=== PATIENT | female | born 1950 | race Caucasian/White ===

== ENCOUNTER → 2016-12-14 | Outpatient (CLI) | payer MEDICARE ==
--- NOTE | 2016-12-15 08:00 | MM ---
Reason for exam: screening (asymptomatic). Last mammogram was performed 1 year and 5 months ago. History: Patient is postmenopausal. Family history of breast cancer in maternal aunt at age 60, breast cancer in maternal cousin at age 18, breast cancer in aunt, and breast cancer in sister at age 54. Benign left mammotome panel of the left breast, October 06, 2005. Benign stereotactic core biopsy of the left breast, August 21, 2001. Core biopsy of the left breast. Physical Findings: A clinical breast exam by your physician is recommended on an annual basis and results should be correlated with mammographic findings. MG 3D Screening Mammo W/Cad Bilateral CC and MLO view(s) were taken. Prior study comparison: July 14, 2015, bilateral MG diagnostic mammo w CAD ITZEL. August 17, 2012, bilateral digital screening mammo w/CAD. The breast tissue is heterogeneously dense. This may lower the sensitivity of mammography. Previous mammotome biopsy in the left breast x 2. No significant changes when compared with prior studies. ASSESSMENT: Benign, BI-RAD 2 RECOMMENDATION: Routine screening mammogram of both breasts in 1 year.
== END | disposition home or self-care (01) ==
LOC: RADMAMWWP 10:19
PROVIDERS: ATTEND Family Medicine
DX: Z12.31 Encounter for screening mammogram for malignant neoplasm of breast (principal)
CPT/HCPCS: 77063; G0202

== ENCOUNTER → 2017-02-14 | Outpatient (CLI) | payer MEDICARE ==
--- NOTE | 2017-02-14 12:45 | CT ---
EXAMINATION TYPE: CT abdomen pelvis wo con DATE OF EXAM: 02/14/2017 12:37 PM COMPARISON: 04/12/2016 HISTORY: Bilateral flank pain with Left sided groin pain CT DLP: 301.4 mGycm FINDINGS: LUNG BASES: No evidence for nodule. No evidence for infiltrate. LIVER/GB: The gallbladder is unremarkable. No space-occupying hepatic lesion. PANCREAS: No pancreatic mass identified. No inflammatory process seen. SPLEEN: No evidence for splenomegaly. No intrasplenic lesions seen. ADRENALS: No adrenal nodules identified. No evidence for thickening. KIDNEYS: No evidence for renal mass. No nephrolithiasis. No hydronephrosis. BOWEL: Appendix has a normal appearance. No evidence of bowel obstruction. No inflammatory process. S igmoid diverticulosis without diverticulitis. Lymph nodes: No evidence for adenopathy greater than 1 cm. Abdominal aorta: Atheromatous changes seen. No evidence for aneurysm. Genital organs: No significant abnormality. Other: No significant abnormality. IMPRESSION: 1. NO EVIDENCE FOR RENAL CALCULI OR HYDRONEPHROSIS. 2. SIGMOID DIVERTICULOSIS WITHOUT DIVERTICULITIS.
== END | disposition home or self-care (01) ==
LOC: RADCTMAIN 12:17
PROVIDERS: ATTEND Family Medicine
DX: K57.30 Diverticulosis of large intestine without perforation or abscess without bleeding (principal)
CPT/HCPCS: 74176

== ENCOUNTER 2017-03-07 08:11 | Day surgery (SDC) | payer MEDICARE ==
[~2017-03-07 08:11] MED LIST: LACTATED RINGERS 1,000 ML IV SCH
[2017-03-07 09:09] VITALS: RESP 16; TEMP 97.3
[2017-03-07] MEDS ORDERED: PROPOFOL 10 MG/ML 20 ML VIAL IV ONE (09:49)
[2017-03-07] MEDS ORDERED: LIDOCAINE 1% INJ 10MG/ML (20 ML MDV) ONE (09:49)
--- NOTE | 2017-03-07 10:38 | P.PCN ---
Date of Procedure: 03/07/17 Procedure(s) Performed: Procedure: 1. Esophagogastroduodenoscopy and biopsy. 2. Colonoscopy and biopsy. Preoperative diagnosis: Chronic acid reflux with epigastric and atypical chest pains. 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 Postoperative diagnosis: 1. Small sliding hiatal hernia with no obvious esophagitis or complicated reflux disease. 2. 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 3. Diverticulosis with no evidence of acute diverticulitis or strictures. 4. Few small pseudopolyps on right side but no evidence of active colitis. 5. Unable to intubate the ileocecal valve and examine the terminal ileum.. Preparation: HalfLytely prep. Sedation: Was provided by anesthesia. Brief clinical history: The patient is a 66-year-old female who was diagnosed with colitis in 2009 and who also has chronic gastroesophageal reflux disease with her last evaluation in 2014. The patient was in the emergency room last month for epigastric pain and atypical chest pains while on therapy. She has also been having issues with diarrhea and is currently on Humira. I scheduled these evaluations today to assess the degree of her esophagitis and guide therapy and rule out other pathology, and also to reassess her colitis and attempt to examine the terminal ileum as well. Procedure: With the patient on her left lateral decubitus position and after informed consent and adequate sedation, I passed the Olympus-GIF 160 video upper endoscope through the cricopharyngeus down the esophagus. GE junction was around 35 cm from the incisors and there was a small sliding hiatal hernia. The esophagus did not show any obvious esophagitis or any strictures or Viramontes's esophagus. The endoscope was then passed into the gastric remnant. The patient had prior partial gastric resection. The gastric remnant showed mottling and erythema but there were few linear erosions. No marginal ulcers or obstruction to the outlet. The small intestine was examined for a good distance and it appeared within normal limits. I obtained biopsies from the small intestine, gastric remnant and esophagus then the endoscope was withdrawn and I then proceeded with the colonoscopy. Perianal area did not show any fissures or fistulas. There were no masses felt on digital rectal examination. The Olympus CFQ 160L video colonoscope was then inserted in the rectum in the usual fashion and advanced to the cecum. I tried unsuccessfully to intubate the ileocecal valve.There were several diverticular orifices seen scattered in the sigmoid and left side with few around the hepatic flexure but no evidence of acute diverticulitis or strictures. On the right side there were small regenerative pseudopolyps as previously described but no evidence of active colitis endoscopically. I obtained random colon. I retroflexed the endoscope in the rectum then the endoscope was withdrawn. The patient tolerated the procedure well. Plan: We will await pathology results. I will see her in follow-up and make additional recommendations. She will follow-up with you as planned and I will keep you updated on her progress.
[2017-03-07 10:49] VITALS: BP 140/73; PULSE 76
== END 2017-03-07 11:06 | disposition home or self-care (01) ==
LOC: ORWHC2ENDO 08:11
DX: K52.89 Other specified noninfective gastroenteritis and colitis (principal); K29.50 Unspecified chronic gastritis without bleeding; K21.0 Gastro-esophageal reflux disease with esophagitis; K44.9 Diaphragmatic hernia without obstruction or gangrene; K52.9 Noninfective gastroenteritis and colitis, unspecified; K57.30 Diverticulosis of large intestine without perforation or abscess without bleeding; Z90.3 Acquired absence of stomach [part of]; I10 Essential (primary) hypertension; E78.5 Hyperlipidemia, unspecified; Z79.899 Other long term (current) drug therapy; Z88.2 Allergy status to sulfonamides; Z88.8 Allergy status to other drugs, medicaments and biological substances; Z88.1 Allergy status to other antibiotic agents; Z91.040 Latex allergy status
CPT/HCPCS: 88305; 88342; 45380; 43239; J2001; J2704

== ENCOUNTER → 2017-04-07 | Outpatient (CLI) | payer MEDICARE ==
--- NOTE | 2017-04-07 11:59 | CT ---
EXAMINATION TYPE: CT sinus wo con DATE OF EXAM: 04/07/2017 COMPARISON: CT facial bones July 30, 2013 HISTORY: Chronic sinusitis per order. Headaches with vision changes, dizziness, and pain in ears on a nd off for [address] DLP: 584 mGycm. Automated Exposure Control for Dose Reduction was Utilized. TECHNIQUE: CT scan of the sinuses is performed without contrast, axial images are obtained, coronal r eformatted images are also reviewed. FINDINGS: There is severe mucosal thickening involving left sphenoid sinus redemonstrated. There is p oorly pneumatized ethmoid sinuses bilaterally redemonstrated with mild to moderate mucosal thickening again seen. There are small caliber frontal sinuses with opacified left frontal or anterior ethmoid sinus near axial image 36 noted. The ostiomeatal complex is patent bilaterally, slightly more narrowe d on the left on coronal image 23. Prior sinus surgery is once again suspected. Visualized portion of mastoid air cells show no abnormal opacification. Scleral calcification both gl obes are noted there is degenerative change with joint space loss and flattening of mandibular condyl es bilaterally at temporal mandibular joints redemonstrated. Visualized portion of brain parenchyma i s unremarkable. IMPRESSION: Ostiomeatal complex is patent bilaterally on current study. There are chronic paranasal s inus changes redemonstrated. New opacity anterior left ethmoid sinus is noted. Bilateral TMJ arthropa thy is present.
== END | disposition home or self-care (01) ==
LOC: RADCTMAIN 10:53
PROVIDERS: ATTEND Otolaryngology
DX: J32.2 Chronic ethmoidal sinusitis (principal); M26.69 Other specified disorders of temporomandibular joint
CPT/HCPCS: 70486

== ENCOUNTER 2017-08-11 07:55 | Inpatient (IN) | payer MEDICARE ==
[2017-08-11] MEDS ORDERED: HYDROmorphone 1 MG/ML 1 ML SYRINGE IVP STA ×2 (08:28→10:42)
[2017-08-11] MEDS ORDERED: ONDANSETRON 4 MG/2 ML VIAL IVP STA (08:28)
[2017-08-11] MEDS ORDERED: SODIUM CHLORIDE 0.9% 500 ML IV STA (08:28)
[2017-08-11] MEDS ORDERED: SODIUM CHLORIDE 0.9% 1,000 ML IV STA (08:28)
--- NOTE | 2017-08-11 08:32 | ED ---
General Adult HPI - General Source: patient, RN notes reviewed Mode of arrival: wheelchair Limitations: no limitations <Adan Cervantes - Last Filed: 08/11/17 10:47> <Kei Ely - Last Filed: 08/11/17 15:34> - General Chief complaint: Abdominal Pain Stated complaint: abdominal pain, lower radiating up to right side Time Seen by Provider: 08/11/17 08:15 - History of Present Illness Initial comments: 66-year-old female significant past medical history for colitis, who presents emergency room with chief complaint of lower abdominal pain and some diarrhea that started last night. She denies any signs of blood. She does admit the pain seemed to localize more to the right side of the abdomen and radiate up and she felt to the back for clavicle. She states she called her daughter who is a nurse she was concerned there could be heart related. Patient admits that she still having discomfort in the abdomen currently rating it a 9/10. Patient denies any other complaints or symptoms currently. He does admit that she's had cough congestion over the last week currently on a antibiotic and steroid. She admits this is improving. Patient denies any recent fever, chills, shortness of breath, chest pain, numbness or tingling, dysuria or hematuria, constipation or diarrhea, headaches or visual changes, or any other complaints. (Adan Cervantes) - Related Data Home Medications Medication Instructions Recorded Confirmed Acetaminophen-Codeine 300-30mg 1 tab PO Q8H PRN 08/02/14 08/11/17 [Tylenol w/codeine #3] Aspirin/Caffeine [Anacin 400-32 mg 1 tab PO Q6HR PRN 08/02/14 08/11/17 Tablet] Fexofenadine HCl [Barby Allergy] 180 mg PO DAILY 08/02/14 08/11/17 Fluticasone Propionate [Flonase] 1 spray EA NOSTRIL BID 08/02/14 08/11/17 Losartan [Cozaar] 50 mg PO BID 08/02/14 08/11/17 Sucralfate [Carafate] 1 gm PO AC-TID 08/02/14 08/11/17 amLODIPine [Norvasc] 10 mg PO HS 08/02/14 08/11/17 cloNIDine HCL [Catapres] 0.05 mg PO HS 08/02/14 08/11/17 Adalimumab [Humira] 40 mg SQ Q8D 05/08/16 08/11/17 Ketotifen Fumarate [Zaditor] 1 drop BOTH EYES BID 03/03/17 08/11/17 Lansoprazole [Prevacid] 30 mg PO QAM 03/03/17 08/11/17 Aspirin 650 mg PO ONCE 08/11/17 08/11/17 Clarithromycin [Biaxin] 500 mg PO Q12HR 08/11/17 08/11/17 Dexamethasone 0 mg PO DIRECTED 08/11/17 08/11/17 Latanoprost Ophth [Xalatan 0.005%] 1 drops BOTH EYES HS 08/11/17 08/11/17 Allergies Allergy/AdvReac Type Severity Reaction Status Date / Time atorvastatin [From Lipitor] Allergy Swelling Verified 08/11/17 08:21 cefuroxime axetil Allergy SEVERE Verified 08/11/17 08:21 [From Ceftin] HEADACHE doxazosin mesylate Allergy Rash/Hives Verified 08/11/17 08:21 [From Cardura] doxycycline Allergy Nausea & Verified 08/11/17 08:21 Vomiting,HEADACHE duloxetine [From Cymbalta] Allergy Abdominal Verified 08/11/17 08:04 Pain, ROQUE gatifloxacin [From Tequin] Allergy Abdominal Verified 08/11/17 08:21 Pain,VOMITING hydralazine [Hydralazine] Allergy Rapid Verified 08/11/17 08:21 Heart Rate hydrochlorothiazide Allergy Nausea & Verified 08/11/17 08:21 Vomiting indapamide [From Lozol] Allergy Abdominal Verified 08/11/17 08:21 Pain latex Allergy Rash/Hives Verified 08/11/17 08:21 lisinopril Allergy VERTIGO,HEA Verified 08/11/17 08:21 DACHE nabumetone [From Relafen] Allergy Abdominal Verified 08/11/17 08:21 Pain sulfasalazine Allergy Abdominal Verified 08/11/17 08:21 [From Azulfidine] Pain,VOMITING triamcinolone acetonide Allergy SEVERE Verified 08/11/17 08:21 [From Kenalog] HEADACHE trimethoprim [From Bactrim] Allergy Nausea & Verified 08/11/17 08:21 Vomiting & Diarrhea Review of Systems ROS Other: All systems not noted in ROS Statement are negative. <CervantesAdan - Last Filed: 08/11/17 10:47> ROS Other: All systems not noted in ROS Statement are negative. <Kei Ely - Last Filed: 08/11/17 15:34> ROS Statement: Those systems with pertinent positive or pertinent negative responses have been documented in the HPI. Past Medical History Past Medical History: GERD/Reflux, GI Bleed, Hyperlipidemia, Hypertension, Osteoarthritis (OA) Additional Past Medical History / Comment(s): ulcerative COLITIS,BLEEDING POST COLONOSCOPY, CROHNS, diverticular disease, IBS, 2010 ulcers with GI bleed, hemorrhoids, HYPOGLYCEMIA, chronic BACK pain, recent sinus infection/bronchitis tx with ABX, rare migraine, spider veins bilaterally, OA generalized worse however, in hands and feet, hemorrhoids, nephrolithiasis. History of Any Multi-Drug Resistant Organisms: None Reported Past Surgical History: Bladder Surgery, Hysterectomy, Orthopedic Surgery, Tonsillectomy Additional Past Surgical History / Comment(s): Several EGDs with bx and colonoscopies with bx, gastrectomy for ulcers (40% stomach removed), bladder surgery x2, R/L shoulder arthroscopies, bilateral CATARACT SURGERY; Sinus Surgery x 2, Left Breast biopsy x 2, 2nd toe R foot with hardware, cystoscopies x 2. Past Anesthesia/Blood Transfusion Reactions: No Reported Reaction Additional Past Anesthesia/Blood Transfusion Reaction / Comment(s): Pt states she did receive blood in 2009 with GI bleed-no reaction. Past Psychological History: No Psychological Hx Reported Smoking Status: Former smoker Past Alcohol Use History: Rare Past Drug Use History: None Reported - Past Family History Father Family Medical History: Cancer Mother Family Medical History: Cancer Sister(s) Family Medical History: Cancer <CervantesAdan - Last Filed: 08/11/17 10:47> General Exam Limitations: no limitations <Adan Cervantes - Last Filed: 08/11/17 10:47> <Kei Ely - Last Filed: 08/11/17 15:34> - General Exam Comments Initial Comments: General: The patient is awake and alert, in no distress, and does not appear acutely ill. Eye: Pupils are equal, round and reactive to light, extra-ocular movements are intact. No nystagmus. There is normal conjunctiva bilaterally. No signs of icterus. Ears, nose, mouth and throat: There are moist mucous membranes and no oral lesions. Neck: The neck is supple, there is no tenderness or JVD. Cardiovascular: There is a regular rate and rhythm. No murmur, rub or gallop is appreciated. Respiratory: Lungs are clear to auscultation, respirations are non-labored, breath sounds are equal. No wheezes, stridor, rales, or rhonchi. Gastrointestinal: Normal appearance the abdomen. Normal bowel sounds. Abdomen soft on palpation. She has diffuse tenderness throughout the upper and lower quadrants bilaterally. No rebound tenderness. No Guarding. Musculoskeletal: Normal ROM, no tenderness. Strength 5/5. Sensation intact. Pulses equal bilaterally 2+. Neurological: A&O x 3. CN II-XII intact, There are no obvious motor or sensory deficits. Coordination appears grossly intact. Speech is normal. Skin: Skin is warm and dry and no rashes or lesions are noted. Psychiatric: Cooperative, appropriate mood & affect, normal judgment. (Adan Cervantes) EKG Findings - EKG Comments: EKG Findings:: EKG at 0858: A 12-lead EKG was performed and interpreted by me as showing the following: Rate is 66, and rhythm is normal sinus. There are normal QRS complexes and normal R-wave progression. ST segments have no elevation or depression, and OR segments appear normal. <Adan Cervantes - Last Filed: 08/11/17 10:47> Medical Decision Making - Lab Data Result diagrams: 08/11/17 08:49 08/11/17 08:49 <Adan Cervantes - Last Filed: 08/11/17 10:47> - Lab Data Result diagrams: 08/11/17 08:49 08/11/17 08:49 <Kei Ely - Last Filed: 08/11/17 15:34> - Medical Decision Making Patient does have 16,000 white count. She has been on steroids respiratory infection. Patient's CT of the abdomen and pelvis reviewed and does show evidence for diverticulitis with possible microperforation with small amount of free air seen on CT. Patient has been started on Zosyn here in emergency room. Patient's ALLERGIES. Patient currently resting comfortably. Patient will be admitted (Adan Cervantes) 66-year-old female with generalized abdominal pain. White count elevated 16, 000. Patient does have diffuse tenderness palpation, no peritoneal signs. CT is obtained, shows small amount of intraperitoneal free air. This is discussed with general surgery. Patient will be started on antibiotics and admitted for close observation. (Kei Ely) - Lab Data Lab Results 08/11/17 08/11/17 08/11/17 Range/Units 08:49 08:49 08:49 WBC 16.5 H (3.8-10.6) k/uL RBC 5.24 (3.80-5.40) m/uL Hgb 12.7 (11.4-16.0) gm/dL Hct 41.5 (34.0-46.0) % MCV 79.2 L (80.0-100.0) fL MCH 24.2 L (25.0-35.0) pg MCHC 30.6 L (31.0-37.0) g/dL RDW 17.3 H (11.5-15.5) % Plt Count 406 (150-450) k/uL Neutrophils % 89 % Lymphocytes % 7 % Monocytes % 3 % Eosinophils % 0 % Basophils % 0 % Neutrophils # 14.6 H (1.3-7.7) k/uL Lymphocytes # 1.1 (1.0-4.8) k/uL Monocytes # 0.6 (0-1.0) k/uL Eosinophils # 0.1 (0-0.7) k/uL Basophils # 0.0 (0-0.2) k/uL Hypochromasia Slight Anisocytosis Slight Microcytosis Slight PT 10.8 (9.0-12.0) sec INR 1.1 (<1.2) APTT 22.4 (22.0-30.0) sec Sodium 145 (137-145) mmol/L Potassium 3.6 (3.5-5.1) mmol/L Chloride 110 H (98-107) mmol/L Carbon Dioxide 18 L (22-30) mmol/L Anion Gap 17 mmol/L BUN 17 (7-17) mg/dL Creatinine 0.63 (0.52-1.04) mg/dL Est GFR (MDRD) Af Amer >60 (>60 ml/min/1.73 sqM) Est GFR (MDRD) Non-Af >60 (>60 ml/min/1.73 sqM) Glucose 120 H (74-99) mg/dL Plasma Lactic Acid Amanuel (0.7-2.0) mmol/L Calcium 9.5 (8.4-10.2) mg/dL Total Bilirubin 0.3 (0.2-1.3) mg/dL AST 32 (14-36) U/L ALT 38 (9-52) U/L Alkaline Phosphatase 77 (38-126) U/L Total Creatine Kinase (30-135) U/L CK-MB (CK-2) (0.0-2.4) ng/mL CK-MB (CK-2) Rel Index Troponin I (0.000-0.034) ng/mL Total Protein 7.7 (6.3-8.2) g/dL Albumin 4.4 (3.5-5.0) g/dL Urine Color Urine Appearance (Clear) Urine pH (5.0-8.0) Ur Specific [place] (1.001-1.035) Urine Protein (Negative) Urine Glucose (UA) (Negative) Urine Ketones (Negative) Urine Blood (Negative) Urine Nitrite (Negative) Urine Bilirubin (Negative) Urine Urobilinogen (<2.0) mg/dL Ur Leukocyte Esterase (Negative) Urine RBC (0-5) /hpf Urine WBC (0-5) /hpf Ur Squamous Epith Cells (0-4) /hpf Urine Mucus (None) /hpf 08/11/17 08/11/17 08/11/17 Range/Units 08:49 08:49 08:49 WBC (3.8-10.6) k/uL RBC (3.80-5.40) m/uL Hgb (11.4-16.0) gm/dL Hct (34.0-46.0) % MCV (80.0-100.0) fL MCH (25.0-35.0) pg MCHC (31.0-37.0) g/dL RDW (11.5-15.5) % Plt Count (150-450) k/uL Neutrophils % % Lymphocytes % % Monocytes % % Eosinophils % % Basophils % % Neutrophils # (1.3-7.7) k/uL Lymphocytes # (1.0-4.8) k/uL Monocytes # (0-1.0) k/uL Eosinophils # (0-0.7) k/uL Basophils # (0-0.2) k/uL Hypochromasia Anisocytosis Microcytosis PT (9.0-12.0) sec INR (<1.2) APTT (22.0-30.0) sec Sodium (137-145) mmol/L Potassium (3.5-5.1) mmol/L Chloride (98-107) mmol/L Carbon Dioxide (22-30) mmol/L Anion Gap mmol/L BUN (7-17) mg/dL Creatinine (0.52-1.04) mg/dL Est GFR (MDRD) Af Amer (>60 ml/min/1.73 sqM) Est GFR (MDRD) Non-Af (>60 ml/min/1.73 sqM) Glucose (74-99) mg/dL Plasma Lactic Acid Amanuel 1.7 (0.7-2.0) mmol/L Calcium (8.4-10.2) mg/dL Total Bilirubin (0.2-1.3) mg/dL AST (14-36) U/L ALT (9-52) U/L Alkaline Phosphatase (38-126) U/L Total Creatine Kinase 660 H (30-135) U/L CK-MB (CK-2) 6.5 H* (0.0-2.4) ng/mL CK-MB (CK-2) Rel Index 1.0 Troponin I <0.012 (0.000-0.034) ng/mL Total Protein (6.3-8.2) g/dL Albumin (3.5-5.0) g/dL Urine Color Yellow Urine Appearance Clear (Clear) Urine pH 5.5 (5.0-8.0) Ur Specific [place] 1.018 (1.001-1.035) Urine Protein Negative (Negative) Urine Glucose (UA) Negative (Negative) Urine Ketones Negative (Negative) Urine Blood Trace H (Negative) Urine Nitrite Negative (Negative) Urine Bilirubin Negative (Negative) Urine Urobilinogen <2.0 (<2.0) mg/dL Ur Leukocyte Esterase Negative (Negative) Urine RBC 1 (0-5) /hpf Urine WBC 1 (0-5) /hpf Ur Squamous Epith Cells <1 (0-4) /hpf Urine Mucus Rare H (None) /hpf Disposition Time of Disposition: 10:41 <Adan Cervantes - Last Filed: 08/11/17 10:47> <Kei Ely - Last Filed: 08/11/17 15:34> Clinical Impression: Diverticulitis of colon with perforation Disposition: ADMITTED IP TO THIS HOSP Condition: Stable
[2017-08-11 09:05] LABS: Anisocytosis Slight; Basophils % (A) 0 %; CH 25.3; CHCM 32.1; Eosinophils # (A) 0.1 k/uL (0-0.7); Eosinophils % (A) 0 %; HCT 41.5 % (34.0-46.0); HDW 2.86; HGB 12.7 gm/dL (11.4-16.0); Hypochromasia Slight; Luc # (Auto) 0.05; Luc % (Auto) 0; Lymphocytes # (A) 1.1 k/uL (1.0-4.8); Lymphocytes % (A) 7 %; MCH 24.2 pg (25.0-35.0); MCHC 30.6 g/dL (31.0-37.0); MCV 79.2 fL (80.0-100.0); Mean Platelet Volume 7.3; Microcytosis Slight; Monocytes # (A) 0.6 k/uL (0-1.0); Monocytes % (A) 3 %; Neutrophils # (A) 14.6 k/uL (1.3-7.7); Neutrophils % (A) 89 %; RBC 5.24 m/uL (3.80-5.40); RDW 17.3 % (11.5-15.5); WBC 16.5 k/uL (3.8-10.6); WBC (Perox) 16.35
[2017-08-11 09:16] LABS: ALT 38 U/L (9-52); AST 32 U/L (14-36); Alkaline Phosphatase 77 U/L (38-126); Anion Gap 17 mmol/L; Blood Urea Nitrogen 17 mg/dL (7-17); Calcium 9.5 mg/dL (8.4-10.2); Carbon Dioxide 18 mmol/L (22-30); Chloride 110 mmol/L (98-107); Glucose 120 mg/dL (74-99); Non-African American GFR(MDRD) >60 (>60 ml/min/1.73 sqM); Potassium 3.6 mmol/L (3.5-5.1); Sodium 145 mmol/L (137-145); Total Bilirubin 0.3 mg/dL (0.2-1.3); Total Protein 7.7 g/dL (6.3-8.2)
[2017-08-11 09:18] LABS: INR 1.1 (<1.2); Partial Thromboplastin Time 22.4 sec (22.0-30.0); Prothrombin Time 10.8 sec (9.0-12.0)
[2017-08-11 09:22] LABS: Appearance,Urine Clear (Clear); Bilirubin,Urine Negative (Negative); Glucose,Urine (UA) Negative (Negative); Ketones,Urine Negative (Negative); Leukocyte Esterase,Urine Negative (Negative); Mucus,Urine Rare /hpf; Nitrite,Urine Negative (Negative); PH, Urine 5.5 (5.0-8.0); Particle Count 1304; Protein,Urine Negative (Negative); RBC,Urine 1 /hpf (0-5); Specific Gravity,Urine 1.018 (1.001-1.035); Squamous Epithelial Cell,Urine <1 /hpf (0-4); UA Billing (MACRO vs. MICRO) MICRO; Urobilinogen,Urine <2.0 mg/dL (<2.0); WBC,Urine 1 /hpf (0-5)
[2017-08-11] MEDS ORDERED: RX INFO: IV CONTRAST WAS GIVEN 1 EACH MISC MISCELLANE PRN (09:29)
[2017-08-11 09:32] LABS: Creatine Kinase 660 U/L (30-135)
[2017-08-11 09:45] LABS: Troponin I <0.012 ng/mL (0.000-0.034)
[2017-08-11 09:51] LABS: Creatine Kinase MB 6.5 ng/mL (0.0-2.4)
--- NOTE | 2017-08-11 10:24 | CT ---
EXAMINATION TYPE: CT abdomen pelvis w con DATE OF EXAM: 08/11/2017 COMPARISON: Prior CT 02/14/2017 HISTORY: ab pain since last pm. hx crohns CT DLP: 524.30 mGycm Automated exposure control for dose reduction was used. TECHNIQUE: Helical acquisition of images from the lung bases through the pelvis have been completed. CONTRAST: Performed without Oral Contrast and with IV Contrast, patient injected with 100 mL of Omnipaque 300. FINDINGS: Postoperative changes are present at the gastroesophageal junction and along the lesser cur vature of the stomach LUNG BASES: No significant abnormality is appreciated. AORTA: No significant abnormality is appreciated. LIVER/GB: Probable hepatic steatosis with focal fatty sparing present within the right lobe, gallblad ej is normal. PANCREAS: No significant abnormality is seen. SPLEEN: No significant abnormality is seen. ADRENALS: No significant abnormality is seen. KIDNEYS: No significant abnormality is seen. REPRODUCTIVE ORGANS: Uterus is not seen, ovaries not identified BOWEL: Wall thickening is present along the sigmoid colon, there is extensive diverticular change. S uspect some small amount of free air present adjacent to this abnormal sigmoid colon. There is associ ated inflammatory change. FREE AIR: Small amount of free air is present. ASCITES: None visible. PELVIC ADENOPATHY: None visualized. RETROPERITONEAL ADENOPATHY: No Retroperitoneal Adenopathy visible. URINARY BLADDER: No significant abnormality is seen. OSSEOUS STRUCTURES: No significant abnormality is seen. IMPRESSION: PNEUMOPERITONEUM MAY BE ON THE BASIS OF DIVERTICULITIS. CASE DISCUSSED WITH WEN HOWARD AT THE TIME OF INTERPRETATION OF THE EXAM.
[2017-08-11] MEDS ORDERED: PIPERACILLIN-TAZOBACTAM 3.375 GM in DEXTROSE/WATER 1 50ML.BAG IVPB STA (10:31)
[2017-08-11] MEDS ORDERED: ONDANSETRON 4 MG/2 ML VIAL IVP PRN (10:44)
[2017-08-11] MEDS ORDERED: NALOXONE 0.4 MG/ML 1 ML VIAL IV PRN (10:44)
[2017-08-11] MEDS ORDERED: HYDROmorphone 0.5 MG/0.5 ML SYRINGE IVP STA (10:46)
[2017-08-11] MEDS: HYDROmorphone 0.5 MG/0.5 ML SYRINGE IVP PRN ×4 (13:37→21:06)
--- NOTE | 2017-08-11 14:08 | P.GSHP ---
History of Present Illness H&P Date: 08/11/17 Chief Complaint: Lower quadrant abdominal pain 66-year-old female admitted on the day of admission to the emergency room with a chief complaint of developing right lower abdominal pain radiating across the lower abdomen with nausea frequent stooling onset night before. Patient stated was no blood in the stool. Patient stated the pain seemed to be more localized to the right side of the abdomen radiate up into the back. Patient stated that the pain was unbearable. Had not experienced any prior episodes similar to this type of pain. Patient denied any recent fever chills shortness of breath chest pain numbness or tingling sensation. no change in bowel habits. Patient does state that she was coming down with what she thought was an upper respiratory cold type symptoms her PCP did start her on an antibiotic and steroid. She states those symptoms improved but then developed the abdominal pain. CAT scan abdomen and pelvis obtained in the emergency room showed pneumoperitoneum with sigmoid diverticulitis Additionally patient is teary-eyed voicing concern about her spouse who she takes care of at home who has a brain tumor and needs 24 7 [id number] nursing care Patient does have a history of being diagnosed in 2009 colitis with chronic gastroesophageal reflux disease. Patient states that she was recently started in February on Humira for the colitis. Her last EGD and colonoscopy was 03/07/2017. The EGD showed small hiatal hernia with no obvious esophagitis or couple care reflux disease. Does show status post partial gastrectomy with gastritis of the gastric remnant no obstruction. The colonoscopy showed diverticulosis no evidence of diverticulitis no evidence of a stricture. It showed no evidence of any active colitis Patient past surgical partial gastrectomy done in 1995 for gastric ulcer past medical history Crohn's colitis disease - Review of Systems Comment: Essentially unremarkable except as mentioned in the present illness Past Medical History Past Medical History: GERD/Reflux, GI Bleed, Hyperlipidemia, Hypertension, Osteoarthritis (OA) Additional Past Medical History / Comment(s): ulcerative COLITIS,BLEEDING POST COLONOSCOPY, CROHNS, diverticular disease, IBS, 2010 ulcers with GI bleed, hemorrhoids, HYPOGLYCEMIA, chronic BACK pain, recent sinus infection/bronchitis tx with ABX, rare migraine, spider veins bilaterally, OA generalized worse however, in hands and feet, hemorrhoids, nephrolithiasis. History of Any Multi-Drug Resistant Organisms: None Reported Past Surgical History: Bladder Surgery, Hysterectomy, Orthopedic Surgery, Tonsillectomy Additional Past Surgical History / Comment(s): Several EGDs with bx and colonoscopies with bx, gastrectomy for ulcers (40% stomach removed), bladder surgery x2, R/L shoulder arthroscopies, bilateral CATARACT SURGERY; Sinus Surgery x 2, Left Breast biopsy x 2, 2nd toe R foot with hardware, cystoscopies x 2. Past Anesthesia/Blood Transfusion Reactions: No Reported Reaction Additional Past Anesthesia/Blood Transfusion Reaction / Comment(s): Pt states she did receive blood in 2009 with GI bleed-no reaction. Past Psychological History: No Psychological Hx Reported Smoking Status: Former smoker Past Alcohol Use History: Rare Past Drug Use History: None Reported - Past Family History Father Family Medical History: Cancer Mother Family Medical History: Cancer Sister(s) Family Medical History: Cancer Medications and Allergies Home Medications Medication Instructions Recorded Confirmed Type Acetaminophen-Codeine 300-30mg 1 tab PO Q8H PRN 08/02/14 08/11/17 History [Tylenol w/codeine #3] Aspirin/Caffeine [Anacin 400-32 mg 1 tab PO Q6HR PRN 08/02/14 08/11/17 History Tablet] Fexofenadine HCl [Barby Allergy] 180 mg PO DAILY 08/02/14 08/11/17 History Fluticasone Propionate [Flonase] 1 spray EA NOSTRIL BID 08/02/14 08/11/17 History Losartan [Cozaar] 50 mg PO BID 08/02/14 08/11/17 History Sucralfate [Carafate] 1 gm PO AC-TID 08/02/14 08/11/17 History amLODIPine [Norvasc] 10 mg PO HS 08/02/14 08/11/17 History cloNIDine HCL [Catapres] 0.05 mg PO HS 08/02/14 08/11/17 History Adalimumab [Humira] 40 mg SQ Q8D 05/08/16 08/11/17 History Ketotifen Fumarate [Zaditor] 1 drop BOTH EYES BID 03/03/17 08/11/17 History Lansoprazole [Prevacid] 30 mg PO QAM 03/03/17 08/11/17 History Aspirin 650 mg PO ONCE 08/11/17 08/11/17 History Latanoprost Ophth [Xalatan 0.005%] 1 drops BOTH EYES HS 08/11/17 08/11/17 History Allergies Allergy/AdvReac Type Severity Reaction Status Date / Time atorvastatin [From Lipitor] Allergy Swelling Verified 08/11/17 08:21 cefuroxime axetil Allergy SEVERE Verified 08/11/17 08:21 [From Ceftin] HEADACHE doxazosin mesylate Allergy Rash/Hives Verified 08/11/17 08:21 [From Cardura] doxycycline Allergy Nausea & Verified 08/11/17 08:21 Vomiting,HEADACHE duloxetine [From Cymbalta] Allergy Abdominal Verified 08/11/17 08:04 Pain, ROQUE gatifloxacin [From Tequin] Allergy Abdominal Verified 08/11/17 08:21 Pain,VOMITING hydralazine [Hydralazine] Allergy Rapid Verified 08/11/17 08:21 Heart Rate hydrochlorothiazide Allergy Nausea & Verified 08/11/17 08:21 Vomiting indapamide [From Lozol] Allergy Abdominal Verified 08/11/17 08:21 Pain latex Allergy Rash/Hives Verified 08/11/17 08:21 lisinopril Allergy VERTIGO,HEA Verified 08/11/17 08:21 DACHE nabumetone [From Relafen] Allergy Abdominal Verified 08/11/17 08:21 Pain sulfasalazine Allergy Abdominal Verified 08/11/17 08:21 [From Azulfidine] Pain,VOMITING triamcinolone acetonide Allergy SEVERE Verified 08/11/17 08:21 [From Kenalog] HEADACHE trimethoprim [From Bactrim] Allergy Nausea & Verified 08/11/17 08:21 Vomiting & Diarrhea Surgical - Exam Vital Signs Temp Pulse Resp BP Pulse Ox 97 F L 82 20 152/65 99 08/11/17 08:00 08/11/17 08:00 08/11/17 08:00 08/11/17 08:00 08/11/17 08:00 GENERAL APPEARANCE: 66-year-old female patient is alert, oriented, reports right lower quadrant pain VITAL SIGNS: Reviewed HEENT: Head is normocephalic and atraumatic. Pupils are equal and reactive. The nares are patent. Oropharynx is clear without lesions. NECK: Supple without lymphadenopathy. Traches midline. HEART: S1, S2. Regular rate and rhythm. No murmur noted denying chest pain LUNGS: No crackles or wheezes are heard. Adequate air movement bilaterally on room air no shortness of breath sats greater than 95% ABDOMEN: Soft, diffuse tenderness to the right lower quadrant tender to the touch with facial grimacing nondistended with good bowel sounds. No peritoneal signs. No palpable organomegaly or masses. States no difficulty urinating no frequent stooling since admission EXTREMITIES: Normal skin color and turgor. No cyanosis, rash, ulceration, clubbing or edema. Radial pedal pulses are 2/4 bilaterally. NEUROLOGICAL: No focal deficits. Strength and sensation are grossly intact. Results - Labs 08/11/17 08:49 08/11/17 08:49 Abnormal Lab Results - Last 24 Hours (Table) 08/11/17 08/11/17 08/11/17 Range/Units 08:49 08:49 08:49 WBC 16.5 H (3.8-10.6) k/uL MCV 79.2 L (80.0-100.0) fL MCH 24.2 L (25.0-35.0) pg MCHC 30.6 L (31.0-37.0) g/dL RDW 17.3 H (11.5-15.5) % Neutrophils # 14.6 H (1.3-7.7) k/uL Chloride 110 H (98-107) mmol/L Carbon Dioxide 18 L (22-30) mmol/L Glucose 120 H (74-99) mg/dL Total Creatine Kinase 660 H (30-135) U/L CK-MB (CK-2) 6.5 H* (0.0-2.4) ng/mL Urine Blood (Negative) Urine Mucus (None) /hpf 08/11/17 Range/Units 08:49 WBC (3.8-10.6) k/uL MCV (80.0-100.0) fL MCH (25.0-35.0) pg MCHC (31.0-37.0) g/dL RDW (11.5-15.5) % Neutrophils # (1.3-7.7) k/uL Chloride (98-107) mmol/L Carbon Dioxide (22-30) mmol/L Glucose (74-99) mg/dL Total Creatine Kinase (30-135) U/L CK-MB (CK-2) (0.0-2.4) ng/mL Urine Blood Trace H (Negative) Urine Mucus Rare H (None) /hpf Diabetes panel 08/11/17 Range/Units 08:49 Sodium 145 (137-145) mmol/L Potassium 3.6 (3.5-5.1) mmol/L Chloride 110 H (98-107) mmol/L Carbon Dioxide 18 L (22-30) mmol/L BUN 17 (7-17) mg/dL Creatinine 0.63 (0.52-1.04) mg/dL Glucose 120 H (74-99) mg/dL Calcium 9.5 (8.4-10.2) mg/dL AST 32 (14-36) U/L ALT 38 (9-52) U/L Alkaline Phosphatase 77 (38-126) U/L Total Protein 7.7 (6.3-8.2) g/dL Albumin 4.4 (3.5-5.0) g/dL Calcium panel 08/11/17 Range/Units 08:49 Calcium 9.5 (8.4-10.2) mg/dL Albumin 4.4 (3.5-5.0) g/dL Pituitary panel 08/11/17 Range/Units 08:49 Sodium 145 (137-145) mmol/L Potassium 3.6 (3.5-5.1) mmol/L Chloride 110 H (98-107) mmol/L Carbon Dioxide 18 L (22-30) mmol/L BUN 17 (7-17) mg/dL Creatinine 0.63 (0.52-1.04) mg/dL Glucose 120 H (74-99) mg/dL Calcium 9.5 (8.4-10.2) mg/dL Adrenal panel 08/11/17 Range/Units 08:49 Sodium 145 (137-145) mmol/L Potassium 3.6 (3.5-5.1) mmol/L Chloride 110 H (98-107) mmol/L Carbon Dioxide 18 L (22-30) mmol/L BUN 17 (7-17) mg/dL Creatinine 0.63 (0.52-1.04) mg/dL Glucose 120 H (74-99) mg/dL Calcium 9.5 (8.4-10.2) mg/dL Total Bilirubin 0.3 (0.2-1.3) mg/dL AST 32 (14-36) U/L ALT 38 (9-52) U/L Alkaline Phosphatase 77 (38-126) U/L Total Protein 7.7 (6.3-8.2) g/dL Albumin 4.4 (3.5-5.0) g/dL Assessment and Plan Plan: Impression Present on admission right lower quadrant pain sudden onset suspect due to pneumoperitoneum with diverticulitis sigmoid colon Crohn's disease on Humira History of a partial gastrectomy 1995 for ulcerative disease Colonoscopy with an EGD 03/07/2017 with no obvious esophagitis , partial gastrectomy with gastritis of the gastric remnant no ulcer no obstruction, diverticulosis no no evidence of diverticulitis per colonoscopy in February 2017 Present on admission leukocytosis suspect due to steroids Present on admission elevated CPK with a negative troponin Plan IV fluid for hydration Pain control Repeat labs in the morning Keep nothing by mouth Resume home meds as appropriate Continue IV Zosyn DVT and GI prophylaxis Anti-emetics as ordered Further recommendations pending The above impression and plan of care have been discussed and directed by signing physician. Shannan Yanez nurse practitioner acting as scribe for signing physician.
[2017-08-11 14:20] VITALS: BMI 23.9
[2017-08-11] MEDS: PANTOPRAZOLE 40 MG/10 ML VIAL IVP SCH (16:51)
[2017-08-11] MEDS: PIPERACILLIN-TAZOBACTAM 3.375 GM in DEXTROSE/WATER 1 50ML.BAG IVPB SCH ×2 (17:31→23:27)
[2017-08-11] MEDS: SUCRALFATE 1 GM TAB PO SCH (17:31)
[2017-08-11] MEDS: SODIUM CHLORIDE 0.9% 1,000 ML IV SCH (18:13)
[2017-08-11] MEDS ORDERED: cloNIDine HCL 0.1 MG TAB PO PRN (18:34)
[2017-08-11] MEDS: HEPARIN SODIUM,PORCINE 5,000 UNIT/ML 1 ML VIAL SQ SCH (21:10)
[2017-08-11] MEDS: cloNIDine HCL 0.1 MG TAB PO SCH (21:11)
[2017-08-11] MEDS: FLUTICASONE 50MCG/SPRAY NASAL 16GM EA NOSTRIL SCH (21:11)
[2017-08-11] MEDS: amLODIPine 10 MG TAB PO SCH (21:12)
[2017-08-11] MEDS: KETOTIFEN 0.025% OPHTH DROPS 5 ML BTL BOTH EYES SCH (21:13)
[2017-08-11] MEDS: LATANOPROST 0.005% OPHTH DROPS 2.5 ML BTL BOTH EYES SCH (21:13)
[2017-08-11] MEDS: LOSARTAN 50 MG TAB PO SCH (21:46)
--- NOTE | 2017-08-11 22:29 | CONS ---
CONSULTATION DATE OF SERVICE: 08/11/2017. REASON FOR CONSULTATION: Advice regarding hypertension, multiple other medical issues requested by Surgery. HISTORY OF PRESENT ILLNESS: This 66-year-old woman with a past medical history of hypertension, hyperlipidemia, history of DJD, history of GERD being followed by Dr. Cecille Mckenna in the outpatient setting is complaining of abdominal pain since yesterday. The pain is mainly in the lower abdomen and the patient did not have any signs of any GI bleed noted. The pain was also mostly seen on the right side and the patient's white count was 16.5 and the patient also had abdomen/pelvis CAT scan which showed multiple findings of a small amount of free air with a pneumoperitoneum. Diverticulitis with a microperforation suspected and the patient was admitted for further evaluation and treatment. Wall thickening was present of the sigmoid colon. History of diverticulitis also noted. Inflammatory changes also noted. There is no history of any fever, rigors, chills. No history of headache, loss of consciousness, seizures. PAST MEDICAL HISTORY: History of GERD, hypertension, hyperlipidemia, DJD, history ulcerative colitis. MEDICATIONS PRIOR TIME PRIOR TO ADMISSION: Include home medications are: 1. Biaxin 500 mg p.o. b.i.d. 2. Dexamethasone p.r.n. 3. Humalog 40 mg subcu q.i.d. 4. Aspirin daily. 5. Catapres 0.05 q.h.s. 6. Norvasc 10 mg q.h.s. 7. Carafate 1 mg a.c. t.i.d. 8. Cozaar 50 mg b.i.d. 9. Xalatan 0.05 q.h.s. 10.Prevacid 30 mg a.m. 11.Xalatan 1 drop both eyes b.i.d. 12.Flonase 1 spray b.i.d. 13.Barby 180 mg b.i.d. 14.Anacin 1 every 6 hours p.r.n. 15.Tylenol No.3, 1 q.8 p.r.n. ALLERGIES: LIPITOR, CEFTIN, CARDURA, DOXYCYCLINE, CYMBALTA, TEQUIN, HYDRALAZINE, HYDROCHLOROTHIAZIDE, ALSO LATEX, LISINOPRIL, ALDOMET, SULFASALAZINE, KENALOG AND BACTRIM. FAMILY HISTORY: History of cancer, prostate cancer in the family. SOCIAL HISTORY: Previous history of smoking. No history of alcohol intake. REVIEW OF SYSTEMS: ENT: No diminished hearing, diminished vision. CARDIOVASCULAR: No angina. RESPIRATORY: No cough. GI: As mentioned earlier. : No dysuria. NERVOUS: No numbness or weakness. ALLERGY/IMMUNOLOGY: No asthma or hay fever. MUSCULOSKELETAL: As mentioned earlier. HEMATOLOGY/ONCOLOGY: No history of anemia. ENDOCRINE: No history of diabetes or hypothyroidism. CONSTITUTIONAL: As mentioned earlier. DERMATOLOGY: Negative. RHEUMATOLOGY: Negative. PSYCHIATRY: As mentioned earlier. PHYSICAL EXAMINATION: Alert oriented x3. Pulse 81, blood pressure 130/58, respirations 16, temperature 97.4, pulse ox 94% room air. HEENT: Conjunctivae normal. Oral mucosa moist. NECK: No jugular venous distention. No carotid bruits. No lymph node enlargement. CARDIOVASCULAR: S1, S2 muffled. No S3. No S4. RESPIRATORY: Breath sounds diminished in the bases. A few scattered rhonchi. No crackles. ABDOMEN: Soft. Mild diffuse tenderness and also diffuse distention also present, mostly on the right side. No guarding noted. Bowel sounds diminished and no ascites. No masses. LEGS: No edema. No swelling. NERVOUS SYSTEM: Higher functions as mentioned earlier. Moves all 4 limbs. No focal deficits. LYMPHATIC: No lymphadenopathy in neck or axillae. SKIN: No ulcer, rash or bleeding. LABS: WBC 16.5. Glucose 120. Creatine kinase 660. ASSESSMENT: 1. Acute diverticulitis with microperforation. 2. Increased WBC. 3. Hypertension. 4. Hyperlipidemia. 5. History of gastrointestinal bleed. 6. History of gastroesophageal reflux disease. 7. History of ulcerative colitis. 8. Remote history of nicotine dependence. RECOMMENDATIONS AND DISCUSSION: In this 66-year-old woman who presented with multiple complex medical issues, will monitor the patient closely. Continue with the current management. Will initiate broad-spectrum IV antibiotics, symptomatic treatment and IV fluids, n.p.o. and surgical evaluation. Surgery is closely monitoring the patient regarding the abnormal CT scan and other associated findings. The patient is currently stable. Overall prognosis is guarded. I would recommend repeat labs and also DVT prophylaxis and proton pump inhibitors. THE PATIENT IS ALLERGIC TO HYDRALAZINE. Clonidine may be used. Otherwise, pain management. We will hold the aspirin for now. Continue to monitor. Further recommendations to follow. Incentive spirometry. MMODL / IJN: [id number] / [place]
[2017-08-12] MEDS: HYDROmorphone 0.5 MG/0.5 ML SYRINGE IVP PRN (01:02)
[2017-08-12] MEDS: ONDANSETRON 4 MG/2 ML VIAL IVP PRN ×5 (03:35→22:01)
[2017-08-12] MEDS: SODIUM CHLORIDE 0.9% 1,000 ML IV SCH ×3 (03:37→18:16)
[2017-08-12] MEDS: SUCRALFATE 1 GM TAB PO SCH ×3 (05:59→18:17)
[2017-08-12] MEDS: MORPHINE SULFATE 2 MG/ML SYRINGE IVP PRN ×6 (06:57→22:01)
[2017-08-12 07:38] LABS: Basophils % (A) 0 %; CH 24.4; Eosinophils % (A) 0 %; HCT 37.4 % (34.0-46.0); HDW 2.64; HGB 11.2 gm/dL (11.4-16.0); Hypochromasia Marked; Luc # (Auto) 0.09; Luc % (Auto) 1; Lymphocytes # (A) 0.7 k/uL (1.0-4.8); Lymphocytes % (A) 7 %; MCH 24.4 pg (25.0-35.0); MCHC 29.9 g/dL (31.0-37.0); MCV 81.7 fL (80.0-100.0); Mean Platelet Volume 6.7; Monocytes # (A) 0.4 k/uL (0-1.0); Monocytes % (A) 4 %; Neutrophils # (A) 8.6 k/uL (1.3-7.7); Neutrophils % (A) 88 %; RBC 4.57 m/uL (3.80-5.40); WBC 9.8 k/uL (3.8-10.6)
[2017-08-12 07:55] LABS: ALT 38 U/L (9-52); AST 20 U/L (14-36); Alkaline Phosphatase 66 U/L (38-126); Anion Gap 14 mmol/L; Blood Urea Nitrogen 10 mg/dL (7-17); Calcium 8.7 mg/dL (8.4-10.2); Carbon Dioxide 19 mmol/L (22-30); Chloride 107 mmol/L (98-107); Creatine Kinase 187 U/L (30-135); Glucose 121 mg/dL (74-99); Non-African American GFR(MDRD) >60 (>60 ml/min/1.73 sqM); Potassium 3.5 mmol/L (3.5-5.1); Sodium 140 mmol/L (137-145); Total Bilirubin 0.4 mg/dL (0.2-1.3); Total Protein 6.5 g/dL (6.3-8.2)
[2017-08-12] MEDS: KETOTIFEN 0.025% OPHTH DROPS 5 ML BTL BOTH EYES SCH ×2 (08:13→20:48)
[2017-08-12] MEDS: PIPERACILLIN-TAZOBACTAM 3.375 GM in DEXTROSE/WATER 1 50ML.BAG IVPB SCH ×2 (08:13→15:58)
[2017-08-12] MEDS: PANTOPRAZOLE 40 MG/10 ML VIAL IVP SCH (08:13)
[2017-08-12] MEDS: LOSARTAN 50 MG TAB PO SCH ×2 (08:14→20:48)
[2017-08-12] MEDS: HEPARIN SODIUM,PORCINE 5,000 UNIT/ML 1 ML VIAL SQ SCH ×2 (08:14→20:47)
[2017-08-12] MEDS: FLUTICASONE 50MCG/SPRAY NASAL 16GM EA NOSTRIL SCH ×2 (08:14→20:47)
[2017-08-12] MEDS: METOCLOPRAMIDE 5 MG/ML 2 ML VIAL IVP PRN ×2 (09:56→15:58)
--- NOTE | 2017-08-12 11:26 | P.PN ---
Progress Note - Text Progress Note Date: 08/12/17 The patient states she feels better today. On exam her lesser stable. Her abdomen soft. There is less tenderness in the right lower quadrant. There is no rebound or guarding. Status post diverticulitis with microperforation. Patient will receive IV antibiotic. She'll remain nothing by mouth.
[2017-08-12] MEDS: ACETAMINOPHEN TAB 325 MG TAB PO PRN (15:04)
--- NOTE | 2017-08-12 17:18 | PN ---
PROGRESS NOTE DATE OF SERVICE: 08/12/2017 INTERVAL HISTORY: This 66-year-old woman who was admitted with acute diverticulitis with micro perforation is being closely monitored. White count is elevated and is improving. The patient still has some nausea. Surgery is following the patient closely with conservative line of management with n.p.o. and as well as IV antibiotics. No chest pain. No palpitations. No shortness of breath. No fever. EXAM: Alert and oriented x3. The pulse is 90, blood pressure is 144/79, respiration 16, temperature 98.4, pulse ox 94% on room air. HEENT: Conjunctivae normal. Neck: No jugular venous distention. Cardiovascular: S1, S2 muffled. Respiratory: Breath sounds diminished in the bases. A few scattered rhonchi. No crackles. ABDOMEN: Soft, obese, mild diffuse tenderness. No guarding. No rigidity. No mass palpable. Bowel sounds diminished. No ascites. Legs no edema. No swelling. central nervous system: No focal deficits. LABORATORY DATA: Labs WBC 9.8, hemoglobin 11.2, otherwise glucose 121, creatinine kinase 187. ASSESSMENT: 1. Acute diverticulitis with microperforation on conservative line of management. On IV antibiotics. 2. Increased WBC. 3. Hypertension. 4. Hyperlipidemia. 5. History of gastrointestinal bleed. 6. History of gastroesophageal reflux disease. 7. History of ulcerative colitis. 8. Remote history of nicotine dependence. RECOMMENDATIONS AND DISCUSSION: Recommend to continue current medications, management and symptomatic time. Otherwise, at this time, I recommend IV antibiotics and closely monitor. Monitor the labs and continue with IV antibiotics. Repeat the creatinine kinase in the morning and closely follow with surgery. Prognosis guarded currently because of multiple medical issues as mentioned earlier. The WBC is improving also. Further recommendations to follow. MMODL / IJN: [id number] /
[2017-08-12] MEDS: amLODIPine 10 MG TAB PO SCH (20:47)
[2017-08-12] MEDS: LATANOPROST 0.005% OPHTH DROPS 2.5 ML BTL BOTH EYES SCH (20:47)
[2017-08-12] MEDS: cloNIDine HCL 0.1 MG TAB PO SCH (20:48)
[2017-08-13] MEDS: PIPERACILLIN-TAZOBACTAM 3.375 GM in DEXTROSE/WATER 1 50ML.BAG IVPB SCH ×3 (00:57→15:40)
[2017-08-13] MEDS: SODIUM CHLORIDE 0.9% 1,000 ML IV SCH ×2 (00:58→13:51)
[2017-08-13] MEDS: ACETAMINOPHEN TAB 325 MG TAB PO PRN ×3 (01:00→13:47)
[2017-08-13] MEDS: MORPHINE SULFATE 2 MG/ML SYRINGE IVP PRN ×4 (03:03→18:20)
[2017-08-13] MEDS: SUCRALFATE 1 GM TAB PO SCH ×3 (07:52→18:20)
[2017-08-13] MEDS: KETOTIFEN 0.025% OPHTH DROPS 5 ML BTL BOTH EYES SCH ×2 (09:10→21:00)
[2017-08-13] MEDS: FLUTICASONE 50MCG/SPRAY NASAL 16GM EA NOSTRIL SCH ×2 (09:10→21:00)
[2017-08-13] MEDS: PANTOPRAZOLE 40 MG/10 ML VIAL IVP SCH (09:10)
[2017-08-13] MEDS: LOSARTAN 50 MG TAB PO SCH ×2 (09:11→21:00)
[2017-08-13] MEDS: HEPARIN SODIUM,PORCINE 5,000 UNIT/ML 1 ML VIAL SQ SCH ×2 (09:11→21:00)
--- NOTE | 2017-08-13 11:23 | P.PN ---
Progress Note - Text Progress Note Date: 08/13/17 Patient feels better. She has minimal pelvic pain. On exam her vital signs are stable. Her abdomen soft. Diverticulitis with microperforation. Patient will continue receive IV antibiotic. She'll be started on clear liquid diet today.
[2017-08-13 12:27] LABS: Basophils % (A) 0 %; CH 24.2; CHCM 29.2; Eosinophils # (A) 0.1 k/uL (0-0.7); Eosinophils % (A) 1 %; HCT 36.5 % (34.0-46.0); HDW 2.59; HGB 10.6 gm/dL (11.4-16.0); Hypochromasia Marked; Luc # (Auto) 0.15; Luc % (Auto) 1; Lymphocytes # (A) 1.4 k/uL (1.0-4.8); Lymphocytes % (A) 13 %; MCH 24.2 pg (25.0-35.0); MCHC 29.1 g/dL (31.0-37.0); MCV 83.1 fL (80.0-100.0); Mean Platelet Volume 7.7; Monocytes # (A) 0.5 k/uL (0-1.0); Monocytes % (A) 5 %; Neutrophils # (A) 8.8 k/uL (1.3-7.7); Neutrophils % (A) 80 %; RBC 4.39 m/uL (3.80-5.40); RDW 15.8 % (11.5-15.5); WBC 10.9 k/uL (3.8-10.6); WBC (Perox) 11.09
[2017-08-13 12:30] LABS: Anion Gap 14 mmol/L; Blood Urea Nitrogen 8 mg/dL (7-17); Calcium 8.7 mg/dL (8.4-10.2); Carbon Dioxide 20 mmol/L (22-30); Chloride 107 mmol/L (98-107); Glucose 84 mg/dL (74-99); Non-African American GFR(MDRD) >60 (>60 ml/min/1.73 sqM); Potassium 3.1 mmol/L (3.5-5.1); Sodium 141 mmol/L (137-145)
[2017-08-13] MEDS ORDERED: Potassium Replacement Protocol 1 EACH MISC MISCELLANE PRN (12:48)
[2017-08-13] MEDS: 0.9% NACL WITH KCL 40 MEQ/L 1,000 ML IV SCH (13:36)
[2017-08-13] MEDS: POTASSIUM CHLORIDE ER 20 MEQ TAB.ER PO SCH (13:54)
--- NOTE | 2017-08-13 17:01 | PN ---
PROGRESS NOTE DATE OF SERVICE: 08/13/2017 INTERVAL HISTORY: This 66-year-old woman was admitted with acute diverticulitis microperforation is being closely monitored. The patient white count is elevated but abdomen discomfort is much improved and the patient is on clear liquids. No chest pain. No palpitations. No fever. PHYSICAL EXAM: Alert, oriented times three. No shortness of breath. On exam alert, oriented times three, pulse 96, blood pressure 120/72, respiration 17, temperature 98.2, pulse ox 93% on room air. HEENT: Conjunctivae normal. Oral mucosa moist. Neck is no jugular venous distention. No carotid bruit. No lymph nodes enlargement. Cardiovascular system: S1, S2 muffled. Respiratory: Breath sounds diminished at the bases. No rhonchi. No crackles. ABDOMEN: Soft. Mild diffuse discomfort present. No guarding. No rigidity. No mass palpable. Bowel sounds diminished. Legs: No edema. No swelling. Central nervous system: No focal deficits. LABS: WBC 7.2, hemoglobin 7.7, other labs are noted. Potassium 3.9. ASSESSMENT: 1. Acute diverticulitis with microperforation, conservative line of management, on IV antibiotics. 2. Increased WBC. 3. Hypertension. 4. Hyperlipidemia. 5. Hypokalemia. 6. History of gastrointestinal bleed. 7. History of gastroesophageal reflux disease. 8. History of ulcerative colitis. 9. History of remote nicotine dependence. RECOMMENDATIONS AND DISCUSSION: Recommend to continue the current medications, recommend to continue current management. Symptomatic treatment. Otherwise incentive spirometry. Otherwise I would recommended supplement potassium. Closely monitor and continue with IV antibiotics. Empiric treatment. Conservative line of management per surgery. Prognosis guarded because of multiple complex medical issues. Further recommendations to follow. MMODL / IJN: [id number] /
[2017-08-13] MEDS: amLODIPine 10 MG TAB PO SCH (21:00)
[2017-08-13] MEDS: cloNIDine HCL 0.1 MG TAB PO SCH (21:00)
[2017-08-13] MEDS: LATANOPROST 0.005% OPHTH DROPS 2.5 ML BTL BOTH EYES SCH (21:01)
[2017-08-14] MEDS: PIPERACILLIN-TAZOBACTAM 3.375 GM in DEXTROSE/WATER 1 50ML.BAG IVPB SCH ×4 (00:28→23:24)
[2017-08-14] MEDS: MORPHINE SULFATE 2 MG/ML SYRINGE IVP PRN ×2 (00:28→06:31)
[2017-08-14] MEDS: METOCLOPRAMIDE 5 MG/ML 2 ML VIAL IVP PRN (01:35)
[2017-08-14] MEDS: 0.9% NACL WITH KCL 40 MEQ/L 1,000 ML IV SCH ×2 (06:24→13:49)
[2017-08-14] MEDS: ACETAMINOPHEN TAB 325 MG TAB PO PRN (06:54)
[2017-08-14] MEDS: SUCRALFATE 1 GM TAB PO SCH ×3 (06:56→17:19)
[2017-08-14] MEDS: PANTOPRAZOLE 40 MG/10 ML VIAL IVP SCH (08:10)
[2017-08-14] MEDS: FLUTICASONE 50MCG/SPRAY NASAL 16GM EA NOSTRIL SCH ×2 (08:11→20:45)
[2017-08-14] MEDS: KETOTIFEN 0.025% OPHTH DROPS 5 ML BTL BOTH EYES SCH ×2 (08:11→20:43)
[2017-08-14] MEDS: LOSARTAN 50 MG TAB PO SCH ×2 (08:11→20:44)
[2017-08-14] MEDS: HEPARIN SODIUM,PORCINE 5,000 UNIT/ML 1 ML VIAL SQ SCH ×2 (08:11→20:45)
[2017-08-14 08:58] LABS: Anion Gap 12 mmol/L; Blood Urea Nitrogen 5 mg/dL (7-17); Calcium 8.8 mg/dL (8.4-10.2); Carbon Dioxide 20 mmol/L (22-30); Chloride 109 mmol/L (98-107); Glucose 110 mg/dL (74-99); Non-African American GFR(MDRD) >60 (>60 ml/min/1.73 sqM); Potassium 3.4 mmol/L (3.5-5.1); Sodium 141 mmol/L (137-145)
[2017-08-14 08:58] LABS: Basophils % (A) 0 %; CHCM 28.7; Eosinophils # (A) 0.1 k/uL (0-0.7); Eosinophils % (A) 1 %; HCT 36.2 % (34.0-46.0); HDW 2.57; HGB 10.7 gm/dL (11.4-16.0); Hypochromasia Marked; Luc # (Auto) 0.18; Luc % (Auto) 2; Lymphocytes # (A) 0.9 k/uL (1.0-4.8); Lymphocytes % (A) 10 %; MCH 24.7 pg (25.0-35.0); MCHC 29.5 g/dL (31.0-37.0); MCV 83.8 fL (80.0-100.0); Monocytes # (A) 0.4 k/uL (0-1.0); Monocytes % (A) 4 %; Neutrophils # (A) 7.4 k/uL (1.3-7.7); Neutrophils % (A) 83 %; RBC 4.32 m/uL (3.80-5.40); RDW 15.4 % (11.5-15.5); WBC 8.9 k/uL (3.8-10.6); WBC (Perox) 8.79
[2017-08-14] MEDS: POTASSIUM CHLORIDE ER 20 MEQ TAB.ER PO SCH ×2 (09:48→11:07)
[2017-08-14] MEDS ORDERED: MORPHINE SULFATE 2 MG/ML SYRINGE IVP PRN (10:27)
[2017-08-14] MEDS ORDERED: HYDROmorphone 1 MG/ML 1 ML SYRINGE IVP PRN (10:27)
--- NOTE | 2017-08-14 10:30 | P.PN ---
Subjective Progress Note Date: 08/14/17 66-year-old female seen and examined sitting up in bed states less abdominal pain.labs reviewed the white count is down to 8.9 hemoglobin stable at 10.7 potassium 3.1 which replacement was given patient's tolerating a diet Objective - Vital Signs Vital signs: Vital Signs Temp 98.4 F 08/14/17 06:52 Pulse 90 08/14/17 06:52 Resp 16 08/14/17 06:59 BP 137/61 08/14/17 06:52 Pulse Ox 93 L 08/14/17 06:52 Intake & Output 08/13/17 08/14/17 08/14/17 18:59 06:59 18:59 Intake Total 800 275 Balance 800 275 Intake: Intake, IV Titration 800 275 Amount 0.9% NaCl with KCl 40 Meq 225 /l 1,000 ml @ 75 mls/hr IV .[id number] [facility] Rx#: [id number] Piperacillin-Tazobactam 3 50 .375 gm In Dextrose/Water 1 50ml.bag @ 12.5 mls/hr IVPB Q8HR [facility] Rx#: [id number] Sodium Chloride 0.9% 1, 800 000 ml @ 125 mls/hr IV . Q8H [facility] Rx#:[id number] Other: Voiding Method Toilet Toilet # Voids 2 1 # Bowel Movements 1 - Exam physical exam 66-year-old female pleasant cooperative oriented 3 sitting up in bed appears in no acute distress Lungs essentially clear adequate air movement on room air Heart S1-S2 audible regular abdomen soft slight tenderness to the left lower quadrant states urinating no difficulty reports of nausea vomiting tolerating diet states has had a bowel movement Extremities no edema - Labs CBC & Chem 7: 08/14/17 07:50 08/14/17 07:43 Labs: Abnormal Lab Results - Last 24 Hours (Table) 08/13/17 08/13/17 08/14/17 Range/Units 06:18 06:18 07:43 WBC 10.9 H (3.8-10.6) k/uL Hgb 10.6 L (11.4-16.0) gm/dL MCH 24.2 L (25.0-35.0) pg MCHC 29.1 L (31.0-37.0) g/dL RDW 15.8 H (11.5-15.5) % Neutrophils # 8.8 H (1.3-7.7) k/uL Lymphocytes # (1.0-4.8) k/uL Potassium 3.1 L 3.4 L (3.5-5.1) mmol/L Chloride 109 H (98-107) mmol/L Carbon Dioxide 20 L 20 L (22-30) mmol/L BUN 5 L (7-17) mg/dL Glucose 110 H (74-99) mg/dL 08/14/17 Range/Units 07:50 WBC (3.8-10.6) k/uL Hgb 10.7 L (11.4-16.0) gm/dL MCH 24.7 L (25.0-35.0) pg MCHC 29.5 L (31.0-37.0) g/dL RDW (11.5-15.5) % Neutrophils # (1.3-7.7) k/uL Lymphocytes # 0.9 L (1.0-4.8) k/uL Potassium (3.5-5.1) mmol/L Chloride (98-107) mmol/L Carbon Dioxide (22-30) mmol/L BUN (7-17) mg/dL Glucose (74-99) mg/dL Assessment and Plan Plan: Impression Present on admission right lower quadrant pain sudden onset suspect due to pneumoperitoneum with diverticulitis sigmoid colon Crohn's disease on Humira History of a partial gastrectomy 1995 for ulcerative disease Colonoscopy with an EGD 03/07/2017 with no obvious esophagitis , partial gastrectomy with gastritis of the gastric remnant no ulcer no obstruction, diverticulosis no no evidence of diverticulitis per colonoscopy in February 2017 Present on admission leukocytosis suspect due to steroids Present on admission elevated CPK with a negative troponin hypokalemia Plan K replaced IV fluid for hydration Pain control Repeat labs in the morning clear liquid diet advance as tolerated Resume home meds as appropriate Continue IV Zosyn DVT and GI prophylaxis Anti-emetics as ordered Further recommendations pending The above impression and plan of care have been discussed and directed by signing physician. Shannan Yanez nurse practitioner acting as scribe for signing physician.
[2017-08-14] MEDS: Acetaminophen-Codeine 300-30mg TAB PO PRN ×4 (11:09→23:27)
[2017-08-14] MEDS ORDERED: POTASSIUM CHLORIDE ER 20 MEQ TAB.ER PO STA (13:48)
--- NOTE | 2017-08-14 15:07 | P.PN ---
Subjective Progress Note Date: 08/14/17 Progress note being dictated for Dr. Raines. Interval history: This a 66-year-old female admitted with acute diverticulitis with microperforation and multiple other medical issues. Maintained on IV fluid hydration and antibiotics, Conservative management. Incentive spirometer up to 1200. Tolerated clear liquids with no nausea vomiting positive watery bowel movement .Diet advanced to full liquids as per surgery. Complains of diffuse minimal abdominal pain, controlled with Tylenol 3. Afebrile. Receiving potassium supplements for potassium of 3.4. Ambulating, tolerating increase in exertion well. Denies chest pain, palpitations or increased shortness of breath. Objective - Vital Signs Vital signs: Vital Signs Temp 98.4 F 08/14/17 06:52 Pulse 90 08/14/17 06:52 Resp 16 08/14/17 06:59 BP 137/61 08/14/17 06:52 Pulse Ox 93 L 08/14/17 06:52 Intake & Output 08/13/17 08/14/17 08/14/17 18:59 06:59 18:59 Intake Total 800 275 Balance 800 275 Intake: Intake, IV Titration 800 275 Amount 0.9% NaCl with KCl 40 Meq 225 /l 1,000 ml @ 75 mls/hr IV .[id number] [facility] Rx#: [id number] Piperacillin-Tazobactam 3 50 .375 gm In Dextrose/Water 1 50ml.bag @ 12.5 mls/hr IVPB Q8HR [facility] Rx#: [id number] Sodium Chloride 0.9% 1, 800 000 ml @ 125 mls/hr IV . Q8H [facility] Rx#:[id number] Other: Voiding Method Toilet Toilet # Voids 2 1 # Bowel Movements 1 - Exam PHYSICAL EXAM: VITAL SIGNS: [As above] GENERAL: Sitting up at side of bed, no acute distress HEENT: Conjunctivae normal. eyes normal. Oral mucosa moist NECK: No JVD. No thyroid enlargement. No LNs CARDIOVASCULAR: S1, S2 muffled. No murmur RESPIRATION: Breath sounds diminished in the bases. No rhonchi or crackles. No bronchial breathing. ABDOMEN: Soft, mild diffuse discomfort. No guarding. no masses palpable. Bowel sounds diminished. LEGS: No edema. no swelling PSYCHIATRY: Alert and oriented -3, mood and affect normal. NERVOUS SYSTEM: Cranial N 2-12 grossly normal. Moves all 4 limbs. Diffuse weakness No focal deficits. No sensory deficit. Skin: no ulcer no rash Joints: No active swelling. No inflammation. Lymphatic system. No LN neck axilla or groin. - Labs CBC & Chem 7: 08/14/17 07:50 08/14/17 12:31 Labs: Abnormal Lab Results - Last 24 Hours (Table) 08/14/17 08/14/17 Range/Units 07:43 07:50 Hgb 10.7 L (11.4-16.0) gm/dL MCH 24.7 L (25.0-35.0) pg MCHC 29.5 L (31.0-37.0) g/dL Lymphocytes # 0.9 L (1.0-4.8) k/uL Potassium 3.4 L (3.5-5.1) mmol/L Chloride 109 H (98-107) mmol/L Carbon Dioxide 20 L (22-30) mmol/L BUN 5 L (7-17) mg/dL Glucose 110 H (74-99) mg/dL Assessment and Plan Plan: 1. Acute diverticulitis with microperforation, conservative management. 2. [Hypertension 3. [ HyperLipidemia]. 4. [ Hypokalemia]. 5. [ History of ulcerative colitis]. 6. [ Remote history of nicotine dependence]. 7. [ Gastroesophageal reflux disease]. Plan: Continue on current medication regime,Zosyn, monitoring. Increase ambulation as tolerated. Potassium to be supplemented by replacement protocol. Close monitoring of electrolytes with repeat labs ordered for a.m. Aggressive pulmonary toileting, incentive spirometer reinforced. Diet advancement as per surgery. Further recommendations to follow. The impression and plan of care has been dictated as directed. : I performed a history and examination of this patient, discussed the same with the dictator. I agree with the dictator's note ,documented as a scribe. Any additional findings or plans will be noted.
[2017-08-14] MEDS: amLODIPine 10 MG TAB PO SCH (20:44)
[2017-08-14] MEDS: cloNIDine HCL 0.1 MG TAB PO SCH (20:44)
[2017-08-14] MEDS: LATANOPROST 0.005% OPHTH DROPS 2.5 ML BTL BOTH EYES SCH (20:44)
[2017-08-15 02:42] VITALS: RESP 16
[2017-08-15] MEDS: Acetaminophen-Codeine 300-30mg TAB PO PRN ×3 (02:46→10:33)
[2017-08-15 07:02] VITALS: BP 113/57; PULSE 72; TEMP 98
[2017-08-15] MEDS ORDERED: PANTOPRAZOLE 40 MG TABLET PO SCH (07:30)
[2017-08-15 08:06] LABS: Basophils % (A) 1 %; CH 24.3; CHCM 29.3; Eosinophils # (A) 0.2 k/uL (0-0.7); Eosinophils % (A) 3 %; HCT 37.1 % (34.0-46.0); HDW 2.63; HGB 10.8 gm/dL (11.4-16.0); Hypochromasia Marked; Luc # (Auto) 0.25; Luc % (Auto) 3; Lymphocytes # (A) 1.6 k/uL (1.0-4.8); Lymphocytes % (A) 22 %; MCH 24.2 pg (25.0-35.0); MCV 83.3 fL (80.0-100.0); Monocytes # (A) 0.5 k/uL (0-1.0); Monocytes % (A) 6 %; Neutrophils # (A) 4.9 k/uL (1.3-7.7); Neutrophils % (A) 65 %; RBC 4.46 m/uL (3.80-5.40); RDW 15.6 % (11.5-15.5); WBC 7.4 k/uL (3.8-10.6); WBC (Perox) 7.71
[2017-08-15] MEDS: PIPERACILLIN-TAZOBACTAM 3.375 GM in DEXTROSE/WATER 1 50ML.BAG IVPB SCH (08:07)
[2017-08-15] MEDS: SUCRALFATE 1 GM TAB PO SCH ×2 (08:08→11:38)
[2017-08-15] MEDS: KETOTIFEN 0.025% OPHTH DROPS 5 ML BTL BOTH EYES SCH (08:08)
[2017-08-15] MEDS: FLUTICASONE 50MCG/SPRAY NASAL 16GM EA NOSTRIL SCH (08:08)
[2017-08-15] MEDS: LOSARTAN 50 MG TAB PO SCH (08:09)
[2017-08-15] MEDS: 0.9% NACL WITH KCL 40 MEQ/L 1,000 ML IV SCH (08:09)
[2017-08-15] MEDS: HEPARIN SODIUM,PORCINE 5,000 UNIT/ML 1 ML VIAL SQ SCH (08:09)
[2017-08-15 08:10] LABS: Anion Gap 11 mmol/L; Blood Urea Nitrogen 5 mg/dL (7-17); Carbon Dioxide 21 mmol/L (22-30); Chloride 111 mmol/L (98-107); Glucose 96 mg/dL (74-99); Non-African American GFR(MDRD) >60 (>60 ml/min/1.73 sqM); Potassium 4.6 mmol/L (3.5-5.1); Sodium 143 mmol/L (137-145)
--- NOTE | 2017-08-15 10:53 | P.DS ---
Providers Date of admission: 08/11/17 10:46 Expected date of discharge: 08/15/17 Attending physician: Aníbal Kay Consults: 08/11/17 10:44 Consult Physician Stat Consulting Provider: Malcom Kovacs Consult Reason/Comments: Diverticulitis Do you want consulting provider notified?: Yes Primary care physician: Cecille Mckenna Hospital Course: 66-year-old female admitted on the day of admission to the emergency room with a chief complaint of developing right lower quadrant abdominal pain. Patient stated there was a sensation of nausea and did vomit the pain continued to persist stated it radiated across the lower abdomen patient denies any prior episodes similar to this type pain. Patient stated that she was recently treated by her PCP with antibiotic and steroid for an upper respiratory cold type symptoms. Additionally patient gives a history of Crohn's disease sees Dr. Ramachandran in which the patient is on humira last colonoscopy was in February 2017 by GI service patient did have a CAT scan of the abdomen and pelvis with contrast did show microperforation with diverticulitis in the sigmoid colon started on IV antibiotics IV fluid for hydration monitored closely diet was slowly advanced on the day of discharge patient was seen by the dietitian received instructions on a diverticulitis diet stated pain medication effective for pain control up ambulating in the mraie stated had more formed stools with less frequency was anxious to be discharged home tolerating a soft diet August 15 the white count was 7.4 hemoglobin 10.8 electrolytes within normal limits and the creatinine 0.5 Impression Present on admission right lower quadrant pain sudden onset suspect due to pneumoperitoneum with diverticulitis sigmoid colon Crohn's disease on Humira 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 Shannan Yanez nurse practitioner acting as scribe for signing physician. Patient Condition at Discharge: Stable Plan - Discharge Summary New Discharge Prescriptions: New Acetaminophen-Codeine 300-30mg [Tylenol w/codeine #3] 1 each PO Q4HR PRN #15 tab PRN Reason: Pain metroNIDAZOLE [Flagyl] 500 mg PO TID #30 tab Levofloxacin [Levaquin] 500 mg PO DAILY #10 tab Continue Acetaminophen-Codeine 300-30mg [Tylenol w/codeine #3] 1 tab PO Q8H PRN PRN Reason: Pain Fluticasone Propionate [Flonase] 1 spray EA NOSTRIL BID Fexofenadine HCl [Barby Allergy] 180 mg PO DAILY cloNIDine HCL [Catapres] 0.05 mg PO HS Sucralfate [Carafate] 1 gm PO AC-TID amLODIPine [Norvasc] 10 mg PO HS Losartan [Cozaar] 50 mg PO BID Aspirin/Caffeine [Anacin 400-32 mg Tablet] 1 tab PO Q6HR PRN PRN Reason: Pain Adalimumab [Humira] 40 mg SQ Q8D Lansoprazole [Prevacid] 30 mg PO QAM Ketotifen Fumarate [Zaditor] 1 drop BOTH EYES BID Latanoprost Ophth [Xalatan 0.005%] 1 drops BOTH EYES HS Aspirin 650 mg PO ONCE Dexamethasone 0 mg PO DIRECTED Discontinued Clarithromycin [Biaxin] 500 mg PO Q12HR Discharge Medication List Acetaminophen-Codeine 300-30mg [Tylenol w/codeine #3] 1 tab PO Q8H PRN 08/02/14 [History] Aspirin/Caffeine [Anacin 400-32 mg Tablet] 1 tab PO Q6HR PRN 08/02/14 [History] Fexofenadine HCl [Barby Allergy] 180 mg PO DAILY 08/02/14 [History] Fluticasone Propionate [Flonase] 1 spray EA NOSTRIL BID 08/02/14 [History] Losartan [Cozaar] 50 mg PO BID 08/02/14 [History] Sucralfate [Carafate] 1 gm PO AC-TID 08/02/14 [History] amLODIPine [Norvasc] 10 mg PO HS 08/02/14 [History] cloNIDine HCL [Catapres] 0.05 mg PO HS 08/02/14 [History] Adalimumab [Humira] 40 mg SQ Q8D 05/08/16 [History] Ketotifen Fumarate [Zaditor] 1 drop BOTH EYES BID 03/03/17 [History] Lansoprazole [Prevacid] 30 mg PO QAM 03/03/17 [History] Aspirin 650 mg PO ONCE 08/11/17 [History] Dexamethasone 0 mg PO DIRECTED 08/11/17 [History] Latanoprost Ophth [Xalatan 0.005%] 1 drops BOTH EYES HS 08/11/17 [History] Acetaminophen-Codeine 300-30mg [Tylenol w/codeine #3] 1 each PO Q4HR PRN #15 tab 08/15/17 [Rx] Levofloxacin [Levaquin] 500 mg PO DAILY #10 tab 08/15/17 [Rx] metroNIDAZOLE [Flagyl] 500 mg PO TID #30 tab 08/15/17 [Rx] Follow up Appointment(s)/Referral(s): Cecille Mckenna MD [Primary Care Provider] - 1-2 days Aníbal Kay MD [STAFF PHYSICIAN] - 1 Week Fadi Ferrera MD [STAFF PHYSICIAN] - 1 Week Activity/Diet/Wound Care/Special Instructions: Dietitian provided information a diverticulitis diet Discharge Disposition: HOME SELF-CARE
--- NOTE | 2017-08-15 15:51 | P.PN ---
Subjective Progress Note Date: 08/15/17 Progress note being dictated for Dr. Jiang Interval history: This a 66-year-old female admitted with acute diverticulitis with microperforation and multiple other medical issues. Maintained on IV fluid hydration and antibiotics, Conservative management. Incentive spirometer up to 1200. Tolerated clear liquids with no nausea vomiting positive watery bowel movement .Diet advanced to full liquids as per surgery. Complains of diffuse minimal abdominal pain, controlled with Tylenol 3. Afebrile. Receiving potassium supplements for potassium of 3.4. Ambulating, tolerating increase in exertion well. Denies chest pain, palpitations or increased shortness of breath. Date of service 08/15/2017. Ambulating multiple times in hallway, tolerating exertion well. Reports more formed bowel movement. Last night and this morning. Tolerating diet with no nausea or vomiting. Abdominal pain/ discomfort controlled. Afebrile, normal WBC. Received potassium supplements yesterday, potassium normalized today .Denies chest pain, palpitations or shortness of breath. Objective - Vital Signs Vital signs: Vital Signs Temp 98.0 F 08/15/17 07:01 Pulse 72 08/15/17 07:01 Resp 16 08/15/17 07:45 BP 113/57 08/15/17 07:01 Pulse Ox 94 L 08/15/17 07:01 Intake & Output 08/14/17 08/15/17 08/15/17 18:59 06:59 18:59 Intake Total 1200 Balance 1200 Weight 57.5 kg Intake: Intake, IV Titration 1200 Amount 0.9% NaCl with KCl 40 Meq 1200 /l 1,000 ml @ 75 mls/hr IV .[id number] [facility] Rx#: [id number] Other: Voiding Method Toilet # Voids 1 3 1 # Bowel Movements 1 - Exam PHYSICAL EXAM: VITAL SIGNS: [As above] GENERAL: Standing up at side of bed, ambulating in room, no acute distress HEENT: Conjunctivae normal. eyes normal. Oral mucosa moist NECK: No JVD. No thyroid enlargement. No LNs CARDIOVASCULAR: S1, S2 muffled. No murmur RESPIRATION: Breath sounds diminished in the bases. No rhonchi or crackles. ABDOMEN: Soft, mild diffuse discomfort. No guarding. no masses palpable. Positive Bowel sounds LEGS: No edema. no swelling PSYCHIATRY: Alert and oriented -3, mood and affect normal. NERVOUS SYSTEM: Cranial N 2-12 grossly normal. Moves all 4 limbs. Diffuse weakness No focal deficits. No sensory deficit. Skin: no ulcer no rash - Labs CBC & Chem 7: 08/15/17 06:55 08/15/17 06:55 Labs: Abnormal Lab Results - Last 24 Hours (Table) 08/15/17 08/15/17 Range/Units 06:55 06:55 Hgb 10.8 L (11.4-16.0) gm/dL MCH 24.2 L (25.0-35.0) pg MCHC 29.0 L (31.0-37.0) g/dL RDW 15.6 H (11.5-15.5) % Chloride 111 H (98-107) mmol/L Carbon Dioxide 21 L (22-30) mmol/L BUN 5 L (7-17) mg/dL Assessment and Plan Assessment: 1. Acute diverticulitis with microperforation, conservative management. 2. [Hypertension 3. [ HyperLipidemia]. 4. [ Hypokalemia]. Resolved 5. [ History of ulcerative colitis]. 6. [ Remote history of nicotine dependence]. 7. [ Gastroesophageal reflux disease]. Plan: Continue on current medication regime,Zosyn, monitoring. Increase ambulation as tolerated. Discharge planning in progress for today as per Surgery. Low fiber diet .Aggressive pulmonary toileting, continue incentive spirometer. Follow up with PCP, Dr. Cecille Mckenna in 1 week. Further recommendations to follow. The impression and plan of care has been dictated as directed. : I performed a history and examination of this patient, discussed the same with the dictator. I agree with the dictator's note ,documented as a scribe. Any additional findings or plans will be noted.
== END 2017-08-15 14:01 | disposition home or self-care (01) | DRG 392 ==
LOC: EC 07:55 → 3SUR 10:46
PROVIDERS: ADMIT Surgery; ATTEND Surgery
DX: K57.20 Diverticulitis of large intestine with perforation and abscess without bleeding (principal); I10 Essential (primary) hypertension; K50.10 Crohn's disease of large intestine without complications; K21.9 Gastro-esophageal reflux disease without esophagitis; M19.91 Primary osteoarthritis, unspecified site; E87.6 Hypokalemia; D72.829 Elevated white blood cell count, unspecified; T38.0X5A Adverse effect of glucocorticoids and synthetic analogues, initial encounter; K44.9 Diaphragmatic hernia without obstruction or gangrene; K58.9 Irritable bowel syndrome, unspecified; G43.909 Migraine, unspecified, not intractable, without status migrainosus; G89.29 Other chronic pain; K64.9 Unspecified hemorrhoids; M54.9 Dorsalgia, unspecified; E78.5 Hyperlipidemia, unspecified; Z79.82 Long term (current) use of aspirin; Z79.899 Other long term (current) drug therapy; Z90.3 Acquired absence of stomach [part of]; Z87.891 Personal history of nicotine dependence; Z90.710 Acquired absence of both cervix and uterus; Z98.41 Cataract extraction status, right eye; Z87.442 Personal history of urinary calculi; Z98.42 Cataract extraction status, left eye; Z87.11 Personal history of peptic ulcer disease; Z88.1 Allergy status to other antibiotic agents; Z88.2 Allergy status to sulfonamides; Z88.8 Allergy status to other drugs, medicaments and biological substances; Z91.040 Latex allergy status
CPT/HCPCS: 36415; 74177; 80048; 80053; 81001; 82550; 82553; 83605; 83735; 84132; 84484; 85025; 85610; 85730; 93005; 96361; 96365; 96375; 96376; 99285

== ENCOUNTER 2017-09-08 10:32 | Inpatient (IN) | payer MEDICARE ==
[2017-09-08] MEDS ORDERED: SODIUM CHLORIDE 0.9% 500 ML IV STA (11:07)
[2017-09-08] MEDS ORDERED: LEVOFLOXACIN 750MG-D5W PMX 750 MG in DEXTROSE/WATER 1 150ML.BAG IVPB STA (11:09)
[2017-09-08] MEDS ORDERED: metroNIDAZOLE 500 MG TAB PO STA (11:10)
[2017-09-08] MEDS ORDERED: LORazepam 2 MG/ML INJ IV STA (11:14)
--- NOTE | 2017-09-08 11:14 | ED ---
General Adult HPI - General Chief complaint: Abdominal Pain Stated complaint: ABSCESS IN ABDOMEN, POST CT Time Seen by Provider: 09/08/17 10:45 Source: patient, RN notes reviewed Mode of arrival: ambulatory Limitations: no limitations - History of Present Illness Initial comments: This is a 66-year-old female who presents emergency Department with a past medical history recently significant for diverticulitis. Patient states she was in the hospital for 4 days because there was a perforation and she was treated with antibiotics went home with antibiotics for 10 days. Patient states she finished those about a week ago however she continues to have left lower quadrant abdominal pain and today she had a computed tomography scan and it showed an abscess so they sent to the emergency department immediately. Patient states the pain is in the same area the diverticulitis was. Patient denies any fever chills. Patient denies any nausea vomiting diarrhea. Patient denies any chest pain difficulty breathing or shortness of breath. Patient states she doesn't want to stay in the hospital very long because her 's gun have brain surgery soon. - Related Data Home Medications Medication Instructions Recorded Confirmed Aspirin/Caffeine [Anacin 400-32 mg 1 tab PO Q6HR PRN 08/02/14 09/08/17 Tablet] Fexofenadine HCl [Barby Allergy] 180 mg PO DAILY 08/02/14 09/08/17 Fluticasone Propionate [Flonase] 1 spray EA NOSTRIL BID 08/02/14 09/08/17 Losartan [Cozaar] 50 mg PO BID 08/02/14 09/08/17 Sucralfate [Carafate] 1 gm PO AC-TID 08/02/14 09/08/17 amLODIPine [Norvasc] 10 mg PO HS 08/02/14 09/08/17 cloNIDine HCL [Catapres] 0.05 mg PO HS 08/02/14 09/08/17 Adalimumab [Humira] 40 mg SQ MO 05/08/16 09/08/17 Ketotifen Fumarate [Zaditor] 1 drop BOTH EYES BID 03/03/17 09/08/17 Lansoprazole [Prevacid] 30 mg PO QAM 03/03/17 09/08/17 Latanoprost Ophth [Xalatan 0.005%] 1 drops BOTH EYES HS 08/11/17 09/08/17 Previous Rx's Medication Instructions Recorded Acetaminophen-Codeine 300-30mg 1 each PO Q4HR PRN #15 tab 08/15/17 [Tylenol w/codeine #3] Allergies Allergy/AdvReac Type Severity Reaction Status Date / Time atorvastatin [From Lipitor] Allergy Swelling Verified 09/08/17 10:58 cefuroxime axetil Allergy SEVERE Verified 09/08/17 10:58 [From Ceftin] HEADACHE doxazosin mesylate Allergy Rash/Hives Verified 09/08/17 10:58 [From Cardura] doxycycline Allergy Nausea & Verified 09/08/17 10:58 Vomiting,HEADACHE duloxetine [From Cymbalta] Allergy Abdominal Verified 09/08/17 10:58 Pain, ROQUE gatifloxacin [From Tequin] Allergy Abdominal Verified 09/08/17 10:58 Pain,VOMITING hydralazine [Hydralazine] Allergy Rapid Verified 09/08/17 10:58 Heart Rate hydrochlorothiazide Allergy Nausea & Verified 09/08/17 10:58 Vomiting indapamide [From Lozol] Allergy Abdominal Verified 09/08/17 10:58 Pain latex Allergy Rash/Hives Verified 09/08/17 10:58 lisinopril Allergy VERTIGO,HEA Verified 09/08/17 10:58 DACHE nabumetone [From Relafen] Allergy Abdominal Verified 09/08/17 10:58 Pain sulfasalazine Allergy Abdominal Verified 09/08/17 10:58 [From Azulfidine] Pain,VOMITING triamcinolone acetonide Allergy SEVERE Verified 09/08/17 10:58 [From Kenalog] HEADACHE trimethoprim [From Bactrim] Allergy Nausea & Verified 09/08/17 10:58 Vomiting & Diarrhea Review of Systems ROS Statement: Those systems with pertinent positive or pertinent negative responses have been documented in the HPI. ROS Other: All systems not noted in ROS Statement are negative. Past Medical History Past Medical History: GERD/Reflux, GI Bleed, Hyperlipidemia, Hypertension, Osteoarthritis (OA) Additional Past Medical History / Comment(s): ulcerative COLITIS,BLEEDING POST COLONOSCOPY, CROHNS, diverticular disease, IBS, 2010 ulcers with GI bleed, hemorrhoids, HYPOGLYCEMIA, chronic BACK pain, recent sinus infection/bronchitis tx with ABX, rare migraine, spider veins bilaterally, OA generalized worse however, in hands and feet, hemorrhoids, nephrolithiasis. History of Any Multi-Drug Resistant Organisms: None Reported Past Surgical History: Bladder Surgery, Hysterectomy, Orthopedic Surgery, Tonsillectomy Additional Past Surgical History / Comment(s): Several EGDs with bx and colonoscopies with bx, gastrectomy for ulcers (40% stomach removed), bladder surgery x2, R/L shoulder arthroscopies, bilateral CATARACT SURGERY; Sinus Surgery x 2, Left Breast biopsy x 2, 2nd toe R foot with hardware, cystoscopies x 2. Past Anesthesia/Blood Transfusion Reactions: No Reported Reaction Additional Past Anesthesia/Blood Transfusion Reaction / Comment(s): Pt states she did receive blood in 2009 with GI bleed-no reaction. Past Psychological History: No Psychological Hx Reported Smoking Status: Former smoker Past Alcohol Use History: Rare Past Drug Use History: None Reported - Past Family History Father Family Medical History: Cancer Mother Family Medical History: Cancer Sister(s) Family Medical History: Cancer General Exam - General Exam Comments Initial Comments: GENERAL: Patient is well-developed and well-nourished. Patient is nontoxic and well- hydrated and is in mild distress. ENT: Neck is soft and supple. No significant lymphadenopathy is noted. Oropharynx is clear. Moist mucous membranes. Neck has full range of motion without eliciting any pain. EYES: The sclera were anicteric and conjunctiva were pink and moist. Extraocular movements were intact and pupils were equal round and reactive to light. Eyelids were unremarkable. PULMONARY: Unlabored respirations. Good breath sounds bilaterally. No audible rales rhonchi or wheezing was noted. CARDIOVASCULAR: There is a regular rate and rhythm without any murmurs gallops or rubs. ABDOMEN: Patient has point tenderness in the left lower quadrant. No palpable organomegaly was noted. There is no palpable pulsatile mass. SKIN: Skin is clear with no lesions or rashes and otherwise unremarkable. NEUROLOGIC: Patient is alert and oriented x3. Cranial nerves II through XII are grossly intact. Motor and sensory are also intact. Normal speech, volume and content. Symmetrical smile. MUSCULOSKELETAL: Normal extremities with adequate strength and full range of motion. No lower extremity swelling or edema. No calf tenderness. LYMPHATICS: No significant lymphadenopathy is noted PSYCHIATRIC: Normal psychiatric evaluation. Limitations: no limitations Course Vital Signs 09/08/17 09/08/17 10:45 12:45 Temperature 98.4 F Pulse Rate 83 69 Respiratory 18 18 Rate Blood Pressure 121/58 144/66 O2 Sat by Pulse 98 99 Oximetry Medical Decision Making - Medical Decision Making I spoke with Dr. Jiang he agreed to admit the patient admitted the patient consult did GI as well as Dr. Kay - Lab Data Result diagrams: 09/08/17 11:40 09/08/17 11:40 Lab Results 09/08/17 09/08/17 09/08/17 Range/Units 11:40 11:40 11:40 WBC 9.5 (3.8-10.6) k/uL RBC 4.59 (3.80-5.40) m/uL Hgb 10.7 L (11.4-16.0) gm/dL Hct 36.7 (34.0-46.0) % MCV 80.1 (80.0-100.0) fL MCH 23.4 L (25.0-35.0) pg MCHC 29.2 L (31.0-37.0) g/dL RDW 15.2 (11.5-15.5) % Plt Count 342 (150-450) k/uL Neutrophils % 80 % Lymphocytes % 13 % Monocytes % 4 % Eosinophils % 1 % Basophils % 0 % Neutrophils # 7.7 (1.3-7.7) k/uL Lymphocytes # 1.3 (1.0-4.8) k/uL Monocytes # 0.4 (0-1.0) k/uL Eosinophils # 0.1 (0-0.7) k/uL Basophils # 0.0 (0-0.2) k/uL Hypochromasia Marked Sodium 141 (137-145) mmol/L Potassium 4.2 (3.5-5.1) mmol/L Chloride 108 H (98-107) mmol/L Carbon Dioxide 20 L (22-30) mmol/L Anion Gap 13 mmol/L BUN 15 (7-17) mg/dL Creatinine 0.70 (0.52-1.04) mg/dL Est GFR (MDRD) Af Amer >60 (>60 ml/min/1.73 sqM) Est GFR (MDRD) Non-Af >60 (>60 ml/min/1.73 sqM) Glucose 98 (74-99) mg/dL Plasma Lactic Acid Amanuel 1.0 (0.7-2.0) mmol/L Calcium 9.2 (8.4-10.2) mg/dL Total Bilirubin 0.3 (0.2-1.3) mg/dL AST 20 (14-36) U/L ALT 28 (9-52) U/L Alkaline Phosphatase 70 (38-126) U/L Total Protein 6.9 (6.3-8.2) g/dL Albumin 3.6 (3.5-5.0) g/dL Amylase <30 L (30-110) U/L Lipase 48 (23-300) U/L Disposition Clinical Impression: Colonic diverticular abscess Disposition: ADMITTED IP TO THIS HOSP Referrals: Cecille Mckenna MD [Primary Care Provider] - 1-2 days Time of Disposition: 13:11
[2017-09-08 12:00] LABS: Basophils % (A) 0 %; CH 24.2; CHCM 30.3; Eosinophils # (A) 0.1 k/uL (0-0.7); Eosinophils % (A) 1 %; HCT 36.7 % (34.0-46.0); HDW 2.76; HGB 10.7 gm/dL (11.4-16.0); Hypochromasia Marked; Luc # (Auto) 0.11; Luc % (Auto) 1; Lymphocytes # (A) 1.3 k/uL (1.0-4.8); Lymphocytes % (A) 13 %; MCH 23.4 pg (25.0-35.0); MCHC 29.2 g/dL (31.0-37.0); MCV 80.1 fL (80.0-100.0); Mean Platelet Volume 6.5; Monocytes # (A) 0.4 k/uL (0-1.0); Monocytes % (A) 4 %; Neutrophils # (A) 7.7 k/uL (1.3-7.7); Neutrophils % (A) 80 %; RBC 4.59 m/uL (3.80-5.40); RDW 15.2 % (11.5-15.5); WBC 9.5 k/uL (3.8-10.6); WBC (Perox) 9.38
[2017-09-08 12:16] LABS: ALT 28 U/L (9-52); AST 20 U/L (14-36); Alkaline Phosphatase 70 U/L (38-126); Amylase <30 U/L (30-110); Anion Gap 13 mmol/L; Blood Urea Nitrogen 15 mg/dL (7-17); Calcium 9.2 mg/dL (8.4-10.2); Carbon Dioxide 20 mmol/L (22-30); Chloride 108 mmol/L (98-107); Glucose 98 mg/dL (74-99); Non-African American GFR(MDRD) >60 (>60 ml/min/1.73 sqM); Potassium 4.2 mmol/L (3.5-5.1); Sodium 141 mmol/L (137-145); Total Bilirubin 0.3 mg/dL (0.2-1.3); Total Protein 6.9 g/dL (6.3-8.2)
[2017-09-08] MEDS ORDERED: SODIUM CHLORIDE 0.9% 1,000 ML IV ONE (13:12)
[2017-09-08] MEDS ORDERED: HYDROmorphone 1 MG/ML 1 ML SYRINGE IVP PRN (15:10)
[2017-09-08] MEDS: metroNIDAZOLE 500 MG TAB PO SCH ×2 (17:04→21:44)
--- NOTE | 2017-09-08 17:46 | HP ---
HISTORY AND PHYSICAL CHIEF COMPLAINT: Abdominal pain. HISTORY OF PRESENT ILLNESS: This 66-year-old woman with a past history of multiple medical problems including GI bleed, hypertension, hyperlipidemia, DJD being followed by Dr. Marycarmen Ritter. The patient was recently admitted with acute diverticulitis with microperforation. Conservative line of management was recommended and patient was discharged on antibiotics. Patient improved significantly. But of late the patient continued getting fever up to 99 -100 at nighttime and also complaining of progressive abdominal pain. Patient had a CT scan of the abdomen pelvis this morning which showed a new multiloculated pericolonic abscess and with suspicion of entero colonic fistula and the patient came back to hospital through ER and admitted for evaluation and treatment. There is no history of fever, rigors. No headache, loss of consciousness or seizures. PAST MEDICAL HISTORY: Hypertension, hyperlipidemia, history of DJD, history of bladder surgery. MEDICATIONS: Prior to admission include home medications are: 1. Clonidine 0.05 mg p.o. q.h.s. 2. Norvasc 10 mg q.h.s. 3. Carafate 1 g p.o. a.c. t.i.d. 4. Cozaar 50 mg p.o. b.i.d. 5. Xalatan 0.005 1 drop both eyes q.h.s. 6. Prevacid 30 mg q.a.m. 7. Zaditor 1 drop both eyes b.i.d. 8. Flonase 1 spray b.i.d. 9. Barby 180 mg p.o. daily. 10.Anacin 400 mg q.6h p.r.n. 11.Humira 40 mg Monday. 12.Tylenol #3 1 p.o. q.4h p.r.n. ALLERGIES: LIPITOR, CEFTIN, CARDURA, DOXYCYCLINE, CYMBALTA, TALWIN, HYDRALAZINE, LATEX, LISINOPRIL, RELAFEN, SULFIDE, KENALOG, BACTRIM. FAMILY HISTORY: History of prostate cancer in the family. SOCIAL HISTORY: No history of smoking. Occasional alcohol intake. Previous history of smoking. The patient also reports her is having brain surgery on Monday in [facility]. REVIEW OF SYSTEMS: ENT: No diminished hearing or vision. CARDIOVASCULAR: No angina. RESPIRATORY: As mentioned earlier. GI: As mentioned earlier. : No dysuria. NERVOUS SYSTEM: No numbness or weakness. ALLERGY/IMMUNOLOGY: No asthma or hay fever. MUSCULOSKELETAL: As mentioned earlier. HEMATOLOGY/ONCOLOGY: No history of anemia. ENDOCRINE: No history of diabetes, hypothyroidism. CONSTITUTIONAL: As mentioned earlier. DERMATOLOGY: Negative. RHEUMATOLOGY: Negative. PSYCHIATRY: As mentioned earlier. PHYSICAL EXAMINATION: Alert and oriented x3. Pulse is 69, blood pressure 144/66, respiration 18, temperature 98.4, pulse ox 99% on room air. HEENT: Conjunctivae normal. Oral mucosa moist. NECK: No jugular venous distention. No carotid bruit. No lymph node enlargement. CARDIOVASCULAR: S1, S2. No S3, no S4. RESPIRATORY: Breath sounds diminished in the bases. No rhonchi. No crackles. ABDOMEN: Soft. Mild diffuse distention present. Mild diffuse tenderness present. No guarding. No rigidity. No mass. Bowel sounds diminished. No ascites. No mass palpable. No bruit. LEGS: No edema, no swelling. NERVOUS SYSTEM: Higher functions as mentioned earlier. Moves all four limbs. No focal deficits. LYMPHATICS: No lymphadenopathy in the neck, axillae, or groin. SKIN: No ulcer, rash or bleeding. LABS: WBC 9.2, hemoglobin 10.7, sodium 147, potassium 4, other labs are noted. ASSESSMENT: 1. Acute diverticular abscess with possible rule out entero colonic fistula. 2. Hypertension. 3. Hyperlipidemia. 4. History degenerative joint disease. 5. History of gastrointestinal bleed. 6. History of gastroesophageal reflux disease. 7. History of ulcerative colitis. 8. Remote nicotine dependence. RECOMMENDATIONS AND DISCUSSION: This 66-year-old woman who presented with multiple complex medical issues, we will monitor the patient closely, continue the current medications and symptomatic treatment. I will initiate broad-spectrum IV antibiotics. I would also recommend a gastroenterology and surgery consultations. DVT prophylaxis. Symptomatic treatment of the pain. Prognosis guarded because of multiple complex medical issues. Further recommendations to follow. MMODL / IJN: [id number] / MTDD
[2017-09-08] MEDS: Acetaminophen-Codeine 300-30mg TAB PO PRN ×2 (18:01→23:43)
[2017-09-08] MEDS: cloNIDine HCL 0.1 MG TAB PO SCH (21:39)
[2017-09-08] MEDS: LATANOPROST 0.005% OPHTH DROPS 2.5 ML BTL BOTH EYES SCH (21:40)
[2017-09-08] MEDS: LOSARTAN 50 MG TAB PO SCH (21:40)
[2017-09-08] MEDS: KETOTIFEN 0.025% OPHTH DROPS 5 ML BTL BOTH EYES SCH (21:41)
[2017-09-08] MEDS: HEPARIN SODIUM,PORCINE 5,000 UNIT/ML 1 ML VIAL SQ SCH ×2 (21:41→21:49)
[2017-09-08] MEDS: amLODIPine 10 MG TAB PO SCH (21:41)
[2017-09-08] MEDS: FLUTICASONE 50MCG/SPRAY NASAL 16GM EA NOSTRIL SCH (21:41)
[2017-09-08] MEDS: PANTOPRAZOLE 40 MG/10 ML VIAL IVP SCH (21:42)
[2017-09-09] MEDS: Acetaminophen-Codeine 300-30mg TAB PO PRN ×3 (05:17→16:57)
[2017-09-09 07:06] LABS: Anisocytosis Slight; Basophils % (A) 0 %; CH 23.4; CHCM 29.9; Eosinophils % (A) 1 %; HCT 34.4 % (34.0-46.0); HDW 2.67; HGB 10.6 gm/dL (11.4-16.0); Hypochromasia Marked; Luc # (Auto) 0.12; Luc % (Auto) 2; Lymphocytes % (A) 14 %; MCH 24.2 pg (25.0-35.0); MCHC 30.7 g/dL (31.0-37.0); MCV 78.7 fL (80.0-100.0); Mean Platelet Volume 7.1; Microcytosis Slight; Monocytes # (A) 0.2 k/uL (0-1.0); Monocytes % (A) 3 %; Neutrophils # (A) 5.6 k/uL (1.3-7.7); Neutrophils % (A) 80 %; RBC 4.37 m/uL (3.80-5.40); RDW 16.3 % (11.5-15.5); WBC (Perox) 7.63
[2017-09-09 07:21] LABS: Anion Gap 10 mmol/L; Blood Urea Nitrogen 9 mg/dL (7-17); Calcium 8.9 mg/dL (8.4-10.2); Carbon Dioxide 22 mmol/L (22-30); Chloride 106 mmol/L (98-107); Glucose 86 mg/dL (74-99); Non-African American GFR(MDRD) >60 (>60 ml/min/1.73 sqM); Potassium 3.6 mmol/L (3.5-5.1); Sodium 138 mmol/L (137-145)
[2017-09-09] MEDS: LOSARTAN 50 MG TAB PO SCH ×2 (08:52→21:24)
[2017-09-09] MEDS: metroNIDAZOLE 500 MG TAB PO SCH ×4 (08:53→21:24)
[2017-09-09] MEDS: FLUTICASONE 50MCG/SPRAY NASAL 16GM EA NOSTRIL SCH ×2 (08:53→21:23)
[2017-09-09] MEDS: KETOTIFEN 0.025% OPHTH DROPS 5 ML BTL BOTH EYES SCH ×2 (08:53→21:23)
[2017-09-09] MEDS: PANTOPRAZOLE 40 MG/10 ML VIAL IVP SCH ×2 (09:46→21:24)
[2017-09-09] MEDS: HEPARIN SODIUM,PORCINE 5,000 UNIT/ML 1 ML VIAL SQ SCH ×2 (09:47→21:23)
[2017-09-09 11:16] VITALS: BMI 24.7
[2017-09-09] MEDS: LEVOFLOXACIN 750MG-D5W PMX 750 MG in DEXTROSE/WATER 1 150ML.BAG IVPB SCH (12:08)
--- NOTE | 2017-09-09 12:44 | CONS ---
CONSULTATION REQUESTING PHYSICIAN: REASON FOR CONSULTATION: Diverticular abscess. HISTORY OF PRESENT ILLNESS: The patient is a 66-year-old pleasant white female who was admitted to the hospital about 3 weeks ago with acute sigmoid diverticulitis and was treated with antibiotics and was discharged home. She was seen by Dr. Ferrera on an outpatient basis about 2 weeks ago, at which time, she just finished antibiotic therapy and was doing well and was advised to have a colonoscopy in 8 weeks. In the meantime, she has started having more lower abdominal discomfort with some constipation which has been progressively getting worse and hence she had a CT of the abdomen and pelvis done on an outpatient basis yesterday morning that showed a multiloculated pericolonic abscess with air suspicious for an enterocolonic fistula and the patient was admitted to the hospital for IV antibiotic therapy. We are consulted in regard to this issue. This morning the patient states that she is feeling better. She denies any fever, chills or night sweats. The patient has longstanding history of Crohn's ileocolitis diagnosed by Dr. Ferrera approximately 20 years ago and she has been maintained on Humira infusions every 2 weeks for the last 2 years. Her last colonoscopy by Dr. Ferrera was in February of 2015 that showed evidence of sigmoid diverticulosis and mild right-sided colitis with terminal ileal narrowing. She has about 2-3 bowel movements daily. No blood or mucus in the stool. PAST MEDICAL HISTORY: Significant for hypertension, hyperlipidemia, Crohn's ileocolitis diagnosed 20 years ago, gastroesophageal reflux disease, anxiety. PAST SURGICAL HISTORY: Bladder surgery, colonoscopy 2 years ago. MEDICATIONS AT HOME: Include: 1. Clonidine. 2. Norvasc. 3. Carafate. 4. Cozaar. 5. Xalatan. 6. Prevacid. 7. Flonase and. 8. Barby. 9. Humira. 10.Anacin. 11.Tylenol No. 3. ALLERGIES: TO LIPITOR, CEFTIN, CARDURA, DOXYCYCLINE, CYMBALTA, LISINOPRIL, RELAFEN, KENALOG AND BACTRIM. SOCIAL HISTORY: No smoking or alcohol use. FAMILY HISTORY: Unremarkable. REVIEW OF SYSTEMS: CARDIOPULMONARY: No chest pain, shortness of breath. GENITOURINARY: No dysuria, hematuria. MUSCULOSKELETAL: Unremarkable. SKIN: Unremarkable. ENDOCRINE: Unremarkable. PSYCHIATRIC: Unremarkable. NEUROLOGY: Unremarkable. ENT: Vision unremarkable. CONSTITUTIONAL: No recent weight loss. No fever, chills, night sweats. PHYSICAL EXAMINATION: Blood pressure is 112/68, pulse is 81, temperature 98.6. HEENT: Unremarkable. Conjunctivae pink. Sclerae anicteric. Oral cavity: No lesions the auscultation. NECK: No JVD or lymph node enlargement. CHEST: Clear to auscultation. HEART: Regular rate and rhythm. ABDOMEN: Soft. Bowel sounds are positive. No organomegaly. Mild tenderness in the left lower quadrant area. EXTREMITIES: No pedal edema. SKIN: No rashes. NEURO: Alert and oriented x3. No focal deficits. LABS: From today: WBC 7, hemoglobin 10.6, platelets are 354. Sed rate is 50, CRP is 171. IMPRESSION: This is a lady with a longstanding history of ileocolonic Crohn disease who was recently admitted to hospital with possible diverticular abscess treated with antibiotics and discharged home about 3 weeks ago, now presents with more lower abdominal discomfort and constipation. A repeat CAT scan and x-ray showed a multiloculated abscess and a possible ileocolonic and possible enterocolonic fistula. The abscess measured about 3.5 cm in size with gas in it. RECOMMENDATIONS: 1. Continue with broad-spectrum antibiotics. 2. Agree with surgical consultation. I discussed with Dr. Webber regarding Interventional Radiology draining the abscess versus continue with conservative approach with antibiotic therapy and repeat CT scan in 4 weeks. He will see the patient today. 3. If we proceed with an elective approach, we can start her on a liquid diet and hopefully discharge her home in the next 1 or 2 days, as the patient wants to be with her , who is scheduled for surgery next Monday. The plan was discussed with the patient and she is agreeable to it. Thank you for this consultation. MMODL / IJN: [id number] /
--- NOTE | 2017-09-09 16:34 | CONS ---
CONSULTATION HISTORY: Thank you very much for asking us to see Mrs. Nini Cook. I am seeing her for Dr. Kay. She was admitted with increasing low abdominal pain, mostly toward the left side. She was recently discharged from the hospital, being treated for what looked like diverticulitis with a small abscess that responded well to antibiotics. She in fact saw Dr. Ferrera a few days ago and was coming along well. However, over the last 2 or 3 days, she has had increasing symptoms with some fever. Had a CT scan as an outpatient, which revealed a loculated abscess around 3 cm in diameter with air suspicious for an enterocolic fistula. Since admission to the office, being placed on IV fluids and antibiotics, she is feeling a lot better. In fact, she feels good enough that she is anxious to go home to see her , who is hospitalized elsewhere for brain tumor and there is plan for imminent surgery for him. The patient does have a history of Crohn's ileocolitis and is being followed by Dr. Ferrera. Was diagnosed with this about 20 years ago. She is currently on Humira infusions every 2 weeks. Last colonoscopy was about 2-1/2 years ago, showing mild right-sided colitis with terminal ileal narrowing. Also, some sigmoid diverticulosis, uncomplicated, was noted at that time. PAST HISTORY: As above. Also has hypertension and reflux disease. MEDICATIONS: As listed, includin. Norvasc. 2. Cozaar. 3. Carafate. 4. Clonidine. 5. Prevacid. 6. Flonase. 7. Barby. 8. Humira. 9. Anacin and. 10.Tylenol No.3. ALLERGIES: MULTIPLE ALLERGIES DOCUMENTED. SOCIAL HISTORY: Patient is . Denies smoking or ethanol abuse. SYSTEM REVIEW: As above. No fever or chills. No chest pain. No cough or hemoptysis or respiratory problems. No urinary symptoms. No weight loss. No blood per rectum. EXAMINATION: The patient is well-built, well-nourished, in no acute distress, quite comfortable at this time. Temperature is normal at 98.5. Vitals are stable. Color is satisfactory. Anicteric. Head and neck are otherwise normal. Abdomen is quite soft. Mild tenderness in the left lower quadrant, but no guarding or rebound or no rigidity. No mass, organomegaly or rebound tenderness noted. No hernias noted. WBC is normal at 7000. Remainder of the lab work is unremarkable. CT was reviewed. IMPRESSION: 1. Left lower quadrant abscess which I suspect may be secondary to a Crohn disease rather than to diverticulitis with a possible enterocolic fistula. 2. Medical issues as described above. RECOMMENDATION: Recommend continued medical management with IV fluids, antibiotics. Will have Radiology evaluate for possible CT drainage of the abscess. I suspect she may need long-term IV antibiotics and medical management of her Crohn's. At this stage, I do not think surgical intervention is necessary. She will follow up with Dr. Kay on discharge. Thanks again very much for asking us to see this pleasant young lady. MMODL / IJN: [id number] /
--- NOTE | 2017-09-09 20:11 | PN ---
PROGRESS NOTE DATE OF SERVICE: 09/09/2017 INTERVAL HISTORY: This 66-year-old woman presented with abdominal abscess related to diverticulitis, is being closely monitored. Dr. Webber and Dr. Lake are following the patient closely. The left lower quadrant abscess is suspected secondary to Crohn disease per Dr. Webber. Dr. Lake is also following the patient closely. No chest pain. No palpitations. No fever. EXAM: Alert and oriented x3. Pulse 75, blood pressure 125/72, respirations 18, temperature 98 degrees, pulse ox 98% room air. HEENT: Conjunctivae normal. NECK: No jugular venous distention. CARDIOVASCULAR: S1, S2 muffled. RESPIRATORY: Breath sounds diminished in the bases. No rhonchi. No crackles. ABDOMEN: Soft. Mild diffuse tenderness. LEGS: No edema. NERVOUS SYSTEM: Nonfocal. LABS: WBC 7, hemoglobin is 10.6. ASSESSMENT: 1. Acute left lower quadrant abdominal abscess, possibly diverticular, possibly intracolonic fistula, possibly Crohn disease. 2. Hypertension. 3. Hyperlipidemia. 4. History of history of degenerative joint disease. 5. History of gastrointestinal bleed. 6. History of gastroesophageal reflux disease. 7. History of Crohn disease. 8. Remote history of nicotine dependence. RECOMMENDATIONS AND DISCUSSION: Recommend to continue current medical management and symptomatic. Otherwise at this time, I would recommend continuing with the consult and the management with antibiotics. Closely follow with Dr. Webber and Dr. Lake. Guarded prognosis. Further recommendations to follow. MMODL / IJN: [id number] /
[2017-09-09] MEDS: LATANOPROST 0.005% OPHTH DROPS 2.5 ML BTL BOTH EYES SCH (21:24)
[2017-09-09] MEDS: amLODIPine 10 MG TAB PO SCH (21:24)
[2017-09-09] MEDS: cloNIDine HCL 0.1 MG TAB PO SCH (21:24)
[2017-09-10] MEDS: Acetaminophen-Codeine 300-30mg TAB PO PRN ×5 (00:06→23:42)
[2017-09-10 07:15] LABS: Basophils % (A) 0 %; CH 23.9; CHCM 29.1; Eosinophils % (A) 1 %; HCT 38.2 % (34.0-46.0); HDW 2.62; HGB 10.9 gm/dL (11.4-16.0); Hypochromasia Marked; Luc # (Auto) 0.09; Luc % (Auto) 2; Lymphocytes # (A) 1.2 k/uL (1.0-4.8); Lymphocytes % (A) 22 %; MCH 23.5 pg (25.0-35.0); MCHC 28.5 g/dL (31.0-37.0); MCV 82.4 fL (80.0-100.0); Mean Platelet Volume 6.5; Monocytes # (A) 0.3 k/uL (0-1.0); Monocytes % (A) 6 %; Neutrophils # (A) 3.7 k/uL (1.3-7.7); Neutrophils % (A) 70 %; RBC 4.63 m/uL (3.80-5.40); RDW 14.8 % (11.5-15.5); WBC 5.3 k/uL (3.8-10.6)
[2017-09-10 07:23] LABS: Anion Gap 11 mmol/L; Blood Urea Nitrogen 8 mg/dL (7-17); Calcium 9.1 mg/dL (8.4-10.2); Carbon Dioxide 23 mmol/L (22-30); Chloride 108 mmol/L (98-107); Glucose 97 mg/dL (74-99); Non-African American GFR(MDRD) >60 (>60 ml/min/1.73 sqM); Potassium 3.8 mmol/L (3.5-5.1); Sodium 142 mmol/L (137-145)
[2017-09-10] MEDS: HEPARIN SODIUM,PORCINE 5,000 UNIT/ML 1 ML VIAL SQ SCH ×2 (08:31→21:09)
[2017-09-10] MEDS: metroNIDAZOLE 500 MG TAB PO SCH ×4 (08:38→20:57)
[2017-09-10] MEDS: LOSARTAN 50 MG TAB PO SCH ×2 (08:38→20:57)
[2017-09-10] MEDS: KETOTIFEN 0.025% OPHTH DROPS 5 ML BTL BOTH EYES SCH ×2 (08:38→20:57)
[2017-09-10] MEDS: FLUTICASONE 50MCG/SPRAY NASAL 16GM EA NOSTRIL SCH ×2 (08:38→20:57)
[2017-09-10] MEDS: PANTOPRAZOLE 40 MG/10 ML VIAL IVP SCH ×2 (08:47→20:58)
--- NOTE | 2017-09-10 10:38 | P.PN ---
Progress Note - Text Progress Note Date: 09/10/17 Patient remains fairly stable. Fairly comfortable. Still some soreness in the lower abdomen and left side. No nausea or vomiting. On examination she is afebrile. Vitals are stable. Abdomen is quite soft with still some mild tenderness in the lower abdomen mostly left lower quadrant area but no guarding or rebound or rigidity. Impression of lower abdominal small abscesses. Suspect may be related to inflammatory bowel disease. Recommendation awaiting radiology consultation regarding percutaneous drainage. We'll probably need long-term antibiotics.
[2017-09-10 11:11] LABS: INR 1.3 (<1.2); Prothrombin Time 12.7 sec (9.0-12.0)
--- NOTE | 2017-09-10 11:47 | PN ---
PROGRESS NOTE DATE OF SERVICE: 09/10/2017. REQUESTING PHYSICIAN: Dr. Kovacs and Dr. Ferrera. INTERVAL HISTORY: Patient is a 66-year-old pleasant white female with a history of longstanding history of Crohn's colitis who follows Dr. Ferrera on outpatient basis, admitted to the hospital with abdominal pain and abdominal abscess. The patient was evaluated by Dr. Webber yesterday and interventional radiology consult has been placed for possible drainage in the meantime. She states that she has some low abdominal discomfort, but overall she is feeling better. She had 2 loose bowel movements this morning. No nausea, vomiting. No fever, chills, night sweats. PHYSICAL EXAMINATION: She appears comfortable. No apparent distress. VITAL SIGNS: Stable. Blood pressure is 112/82, pulse 86 per minute, temperature 98.1. HEENT examination unremarkable. Conjunctivae pink. Sclerae anicteric. Oral cavity no lesions. Neck no jugular venous distention or lymph node enlargement. Chest was clear to auscultation. HEART: Regular rate and rhythm. ABDOMEN: Soft. Bowel sounds are positive. No organomegaly extremities no pedal edema. Skin no rashes. NEUROLOGIC: Alert and oriented x3. No focal deficits. LAB: WBC 5.3, hemoglobin 10.8, platelets are normal. INR is 1.3. Basic metabolic panel is within normal limits. IMPRESSION: This is a lady with longstanding history of Crohn's disease who was admitted to the hospital about a month ago for possible sigmoid diverticulitis treated with antibiotics and discharged home. She now presents with lower abdominal pain and a CT scan showed multifocal abscesses. CT scan of the abdomen done on September 08 showed this new multiloculated pericolonic abscess within the right hemipelvis and just into the persistent inflammatory change in bowel wall thickening and possibility of a coloenteric fistula was also suggested by the radiologist. She is presently on IV Cipro and Flagyl, doing much better. Dr. Webber is following the patient closely. RECOMMENDATIONS: 1. Continue with broad-spectrum antibiotics. 2. Advance diet as tolerated. 3. Agree with consultation with interventional Radiology for possible drainage of the abscess. 4. Continue with Humira every 2 weeks and we will follow the patient during the hospital stay. Thank you for this consultation. MMODL / IJN: [id number] /
[2017-09-10] MEDS: LEVOFLOXACIN 750MG-D5W PMX 750 MG in DEXTROSE/WATER 1 150ML.BAG IVPB SCH (11:56)
[2017-09-10 17:23] LABS: Glucose,Whole Blood 82 mg/dL (75-99)
--- NOTE | 2017-09-10 18:24 | PN ---
PROGRESS NOTE DATE OF SERVICE: 09/10/2017 This is 66-year-old woman who was admitted with abscesses and pain in the abdomen, is thought to have abscess secondary to Crohn disease acute exacerbation by Dr. Lake with whom I discussed the case at length and as well as Dr. Webber. Interventional Radiology evaluation recommended by Dr. Webber and Dr. Lake. There is no history of fever, rigors. No headache, loss of consciousness or seizures. PAST MEDICAL HISTORY: Noted. PHYSICAL EXAM: Patient is alert, oriented x3. Pulse is 68, blood pressure 130/50, respiration 18, temperature 98.2, pulse ox 94% room air. HEENT: Conjunctivae normal. NECK: No jugular venous distention. CARDIOVASCULAR: S1, S2. RESPIRATORY: Breath sounds diminished in the bases. No rhonchi, no crackles. ABDOMEN: Soft. Mild diffuse tenderness present. There is no guarding. No rigidity. No mass palpable. The stomach is slightly distended otherwise. LEGS: No edema, no swelling. NERVOUS SYSTEM: Higher functions as mentioned earlier. Moves all four limbs. No focal deficits LYMPHATIC: No lymphadenopathy in the neck, axillae or groin. SKIN: No ulcers, rash or bleeding. LAB STUDIES: WBC 5.3, hemoglobin 10.9, INR 1.3. ASSESSMENT: 1. Acute left lower quadrant abdominal abscess, possibly secondary to Crohn's disease with enterocolic fistula, possible diverticular abscess. 2. Hypertension. 3. Hyperlipidemia. 4. History of degenerative joint disease. 5. Gastrointestinal bleed. 6. History of gastroesophageal reflux disease. 7. History of Crohn disease. 8. Remote history of nicotine dependence. RECOMMENDATIONS AND DISCUSSION: I recommend to continue current management and continue with symptomatic treatment. Continue with antibiotics. Discussed with Dr. Lake. The patient is not a candidate for steroids. The patient is on Humira. Otherwise prognosis guarded because of multiple complex medical issues and further recommendations to follow. Repeat labs. Interventional Radiology consultation in the morning as mentioned earlier. Further recommendations to follow. MMODL / IJN: [id number] /
[2017-09-10] MEDS: amLODIPine 10 MG TAB PO SCH (20:57)
[2017-09-10] MEDS: LATANOPROST 0.005% OPHTH DROPS 2.5 ML BTL BOTH EYES SCH (20:57)
[2017-09-10] MEDS: cloNIDine HCL 0.1 MG TAB PO SCH (20:58)
[2017-09-11] MEDS: Acetaminophen-Codeine 300-30mg TAB PO PRN ×2 (05:55→11:55)
--- NOTE | 2017-09-11 07:41 | P.PN ---
Progress Note - Text Progress Note Date: 09/11/17 The patient states she feels better. She is quite concerned about her ' s brain surgery tomorrow. She has complaints of some lower quadrant abdominal pain. She states the pain is improved. On exam her vital signs are stable. Her abdomen is soft. There is some minimal tenderness in the right and left lower quadrant. History of diverticular abscess. History of Crohn's disease. The patient will most likely be discharged home today. She'll follow-up myself in the office this week. She should remain on antibiotics.
[2017-09-11 07:43] LABS: Anion Gap 11 mmol/L; Blood Urea Nitrogen 5 mg/dL (7-17); Calcium 9.4 mg/dL (8.4-10.2); Carbon Dioxide 26 mmol/L (22-30); Chloride 105 mmol/L (98-107); Glucose 121 mg/dL (74-99); Non-African American GFR(MDRD) >60 (>60 ml/min/1.73 sqM); Potassium 3.8 mmol/L (3.5-5.1); Sodium 142 mmol/L (137-145)
[2017-09-11 07:44] LABS: Basophils % (A) 0 %; CHCM 29.4; Eosinophils % (A) 1 %; HCT 39.1 % (34.0-46.0); HDW 2.65; HGB 11.5 gm/dL (11.4-16.0); Hypochromasia Marked; Luc # (Auto) 0.11; Luc % (Auto) 2; Lymphocytes # (A) 1.5 k/uL (1.0-4.8); Lymphocytes % (A) 21 %; MCH 24.2 pg (25.0-35.0); MCHC 29.5 g/dL (31.0-37.0); Mean Platelet Volume 6.6; Monocytes # (A) 0.3 k/uL (0-1.0); Monocytes % (A) 4 %; Neutrophils # (A) 5.1 k/uL (1.3-7.7); Neutrophils % (A) 72 %; RBC 4.77 m/uL (3.80-5.40); RDW 14.9 % (11.5-15.5); WBC 7.1 k/uL (3.8-10.6); WBC (Perox) 6.96
[2017-09-11 08:29] VITALS: BP 115/97; PULSE 79; RESP 18; TEMP 98.3
[2017-09-11] MEDS: HEPARIN SODIUM,PORCINE 5,000 UNIT/ML 1 ML VIAL SQ SCH (08:41)
[2017-09-11] MEDS: LOSARTAN 50 MG TAB PO SCH (08:42)
[2017-09-11] MEDS: metroNIDAZOLE 500 MG TAB PO SCH (08:42)
[2017-09-11] MEDS: PANTOPRAZOLE 40 MG/10 ML VIAL IVP SCH (08:42)
[2017-09-11] MEDS: KETOTIFEN 0.025% OPHTH DROPS 5 ML BTL BOTH EYES SCH (08:42)
[2017-09-11] MEDS: FLUTICASONE 50MCG/SPRAY NASAL 16GM EA NOSTRIL SCH (08:43)
--- NOTE | 2017-09-11 09:15 | P.PN ---
Subjective Progress Note Date: 09/11/17 Principal diagnosis: abdominal abscess crohns disease 66-year-old female with a history of long-standing Crohn's colitis followed by Dr. Ferrera admitted with abdominal pain and abdominal abscess. Interventional radiology consulted this morning for possible drainage. Presently denies abdominal pain. She did bowel movement this morning nonbloody. Afebrile. Objective - Vital Signs Vital signs: Vital Signs Temp 98.3 F 09/11/17 07:00 Pulse 79 09/11/17 07:00 Resp 18 09/11/17 07:00 BP 115/97 09/11/17 07:00 Pulse Ox 97 09/11/17 07:00 Intake & Output 09/10/17 09/11/17 09/11/17 18:59 06:59 18:59 Intake Total 100 840 Balance 100 840 Intake: Intake, IV Titration 100 Amount Levofloxacin 750Mg-D5w 100 Pmx 750 mg In Dextrose/ Water 1 150ml.bag @ 100 mls/hr IVPB Q24H CATHY Rx#: [id number] Oral 840 Other: Voiding Method Toilet Toilet # Voids 2 1 - Exam General appearance: The patient is alert, oriented, in no acute distress. HET: Head is normocephalic and atraumatic. Pupils are equal and reactive. Oropharynx is clear without lesions. Neck: Supple without lymphadenopathy. Trachea midline. Heart: S1 S2. Regular rate and rhythm. Lungs: No crackles or wheezes are heard. Abdomen: Soft, nontender, nondistended with bowel sounds. No peritoneal signs. No palpable organomegaly or masses. Extremities: Normal skin color and turgor. No cyanosis, rash, ulceration, clubbing, or edema. Radial and pedal pulses are 2/4 bilaterally. Neurological: No focal deficits. Strength and sensation are grossly intact. - Labs CBC & Chem 7: 09/11/17 07:09 09/11/17 07:09 Labs: Abnormal Lab Results - Last 24 Hours (Table) 09/10/17 09/11/17 09/11/17 Range/Units 06:50 07:09 07:09 MCH 24.2 L (25.0-35.0) pg MCHC 29.5 L (31.0-37.0) g/dL PT 12.7 H (9.0-12.0) sec INR 1.3 H (<1.2) BUN 5 L (7-17) mg/dL Glucose 121 H (74-99) mg/dL Microbiology - Last 24 Hours (Table) 09/08/17 11:40 Blood Culture - Preliminary Blood No Growth after 48 hours Assessment and Plan Assessment: Impression: 1. Long-standing history of Crohn's disease admitted a month ago for possible sigmoid diverticulitis treated with antibiotics and discharged home now presents with lower abdominal pain and CT exam showing multiloculated abscesses in the right abdomen with bowel wall thickening and possibility of a coloenteric fistula. Plan: 1. Awaiting interventional radiology input as to whether or not multiloculated abscesses can be percutaneously drained. Whether or not drainage can be proceeded with would advise discharge home today with antibiotic therapy per IDs recommendations. Follow-up in office in [address] Ferrera with repeat CT imaging 10-14 days. 2. Continue Humira every 2 weeks as previously scheduled. 3. No steroids. 4. Patient is requesting discharge today to be with her spouse who is scheduled for brain surgery tomorrow in [place]. Assessment and plan a care discussed with Dr. Lake
[2017-09-11] MEDS: LEVOFLOXACIN 750MG-D5W PMX 750 MG in DEXTROSE/WATER 1 150ML.BAG IVPB SCH (11:54)
--- NOTE | 2017-09-11 15:13 | P.DS ---
Providers Date of admission: 09/08/17 13:15 Attending physician: Bhavna Jiang Consults: 09/08/17 13:12 Consult Physician Urgent Consulting Provider: Aníbal Kay Consult Reason/Comments: Diverticular abscess Do you want consulting provider notified?: Yes Consult Physician Urgent Consulting Provider: Fadi Ferrera Consult Reason/Comments: Diverticular abscess Do you want consulting provider notified?: Yes Primary care physician: Cecille Mckenna Hospital Course: This 66-year-old woman with a past medical history multiple medical problems was admitted with the intra-abdominal abscess possibly secondary to Crohn's disease. Patient was treated with IV IV antibiotics. Patient was seen by Dr. ayesha Kay and as well as Dr. Segovia. Medical treatment was recommended. Interventional radiology was consulted for possible aspiration. They recommended continued medical treatment. The patient be discharged in a stable condition with guarded prognosis. Patient is keen on going home because of her 's illness which required brain surgery tomorrow. On exam vitals are stable. Cardio S1 and S2 normal. Abdomen soft nontender. No system no focals. No guarding or rigidity. Final diagnosis 1. 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 Hypertension 3. Hyperlipidemia 4. History of DJD. 5. History GI bleed 6. History of GERD. 7. History of Crohn's disease. 8. Remote history of nicotine, dependence. Plan - Discharge Summary Discharge Rx Participant: No New Discharge Prescriptions: New Ciprofloxacin HCl [Cipro] 500 mg PO Q12HR #42 tablet metroNIDAZOLE [Flagyl] 500 mg PO TID #63 tab Multivitamins, Thera [Multivitamin (formulary)] 1 tab PO DAILY #30 tablet Continue Fluticasone Propionate [Flonase] 1 spray EA NOSTRIL BID Fexofenadine HCl [Barby Allergy] 180 mg PO DAILY cloNIDine HCL [Catapres] 0.05 mg PO HS Sucralfate [Carafate] 1 gm PO AC-TID amLODIPine [Norvasc] 10 mg PO HS Losartan [Cozaar] 50 mg PO BID Adalimumab [Humira] 40 mg SQ MO Lansoprazole [Prevacid] 30 mg PO QAM Ketotifen Fumarate [Zaditor] 1 drop BOTH EYES BID Latanoprost Ophth [Xalatan 0.005%] 1 drops BOTH EYES HS Changed Acetaminophen-Codeine 300-30mg [Tylenol w/codeine #3] 1 each PO Q6H PRN #15 tab PRN Reason: Pain Discontinued Aspirin/Caffeine [Anacin 400-32 mg Tablet] 1 tab PO Q6HR PRN PRN Reason: Pain Discharge Medication List Fexofenadine HCl [Barby Allergy] 180 mg PO DAILY 08/02/14 [History] Fluticasone Propionate [Flonase] 1 spray EA NOSTRIL BID 08/02/14 [History] Losartan [Cozaar] 50 mg PO BID 08/02/14 [History] Sucralfate [Carafate] 1 gm PO AC-TID 08/02/14 [History] amLODIPine [Norvasc] 10 mg PO HS 08/02/14 [History] cloNIDine HCL [Catapres] 0.05 mg PO HS 08/02/14 [History] Adalimumab [Humira] 40 mg SQ MO 05/08/16 [History] Ketotifen Fumarate [Zaditor] 1 drop BOTH EYES BID 03/03/17 [History] Lansoprazole [Prevacid] 30 mg PO QAM 03/03/17 [History] Latanoprost Ophth [Xalatan 0.005%] 1 drops BOTH EYES HS 08/11/17 [History] Acetaminophen-Codeine 300-30mg [Tylenol w/codeine #3] 1 each PO Q6H PRN #15 tab 09/11/17 [Rx] Ciprofloxacin HCl [Cipro] 500 mg PO Q12HR #42 tablet 09/11/17 [Rx] Multivitamins, Thera [Multivitamin (formulary)] 1 tab PO DAILY #30 tablet [Rx] metroNIDAZOLE [Flagyl] 500 mg PO TID #63 tab 09/11/17 [Rx] Follow up Appointment(s)/Referral(s): Fadi Ferrera MD [STAFF PHYSICIAN] - 10/09/17 2:30 pm Cecille Mckenna MD [Primary Care Provider] - 09/18/17 10:00 am Aníbal Kay MD [STAFF PHYSICIAN] - 09/14/17 4:20 pm Ambulatory/Diagnostic Orders: Complete Blood Count w/diff [LAB.AMB] Time Frame: 3 Days, Location: Determined By Patient Miscellaneous Radiology Order [RAD.AMB] Time Frame: 09/20/17, Location: Determined By Patient Patient Instructions/Handouts: Ciprofloxacin (By mouth), Metronidazole (By mouth), Multivitamins, Adult Formula (By mouth), Diverticulitis (DC), Abscess ( GEN) Activity/Diet/Wound Care/Special Instructions: -See prescription to have CT of abdomen and pelvis done around 09/20/17 -See prescription to have lab work drawn in 3 days Discharge Disposition: HOME SELF-CARE
== END 2017-09-11 13:05 | disposition home or self-care (01) | DRG 386 ==
LOC: EC 10:32 → 5MS5E 13:15
PROVIDERS: ADMIT Internal Medicine; ATTEND Internal Medicine
DX: K50.914 Crohn's disease, unspecified, with abscess (principal); I10 Essential (primary) hypertension; E78.5 Hyperlipidemia, unspecified; K21.9 Gastro-esophageal reflux disease without esophagitis; Z79.2 Long term (current) use of antibiotics; Z79.899 Other long term (current) drug therapy; Z87.442 Personal history of urinary calculi; Z87.891 Personal history of nicotine dependence; Z88.5 Allergy status to narcotic agent; Z88.2 Allergy status to sulfonamides; Z88.1 Allergy status to other antibiotic agents; Z91.040 Latex allergy status
CPT/HCPCS: 36415; 74178; 80048; 80053; 82150; 83605; 83690; 85025; 85610; 85652; 86140; 87040; 96365; 96366; 96375; 99284

== ENCOUNTER → 2017-09-08 | Outpatient (CLI) | payer MEDICARE ==
--- NOTE | 2017-09-08 09:15 | CT ---
EXAMINATION TYPE: CT abdomen pelvis wo/w con DATE OF EXAM: 09/08/2017 HISTORY: Diverticulitis, fever, wt loss. History of Crohn's disease. CT DLP: 1906mGycm Automated Exposure Control for Dose Reduction was Utilized. CONTRAST: CT scan of the abdomen and pelvis is performed without and with IV Contrast, patient injected with 10 0 mL of Omnipaque 300. COMPARISON: 08/11/2017 FINDINGS: LUNG BASES: No significant abnormality is appreciated. LIVER/GB: Probable focal fatty infiltration is seen in segment 3 and IVb of the liver that are subcap sular and wedge-shaped. Additional subcapsular area of hypoattenuation in segment 6 is ill-defined an d elongated on image 25 and 24 measuring 1.2 cm. This is incompletely characterized. Although the gal lbladder is unremarkable without pericholecystic fluid or gallbladder wall thickening there is diffus e common bile duct enlargement measuring up to 8 mm with tapering distally at the pancreatic head and ampulla of Vater as seen on series 6 image 31. This appears to be smooth in caliber and could repres ent a distal stricture rather than acute cholecystitis. PANCREAS: No significant abnormality is seen. No ductal dilatation. SPLEEN: Spleen is nonenlarged measuring 9.7 cm in anterior craniocaudal dimension. Unremarkable enhan cement. ADRENALS: No nodularity or asymmetry. KIDNEYS: Kidneys enhance symmetrically. No nephrolithiasis on the unenhanced images. BOWEL: Persistent pericolonic fat stranding is seen around the sigmoid colon, similar in degree to th e prior exam of 08/11/2017 with adjacent fascial thickening and sigmoid long segment bowel wall thick ening. An irregular pericolonic fluid collection is seen within the right low pelvis measuring 3.4 x 4.1 cm, peripherally enhancing and containing foci of air internally. Smaller region is seen inferior ly representing loculation measuring 8 mm on series 6 image 64. A loop of distal ileum abuts the ante rior margin of this abscess and a focus of air is seen abutting the ileal loop and intra-abdominal ab scess on series 6 image 60 that could represent an enterocolonic fistula. Reactive uroepithelial thickening and hyperemia is seen of the distal ureter on image 59 as it is adj acent to the right lower quadrant fat stranding. Similarly these findings are seen to a lesser degree of the urinary bladder serosal surface. Mild hydroureter and blunting of the minor calyces are also seen likely as a result of inflammatory change distally. Hydroureter is best evaluated on image 47 of series 6. The appendix lies posterior to this abscess and appears unaffected as it is air-filled and within normal limits of size. Acute diverticulosis changes are limited to the sigmoid colon and do n ot involve the descending colon. LYMPH NODES: No greater than 1cm abdominal or pelvic lymph nodes are appreciated. OSSEOUS STRUCTURES: No significant abnormality is seen. OTHER: Moderate atheromatous changes are seen of the abdominal aorta and its branches. Abdominal aort a is of normal course and caliber. IMPRESSION: 1. New multiloculated pericolonic abscess within the right hemipelvis adjacent to persistent inflamma tory and phlegmonous changes as well as bowel wall thickening of acute diverticulitis diagnosed on . Punctate focus of air is seen between in and abutting loop of distal ileum anterior to the abscess that could represent enteric colonic fistula. Reactive uroepithelial thickening and mild righ t hydroureteronephrosis are present. 2. Enlargement of the common bile duct up to 8 mm without pericholecystic fluid or right upper quadra nt fat stranding. No CT signs of acute cholecystitis. Smooth tapering is seen distally near the ampul la of Vater that could relate to distal biliary stricture. Findings communicated to Radha at the ordering physician's office on 09/08/[address] Aguero at 9:11 AM as the ordering physician was not in the office that day, however Pilar will page the ordering elder torres with the results.
== END | disposition home or self-care (01) ==
LOC: RADCTMAIN 07:29
PROVIDERS: ATTEND Physician Assistant
DX: K57.92 Diverticulitis of intestine, part unspecified, without perforation or abscess without bleeding (principal); K50.10 Crohn's disease of large intestine without complications; N13.30 Unspecified hydronephrosis; K83.1 Obstruction of bile duct; K63.0 Abscess of intestine
CPT/HCPCS: 74178; Q9967

== ENCOUNTER → 2017-09-14 | Outpatient (CLI) | payer MEDICARE ==
[2017-09-14 16:48] LABS: Anisocytosis Slight; Basophils # (A) 0.1 k/uL (0-0.2); Basophils % (A) 1 %; CH 23.6; CHCM 29.6; Eosinophils % (A) 0 %; HCT 42.3 % (34.0-46.0); HGB 12.8 gm/dL (11.4-16.0); Hypochromasia Marked; Luc # (Auto) 0.09; Luc % (Auto) 1; Lymphocytes # (A) 1.8 k/uL (1.0-4.8); Lymphocytes % (A) 22 %; MCH 24.3 pg (25.0-35.0); MCHC 30.4 g/dL (31.0-37.0); Mean Platelet Volume 7.4; Monocytes # (A) 0.3 k/uL (0-1.0); Monocytes % (A) 4 %; Neutrophils # (A) 5.7 k/uL (1.3-7.7); Neutrophils % (A) 71 %; RBC 5.28 m/uL (3.80-5.40); RDW 17.2 % (11.5-15.5); WBC (Perox) 7.86
[2017-09-14 16:52] LABS: Anion Gap 15 mmol/L; Blood Urea Nitrogen 13 mg/dL (7-17); Carbon Dioxide 22 mmol/L (22-30); Chloride 106 mmol/L (98-107); Glucose 116 mg/dL (74-99); Non-African American GFR(MDRD) >60 (>60 ml/min/1.73 sqM); Potassium 3.3 mmol/L (3.5-5.1); Sodium 143 mmol/L (137-145)
== END | disposition home or self-care (01) ==
LOC: LABWHC1 15:42
PROVIDERS: ATTEND Nurse Practitioner
DX: I10 Essential (primary) hypertension (principal); L02.91 Cutaneous abscess, unspecified
CPT/HCPCS: 36415; 80048; 85025

== ENCOUNTER → 2017-09-19 | Outpatient (CLI) | payer MEDICARE ==
--- NOTE | 2017-09-19 18:17 | CT ---
EXAMINATION TYPE: CT abdomen pelvis w con DATE OF EXAM: 09/19/2017 COMPARISON: 09/08/2017 HISTORY: Follow up on abscess CT DLP: 1174 mGycm Automated exposure control for dose reduction was used. TECHNIQUE: Helical acquisition of images was performed from the lung bases through the pelvis. CONTRAST: Performed with Oral Contrast and with IV Contrast, patient injected with 100 mL of Omnipaque 300. FINDINGS: Lung bases are clear. There is no pleural effusion. Liver spleen pancreas gallbladder appear normal. Bile ducts are not dilated. Abdominal aorta is ather omatous. There is no adrenal mass. Kidneys show satisfactory contrast opacification. There is no hydronephrosi s. There is no retroperitoneal adenopathy. Appendix appears normal. There are numerous diverticula in the left colon. The bladder distends smoothly. There is some stranding in the abdomen on the right s hay of the mid sigmoid colon consistent with inflammatory changes. This measures 1.7 cm. I see no bon y destructive process. IMPRESSION: COLONIC DIVERTICULOSIS. INFLAMMATORY CHANGES IN THE MID SIGMOID COLON SMALL PERIDIVERTICULAR ABSCESS THAT IS SIGNIFICANTLY SMALLER THAN THE OLD CT SCAN OF 09/08/2017. THIS MEASURES 4.3 CM ON THE OLD EXA M AND NOW MEASURES 1.7 CM.
== END | disposition home or self-care (01) ==
LOC: RADCTMAIN 16:59
DX: K57.30 Diverticulosis of large intestine without perforation or abscess without bleeding (principal); K63.0 Abscess of intestine; R93.3 Abnormal findings on diagnostic imaging of other parts of digestive tract
CPT/HCPCS: 74177; Q9967

== ENCOUNTER → 2017-10-20 | Outpatient (CLI) | payer MEDICARE ==
--- NOTE | 2017-10-21 04:43 | CT ---
EXAMINATION TYPE: CT abdomen pelvis wo con DATE OF EXAM: 10/20/2017 COMPARISON: 09/19/2017 HISTORY: Pain Examination of the solid and hollow viscera is limited given the lack of contrast. FINDINGS: LUNG BASES: No evidence for nodule. No evidence for infiltrate. LIVER/GB: The gallbladder is unremarkable. No space-occupying hepatic lesion. PANCREAS: No pancreatic mass identified. No inflammatory process seen. SPLEEN: No evidence for splenomegaly. No intrasplenic lesions seen. ADRENALS: No adrenal nodules identified. No evidence for thickening. KIDNEYS: No evidence for renal mass. No nephrolithiasis. No hydronephrosis. BOWEL: Appendix has a normal appearance. Features of diverticulitis seen previously have improved. Th ere is a mild persistent wall thickening involving the sigmoid colon. Small chronic wall perforation identified right lower quadrant. Changes from hiatal hernia repair. Lymph nodes: No evidence for adenopathy greater than 1 cm. Abdominal aorta: Atheromatous changes seen. No evidence for aneurysm. Genital organs: No significant abnormality. Other: No significant abnormality. IMPRESSION: 1.Features of diverticulitis seen previously have improved. There is mild persistent wall thickening involving the sigmoid colon. 2. No evidence for nephrolithiasis or hydronephrosis.
[2017-10-21 11:23] LABS: Appearance,Urine Clear (Clear); Bilirubin,Urine Negative (Negative); Blood,Urine Negative (Negative); Color,Urine Yellow; Glucose,Urine (UA) Negative (Negative); Ketones,Urine Negative (Negative); Leukocyte Esterase,Urine Negative (Negative); Mucus,Urine Rare /hpf; Nitrite,Urine Negative (Negative); PH, Urine 5.5 (5.0-8.0); Protein,Urine Negative (Negative); Specific Gravity,Urine 1.016 (1.001-1.035); Squamous Epithelial Cell,Urine 1 /hpf (0-4); Urobilinogen,Urine <2.0 mg/dL (<2.0)
[2017-10-21 11:55] LABS: Anisocytosis Slight; HCT 42.2 % (34.0-46.0); HGB 12.8 gm/dL (11.4-16.0); Hypochromasia Moderate; MCH 25.4 pg (25.0-35.0); MCHC 30.4 g/dL (31.0-37.0); MCV 83.8 fL (80.0-100.0); Mean Platelet Volume 6.6; Platelet Count 338 k/uL (150-450); RBC 5.03 m/uL (3.80-5.40); RDW 16.2 % (11.5-15.5); WBC 7.6 k/uL (3.8-10.6)
[2017-10-21 16:41] LABS: ALT 29 U/L (9-52); AST 17 U/L (14-36); Albumin 3.9 g/dL (3.5-5.0); Alkaline Phosphatase 63 U/L (38-126); Anion Gap 12 mmol/L; Blood Urea Nitrogen 14 mg/dL (7-17); Calcium 8.7 mg/dL (8.4-10.2); Carbon Dioxide 20 mmol/L (22-30); Chloride 109 mmol/L (98-107); Glucose 85 mg/dL (74-99); Potassium 3.8 mmol/L (3.5-5.1); Sodium 141 mmol/L (137-145); Total Bilirubin 0.1 mg/dL (0.2-1.3); Total Protein 6.7 g/dL (6.3-8.2)
== END | disposition home or self-care (01) ==
LOC: RADCTMAIN 13:19
DX: K63.89 Other specified diseases of intestine (principal); Z87.19 Personal history of other diseases of the digestive system
CPT/HCPCS: 80053; 85027; 81003; 74176; Q9967

== ENCOUNTER → 2018-01-19 | Outpatient (CLI) | payer MEDICARE, OTHER ==
--- NOTE | 2018-01-22 11:44 | MM ---
Reason for exam: screening (asymptomatic). Last mammogram was performed 1 year and 1 month ago. History: Patient is postmenopausal. Family history of breast cancer in maternal aunt at age 60, breast cancer in maternal cousin at age 18, breast cancer in aunt, and breast cancer in sister at age 54. Benign left mammotome panel of the left breast, October 06, 2005. Benign stereotactic core biopsy of the left breast, August 21, 2001. Core biopsy of the left breast. Physical Findings: A clinical breast exam by your physician is recommended on an annual basis and results should be correlated with mammographic findings. MG 3D Screening Mammo W/Cad Bilateral CC and MLO view(s) were taken. Prior study comparison: December 14, 2016, bilateral MG 3d screening mammo w/cad. July 14, 2015, bilateral MG diagnostic mammo w CAD ITZEL. The breast tissue is extremely dense which could obscure a lesion on mammography. Benign calcifications bilaterally. Previous mammotome biopsy in the left breast. No significant changes when compared with prior studies. ASSESSMENT: Incomplete: need additional imaging evaluation, BI-RAD 0 RECOMMENDATION: Ultrasound of the right breast. [facility] will attempt to contact patient to return for ultrasound.
== END | disposition home or self-care (01) ==
LOC: RADMAMWWP 13:31
PROVIDERS: ATTEND Family Medicine
DX: Z12.31 Encounter for screening mammogram for malignant neoplasm of breast (principal)
CPT/HCPCS: 77063; 77067

== ENCOUNTER → 2018-01-23 | Outpatient (CLI) | payer MEDICARE, OTHER ==
--- NOTE | 2018-01-26 11:42 | USB ---
Reason for exam: additional evaluation requested from abnormal screening. History: Patient is postmenopausal. Family history of breast cancer in maternal aunt at age 60, breast cancer in maternal cousin at age 18, breast cancer in aunt, and breast cancer in sister at age 54. Benign left mammotome panel of the left breast, October 06, 2005. Benign stereotactic core biopsy of the left breast, August 21, 2001. Core biopsy of the left breast. Physical Findings: Nurse Summary: Patient complains of intermittent right breast lump x 2 months (nurse mj). US Breast Workup Limited RT Right breast ultrasound demonstrates a 1.4 x 1.3 x 0.6cm oval, hyperechoic lesion at 3 o'clock and a 2.4 x 1.4 x 0.5cm oval, hyperechoic lesion at 8 o'clock. These results were verbally communicated with the patient and result sheet given to the patient on 01/23/18. ASSESSMENT: Suspicious, BI-RAD 4 RECOMMENDATION: Ultrasound core biopsy of the right breast. Called Dr. Mckenna with mammographic findings and has scheduled an appointment for the patient for 02/01/18 at 11:[address] Valdez. PRELIMINARY REPORT CALLED AND FAXED TO DR. VALDEZ ON 01/24/18.
== END | disposition home or self-care (01) ==
LOC: RADUSWWP 10:08
PROVIDERS: ATTEND Family Medicine
DX: R92.8 Other abnormal and inconclusive findings on diagnostic imaging of breast (principal)

== ENCOUNTER → 2018-02-07 | Day surgery (SDC) | payer MEDICARE, OTHER | LOC: RADUSWWP 13:02 | PROVIDERS: ATTEND Surgery | DX: R92.8 Other abnormal and inconclusive findings on diagnostic imaging of breast (principal); Z53.9 Procedure and treatment not carried out, unspecified reason ==

== ENCOUNTER → 2018-02-12 | Day surgery (SDC) | payer MEDICARE, OTHER ==
[2018-02-12 14:06] VITALS: RESP 16; BMI 24.9
--- NOTE | 2018-02-12 16:21 | USB ---
EXAMINATION TYPE: US biopsy breast VAD RT, US biopsy breast add'l VAD RT, Postbiopsy MG diagnostic mammo RT wo CAD DATE OF EXAM: 02/12/2018 CLINICAL HISTORY: 67-year-old female referred for ultrasound-guided right breast biopsy. R92.8 Prev abnormal. Patient with palpable and tender finding at the 8:00 position and incidentally seen echogenic lesion at the 3:00 position. TECHNIQUE: Ultrasound guided core biopsy of the right breast (2 sites). COMPARISON: 01/23/2018 and 01/19/2018 FINDINGS: The procedure of ultrasound guided core biopsy was explained to the patient. Benefits, alternatives, and risks were discussed. An informed consent was then obtained. The patient was placed in supine positioning for imaging and for the procedure. The overlying skin was prepped and draped in usual sterile fashion. Lidocaine buffered with bicarbonate was used as anesthetic into the skin and subcutaneous tissue up to area of concern in the right breast for each lesion in turn breast. SITE A, 8:00, palpable and tender, echogenic: Under ultrasound guidance, a 13- gauge vacuum assisted mammotome Elite biopsy gun was used to obtain 5 core samples. Following this, a ribbon clip was left in lesion. SITE B, 3:00, round, echogenic, incidentally found: Under ultrasound guidance, a 13-gauge vacuum assisted mammotome Elite biopsy gun was used to obtain 5 core samples. Following this, a coil clip was left in lesion. The patient tolerated the procedure well without any immediate complication. The patient was kept in the radiology department for short stay after the procedure and then discharged home in stable condition. Postbiopsy mammogram shows ribbon clip at approximately 9:00 far peripherally and coil clip anteriorly at the 3:00 position. These areas seem to be composed of fatty density on the patient's diagnostic mammogram. IMPRESSION: 1. Successful, uncomplicated ultrasound guided core biopsy of 2 areas in the right breast, possible lipomas, full pathology results to follow. Pathology Results: Benign A. BREAST, RIGHT, SITE A 8:00, CORE BIOPSY: BENIGN ADIPOSE TISSUE WITH FEATURES SUGGESTIVE OF LIPOMA VERSUS ANGIOLIPOMA. BREAST ELEMENTS ARE NOT PRESENT FOR EVALUATION. B. BREAST, RIGHT, SITE B 3:00, CORE BIOPSY: BENIGN BREAST WITH FIBROCYSTIC CHANGES AND PROMINENT ADIPOSE TISSUE, CANNOT EXCLUDE A LIPOMA. Recommendation Follow up ultrasound of the right breast in 6 months. MTDD
[2018-02-12 16:40] VITALS: BP 170/71; PULSE 81; TEMP 98
== END ==
LOC: RADUSWWP 13:07
PROVIDERS: ATTEND Surgery
DX: N60.11 Diffuse cystic mastopathy of right breast (principal); R92.8 Other abnormal and inconclusive findings on diagnostic imaging of breast; Z88.0 Allergy status to penicillin; Z88.2 Allergy status to sulfonamides; Z88.8 Allergy status to other drugs, medicaments and biological substances; Z88.6 Allergy status to analgesic agent; Z88.1 Allergy status to other antibiotic agents; Z91.040 Latex allergy status
CPT/HCPCS: 88305; 77065; 19083; 19084; A4648; J2001

== ENCOUNTER → 2018-04-05 | Outpatient (CLI) | payer MEDICARE, OTHER ==
--- NOTE | 2018-04-05 09:29 | CTL ---
EXAMINATION TYPE: CT Low Dose Lung DATE OF EXAM ORDERED: 04/05/2018 COMPARISON: None HISTORY: . Low Dose CT Lung Screening CT DLP: [address] CTDI: 2.07 mGy IV CONTRAST USED: None. SCREENING VISIT: First visit COMPARISON: None. TECHNIQUE: Low dose computed tomography scan was performed through the chest at 1 millimeter thick se ctions and reconstructed images in the coronal plane at [address] DIAGNOSTIC QUALITY: Satisfactory FINDINGS: LUNG NODULES: Not presentLeft lung: no nodules identified.Right lung: no nodules identified. LUNGS: COPD: Severity: None Fibrosis: Severity:None Lymph nodes: None Other findings: None RIGHT PLEURAL SPACE: Effusion: None Calcification: None Thickening: None Pneumothorax: None LEFT PLEURAL SPACE: Effusion: None Calcification: None Thickening: None Pneumothorax: None HEART: Heart Size: Mildly enlarged Coronary calcification: Mild Pericardial effusion: None OTHER FINDINGS: Upper abdomen: No significant abnormality Bony thorax: Degenerative changes Supraclavicular region: No significant abnormalityOther: No significant abnormalityI IMPRESSION: Negative FOLLOW UP CT CHEST RECOMMENDATION: Follow-up screening in one year CT LUNG RAD: LUNG RAD CATEGORY 1
== END | disposition home or self-care (01) ==
LOC: RADCTMAIN 08:44
PROVIDERS: ATTEND Family Medicine
DX: Z12.2 Encounter for screening for malignant neoplasm of respiratory organs (principal); Z87.891 Personal history of nicotine dependence

== ENCOUNTER → 2018-07-16 | Outpatient (CLI) | payer MEDICARE, OTHER ==
--- NOTE | 2018-07-16 23:01 | CT ---
EXAMINATION TYPE: CT abdomen pelvis wo con DATE OF EXAM: 07/16/2018 COMPARISON: 10/20/2017 HISTORY: 67-year-old female left Lower abdominal pain and fever x [address] DLP: 683 mGycm. Automated exposure control for dose reduction was used. TECHNIQUE: Contiguous axial scanning of the abdomen and pelvis without IV contrast. Coronal and sagit mansi reconstructions performed. FINDINGS: Heart normal size without pericardial effusion. Lung bases are clear without pleural effusion. Ectati c lower descending thoracic aorta are 2.6 cm. Surgical clips at the GE junction. Geographic areas of increased attenuation within the right hepatic lobe and along the gallbladder fos sa with background low-attenuation of the liver parenchyma. Liver is enlarged measuring 19.0 cm. Gallbladder, adrenal glands, right kidney, spleen with hilar splenule, and pancreas show no gross abn ormality by noncontrast CT. Scattered calcified foci within the anterior mesentery of the upper abdomen suggesting possible prior granulomatous disease. Scattered nonenlarged mesenteric lymph nodes. Moderate atherosclerotic calcifications throughout the abdominal aorta and iliac arteries. No dilated small bowel, free fluid, or free air. There is left hemicolonic diverticulosis, greatest in the sigmoid colon. Wall thickening along the mi d sigmoid with pericolonic fat stranding, increased from 10/20/2017. Normal appendix. Bladder nondistended. Multiple pelvic phleboliths. No abnormal fluid collection in the pelvis or pelv ic lymphadenopathy. Bones: Facet arthropathy lower lumbar spine with grade 1 anterolisthesis at L4-L5. IMPRESSION: 1. Hepatomegaly (19.0 cm) with at least moderate hepatic steatosis. Correlate with LFTs, lipid profi le, patient risk factors. 2. Left hemicolonic diverticulosis, greatest in the sigmoid colon. Mid sigmoid shows wall thickening and mild surrounding fat stranding. Findings suggest mild acute diverticulitis. No abscess or free a ir. Recommend direct visualization after treatment if routine screening is not being performed.
== END | disposition home or self-care (01) ==
LOC: RADCTMAIN 14:33
PROVIDERS: ATTEND Nurse Practitioner Family
DX: K57.30 Diverticulosis of large intestine without perforation or abscess without bleeding (principal); K76.0 Fatty (change of) liver, not elsewhere classified; R16.0 Hepatomegaly, not elsewhere classified; K63.89 Other specified diseases of intestine
CPT/HCPCS: 74176

== ENCOUNTER → 2018-08-03 | Outpatient (CLI) | payer MEDICARE, OTHER ==
--- NOTE | 2018-08-03 14:52 | MM ---
Reason for exam: follow-up at short interval from prior study. Last mammogram was performed 6 months ago. History: Patient is postmenopausal. Family history of breast cancer in maternal aunt at age 60, breast cancer in maternal cousin at age 18, breast cancer in aunt, and breast cancer in sister at age 54. Benign US biopsy breast VAD RT of the right breast, February 12, 2018. Benign US biopsy breast add'l VAD RT of the right breast, February 12, 2018. Benign left mammotome panel of the left breast, October 06, 2005. Benign stereotactic core biopsy of the left breast, August 21, 2001. Core biopsy of the left breast. Physical Findings: Nurse did not find any significant physical abnormalities on exam. MG 3D Diag Mammo W/Cad RT CC and MLO view(s) were taken of the right breast. Prior study comparison: February 12, 2018, right breast MG diagnostic mammo RT wo CAD. January 19, 2018, bilateral MG 3d screening mammo w/cad. The breast tissue is heterogeneously dense. This may lower the sensitivity of mammography. Previous mammotome biopsy in the right breast. These results were verbally communicated with the patient and result sheet given to the patient on 08/03/18. ASSESSMENT: Benign, BI-RAD 2 RECOMMENDATION: Follow-up diagnostic mammogram of both breasts in 6 months.
--- NOTE | 2018-08-03 14:53 | USB ---
Reason for exam: follow-up at short interval from prior study. History: Patient is postmenopausal. Family history of breast cancer in maternal aunt at age 60, breast cancer in maternal cousin at age 18, breast cancer in aunt, and breast cancer in sister at age 54. Benign US biopsy breast VAD RT of the right breast, February 12, 2018. Benign US biopsy breast add'l VAD RT of the right breast, February 12, 2018. Benign left mammotome panel of the left breast, October 06, 2005. Benign stereotactic core biopsy of the left breast, August 21, 2001. Core biopsy of the left breast. US Breast RT Right complete breast ultrasound includes all four quadrants, the retroareolar region and axilla. Finding demonstrates a 1.5 x 0.5 x 0.8cm hyperechoic lesion at 3 o'clock and a 2.1 x 0.5 x 1.2cm hyperechoic lesion at 8 o'clock. These results were verbally communicated with the patient and result sheet given to the patient on 08/03/18. ASSESSMENT: Benign, BI-RAD 2 RECOMMENDATION: Follow-up diagnostic mammogram of both breasts in 6 months.
== END | disposition home or self-care (01) ==
LOC: RADMAMWWP 09:19
PROVIDERS: ATTEND Surgery
DX: N60.11 Diffuse cystic mastopathy of right breast (principal)
CPT/HCPCS: 77065; 76641; G0279; 77061

== ENCOUNTER 2018-09-23 04:26 | Emergency (ER) | payer MEDICARE, OTHER ==
[2018-09-23 05:04] LABS: Appearance,Urine Clear (Clear); Bilirubin,Urine Negative (Negative); Blood,Urine Negative (Negative); Color,Urine Colorless; Glucose,Urine (UA) Negative (Negative); Ketones,Urine Negative (Negative); Leukocyte Esterase,Urine Negative (Negative); Nitrite,Urine Negative (Negative); PH, Urine 5.5 (5.0-8.0); Protein,Urine Negative (Negative); Specific Gravity,Urine 1.003 (1.001-1.035); Urobilinogen,Urine <2.0 mg/dL (<2.0)
--- NOTE | 2018-09-23 05:35 | ED ---
Abdominal Pain HPI - General Source: patient Mode of arrival: EMS Limitations: no limitations - History of Present Illness MD Complaint: abdominal pain Onset/Timin -: days(s) Location: suprapubic, L flank, R flank Radiation: none Migration to: no migration Severity: moderate Quality: aching Consistency: constant Improves With: nothing Worsens With: other (Urinating) Associated Symptoms: nausea, fever <Coleman Hopper - Last Filed: 09/23/18 05:32> <Dash Garza - Last Filed: 09/23/18 08:46> - General Chief Complaint: Urogenital Stated Complaint: UTI Time Seen by Provider: 09/23/18 04:47 - Related Data Home Medications Medication Instructions Recorded Confirmed Fexofenadine HCl [Barby Allergy] 180 mg PO DAILY 08/02/14 09/23/18 Fluticasone Propionate [Flonase] 2 spray EA NOSTRIL DAILY 08/02/14 09/23/18 Losartan [Cozaar] 50 mg PO BID 08/02/14 09/23/18 Sucralfate [Carafate] 1 gm PO AC-TID 08/02/14 09/23/18 amLODIPine [Norvasc] 10 mg PO DAILY 08/02/14 09/23/18 cloNIDine HCL [Catapres] 0.05 mg PO DAILY 08/02/14 09/23/18 Adalimumab [Humira] 40 mg SQ SA 05/08/16 09/23/18 Ketotifen Fumarate [Zaditor] 1 drop BOTH EYES BID 03/03/17 09/23/18 Lansoprazole [Prevacid] 30 mg PO QAM 03/03/17 09/23/18 Acetaminophen-Codeine 300-30mg 1 tab PO BID PRN 09/23/18 09/23/18 [Tylenol w/codeine #3] Mupirocin 2% Oint [Bactroban 2% 1 applic TOPICAL BID PRN 09/23/18 09/23/18 Oint] Previous Rx's Medication Instructions Recorded Ciprofloxacin HCl [Cipro] 500 mg PO Q12HR #20 tablet 09/23/18 metroNIDAZOLE [Flagyl] 500 mg PO TID #30 tab 09/23/18 Allergies Allergy/AdvReac Type Severity Reaction Status Date / Time atorvastatin [From Lipitor] Allergy Swelling Verified 09/23/18 07:30 cefuroxime [From Ceftin] Allergy Rash/Hives Verified 09/23/18 07:30 cefuroxime axetil Allergy SEVERE Verified 09/23/18 07:30 [From Ceftin] HEADACHE dicloxacillin Allergy Nausea & Verified 09/23/18 07:30 Vomiting & Diarrhea doxazosin mesylate Allergy Rash/Hives Verified 09/23/18 07:30 [From Cardura] doxycycline Allergy Nausea & Verified 09/23/18 07:30 Vomiting,HEADACHE duloxetine [From Cymbalta] Allergy Abdominal Verified 09/23/18 07:30 Pain, ROQUE gatifloxacin [From Tequin] Allergy Abdominal Verified 09/23/18 07:30 Pain,VOMITING hydralazine [Hydralazine] Allergy Rapid Verified 09/23/18 07:30 Heart Rate hydrochlorothiazide Allergy Nausea & Verified 09/23/18 07:30 Vomiting indapamide [From Lozol] Allergy Abdominal Verified 09/23/18 07:30 Pain latex Allergy Rash/Hives Verified 09/23/18 07:30 lisinopril Allergy VERTIGO,HEA Verified 09/23/18 07:30 DACHE nabumetone [From Relafen] Allergy Abdominal Verified 09/23/18 07:30 Pain povidone-iodine Allergy Rash/Hives Verified 09/23/18 07:30 [From Betadine] soap [From Betadine] Allergy Rash/Hives Verified 09/23/18 07:30 sulfasalazine Allergy Abdominal Verified 09/23/18 07:30 [From Azulfidine] Pain,VOMITING triamcinolone acetonide Allergy SEVERE Verified 09/23/18 07:30 [From Kenalog] HEADACHE Review of Systems ROS Other: All systems not noted in ROS Statement are negative. Constitutional: Reports: fever, chills Respiratory: Denies: cough, dyspnea Cardiovascular: Denies: chest pain, palpitations, edema Gastrointestinal: Reports: abdominal pain, nausea. Denies: diarrhea, constipation Genitourinary: Reports: dysuria. Denies: hematuria Musculoskeletal: Denies: back pain Skin: Denies: rash Neurological: Denies: headache, weakness <Coleman Hopper - Last Filed: 09/23/18 05:32> ROS Other: All systems not noted in ROS Statement are negative. <Dash Garza - Last Filed: 09/23/18 08:46> ROS Statement: Those systems with pertinent positive or pertinent negative responses have been documented in the HPI. Past Medical History Past Medical History: Diabetes Mellitus, Eye Disorder, GERD/Reflux, GI Bleed, Hyperlipidemia, Hypertension, Osteoarthritis (OA) Additional Past Medical History / Comment(s): Pt recently admitted 07/2017 with R lower quadrant pain and microperforations of diverticulitis-treated with ABX. Other HX: Lower GI bleeds, chron's dx, IBS, hemorrhoids, PUD, arhtiritis bilateral hands and feet, chronic back pain, macular degeneration bilateral eyes , sinus problems, bronchitis, migraines, bilateral kidney stones, anemia, hypoglycemia, spider veins bilateral legs. History of Any Multi-Drug Resistant Organisms: None Reported Past Surgical History: Bladder Surgery, Hysterectomy, Orthopedic Surgery, Tonsillectomy Additional Past Surgical History / Comment(s): Several EGDs with bx and colonoscopies with bx, gastrectomy for ulcers (40% stomach removed),cystoscopy x2, R/L shoulder rotator cuff arthroscopies, bilateral CATARACT SURGERY with lens implants; Sinus Surgery x 2, Left Breast biopsy x 2-benign, 2nd toe R foot with hardware. Past Anesthesia/Blood Transfusion Reactions: No Reported Reaction Additional Past Anesthesia/Blood Transfusion Reaction / Comment(s): Pt states she did receive blood in 2009 with GI bleed-no reaction. Past Psychological History: No Psychological Hx Reported Smoking Status: Former smoker - Past Family History Father Family Medical History: Cancer Additional Family Medical History / Comment(s): Father had prostate cancer that went to the bone. He at the age of 79yrs. Mother Family Medical History: Cancer Additional Family Medical History / Comment(s): Mother of lymphoma at the age of 81 yrs. Sister(s) Family Medical History: Cancer <Coleman Hopper - Last Filed: 09/23/18 05:32> General Exam Limitations: no limitations General appearance: alert, in no apparent distress Head exam: Present: atraumatic, normocephalic Eye exam: Present: normal appearance. Absent: scleral icterus, conjunctival injection ENT exam: Present: normal oropharynx Respiratory exam: Present: normal lung sounds bilaterally. Absent: respiratory distress, wheezes, rales, rhonchi, stridor Cardiovascular Exam: Present: regular rate, normal rhythm, normal heart sounds. Absent: systolic murmur, diastolic murmur, rubs, gallop GI/Abdominal exam: Present: soft, tenderness. Absent: distended, guarding, rebound, rigid, mass Extremities exam: Present: normal inspection, normal capillary refill. Absent: pedal edema, calf tenderness Back exam: Present: normal inspection. Absent: CVA tenderness (R), CVA tenderness (L) Neurological exam: Present: alert Skin exam: Present: warm, dry, intact, normal color. Absent: rash <Coleman Hopper - Last Filed: 09/23/18 05:32> Vital Signs 09/23/18 04:28 Temperature 98.3 F Pulse Rate 92 Respiratory 16 Rate Blood Pressure 137/80 O2 Sat by Pulse 97 Oximetry Medical Decision Making <Coleman Hopper - Last Filed: 09/23/18 05:32> - Lab Data Result diagrams: 09/23/18 06:17 09/23/18 06:17 - Radiology Data Radiology results: report reviewed (Computed tomography scan of the abdomen pelvis shows mild diverticular change with mild inflammatory changes) <Dash Garza - Last Filed: 09/23/18 08:46> - Medical Decision Making Patient reevaluated and resting comfortably in bed. Patient updated on results and plan. Abdomen is soft with mild tenderness of the lower abdomen. Patient is comfortable with discharge home. Patient states she previously tolerated Cipro and Flagyl several months ago with similar problems. Patient does see Dr. Webber and will follow-up with him. (Dash Garza) - Lab Data Lab Results 09/23/18 09/23/18 09/23/18 Range/Units 04:37 06:17 06:17 WBC 11.7 H (3.8-10.6) k/uL RBC 5.48 H (3.80-5.40) m/uL Hgb 14.1 (11.4-16.0) gm/dL Hct 44.8 (34.0-46.0) % MCV 81.7 (80.0-100.0) fL MCH 25.7 (25.0-35.0) pg MCHC 31.5 (31.0-37.0) g/dL RDW 15.9 H (11.5-15.5) % Plt Count 339 (150-450) k/uL Neutrophils % 87 % Lymphocytes % 7 % Monocytes % 2 % Eosinophils % 3 % Basophils % 0 % Neutrophils # 10.3 H (1.3-7.7) k/uL Lymphocytes # 0.8 L (1.0-4.8) k/uL Monocytes # 0.3 (0-1.0) k/uL Eosinophils # 0.3 (0-0.7) k/uL Basophils # 0.0 (0-0.2) k/uL Hypochromasia Slight Sodium 144 (137-145) mmol/L Potassium 4.4 (3.5-5.1) mmol/L Chloride 106 (98-107) mmol/L Carbon Dioxide 22 (22-30) mmol/L Anion Gap 16 mmol/L BUN 18 H (7-17) mg/dL Creatinine 0.67 (0.52-1.04) mg/dL Est GFR (CKD-EPI)AfAm >90 (>60 ml/min/1.73 sqM) Est GFR (CKD-EPI)NonAf >90 (>60 ml/min/1.73 sqM) Glucose 119 H (74-99) mg/dL Calcium 10.3 H (8.4-10.2) mg/dL Total Bilirubin 0.4 (0.2-1.3) mg/dL AST 25 (14-36) U/L ALT 26 (9-52) U/L Alkaline Phosphatase 87 (38-126) U/L Total Protein 9.1 H (6.3-8.2) g/dL Albumin 4.9 (3.5-5.0) g/dL Amylase 62 (30-110) U/L Lipase 53 (23-300) U/L Urine Color Colorless Urine Appearance Clear (Clear) Urine pH 5.5 (5.0-8.0) Ur Specific [place] 1.003 (1.001-1.035) Urine Protein Negative (Negative) Urine Glucose (UA) Negative (Negative) Urine Ketones Negative (Negative) Urine Blood Negative (Negative) Urine Nitrite Negative (Negative) Urine Bilirubin Negative (Negative) Urine Urobilinogen <2.0 (<2.0) mg/dL Ur Leukocyte Esterase Negative (Negative) Disposition <Coleman Hopper - Last Filed: 09/23/18 05:32> Is patient prescribed a controlled substance at d/c from ED?: No Time of Disposition: 08:46 <Dash Garza - Last Filed: 09/23/18 08:46> Clinical Impression: Diverticulitis Disposition: HOME SELF-CARE Condition: Stable Instructions: Diverticulitis (ED), Diverticulitis Diet (ED) Additional Instructions: Please follow-up through primary care physician and surgeon beginning of the week. Return for increased pain, fevers, vomiting, bleeding, worsening symptoms or other concerns. Prescriptions: Ciprofloxacin HCl [Cipro] 500 mg PO Q12HR #20 tablet metroNIDAZOLE [Flagyl] 500 mg PO TID #30 tab Referrals: Cecille Mckenna MD [Primary Care Provider] - 1-2 days Tone Webber MD [STAFF PHYSICIAN] - 1-2 days
[2018-09-23 06:31] LABS: Basophils % (A) 0 %; Eosinophils # (A) 0.3 k/uL (0-0.7); Eosinophils % (A) 3 %; HCT 44.8 % (34.0-46.0); HGB 14.1 gm/dL (11.4-16.0); Hypochromasia Slight; Lymphocytes # (A) 0.8 k/uL (1.0-4.8); Lymphocytes % (A) 7 %; MCH 25.7 pg (25.0-35.0); MCHC 31.5 g/dL (31.0-37.0); MCV 81.7 fL (80.0-100.0); Mean Platelet Volume 6.8; Monocytes # (A) 0.3 k/uL (0-1.0); Monocytes % (A) 2 %; Neutrophils # (A) 10.3 k/uL (1.3-7.7); Neutrophils % (A) 87 %; Platelet Count 339 k/uL (150-450); RBC 5.48 m/uL (3.80-5.40); RDW 15.9 % (11.5-15.5); WBC 11.7 k/uL (3.8-10.6)
[2018-09-23 07:01] LABS: ALT 26 U/L (9-52); AST 25 U/L (14-36); Albumin 4.9 g/dL (3.5-5.0); Alkaline Phosphatase 87 U/L (38-126); Amylase 62 U/L (30-110); Anion Gap 16 mmol/L; Blood Urea Nitrogen 18 mg/dL (7-17); Calcium 10.3 mg/dL (8.4-10.2); Carbon Dioxide 22 mmol/L (22-30); Chloride 106 mmol/L (98-107); Glucose 119 mg/dL (74-99); Lipase 53 U/L (23-300); Potassium 4.4 mmol/L (3.5-5.1); Sodium 144 mmol/L (137-145); Total Bilirubin 0.4 mg/dL (0.2-1.3); Total Protein 9.1 g/dL (6.3-8.2)
[2018-09-23] MEDS ORDERED: MORPHINE SULFATE 2 MG/ML SYRINGE IVP STA (08:26)
[2018-09-23] MEDS ORDERED: ONDANSETRON 4 MG/2 ML VIAL IVP STA (08:27)
--- NOTE | 2018-09-23 08:29 | CT ---
EXAMINATION TYPE: CT abdomen pelvis wo con DATE OF EXAM: 09/23/2018 COMPARISON: 07/16/2018 HISTORY: UTI, Crohns disease, Diverticulitis, Fever and Chills CT DLP: 374.5 mGycm Examination of the solid and hollow viscera is limited given the lack of contrast. FINDINGS: LUNG BASES: No evidence for nodule. No evidence for infiltrate. LIVER/GB: Hepatic steatosis with cardiomegaly. The gallbladder is unremarkable. No space-occupying he patic lesion. PANCREAS: No pancreatic mass identified. No inflammatory process seen. SPLEEN: No evidence for splenomegaly. No intrasplenic lesions seen. ADRENALS: No adrenal nodules identified. No evidence for thickening. KIDNEYS: No evidence for renal mass. Nonobstructing nephrolithiasis seen bilaterally. No hydronephros is. BOWEL: Appendix has a normal appearance. No evidence of bowel obstruction. Moderate sigmoid diverticu losis with mild adjacent stranding may be chronic in nature. Diverticulitis difficult to exclude. No evidence for abscess or perforation. Lymph nodes: No evidence for adenopathy greater than 1 cm. Abdominal aorta: Atheromatous changes seen. No evidence for aneurysm. Genital organs: No significant abnormality. Other: No significant abnormality. IMPRESSION: 1.Moderate sigmoid diverticulosis with mild adjacent stranding may be chronic in nature. Diverticulit is difficult to exclude. 2. Nonobstructing nephrolithiasis. 3. Hepatic steatosis with hepatomegaly.
[2018-09-23] MEDS ORDERED: Acetaminophen-Codeine 300-30mg TAB PO STA (08:42)
[2018-09-23] MEDS ORDERED: CIPROFLOXACIN HCL 500 MG TAB PO STA (08:42)
[2018-09-23] MEDS ORDERED: metroNIDAZOLE 500 MG TAB PO STA (08:43)
[2018-09-23 09:19] VITALS: BP 129/87; PULSE 88; RESP 18; TEMP 98
== END 2018-09-23 09:03 | disposition home or self-care (01) ==
LOC: EC 04:26
DX: K57.92 Diverticulitis of intestine, part unspecified, without perforation or abscess without bleeding (principal); E11.9 Type 2 diabetes mellitus without complications; K21.9 Gastro-esophageal reflux disease without esophagitis; I10 Essential (primary) hypertension; E78.5 Hyperlipidemia, unspecified; K50.90 Crohn's disease, unspecified, without complications; Z79.51 Long term (current) use of inhaled steroids; Z79.899 Other long term (current) drug therapy; Z88.8 Allergy status to other drugs, medicaments and biological substances; Z88.1 Allergy status to other antibiotic agents; Z91.040 Latex allergy status; Z90.3 Acquired absence of stomach [part of]; Z90.710 Acquired absence of both cervix and uterus; Z87.891 Personal history of nicotine dependence
CPT/HCPCS: 36415; 74176; 80053; 81003; 82150; 83690; 85025; 99284

== ENCOUNTER 2018-12-09 05:52 | Emergency (ER) | payer MEDICARE, OTHER ==
[2018-12-09 06:01] VITALS: RESP 18
--- NOTE | 2018-12-09 06:48 | ED ---
Abdominal Pain HPI - General Source: patient, EMS Mode of arrival: EMS Limitations: no limitations - History of Present Illness MD Complaint: abdominal pain -: days(s) Location: LLQ Radiation: none Migration to: no migration Severity: moderate Quality: aching Consistency: constant Improves With: nothing Worsens With: nothing Associated Symptoms: nausea Treatments Prior to Arrival: other (Antibiotic) <Coleman Hopper - Last Filed: 12/09/18 06:45> <Gilbert Cabrera - Last Filed: 12/09/18 08:45> - General Chief Complaint: Abdominal Pain Stated Complaint: Abd Pain Time Seen by Provider: 12/09/18 06:33 - History of Present Illness Initial Comments: This patient is a 68-year-old woman who presents with complaint of left lower quadrant pain. Patient states that the pain is been going on a number of days. She states it reminds her very much of previous episodes of diverticulitis. Patient states that she had some metronidazole at home and tried taking that without any improvement of the pain. She has not noted fever or chills. She has had some associated nausea but no vomiting. She denies change in bowel movements or urination. (Coleman Hopper) - Related Data Home Medications Medication Instructions Recorded Confirmed Fluticasone Propionate [Flonase] 2 spray EA NOSTRIL DAILY 08/02/14 12/09/18 Losartan [Cozaar] 50 mg PO BID 08/02/14 12/09/18 Sucralfate [Carafate] 1 gm PO AC-TID 08/02/14 12/09/18 amLODIPine [Norvasc] 10 mg PO DAILY 08/02/14 12/09/18 cloNIDine HCL [Catapres] 0.05 mg PO DAILY 08/02/14 12/09/18 Adalimumab [Humira] 40 mg SQ SA 05/08/16 12/09/18 Ketotifen Fumarate [Zaditor] 1 drop BOTH EYES BID 03/03/17 12/09/18 Lansoprazole [Prevacid] 30 mg PO QAM 03/03/17 12/09/18 Acetaminophen-Codeine 300-30mg 1 tab PO BID PRN 09/23/18 12/09/18 [Tylenol w/codeine #3] Latanoprost [Xalatan 0.005%] 1 drop BOTH EYES HS 12/09/18 12/09/18 metroNIDAZOLE [Flagyl] 500 mg PO Q12H 12/09/18 12/09/18 Allergies Allergy/AdvReac Type Severity Reaction Status Date / Time atorvastatin [From Lipitor] Allergy Swelling Verified 12/09/18 08:34 cefuroxime [From Ceftin] Allergy Rash/Hives Verified 12/09/18 08:34 cefuroxime axetil Allergy SEVERE Verified 12/09/18 08:34 [From Ceftin] HEADACHE ciprofloxacin [From Cipro] Allergy Rash/Hives Verified 12/09/18 08:34 dicloxacillin Allergy Nausea & Verified 12/09/18 08:34 Vomiting & Diarrhea doxazosin mesylate Allergy Rash/Hives Verified 12/09/18 08:34 [From Cardura] doxycycline Allergy Nausea & Verified 12/09/18 08:34 Vomiting,HEADACHE duloxetine [From Cymbalta] Allergy Abdominal Verified 12/09/18 08:34 Pain, ROQUE gatifloxacin [From Tequin] Allergy Abdominal Verified 12/09/18 08:34 Pain,VOMITING hydralazine [Hydralazine] Allergy Rapid Verified 12/09/18 08:34 Heart Rate hydrochlorothiazide Allergy Nausea & Verified 12/09/18 08:34 Vomiting indapamide [From Lozol] Allergy Abdominal Verified 12/09/18 08:34 Pain latex Allergy Rash/Hives Verified 12/09/18 08:34 lisinopril Allergy VERTIGO,HEA Verified 12/09/18 08:34 DACHE nabumetone [From Relafen] Allergy Abdominal Verified 12/09/18 08:34 Pain nitrofurantoin Allergy Rash/Hives Verified 12/09/18 08:34 [From Macrobid] povidone-iodine Allergy Rash/Hives Verified 12/09/18 08:34 [From Betadine] soap [From Betadine] Allergy Rash/Hives Verified 12/09/18 08:34 sulfasalazine Allergy Abdominal Verified 12/09/18 08:34 [From Azulfidine] Pain,VOMITING triamcinolone acetonide Allergy SEVERE Verified 12/09/18 08:34 [From Kenalog] HEADACHE Review of Systems ROS Other: All systems not noted in ROS Statement are negative. Constitutional: Denies: fever, chills Respiratory: Denies: cough, dyspnea Cardiovascular: Denies: chest pain, palpitations Gastrointestinal: Reports: abdominal pain, nausea. Denies: vomiting, diarrhea, constipation Genitourinary: Denies: dysuria, hematuria Musculoskeletal: Denies: back pain Skin: Denies: rash Neurological: Denies: headache, weakness, numbness <Coleman Hopper - Last Filed: 12/09/18 06:45> ROS Other: All systems not noted in ROS Statement are negative. <CabreraLeone - Last Filed: 12/09/18 08:45> ROS Statement: Those systems with pertinent positive or pertinent negative responses have been documented in the HPI. Past Medical History Past Medical History: Diabetes Mellitus, Eye Disorder, GERD/Reflux, GI Bleed, Hyperlipidemia, Hypertension, Osteoarthritis (OA) Additional Past Medical History / Comment(s): Pt recently admitted 07/2017 with R lower quadrant pain and microperforations of diverticulitis-treated with ABX. Other HX: Lower GI bleeds, chron's dx, IBS, hemorrhoids, PUD, arhtiritis bilateral hands and feet, chronic back pain, macular degeneration bilateral eyes , sinus problems, bronchitis, migraines, bilateral kidney stones, anemia, hypoglycemia, spider veins bilateral legs. History of Any Multi-Drug Resistant Organisms: None Reported Past Surgical History: Bladder Surgery, Hysterectomy, Orthopedic Surgery, Tonsillectomy Additional Past Surgical History / Comment(s): Several EGDs with bx and colonoscopies with bx, gastrectomy for ulcers (40% stomach removed),cystoscopy x2, R/L shoulder rotator cuff arthroscopies, bilateral CATARACT SURGERY with lens implants; Sinus Surgery x 2, Left Breast biopsy x 2-benign, 2nd toe R foot with hardware. Past Anesthesia/Blood Transfusion Reactions: No Reported Reaction Additional Past Anesthesia/Blood Transfusion Reaction / Comment(s): Pt states she did receive blood in 2009 with GI bleed-no reaction. Past Psychological History: No Psychological Hx Reported Smoking Status: Former smoker Past Alcohol Use History: None Reported Past Drug Use History: None Reported - Past Family History Father Family Medical History: Cancer Additional Family Medical History / Comment(s): Father had prostate cancer that went to the bone. He at the age of 79yrs. Mother Family Medical History: Cancer Additional Family Medical History / Comment(s): Mother of lymphoma at the age of 81 yrs. Sister(s) Family Medical History: Cancer <Coleman Hopper - Last Filed: 12/09/18 06:45> General Exam Limitations: no limitations General appearance: alert, in no apparent distress Head exam: Present: atraumatic, normocephalic Eye exam: Present: normal appearance. Absent: scleral icterus, conjunctival injection ENT exam: Present: normal oropharynx Neck exam: Present: normal inspection Respiratory exam: Present: normal lung sounds bilaterally. Absent: respiratory distress, wheezes, rales, rhonchi, stridor Cardiovascular Exam: Present: regular rate, normal rhythm, normal heart sounds. Absent: systolic murmur, diastolic murmur, rubs, gallop GI/Abdominal exam: Present: soft, tenderness (Left lower quadrant). Absent: distended, guarding, rebound, rigid, mass, pulsatile mass, hernia Extremities exam: Present: normal inspection, normal capillary refill. Absent: pedal edema, calf tenderness Back exam: Present: normal inspection Neurological exam: Present: alert Skin exam: Present: warm, dry, intact, normal color. Absent: rash <Coleman Hopper - Last Filed: 12/09/18 06:45> Vital Signs 12/09/18 12/09/18 05:54 07:17 Temperature 97.6 F Pulse Rate 63 69 Respiratory 18 18 Rate Blood Pressure 187/77 152/73 O2 Sat by Pulse 98 98 Oximetry Medical Decision Making <Coleman Hopper - Last Filed: 12/09/18 06:45> - Lab Data Result diagrams: 12/09/18 06:25 12/09/18 06:25 <Gilbert Cabrera - Last Filed: 12/09/18 08:45> - Medical Decision Making CAT scan came back and did not show any acute abnormality. I went back into the room to reexamine the patient her abdomen was non-tender to palpation at this time and the patient herself stated she felt considerably better. (Gilbert Cabrera) - Lab Data Lab Results 12/09/18 12/09/18 12/09/18 Range/Units 06:25 06:25 06:35 WBC 10.6 (3.8-10.6) k/uL RBC 5.13 (3.80-5.40) m/uL Hgb 12.9 (11.4-16.0) gm/dL Hct 41.7 (34.0-46.0) % MCV 81.3 (80.0-100.0) fL MCH 25.0 (25.0-35.0) pg MCHC 30.8 L (31.0-37.0) g/dL RDW 15.6 H (11.5-15.5) % Plt Count 300 (150-450) k/uL Neutrophils % 77 % Lymphocytes % 16 % Monocytes % 3 % Eosinophils % 1 % Basophils % 1 % Neutrophils # 8.2 H (1.3-7.7) k/uL Lymphocytes # 1.7 (1.0-4.8) k/uL Monocytes # 0.4 (0-1.0) k/uL Eosinophils # 0.1 (0-0.7) k/uL Basophils # 0.1 (0-0.2) k/uL Hypochromasia Slight Sodium 143 (137-145) mmol/L Potassium 4.5 (3.5-5.1) mmol/L Chloride 112 H (98-107) mmol/L Carbon Dioxide 21 L (22-30) mmol/L Anion Gap 10 mmol/L BUN 13 (7-17) mg/dL Creatinine 0.57 (0.52-1.04) mg/dL Est GFR (CKD-EPI)AfAm >90 (>60 ml/min/1.73 sqM) Est GFR (CKD-EPI)NonAf >90 (>60 ml/min/1.73 sqM) Glucose 144 H (74-99) mg/dL Calcium 9.6 (8.4-10.2) mg/dL Total Bilirubin 0.4 (0.2-1.3) mg/dL AST 26 (14-36) U/L ALT 31 (9-52) U/L Alkaline Phosphatase 66 (38-126) U/L Total Protein 7.8 (6.3-8.2) g/dL Albumin 4.6 (3.5-5.0) g/dL Amylase 46 (30-110) U/L Lipase 71 (23-300) U/L Urine Color Light Yellow Urine Appearance Clear (Clear) Urine pH 5.5 (5.0-8.0) Ur Specific [place] 1.007 (1.001-1.035) Urine Protein Negative (Negative) Urine Glucose (UA) Negative (Negative) Urine Ketones Negative (Negative) Urine Blood Negative (Negative) Urine Nitrite Negative (Negative) Urine Bilirubin Negative (Negative) Urine Urobilinogen <2.0 (<2.0) mg/dL Ur Leukocyte Esterase Negative (Negative) Disposition <Coleman Hopper - Last Filed: 12/09/18 06:45> Is patient prescribed a controlled substance at d/c from ED?: No Time of Disposition: 08:45 <Gilbert Cabrera - Last Filed: 12/09/18 08:45> Clinical Impression: Abdominal pain Disposition: HOME SELF-CARE Condition: Good Instructions (If sedation given, give patient instructions): Abdominal Pain (ED ) Additional Instructions: Patient should return if symptoms are worse or there are any new symptoms. Patient should stop Flagyl and speak with her physician on Monday. Referrals: Cecille Mckenna MD [Primary Care Provider] - 1-2 days
[2018-12-09 06:50] LABS: Basophils # (A) 0.1 k/uL (0-0.2); Basophils % (A) 1 %; Eosinophils # (A) 0.1 k/uL (0-0.7); Eosinophils % (A) 1 %; HCT 41.7 % (34.0-46.0); HGB 12.9 gm/dL (11.4-16.0); Hypochromasia Slight; Lymphocytes # (A) 1.7 k/uL (1.0-4.8); Lymphocytes % (A) 16 %; MCHC 30.8 g/dL (31.0-37.0); MCV 81.3 fL (80.0-100.0); Mean Platelet Volume 7.1; Monocytes # (A) 0.4 k/uL (0-1.0); Monocytes % (A) 3 %; Neutrophils # (A) 8.2 k/uL (1.3-7.7); Neutrophils % (A) 77 %; Platelet Count 300 k/uL (150-450); RBC 5.13 m/uL (3.80-5.40); RDW 15.6 % (11.5-15.5); WBC 10.6 k/uL (3.8-10.6)
[2018-12-09 07:04] LABS: ALT 31 U/L (9-52); AST 26 U/L (14-36); Albumin 4.6 g/dL (3.5-5.0); Alkaline Phosphatase 66 U/L (38-126); Amylase 46 U/L (30-110); Anion Gap 10 mmol/L; Blood Urea Nitrogen 13 mg/dL (7-17); Calcium 9.6 mg/dL (8.4-10.2); Carbon Dioxide 21 mmol/L (22-30); Chloride 112 mmol/L (98-107); Glucose 144 mg/dL (74-99); Lipase 71 U/L (23-300); Potassium 4.5 mmol/L (3.5-5.1); Sodium 143 mmol/L (137-145); Total Bilirubin 0.4 mg/dL (0.2-1.3); Total Protein 7.8 g/dL (6.3-8.2)
[2018-12-09 07:04] LABS: Appearance,Urine Clear (Clear); Bilirubin,Urine Negative (Negative); Blood,Urine Negative (Negative); Color,Urine Light Yellow; Glucose,Urine (UA) Negative (Negative); Ketones,Urine Negative (Negative); Leukocyte Esterase,Urine Negative (Negative); Nitrite,Urine Negative (Negative); PH, Urine 5.5 (5.0-8.0); Protein,Urine Negative (Negative); Specific Gravity,Urine 1.007 (1.001-1.035); Urobilinogen,Urine <2.0 mg/dL (<2.0)
--- NOTE | 2018-12-09 07:59 | CT ---
EXAMINATION TYPE: CT abdomen pelvis wo con DATE OF EXAM: 12/09/2018 COMPARISON: 09/23/2018 INDICATION: Upper abdominal pain DLP: 375.9 mGycm, Automated exposure control for dose reduction was used. CONTRAST: 0 mL of Isovue 300. Study performed without Oral Contrast TECHNIQUE: Axial images were obtained from above the diaphragm to the pubic rami in the axial plane a t 5 mm thick sections. Reconstructed images are reviewed on the computer in the coronal plane. FINDINGS: Limited CT sections are obtained the lung bases. The lung bases are clear. Mild coronary artery rupal cifications present. Note is made of vascular calcification within the thoracic aorta. CT ABDOMEN: Liver: Normal Spleen: Normal Pancreas: Normal Adrenal glands: The adrenal glands are normal. Gallbladder: Normal Kidneys: No masses are evident. No hydronephrosis is present. No cysts are present. Very faint cor tical medullary increased density is present. Consider medullary sponge kidney with some faint calcif ication present. No hydronephrosis is evident. No hydroureter is evident. Aorta: Vascular calcification is within the aorta. Inferior vena cava: Normal. CT PELVIS: Loops of bowel within the abdomen and pelvis are normal. There are loops of bowel which are incom pletely distended or lack oral contrast limiting their evaluation. Scattered diverticuli are within t he descending colon. Multiple diverticuli within the sigmoid colon. No inflammatory changes to sugges t acute diverticulitis. Appendix: Normal as visualized. Urinary bladder: Decompressed with some limited evaluation. No obvious abnormality is identified. Genitourinary structures: Uterus and adnexal regions appear within normal limits. Osseous structures: No suspicious lytic or sclerotic lesions. IMPRESSIONS: 1. Diverticulosis without acute diverticulitis. 2. Findings suggestive for medullary sponge kidney with nonobstructing punctate renal stones.
[2018-12-09 08:52] VITALS: BP 149/61; PULSE 70; TEMP 98.3
== END 2018-12-09 08:52 | disposition home or self-care (01) ==
LOC: EC 05:52
DX: R10.32 Left lower quadrant pain (principal); R11.0 Nausea; K21.9 Gastro-esophageal reflux disease without esophagitis; I10 Essential (primary) hypertension; Z79.51 Long term (current) use of inhaled steroids; Z79.899 Other long term (current) drug therapy; Z88.1 Allergy status to other antibiotic agents; Z88.8 Allergy status to other drugs, medicaments and biological substances; Z91.040 Latex allergy status; Z87.891 Personal history of nicotine dependence; Z90.710 Acquired absence of both cervix and uterus
CPT/HCPCS: 36415; 74176; 80053; 81003; 82150; 83690; 85025; 99284

== ENCOUNTER → 2019-01-29 | Day surgery (SDC) | payer MEDICARE, OTHER ==
[2019-01-25 10:53] VITALS: BMI 25.7
[~2019-01-29] MED LIST changes: +LACTATED RINGERS 1,000 ML IV ONE; +LIDOCAINE 1% 20 ML VIAL (10MG/ML) FOR IV START INTRADERMA PRN; +LIDOCAINE 1% INJ 10MG/ML (20 ML MDV) ONE; +PROPOFOL 10 MG/ML 20 ML VIAL IV ONE
[2019-01-29 07:18] VITALS: RESP 18; TEMP 97.8
[2019-01-29 07:29] LABS: Glucose,Whole Blood 95 mg/dL (75-99)
--- NOTE | 2019-01-29 09:01 | P.PCN ---
Date of Procedure: 01/29/19 Procedure(s) Performed: Procedures: 1. Esophagogastroduodenoscopy and biopsy. 2. Colonoscopy and biopsy. Preoperative diagnosis: Epigastric and atypical chest pains. 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 Postoperative diagnosis: 1. Small sliding hiatal hernia with no obvious esophagitis or complicated reflux disease. 2. 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 3. Diverticulosis with no evidence of acute diverticulitis or strictures. 4. Few small pseudopolyps on right side but no evidence of active colitis. 5. Unable to intubate the ileocecal valve and examine the terminal ileum. Preparation: HalfLytely prep. Sedation: Was provided by anesthesia. Brief clinical history: The patient is a 68-year-old female who was diagnosed with colitis in 2009 and who also has chronic gastroesophageal reflux disease with her last evaluation in 2017. The patient was treated for acute diverticulitis in the early part of last year. She continues to have issues with abdominal pain and loose stools after that. In addition, she has history of chronic reflux and she has been having epigastric pains. Was last seen in the office last month. She had a stress test that is negative for stress- induced ischemic changes. Her colitis seems to be under control with the current dose of Humira 40 mg every week. Because of the duration of her illness I scheduled colonoscopy and including an upper endoscopy to guide therapy. Procedure: With the patient on her left lateral decubitus position and after informed consent and adequate sedation, I passed the Olympus-GIF 160 video upper endoscope through the cricopharyngeus down the esophagus. GE junction was around 36 cm from the incisors and there was a small sliding hiatal hernia. The esophagus did not show any obvious esophagitis or any strictures or Viramontes's esophagus. The endoscope was then passed into the gastric remnant. The patient had prior partial gastric resection. The gastric remnant showed mottling and erythema and there were few linear erosions. No marginal ulcers or obstruction to the outlet. The small intestine was examined for a good distance and it appeared within normal limits. I obtained biopsies from the small intestine, gastric remnant and esophagus then the endoscope was withdrawn and I then proceeded with the colonoscopy. Perianal area did not show any fissures or fistulas. There were no masses felt on digital rectal examination. The Olympus CFH 190L video colonoscope was then inserted in the rectum in the usual fashion and advanced to the cecum. I tried unsuccessfully to intubate the ileocecal valve.There were several diverticular orifices seen scattered in the sigmoid and left side with few around the hepatic flexure but no evidence of acute diverticulitis or strictures. On the right side there were small regenerative pseudopolyps as previously described but no evidence of active colitis endoscopically. I obtained random colon. I retroflexed the endoscope in the rectum then the endoscope was withdrawn. The patient tolerated the procedure well. Plan: The patient was reassured. Will continue current measures. We will follow up in the office and make further plans based on her course and biopsy results. I will keep you updated on her progress. I anticipate repeating her colonoscopy in 2 years.
[2019-01-29 09:08] VITALS: BP 161/74; PULSE 60
== END | disposition home or self-care (01) ==
LOC: ORWHC2ENDO 07:02
DX: K44.9 Diaphragmatic hernia without obstruction or gangrene (principal); K29.50 Unspecified chronic gastritis without bleeding; K50.10 Crohn's disease of large intestine without complications; K57.30 Diverticulosis of large intestine without perforation or abscess without bleeding; K21.0 Gastro-esophageal reflux disease with esophagitis; I10 Essential (primary) hypertension; E78.5 Hyperlipidemia, unspecified; Z87.891 Personal history of nicotine dependence; E11.9 Type 2 diabetes mellitus without complications; H35.30 Unspecified macular degeneration; Z79.82 Long term (current) use of aspirin; Z79.51 Long term (current) use of inhaled steroids; Z79.899 Other long term (current) drug therapy
CPT/HCPCS: 88305; 45380; 43239; J2001; J2704

== ENCOUNTER 2019-01-30 09:32 | Emergency (ER) | payer MEDICARE, OTHER ==
[2019-01-30] MEDS ORDERED: SODIUM CHLORIDE 0.9% 500 ML 500 ML IV STA (10:11)
--- NOTE | 2019-01-30 11:17 | XR ---
Abdomen HISTORY: Pain, status post recent colonoscopy frontal view of the abdomen on 2 images correlated to prior CT 12/09/2017 and plain film 08/02/2014 There are dense vascular calcifications present. Surgical clips present in the upper abdomen. There i s a slight spinal curvature, bone mineralization is reduced. No pneumoperitoneum or bowel obstruction . Calcifications overlying the spleen may be costochondral or vascular. There is a calcification in t he left paraspinal location at the L2-3 level measuring approximately 6 mm. Question some gastric wal l thickening. IMPRESSION: No evident pneumoperitoneum. Postop changes. Additional nonspecific findings above.
--- NOTE | 2019-01-30 11:28 | ED ---
General Adult HPI - General Chief complaint: Abdominal Pain Stated complaint: post colonoscopy pain Time Seen by Provider: 01/30/19 09:45 Source: patient, RN notes reviewed Mode of arrival: ambulatory Limitations: no limitations - History of Present Illness Initial comments: This is a 68-year-old female presents emergency Department complaining of diffu se abdominal pain. Patient states it's more in the lower abdomen the upper but it is a little bit every. Patient states she had a colonoscopy initially went home and passed out against but then in the middle the night she woke up with her significant abdominal pain. Patient denies any vomiting or diarrhea. Patient states there is no specific area of tenderness. Patient denies any dysuria or hematuria. Patient states he feels as though she has some urinary urgency however. Patient denies any back pain. Patient denies any injury. Patient is able to still passing gas. - Related Data Home Medications Medication Instructions Recorded Confirmed Fluticasone Propionate [Flonase] 2 spray EA NOSTRIL DAILY 08/02/14 01/30/19 Losartan [Cozaar] 50 mg PO BID 08/02/14 01/30/19 Sucralfate [Carafate] 1 gm PO AC-TID 08/02/14 01/30/19 amLODIPine [Norvasc] 10 mg PO DAILY 08/02/14 01/30/19 cloNIDine HCL [Catapres] 0.05 mg PO HS 08/02/14 01/30/19 Adalimumab [Humira] 40 mg SQ SA 05/08/16 01/30/19 Lansoprazole [Prevacid] 30 mg PO QAM 03/03/17 01/30/19 Acetaminophen-Codeine 300-30mg 1 tab PO BID PRN 09/23/18 01/30/19 [Tylenol w/codeine #3] Latanoprost [Xalatan 0.005%] 1 drop BOTH EYES HS 12/09/18 01/30/19 Aspirin 325 mg PO BID PRN 01/25/19 01/30/19 Acyclovir 5% Oint [Zovirax Oint] 1 applic TOPICAL 5XD 01/30/19 01/30/19 Fexofenadine HCl [Barby Allergy] 180 mg PO DAILY 01/30/19 01/30/19 Ketotifen 0.025% Ophth Soln 1 drop BOTH EYES BID 01/30/19 01/30/19 [Zaditor] Previous Rx's Medication Instructions Recorded Sulfamethox-Tmp 800-160Mg [Bactrim 1 each PO Q12HR #14 tab 01/30/19 DS 800-160 mg] Allergies Allergy/AdvReac Type Severity Reaction Status Date / Time atorvastatin [From Lipitor] Allergy Swelling Verified 01/30/19 10:56 cefuroxime [From Ceftin] Allergy Rash/Hives Verified 01/30/19 10:56 cefuroxime axetil Allergy SEVERE Verified 01/30/19 10:56 [From Ceftin] HEADACHE ciprofloxacin [From Cipro] Allergy Rash/Hives Verified 01/30/19 10:56 dicloxacillin Allergy Nausea & Verified 01/30/19 10:56 Vomiting & Diarrhea doxazosin mesylate Allergy Rash/Hives Verified 01/30/19 10:56 [From Cardura] doxycycline Allergy Nausea & Verified 01/30/19 10:56 Vomiting,HEADACHE duloxetine [From Cymbalta] Allergy Abdominal Verified 01/30/19 10:56 Pain, ROQUE gatifloxacin [From Tequin] Allergy Abdominal Verified 01/30/19 10:56 Pain,VOMITING hydralazine [Hydralazine] Allergy Rapid Verified 01/30/19 10:56 Heart Rate hydrochlorothiazide Allergy Nausea & Verified 01/30/19 10:56 Vomiting indapamide [From Lozol] Allergy Abdominal Verified 01/30/19 10:56 Pain latex Allergy Rash/Hives Verified 01/30/19 10:56 lisinopril Allergy VERTIGO,HEA Verified 01/30/19 10:56 DACHE nabumetone [From Relafen] Allergy Abdominal Verified 01/30/19 10:56 Pain nitrofurantoin Allergy Rash/Hives Verified 01/30/19 10:56 [From Macrobid] povidone-iodine Allergy Rash/Hives Verified 01/30/19 10:56 [From Betadine] soap [From Betadine] Allergy Rash/Hives Verified 01/30/19 10:56 sulfasalazine Allergy Abdominal Verified 01/30/19 10:56 [From Azulfidine] Pain,VOMITING triamcinolone acetonide Allergy SEVERE Verified 01/30/19 10:56 [From Kenalog] HEADACHE Review of Systems ROS Statement: Those systems with pertinent positive or pertinent negative responses have been documented in the HPI. ROS Other: All systems not noted in ROS Statement are negative. Past Medical History Past Medical History: Diabetes Mellitus, Eye Disorder, GERD/Reflux, GI Bleed, Hyperlipidemia, Hypertension, Osteoarthritis (OA) Additional Past Medical History / Comment(s): Pt recently admitted 07/2017 with R lower quadrant pain and microperforations of diverticulitis-treated with ABX. Other HX: Lower GI bleeds, chron's dx, IBS, hemorrhoids, PUD, arhtiritis bilateral hands and feet, chronic back pain, macular degeneration bilateral eyes, sinus problems, bronchitis, migraines, bilateral kidney stones, anemia, hypoglycemia, spider veins bilateral legs. History of Any Multi-Drug Resistant Organisms: None Reported Past Surgical History: Bladder Surgery, Hysterectomy, Orthopedic Surgery, Tonsillectomy Additional Past Surgical History / Comment(s): Several EGDs with bx and colonoscopies with bx, gastrectomy for ulcers (40% stomach removed),cystoscopy x2, R/L shoulder rotator cuff arthroscopies, bilateral CATARACT SURGERY with lens implants; Sinus Surgery x 2, Left Breast biopsy x 2-benign, 2nd toe R foot with hardware. Past Anesthesia/Blood Transfusion Reactions: No Reported Reaction Additional Past Anesthesia/Blood Transfusion Reaction / Comment(s): Pt states she did receive blood in 2009 with GI bleed-no reaction. Past Psychological History: No Psychological Hx Reported Smoking Status: Former smoker Past Alcohol Use History: None Reported Past Drug Use History: None Reported - Past Family History Father Family Medical History: Cancer Additional Family Medical History / Comment(s): Father had prostate cancer that went to the bone. He at the age of 79yrs. Mother Family Medical History: Cancer Additional Family Medical History / Comment(s): Mother of lymphoma at the age of 81 yrs. Sister(s) Family Medical History: Cancer Additional Family Medical History / Comment(s): breast cancer x2 sisters General Exam - General Exam Comments Initial Comments: GENERAL: Patient is well-developed and well-nourished. Patient is nontoxic and well- hydrated and is in mild distress. ENT: Neck is soft and supple. No significant lymphadenopathy is noted. Oropharynx is clear. Moist mucous membranes. Neck has full range of motion without eliciting any pain. EYES: The sclera were anicteric and conjunctiva were pink and moist. Extraocular movements were intact and pupils were equal round and reactive to light. Eyelids were unremarkable. PULMONARY: Unlabored respirations. Good breath sounds bilaterally. No audible rales rhonchi or wheezing was noted. CARDIOVASCULAR: There is a regular rate and rhythm without any murmurs gallops or rubs. ABDOMEN: Mild diffuse tenderness SKIN: Skin is clear with no lesions or rashes and otherwise unremarkable. NEUROLOGIC: Patient is alert and oriented x3. Cranial nerves II through XII are grossly intact. Motor and sensory are also intact. Normal speech, volume and content. Symmetrical smile. MUSCULOSKELETAL: Normal extremities with adequate strength and full range of motion. No lower extremity swelling or edema. No calf tenderness. PSYCHIATRIC: Normal psychiatric evaluation. Limitations: no limitations Course Vital Signs 01/30/19 01/30/19 09:46 12:00 Temperature 98.1 F Pulse Rate 82 75 Respiratory 18 18 Rate Blood Pressure 155/81 173/75 O2 Sat by Pulse 98 99 Oximetry Medical Decision Making - Medical Decision Making KUB shows no free air. CT shows no free air. She also shows no reason for her pain. - Lab Data Result diagrams: 01/30/19 11:20 01/30/19 11:20 Lab Results 01/30/19 01/30/19 01/30/19 Range/Units 10:40 11:20 11:20 WBC 11.9 H (3.8-10.6) k/uL RBC 4.79 (3.80-5.40) m/uL Hgb 12.0 (11.4-16.0) gm/dL Hct 39.0 (34.0-46.0) % MCV 81.4 (80.0-100.0) fL MCH 25.1 (25.0-35.0) pg MCHC 30.8 L (31.0-37.0) g/dL RDW 15.4 (11.5-15.5) % Plt Count 307 (150-450) k/uL Neutrophils % 79 % Lymphocytes % 15 % Monocytes % 4 % Eosinophils % 1 % Basophils % 0 % Neutrophils # 9.4 H (1.3-7.7) k/uL Lymphocytes # 1.7 (1.0-4.8) k/uL Monocytes # 0.5 (0-1.0) k/uL Eosinophils # 0.1 (0-0.7) k/uL Basophils # 0.1 (0-0.2) k/uL Hypochromasia Slight Sodium 142 (137-145) mmol/L Potassium 4.2 (3.5-5.1) mmol/L Chloride 109 H (98-107) mmol/L Carbon Dioxide 25 (22-30) mmol/L Anion Gap 8 mmol/L BUN 13 (7-17) mg/dL Creatinine 0.46 L (0.52-1.04) mg/dL Est GFR (CKD-EPI)AfAm >90 (>60 ml/min/1.73 sqM) Est GFR (CKD-EPI)NonAf >90 (>60 ml/min/1.73 sqM) Glucose 89 (74-99) mg/dL Calcium 9.3 (8.4-10.2) mg/dL Total Bilirubin 0.4 (0.2-1.3) mg/dL AST 22 (14-36) U/L ALT 32 (9-52) U/L Alkaline Phosphatase 69 (38-126) U/L Total Protein 7.3 (6.3-8.2) g/dL Albumin 4.3 (3.5-5.0) g/dL Amylase 44 (30-110) U/L Lipase 64 (23-300) U/L Urine Color Light Yellow Urine Appearance Cloudy H (Clear) Urine pH 5.5 (5.0-8.0) Ur Specific [place] 1.016 (1.001-1.035) Urine Protein Negative (Negative) Urine Glucose (UA) Negative (Negative) Urine Ketones Negative (Negative) Urine Blood Trace H (Negative) Urine Nitrite Negative (Negative) Urine Bilirubin Negative (Negative) Urine Urobilinogen <2.0 (<2.0) mg/dL Ur Leukocyte Esterase Large H (Negative) Urine RBC 4 (0-5) /hpf Urine WBC 147 H (0-5) /hpf Urine WBC Clumps Few H (None) /hpf Ur Squamous Epith Cells <1 (0-4) /hpf Urine Bacteria Rare H (None) /hpf Urine Mucus Rare H (None) /hpf Disposition Clinical Impression: Status post colonoscopy, Abdominal cramping, Urinary tract infection Disposition: HOME SELF-CARE Condition: Good Instructions (If sedation given, give patient instructions): Abdominal Pain (ED) Prescriptions: Sulfamethox-Tmp 800-160Mg [Bactrim DS 800-160 mg] 1 each PO Q12HR #14 tab Is patient prescribed a controlled substance at d/c from ED?: No Referrals: Cecille Mckenna MD [Primary Care Provider] - 1-2 days Time of Disposition: 13:38
[2019-01-30] MEDS ORDERED: KETOROLAC 30 MG/ML 1 ML VIAL IVP STA (11:55)
[2019-01-30 12:05] LABS: Appearance,Urine Cloudy (Clear); Bacteria,Urine Rare /hpf; Bilirubin,Urine Negative (Negative); Blood,Urine Trace (Negative); Color,Urine Light Yellow; Glucose,Urine (UA) Negative (Negative); Ketones,Urine Negative (Negative); Leukocyte Esterase,Urine Large (Negative); Mucus,Urine Rare /hpf; Nitrite,Urine Negative (Negative); PH, Urine 5.5 (5.0-8.0); Protein,Urine Negative (Negative); RBC,Urine 4 /hpf (0-5); Specific Gravity,Urine 1.016 (1.001-1.035); Squamous Epithelial Cell,Urine <1 /hpf (0-4); Urobilinogen,Urine <2.0 mg/dL (<2.0); WBC,Urine 147 /hpf (0-5)
[2019-01-30 12:06] LABS: Basophils # (A) 0.1 k/uL (0-0.2); Basophils % (A) 0 %; Eosinophils # (A) 0.1 k/uL (0-0.7); Eosinophils % (A) 1 %; Hypochromasia Slight; Lymphocytes # (A) 1.7 k/uL (1.0-4.8); Lymphocytes % (A) 15 %; MCH 25.1 pg (25.0-35.0); MCHC 30.8 g/dL (31.0-37.0); MCV 81.4 fL (80.0-100.0); Mean Platelet Volume 7.2; Monocytes # (A) 0.5 k/uL (0-1.0); Monocytes % (A) 4 %; Neutrophils # (A) 9.4 k/uL (1.3-7.7); Neutrophils % (A) 79 %; Platelet Count 307 k/uL (150-450); RBC 4.79 m/uL (3.80-5.40); RDW 15.4 % (11.5-15.5); WBC 11.9 k/uL (3.8-10.6)
[2019-01-30 12:11] LABS: ALT 32 U/L (9-52); AST 22 U/L (14-36); Albumin 4.3 g/dL (3.5-5.0); Alkaline Phosphatase 69 U/L (38-126); Amylase 44 U/L (30-110); Anion Gap 8 mmol/L; Blood Urea Nitrogen 13 mg/dL (7-17); Calcium 9.3 mg/dL (8.4-10.2); Carbon Dioxide 25 mmol/L (22-30); Chloride 109 mmol/L (98-107); Glucose 89 mg/dL (74-99); Lipase 64 U/L (23-300); Potassium 4.2 mmol/L (3.5-5.1); Sodium 142 mmol/L (137-145); Total Bilirubin 0.4 mg/dL (0.2-1.3); Total Protein 7.3 g/dL (6.3-8.2)
[2019-01-30] MEDS: MORPHINE SULFATE 2 MG/ML SYRINGE IVP STA ×2 (12:50→12:53)
[2019-01-30] MEDS ORDERED: MORPHINE SULFATE 2 MG/ML SYRINGE IVP STA (12:53)
--- NOTE | 2019-01-30 13:24 | CT ---
EXAMINATION TYPE: CT abdomen pelvis wo con DATE OF EXAM: 01/30/2019 COMPARISON: 12/09/2018 INDICATION: bilateral lower quad pain post colonoscopy DLP: 389 mGycm, Automated exposure control for dose reduction was used. CONTRAST: 0 mL of Isovue 300. Study performed without Oral Contrast TECHNIQUE: Axial images were obtained from above the diaphragm to the pubic rami in the axial plane a t 5 mm thick sections. Reconstructed images are reviewed on the computer in the coronal plane. FINDINGS: Limited CT sections are obtained the lung bases. The lung bases are clear. CT ABDOMEN: Surgical clips are in the epigastric region. Liver: Normal Spleen: Normal Pancreas: Normal Adrenal glands: The adrenal glands are normal. Gallbladder: Normal Kidneys: No masses are evident. No hydronephrosis is present. No cysts are present. Some very fine calcifications may be within the bilateral kidneys. Small stone superior pole left kidney without ev idence of obstruction estimated at 0.3 cm in size. Clinical consideration for medullary sponge kidney is recommended. Aorta: Vascular calcification is within the aorta. Inferior vena cava: Normal. CT PELVIS: Loops of bowel within the abdomen and pelvis are normal. This study is performed without oral con trast limiting bowel evaluation. Scattered diverticuli within the descending colon and sigmoid colon without evidence of acute diverticulitis. Appendix: Normal as visualized. Urinary bladder: Decompressed with limited evaluation. Genitourinary structures: Uterus is surgically absent. Adnexal regions appear unremarkable. Osseous structures: No suspicious lytic or sclerotic lesions. IMPRESSIONS: 1. Clinical consideration for medullary sponge kidney is recommended. A nonobstructing 0.3 cm calcif ication is at superior pole left kidney. 2. Diverticulosis without acute diverticulitis. 3. No significant interval change.
[2019-01-30 14:27] VITALS: BP 157/74; PULSE 80; RESP 16; TEMP 98
== END 2019-01-30 14:24 | disposition home or self-care (01) ==
LOC: EC 09:32
DX: N39.0 Urinary tract infection, site not specified (principal); K21.9 Gastro-esophageal reflux disease without esophagitis; I10 Essential (primary) hypertension; Z79.51 Long term (current) use of inhaled steroids; Z79.899 Other long term (current) drug therapy; Z79.82 Long term (current) use of aspirin; Z88.8 Allergy status to other drugs, medicaments and biological substances; Z88.1 Allergy status to other antibiotic agents; Z91.040 Latex allergy status; Z91.048 Other nonmedicinal substance allergy status; Z98.890 Other specified postprocedural states
CPT/HCPCS: 36415; 80053; 82150; 83690; 85025; 81001; 87086; 74018; 74176; 99284; 96374; 96375; J1885; J2270

== ENCOUNTER → 2019-02-07 | Outpatient (CLI) | payer MEDICARE, OTHER ==
--- NOTE | 2019-02-08 09:19 | MM ---
Reason for exam: additional evaluation requested from prior study. Last mammogram was performed 6 months ago. History: Patient is postmenopausal. Family history of breast cancer in maternal aunt at age 60, breast cancer in maternal cousin at age 18, breast cancer in aunt, and breast cancer in sister at age 54. Benign US biopsy breast VAD RT of the right breast, February 12, 2018. Benign US biopsy breast add'l VAD RT of the right breast, February 12, 2018. Benign left mammotome panel of the left breast, October 06, 2005. Benign stereotactic core biopsy of the left breast, August 21, 2001. Core biopsy of the left breast. Took estrogen for 10 years beginning at age 34. Physical Findings: Nurse Summary: 1cm nodule in the left breast at 10 o'clock and 11 o'clock (nurse dw). MG 3D Diag Mammo W/Cad ITZEL Bilateral CC and MLO view(s) were taken. Prior study comparison: August 03, 2018, right breast MG 3d diag mammo w/cad RT. February 12, 2018, right breast MG diagnostic mammo RT wo CAD. Finding #1: There is a 5 mm equal density (isodense) mass in the inner quadrant of the right breast. Finding #2: There are typically benign calcifications in both breasts. Previous mammotome biopsy in the right and left breast. These results were verbally communicated with the patient and result sheet given to the patient on 02/07/19. ASSESSMENT: Incomplete: need additional imaging evaluation, BI-RAD 0 RECOMMENDATION: Ultrasound of the left breast.
--- NOTE | 2019-02-08 09:21 | USB ---
Reason for exam: additional evaluation requested from abnormal screening. History: Patient is postmenopausal. Family history of breast cancer in maternal aunt at age 60, breast cancer in maternal cousin at age 18, breast cancer in aunt, and breast cancer in sister at age 54. Benign US biopsy breast VAD RT of the right breast, February 12, 2018. Benign US biopsy breast add'l VAD RT of the right breast, February 12, 2018. Benign left mammotome panel of the left breast, October 06, 2005. Benign stereotactic core biopsy of the left breast, August 21, 2001. Core biopsy of the left breast. Took estrogen for 10 years beginning at age 34. US Breast Limited LT Left limited breast ultrasound including focal area of concern, retroareolar and axilla demonstrates a 1.7 x 0.6 x 1.5cm oval, solid, hyperechoic lesion at 10 o'clock BB and a 1.7 x 1.1 x 1.2cm oval, solid lesion at 11 o'clock BB. These results were verbally communicated with the patient and result sheet given to the patient on 02/07/19. ASSESSMENT: Probably benign, BI-RAD 3 RECOMMENDATION: Ultrasound of the left breast in 6 months.
== END | disposition home or self-care (01) ==
LOC: RADMAMWWP 13:36
PROVIDERS: ATTEND Family Medicine
DX: R92.8 Other abnormal and inconclusive findings on diagnostic imaging of breast (principal)
CPT/HCPCS: 77066; 76642; G0279; 77062

== ENCOUNTER 2019-02-10 09:32 | Emergency (ER) | payer MEDICARE, OTHER ==
[2019-02-10 09:45] VITALS: RESP 18; TEMP 97.9
--- NOTE | 2019-02-10 10:07 | ED ---
General Adult HPI - General Chief complaint: Upper Respiratory Infection Stated complaint: CHEST CONSGESTION Time Seen by Provider: 02/10/19 09:47 Source: patient Mode of arrival: ambulatory Limitations: no limitations - History of Present Illness Initial comments: Dictation was produced using unamia dictation software. please excuse any grammatical, word or spelling errors. Chief Complaint: 68-year-old female multiple comorbidities presents with sore throat, cough. History of Present Illness: He is well-known to emergency department for multiple visitations. Patient has multiple comorbidities per she presents today for chest congestion, cough. Patient is currently on her last day of Keflex for urinary tract infection. Patient states she's been sick for the last 3-4 days. Patient denies any constitutional symptoms. Patient has been taking [id number] cough medications with little to no improvement. The ROS documented in this emergency department record has been reviewed and confirmed by me. Those systems with pertinent positive or negative responses have been documented in the HPI. All other systems are other negative and/or noncontributory. PHYSICAL EXAM: General Impression: Alert and oriented x3, not in acute distress HEENT: Normocephalic atraumatic, extra-ocular movements intact, pupils equal and reactive to light bilaterally, mucous membranes moist. Cardiovascular: Heart regular rate and rhythm, S1&S2 audible, no murmurs, rubs or gallops Chest: Lungs clear to auscultation bilaterally, no rhonchi, no wheeze, no rales Abdomen: Bowel sounds present, abdomen soft, non-tender, non-distended, no organomegaly Musculoskeletal: Pulses present and equal in all extremities, no peripheral edema Motor: no focal deficits noted Neurological: CN II-XII grossly intact, no focal motor or sensory deficits noted Skin: Intact with no visualized rashes Psych: Normal affect and mood ED course: 68-year-old female presents with clinical presentation consistent with viral URI.. On arrival are within acceptable limits.Chest x-ray obtained showing no acute processes. EKG shows no acute processes. EKG interpretation: Ventricular rate 69, sinus rhythm, MS interval 136, care is 82, QTc 413. No MS prolongation, no QTC prolongation, no ST or T-wave changes noted. Overall, this EKG is unremarkable. Patient observed in emergency department for several hours with no changes in mental status. This point clinical symptoms and HPI suggest viral URI. Patient however given prescription for azithromycin. She is told to hold onto it for 34 days and he decided take if she feels like her symptoms aren't improving. Patient is understandable and agreeable to plan. - Related Data Home Medications Medication Instructions Recorded Confirmed Fluticasone Propionate [Flonase] 2 spray EA NOSTRIL DAILY 08/02/14 02/10/19 Losartan [Cozaar] 50 mg PO BID 08/02/14 02/10/19 Sucralfate [Carafate] 1 gm PO AC-TID 08/02/14 02/10/19 amLODIPine [Norvasc] 10 mg PO DAILY 08/02/14 02/10/19 cloNIDine HCL [Catapres] 0.05 mg PO HS 08/02/14 02/10/19 Adalimumab [Humira] 40 mg SQ SA 05/08/16 02/10/19 Lansoprazole [Prevacid] 30 mg PO QAM 03/03/17 02/10/19 Acetaminophen-Codeine 300-30mg 1 tab PO BID PRN 09/23/18 02/10/19 [Tylenol w/codeine #3] Latanoprost [Xalatan 0.005%] 1 drop BOTH EYES HS 12/09/18 02/10/19 Acyclovir 5% Oint [Zovirax Oint] 1 applic TOPICAL 5XD PRN 01/30/19 02/10/19 Fexofenadine HCl [Barby Allergy] 180 mg PO DAILY 01/30/19 02/10/19 Ketotifen 0.025% Ophth Soln 1 drop BOTH EYES BID 01/30/19 02/10/19 [Zaditor] Aspirin/Caffeine [Anacin 400-32 mg 1 tab PO BID 02/10/19 02/10/19 Tablet] Cephalexin [Keflex] 500 mg PO Q12HR 02/10/19 02/10/19 Mupirocin 2% Oint [Bactroban 2% 1 applic TOPICAL BID 02/10/19 02/10/19 Oint] Previous Rx's Medication Instructions Recorded Azithromycin [Zithromax Z-pack] 0 mg PO DIRECTED #6 tab 02/10/19 Allergies Allergy/AdvReac Type Severity Reaction Status Date / Time atorvastatin [From Lipitor] Allergy Swelling Verified 02/10/19 10:05 cefuroxime [From Ceftin] Allergy Rash/Hives Verified 02/10/19 10:05 cefuroxime axetil Allergy SEVERE Verified 02/10/19 10:05 [From Ceftin] HEADACHE ciprofloxacin [From Cipro] Allergy Rash/Hives Verified 02/10/19 10:05 dicloxacillin Allergy Nausea & Verified 02/10/19 10:05 Vomiting & Diarrhea doxazosin mesylate Allergy Rash/Hives Verified 02/10/19 10:05 [From Cardura] doxycycline Allergy Nausea & Verified 02/10/19 10:05 Vomiting,HEADACHE duloxetine [From Cymbalta] Allergy Abdominal Verified 02/10/19 10:05 Pain, ROQUE gatifloxacin [From Tequin] Allergy Abdominal Verified 02/10/19 10:05 Pain,VOMITING hydralazine [Hydralazine] Allergy Rapid Verified 02/10/19 10:05 Heart Rate hydrochlorothiazide Allergy Nausea & Verified 02/10/19 10:05 Vomiting indapamide [From Lozol] Allergy Abdominal Verified 02/10/19 10:05 Pain latex Allergy Rash/Hives Verified 02/10/19 10:05 lisinopril Allergy VERTIGO,HEA Verified 02/10/19 10:05 DACHE nabumetone [From Relafen] Allergy Abdominal Verified 02/10/19 10:05 Pain nitrofurantoin Allergy Rash/Hives Verified 02/10/19 10:05 [From Macrobid] povidone-iodine Allergy Rash/Hives Verified 02/10/19 10:05 [From Betadine] soap [From Betadine] Allergy Rash/Hives Verified 02/10/19 10:05 sulfasalazine Allergy Abdominal Verified 02/10/19 10:05 [From Azulfidine] Pain,VOMITING triamcinolone acetonide Allergy SEVERE Verified 02/10/19 10:05 [From Kenalog] HEADACHE Review of Systems ROS Statement: Those systems with pertinent positive or pertinent negative responses have been documented in the HPI. ROS Other: All systems not noted in ROS Statement are negative. Past Medical History Past Medical History: Diabetes Mellitus, Eye Disorder, GERD/Reflux, GI Bleed, Hyperlipidemia, Hypertension, Osteoarthritis (OA) Additional Past Medical History / Comment(s): Pt recently admitted 07/2017 with R lower quadrant pain and microperforations of diverticulitis-treated with ABX. Other HX: Lower GI bleeds, chron's dx, IBS, hemorrhoids, PUD, arhtiritis bilateral hands and feet, chronic back pain, macular degeneration bilateral eyes, sinus problems, bronchitis, migraines, bilateral kidney stones, anemia, hypoglycemia, spider veins bilateral legs. History of Any Multi-Drug Resistant Organisms: None Reported Past Surgical History: Bladder Surgery, Hysterectomy, Orthopedic Surgery, Tonsillectomy Additional Past Surgical History / Comment(s): Several EGDs with bx and c olonoscopies with bx, gastrectomy for ulcers (40% stomach removed),cystoscopy x2, R/L shoulder rotator cuff arthroscopies, bilateral CATARACT SURGERY with lens implants; Sinus Surgery x 2, Left Breast biopsy x 2-benign, 2nd toe R foot with hardware. Past Anesthesia/Blood Transfusion Reactions: No Reported Reaction Additional Past Anesthesia/Blood Transfusion Reaction / Comment(s): Pt states she did receive blood in 2009 with GI bleed-no reaction. Past Psychological History: No Psychological Hx Reported Smoking Status: Former smoker Past Alcohol Use History: None Reported Past Drug Use History: None Reported - Past Family History Father Family Medical History: Cancer Additional Family Medical History / Comment(s): Father had prostate cancer that went to the bone. He at the age of 79yrs. Mother Family Medical History: Cancer Additional Family Medical History / Comment(s): Mother of lymphoma at the age of 81 yrs. Sister(s) Family Medical History: Cancer Additional Family Medical History / Comment(s): breast cancer x2 sisters General Exam Limitations: no limitations Course Vital Signs 02/10/19 09:43 Temperature 97.9 F Pulse Rate 90 Respiratory 18 Rate Blood Pressure 164/78 O2 Sat by Pulse 94 L Oximetry Disposition Clinical Impression: Common cold Disposition: HOME SELF-CARE Condition: Good Instructions (If sedation given, give patient instructions): Upper Respiratory Infection (ED) Prescriptions: Azithromycin [Zithromax Z-pack] 0 mg PO DIRECTED #6 tab Is patient prescribed a controlled substance at d/c from ED?: No Referrals: Cecille Mckenna MD [Primary Care Provider] - 1-2 days Time of Disposition: 10:54
--- NOTE | 2019-02-10 10:22 | XR ---
EXAMINATION TYPE: XR chest 2V DATE OF EXAM: 02/10/2019 HISTORY: Cough and congestion. REFERENCE: Previous study dated 05/08/2016. FINDINGS: The lungs remain clear. Pleural space are clear. The heart is not enlarged. IMPRESSION: NO ACTIVE CARDIOPULMONARY ABNORMALITY.
[2019-02-10 11:08] VITALS: BP 149/72; PULSE 82
== END 2019-02-10 11:08 | disposition home or self-care (01) ==
LOC: EC 09:32
DX: J00 Acute nasopharyngitis [common cold] (principal); I10 Essential (primary) hypertension; K21.9 Gastro-esophageal reflux disease without esophagitis; Z79.51 Long term (current) use of inhaled steroids; Z79.82 Long term (current) use of aspirin; Z79.899 Other long term (current) drug therapy; Z88.8 Allergy status to other drugs, medicaments and biological substances; Z88.1 Allergy status to other antibiotic agents; Z91.040 Latex allergy status; Z91.048 Other nonmedicinal substance allergy status; Z88.0 Allergy status to penicillin; Z88.2 Allergy status to sulfonamides; Z87.891 Personal history of nicotine dependence
CPT/HCPCS: 71046; 93005; 99283

== ENCOUNTER → 2019-02-26 | Outpatient (CLI) | payer MEDICARE, OTHER ==
--- NOTE | 2019-02-26 12:29 | CT ---
EXAMINATION TYPE: CT sinus wo con DATE OF EXAM: 02/26/2019 COMPARISON: None HISTORY: Chronic sinusitis CT DLP: 577.3 mGycm. Automated Exposure Control for Dose Reduction was Utilized. TECHNIQUE: CT scan of the sinuses is performed without contrast, axial images are obtained, coronal r eformatted images are also reviewed. FINDINGS: The paranasal sinuses demonstrate occlusion of the left ostiomeatal complex. There is mild to moderate mucosal thickening in the visualized paranasal sinuses. Hypoplastic frontal sinus. There is a nasal septal deviation. Visualized portion of mastoid air cells show no abnormal opacifica tion. The globes are intact bilaterally. IMPRESSION: Mild to moderate changes of chronic sinusitis with occlusion of the left ostiomeatal comp shanelle.
== END ==
LOC: RADCTMAIN 11:21
PROVIDERS: ATTEND Otolaryngology
DX: J32.9 Chronic sinusitis, unspecified (principal); J34.89 Other specified disorders of nose and nasal sinuses; J34.2 Deviated nasal septum
CPT/HCPCS: 70486

== ENCOUNTER 2019-05-12 04:21 | Emergency (ER) | payer MEDICARE, OTHER ==
[2019-05-12] MEDS ORDERED: SODIUM CHLORIDE 0.9% 1,000 ML IV STA ×2 (04:42)
--- NOTE | 2019-05-12 04:44 | ED ---
Abdominal Pain HPI - General Chief Complaint: Abdominal Pain Stated Complaint: Abdominal Pain Time Seen by Provider: 05/12/19 04:42 Source: EMS Mode of arrival: EMS Limitations: no limitations - History of Present Illness Initial Comments: Nini is a pleasant 68 yo female since the emergency department today via private vehicle for evaluation of abdominal pain. Patient reports that she has a history very complicated including diverticulitis with abscess formation in the spring. She has chronic irritable bowel disease. Patient reports that last week she began having abdominal pain and was concerned that she is having of flareup of her colitis she saw her primary care physician was prescribed Flagyl, patient reports she then was developing urinary frequency and dysuria she followed up with her primary care physician and was prescribed an antibiotic for the urinary tract infection. Patient reports that tonight she couldn't sleep due to the pain in her left lower quadrant of her abdomen she became concerned that she may have another abscess she contacted EMS for transport to the hospital. Upon their arrival patient was reporting tendon 10 severity abdominal pain. She was treated in route with Zofran for nausea and 10 mg IV ketamine for pain management. Upon arrival to the emergency department reports that her pain is improved to 3 out of 10. - Related Data Home Medications Medication Instructions Recorded Confirmed Fluticasone Propionate [Flonase] 2 spray EA NOSTRIL DAILY 08/02/14 02/10/19 Losartan [Cozaar] 50 mg PO BID 08/02/14 02/10/19 Sucralfate [Carafate] 1 gm PO AC-TID 08/02/14 02/10/19 amLODIPine [Norvasc] 10 mg PO DAILY 08/02/14 02/10/19 cloNIDine HCL [Catapres] 0.05 mg PO HS 08/02/14 02/10/19 Adalimumab [Humira] 40 mg SQ SA 05/08/16 02/10/19 Lansoprazole [Prevacid] 30 mg PO QAM 03/03/17 02/10/19 Acetaminophen-Codeine 300-30mg 1 tab PO BID PRN 09/23/18 02/10/19 [Tylenol w/codeine #3] Latanoprost [Xalatan 0.005%] 1 drop BOTH EYES HS 12/09/18 02/10/19 Acyclovir 5% Oint [Zovirax Oint] 1 applic TOPICAL 5XD PRN 01/30/19 02/10/19 Fexofenadine HCl [Barby Allergy] 180 mg PO DAILY 01/30/19 02/10/19 Ketotifen 0.025% Ophth Soln 1 drop BOTH EYES BID 01/30/19 02/10/19 [Zaditor] Aspirin/Caffeine [Anacin 400-32 mg 1 tab PO BID 02/10/19 02/10/19 Tablet] Cephalexin [Keflex] 500 mg PO Q12HR 02/10/19 02/10/19 Mupirocin 2% Oint [Bactroban 2% 1 applic TOPICAL BID 02/10/19 02/10/19 Oint] Previous Rx's Medication Instructions Recorded Azithromycin [Zithromax Z-pack] 0 mg PO DIRECTED #6 tab 02/10/19 Allergies Allergy/AdvReac Type Severity Reaction Status Date / Time atorvastatin [From Lipitor] Allergy Swelling Verified 05/12/19 04:29 cefuroxime [From Ceftin] Allergy Rash/Hives Verified 05/12/19 04:29 cefuroxime axetil Allergy SEVERE Verified 05/12/19 04:29 [From Ceftin] HEADACHE ciprofloxacin [From Cipro] Allergy Rash/Hives Verified 05/12/19 04:29 dicloxacillin Allergy Nausea & Verified 05/12/19 04:29 Vomiting & Diarrhea doxazosin mesylate Allergy Rash/Hives Verified 05/12/19 04:29 [From Cardura] doxycycline Allergy Nausea & Verified 05/12/19 04:29 Vomiting,HEADACHE duloxetine [From Cymbalta] Allergy Abdominal Verified 05/12/19 04:29 Pain, ROQUE gatifloxacin [From Tequin] Allergy Abdominal Verified 05/12/19 04:29 Pain,VOMITING hydralazine [Hydralazine] Allergy Rapid Verified 05/12/19 04:29 Heart Rate hydrochlorothiazide Allergy Nausea & Verified 05/12/19 04:29 Vomiting indapamide [From Lozol] Allergy Abdominal Verified 05/12/19 04:29 Pain latex Allergy Rash/Hives Verified 05/12/19 04:29 lisinopril Allergy VERTIGO,HEA Verified 05/12/19 04:29 DACHE nabumetone [From Relafen] Allergy Abdominal Verified 05/12/19 04:29 Pain nitrofurantoin Allergy Rash/Hives Verified 05/12/19 04:29 [From Macrobid] povidone-iodine Allergy Rash/Hives Verified 05/12/19 04:29 [From Betadine] soap [From Betadine] Allergy Rash/Hives Verified 05/12/19 04:29 sulfasalazine Allergy Abdominal Verified 05/12/19 04:29 [From Azulfidine] Pain,VOMITING triamcinolone acetonide Allergy SEVERE Verified 05/12/19 04:29 [From Kenalog] HEADACHE Review of Systems ROS Statement: Those systems with pertinent positive or pertinent negative responses have been documented in the HPI. ROS Other: All systems not noted in ROS Statement are negative. Past Medical History Past Medical History: Diabetes Mellitus, Eye Disorder, GERD/Reflux, GI Bleed, Hyperlipidemia, Hypertension, Osteoarthritis (OA) Additional Past Medical History / Comment(s): Pt recently admitted 07/2017 with R lower quadrant pain and microperforations of diverticulitis-treated with ABX. Other HX: Lower GI bleeds, chrohn's dx, IBS, hemorrhoids, PUD, arhtiritis bilateral hands and feet, chronic back pain, macular degeneration bilateral eyes, sinus problems, bronchitis, migraines, bilateral kidney stones, anemia, hypoglycemia, spider veins bilateral legs. History of Any Multi-Drug Resistant Organisms: None Reported Past Surgical History: Bladder Surgery, Hysterectomy, Orthopedic Surgery, Tonsillectomy Additional Past Surgical History / Comment(s): Several EGDs with bx and colonoscopies with bx, gastrectomy for ulcers (40% stomach removed),cystoscopy x2, R/L shoulder rotator cuff arthroscopies, bilateral CATARACT SURGERY with lens implants; Sinus Surgery x 2, Left Breast biopsy x 2-benign, 2nd toe R foot with hardware. Past Anesthesia/Blood Transfusion Reactions: No Reported Reaction Additional Past Anesthesia/Blood Transfusion Reaction / Comment(s): Pt states she did receive blood in 2009 with GI bleed-no reaction. Past Psychological History: No Psychological Hx Reported Smoking Status: Former smoker Past Alcohol Use History: Rare Past Drug Use History: None Reported - Past Family History Father Family Medical History: Cancer Additional Family Medical History / Comment(s): Father had prostate cancer that went to the bone. He at the age of 79yrs. Mother Family Medical History: Cancer Additional Family Medical History / Comment(s): Mother of lymphoma at the age of 81 yrs. Sister(s) Family Medical History: Cancer Additional Family Medical History / Comment(s): breast cancer x2 sisters General Exam - General Exam Comments Initial Comments: Physical Exam GENERAL: Patient is well-developed and well-nourished. Patient is nontoxic and well- hydrated and is in no distress. HENT: Normocephalic, Atraumatic. EYES: PERRL, EOMI PULMONARY: Unlabored respirations. No audible rales rhonchi or wheezing was noted. CARDIOVASCULAR: There is a regular rate and rhythm without any murmurs gallops or rubs. ABDOMEN: Tenderness palpation the left lower quadrant SKIN: Skin is clear with no lesions or rashes and otherwise unremarkable. : Deferred NEUROLOGIC: Patient is alert and oriented x3. Moving all extremities spontaneously MUSCULOSKELETAL: Normal extremities with adequate strength and full range of motion. No lower extremity swelling or edema. No calf tenderness. PSYCHIATRIC: Normal psychiatric evaluation. Limitations: no limitations Limitations: no limitations Course Vital Signs 05/12/19 05/12/19 04:25 06:29 Temperature 98.5 F 97.8 F Pulse Rate 77 71 Respiratory 16 17 Rate Blood Pressure 132/62 129/64 O2 Sat by Pulse 97 99 Oximetry Medical Decision Making - Medical Decision Making The patient was seen and evaluated, history is obtained from the patient and EMS Patient with history of recurrent diverticulitis, chronic colitis presenting with left-sided abdominal pain which is progressively worsened patient's on oral antibiotics for suspected colitis prescribed by her primary care physician Labs and imaging were obtained Labs were baseline, imaging revealed no acute pathology these results were dis cussed with the patient who expresses relief and is comfortable with the plan for discharge home and continued outpatient monitoring All questions pertaining care were answered return parameters were discussed the patient was discharged home in stable condition - Lab Data Result diagrams: 05/12/19 04:37 05/12/19 04:37 Lab Results 05/12/19 05/12/19 05/12/19 Range/Units 04:37 04:37 04:37 WBC 7.3 (3.8-10.6) k/uL RBC 4.82 (3.80-5.40) m/uL Hgb 11.8 (11.4-16.0) gm/dL Hct 38.6 (34.0-46.0) % MCV 80.0 (80.0-100.0) fL MCH 24.5 L (25.0-35.0) pg MCHC 30.6 L (31.0-37.0) g/dL RDW 15.8 H (11.5-15.5) % Plt Count 321 (150-450) k/uL Neutrophils % 65 % Lymphocytes % 25 % Monocytes % 6 % Eosinophils % 2 % Basophils % 1 % Neutrophils # 4.8 (1.3-7.7) k/uL Lymphocytes # 1.8 (1.0-4.8) k/uL Monocytes # 0.4 (0-1.0) k/uL Eosinophils # 0.2 (0-0.7) k/uL Basophils # 0.1 (0-0.2) k/uL Sodium 139 (137-145) mmol/L Potassium 4.8 (3.5-5.1) mmol/L Chloride 108 H (98-107) mmol/L Carbon Dioxide 20 L (22-30) mmol/L Anion Gap 11 mmol/L BUN 14 (7-17) mg/dL Creatinine 0.50 L (0.52-1.04) mg/dL Est GFR (CKD-EPI)AfAm >90 (>60 ml/min/1.73 sqM) Est GFR (CKD-EPI)NonAf >90 (>60 ml/min/1.73 sqM) Glucose 178 H (74-99) mg/dL Calcium 9.1 (8.4-10.2) mg/dL Total Bilirubin 0.5 (0.2-1.3) mg/dL AST 41 H (14-36) U/L ALT 25 (9-52) U/L Alkaline Phosphatase 55 (38-126) U/L Total Protein 7.5 (6.3-8.2) g/dL Albumin 4.3 (3.5-5.0) g/dL Urine Color Yellow Urine Appearance Clear (Clear) Urine pH 5.0 (5.0-8.0) Ur Specific [place] 1.017 (1.001-1.035) Urine Protein Trace H (Negative) Urine Glucose (UA) Negative (Negative) Urine Ketones 1+ H (Negative) Urine Blood Trace H (Negative) Urine Nitrite Negative (Negative) Urine Bilirubin Negative (Negative) Urine Urobilinogen <2.0 (<2.0) mg/dL Ur Leukocyte Esterase Trace H (Negative) Urine RBC <1 (0-5) /hpf Urine WBC <1 (0-5) /hpf Ur Squamous Epith Cells <1 (0-4) /hpf Urine Bacteria Rare H (None) /hpf Cellular Casts 1 (0) /lpf Hyaline Casts 1 (0-2) /lpf Urine Mucus Rare H (None) /hpf Disposition Clinical Impression: Chronic abdominal pain Disposition: HOME SELF-CARE Condition: Stable Instructions (If sedation given, give patient instructions): Abdominal Pain (ED) Is patient prescribed a controlled substance at d/c from ED?: No Referrals: Cecille Mckenna MD [Primary Care Provider] - 1-2 days
[2019-05-12 04:53] LABS: Basophils # (A) 0.1 k/uL (0-0.2); Basophils % (A) 1 %; Eosinophils # (A) 0.2 k/uL (0-0.7); Eosinophils % (A) 2 %; HCT 38.6 % (34.0-46.0); HGB 11.8 gm/dL (11.4-16.0); Lymphocytes # (A) 1.8 k/uL (1.0-4.8); Lymphocytes % (A) 25 %; MCH 24.5 pg (25.0-35.0); MCHC 30.6 g/dL (31.0-37.0); Mean Platelet Volume 6.9; Monocytes # (A) 0.4 k/uL (0-1.0); Monocytes % (A) 6 %; Neutrophils # (A) 4.8 k/uL (1.3-7.7); Neutrophils % (A) 65 %; Platelet Count 321 k/uL (150-450); RBC 4.82 m/uL (3.80-5.40); RDW 15.8 % (11.5-15.5); WBC 7.3 k/uL (3.8-10.6)
[2019-05-12 04:54] LABS: Chloride 108 mmol/L (98-107)
[2019-05-12 04:57] LABS: ALT 25 U/L (9-52); AST 41 U/L (14-36); African American GFR (CKD) >90 (>60 ml/min/1.73 sqM); Albumin 4.3 g/dL (3.5-5.0); Alkaline Phosphatase 55 U/L (38-126); Anion Gap 11 mmol/L; Blood Urea Nitrogen 14 mg/dL (7-17); Calcium 9.1 mg/dL (8.4-10.2); Carbon Dioxide 20 mmol/L (22-30); Glucose 178 mg/dL (74-99); Potassium 4.8 mmol/L (3.5-5.1); Sodium 139 mmol/L (137-145); Total Bilirubin 0.5 mg/dL (0.2-1.3); Total Protein 7.5 g/dL (6.3-8.2)
[2019-05-12] MEDS ORDERED: metroNIDAZOLE-NS PMX 500 MG in SALINE 1 100ML.BAG IVPB ONE (05:00)
[2019-05-12 05:04] LABS: Appearance,Urine Clear (Clear); Bacteria,Urine Rare /hpf; Bilirubin,Urine Negative (Negative); Blood,Urine Trace (Negative); Cellular Casts,Urine 1 /lpf (0); Color,Urine Yellow; Glucose,Urine (UA) Negative (Negative); Hyaline Casts,Urine 1 /lpf (0-2); Ketones,Urine 1+ (Negative); Leukocyte Esterase,Urine Trace (Negative); Mucus,Urine Rare /hpf; Nitrite,Urine Negative (Negative); Protein,Urine Trace (Negative); RBC,Urine <1 /hpf (0-5); Specific Gravity,Urine 1.017 (1.001-1.035); Squamous Epithelial Cell,Urine <1 /hpf (0-4); Urobilinogen,Urine <2.0 mg/dL (<2.0); WBC,Urine <1 /hpf (0-5)
--- NOTE | 2019-05-12 05:33 | CT ---
EXAM: CT Abdomen and Pelvis With Intravenous Contrast CLINICAL HISTORY: ITS.REASON CT Reason: LLQ pain hx diverticulitis TECHNIQUE: Axial computed tomography images of the abdomen and pelvis with intravenous contrast. This CT exam was performed using one or more of the following dose reduction techniques: automated exposure control, adjustment of the mA and/or kV according to patient size, and/or use of iterative reconstruction technique. COMPARISON: No relevant prior studies available. FINDINGS: Lung bases: Unremarkable. No mass. No consolidation. ABDOMEN: Liver: Unremarkable. No mass. Gallbladder and bile ducts: No abnormal ductal dilation or stones. Pancreas: Unremarkable. No mass. No ductal dilation. Spleen: Unremarkable. No splenomegaly. Adrenals: Unremarkable. No mass. Kidneys and ureters: Unremarkable. No solid mass. No hydronephrosis. Stomach and bowel: Colonic diverticulosis without inflammation. PELVIS: Appendix: No findings to suggest acute appendicitis. Bladder: Unremarkable. No mass. Reproductive: Unremarkable as visualized. ABDOMEN and PELVIS: Intraperitoneal space: Unremarkable. No free air. No significant fluid collection. Bones/joints: No acute fracture. No dislocation. Soft tissues: Unremarkable. Vasculature: No abdominal aortic aneurysm. Lymph nodes: Unremarkable. No enlarged lymph nodes. IMPRESSION: No acute findings.
[2019-05-12 06:30] VITALS: BP 129/64; PULSE 71; RESP 17; TEMP 97.8
== END 2019-05-12 06:38 | disposition home or self-care (01) ==
LOC: EC 04:21
DX: R10.32 Left lower quadrant pain (principal); G89.29 Other chronic pain; K21.9 Gastro-esophageal reflux disease without esophagitis; I10 Essential (primary) hypertension; H35.30 Unspecified macular degeneration; M19.071 Primary osteoarthritis, right ankle and foot; M19.072 Primary osteoarthritis, left ankle and foot; M19.041 Primary osteoarthritis, right hand; M19.042 Primary osteoarthritis, left hand; Z87.891 Personal history of nicotine dependence; Z88.0 Allergy status to penicillin; Z88.1 Allergy status to other antibiotic agents; Z88.2 Allergy status to sulfonamides; Z88.3 Allergy status to other anti-infective agents; Z88.8 Allergy status to other drugs, medicaments and biological substances; Z91.040 Latex allergy status; Z91.048 Other nonmedicinal substance allergy status; Z79.51 Long term (current) use of inhaled steroids; Z79.82 Long term (current) use of aspirin; Z96.698 Presence of other orthopedic joint implants; Z87.440 Personal history of urinary (tract) infections; Z87.19 Personal history of other diseases of the digestive system
CPT/HCPCS: 36415; 80053; 85025; 81001; 87086; 74177; 99285; 96365; 96361; Q9967

== ENCOUNTER → 2019-05-16 | Outpatient (CLI) | payer MEDICARE, OTHER ==
[2019-05-16 11:37] LABS: Appearance,Urine Clear (Clear); Bilirubin,Urine Negative (Negative); Blood,Urine Trace (Negative); Color,Urine Light Yellow; Glucose,Urine (UA) Negative (Negative); Ketones,Urine Negative (Negative); Leukocyte Esterase,Urine Negative (Negative); Mucus,Urine Rare /hpf; Nitrite,Urine Negative (Negative); PH, Urine 5.5 (5.0-8.0); Protein,Urine Negative (Negative); RBC,Urine <1 /hpf (0-5); Specific Gravity,Urine 1.009 (1.001-1.035); Squamous Epithelial Cell,Urine <1 /hpf (0-4); Urobilinogen,Urine <2.0 mg/dL (<2.0); WBC,Urine <1 /hpf (0-5)
[2019-05-16 12:11] LABS: HCT 40.6 % (34.0-46.0); HGB 12.3 gm/dL (11.4-16.0); Hypochromasia Slight; MCH 24.5 pg (25.0-35.0); MCHC 30.3 g/dL (31.0-37.0); MCV 80.8 fL (80.0-100.0); Platelet Count 342 k/uL (150-450); RBC 5.03 m/uL (3.80-5.40); RDW 15.5 % (11.5-15.5); WBC 7.5 k/uL (3.8-10.6)
[2019-05-16 14:27] LABS: Erythrocyte Sedimentation Rate 11 mm/hr (0-20)
[2019-05-16 16:55] LABS: African American GFR (CKD) 109.3 (60.0-200.0); Albumin 4.6 g/dL (3.80-4.90); Albumin/Globulin Ratio 1.92 (1.60-3.17); C Reactive Protein 0.4 mg/dL (0.0-0.8); Calcium 9.4 mg/dL (8.7-10.3); Globulin 2.4 g/dL (1.6-3.3); Potassium 4.3 mmol/L (3.5-5.5); Total Bilirubin 0.2 mg/dL (0.3-1.2)
== END | disposition home or self-care (01) ==
LOC: LABWHC1 10:35
DX: Z09 Encounter for follow-up examination after completed treatment for conditions other than malignant neoplasm (principal); Z87.19 Personal history of other diseases of the digestive system; K50.10 Crohn's disease of large intestine without complications
CPT/HCPCS: 36415; 80053; 81001; 82306; 85027; 85652; 86140

== ENCOUNTER → 2019-08-14 | Outpatient (CLI) | payer MEDICARE, OTHER ==
--- NOTE | 2019-08-14 09:54 | USB ---
Reason for exam: follow-up at short interval from prior study. History: Patient is postmenopausal. Family history of breast cancer in maternal aunt at age 60, breast cancer in maternal cousin at age 18, breast cancer in aunt, breast cancer in sister at age 62, and breast cancer in sister at age 54. Benign US biopsy breast VAD RT of the right breast, February 12, 2018. Benign US biopsy breast add'l VAD RT of the right breast, February 12, 2018. Benign left mammotome panel of the left breast, October 06, 2005. Benign stereotactic core biopsy of the left breast, August 21, 2001. Core biopsy of the left breast. Took estrogen for 10 years beginning at age 34. Physical Findings: Nurse Summary: right far lateral 9 o'clock palpable 1 x 1.5cm, non-tender, movable, left 10 o'clock palpable 1 x 1.5cm, non-tender, movable (nurse ts). US Breast Limited BILAT Right limited breast ultrasound including focal area of concern, retroareolar and axilla demonstrates a 13 x 8 x 13mm oval, hyperechoic lesion at 9 o'clock BB probable lipoma and a 8 x 6 x 8mm oval, hyperechoic lesion at 10 o'clock probable lipoma. Left limited breast ultrasound including focal area of concern, retroareolar and axilla demonstrates a 17 x 6 x 17mm oval, hyperechoic lesion at 10 o'clock BB probable lipoma, stable. These results were verbally communicated with the patient and result sheet given to the patient on 08/14/19. ASSESSMENT: Benign, BI-RAD 2 RECOMMENDATION: Routine screening mammogram of both breasts in 6 months. Back on schedule. Manage patient on a clinical basis.
== END | disposition home or self-care (01) ==
LOC: RADUSWWP 08:42
PROVIDERS: ATTEND Family Medicine
DX: R92.8 Other abnormal and inconclusive findings on diagnostic imaging of breast (principal)

== ENCOUNTER → 2019-10-10 | Outpatient (CLI) | payer MEDICARE, OTHER ==
--- NOTE | 2019-10-10 11:11 | CT ---
EXAMINATION TYPE: CT sinus wo con DATE OF EXAM: 10/10/2019 COMPARISON: Prior CT sinus 02/26/2019 HISTORY: Chronic sinusitis CT DLP: 559 mGycm. Automated Exposure Control for Dose Reduction was Utilized. TECHNIQUE: CT scan of the sinuses is performed without contrast, axial images are obtained, coronal r eformatted images are also reviewed. FINDINGS: The paranasal sinuses are remarkable for inflammatory change in the left sphenoid, there i s an air-fluid level although aeration has improved compared to prior, right sphenoid has interval re solution of inflammatory change, ethmoid air cells show some thickening similar to prior exam possibl y due to chronic infection, mild inflammatory change present in the anterior ethmoids, minimal inflam matory change persists in the medial aspect of the left maxillary sinus, possible retained secretions , anterior inflammatory change may represent secretions within the right maxillary sinus, patient rodriguez ws post op changes as on prior exam involving the maxillary sinus gamble. The ostiomeatal complex is patent bilaterally on the coronal images. Visualized portion of mastoid air cells show no abnormal opacification. The globes are intact bilate rally. IMPRESSION: The sinuses is improved however there is residual inflammatory change as described, corre late for sphenoid sinusitis.
== END | disposition home or self-care (01) ==
LOC: RADCTMAIN 08:18
PROVIDERS: ATTEND Family Medicine
DX: J32.9 Chronic sinusitis, unspecified (principal)
CPT/HCPCS: 70486

== ENCOUNTER 2019-11-24 11:08 | Emergency (ER) | payer MEDICARE, OTHER ==
[2019-11-24] MEDS ORDERED: ASPIRIN 81 MG PO STA (11:25)
--- NOTE | 2019-11-24 11:31 | ED ---
General Adult HPI - General Chief complaint: Chest Pain Stated complaint: chest pain Time Seen by Provider: 11/24/19 11:16 Source: patient, RN notes reviewed Mode of arrival: ambulatory Limitations: no limitations - History of Present Illness Initial comments: Patient is a pleasant 69-year-old female presenting to the emergency department with several complaints. Patient complains of discomfort in her chest. Discomfort is bilateral ribs and somewhat anterior. Patient has been having low-grade fevers. He should does have mild sore throat and congestion. Patient has a little bit of cough and shortness of breath as well. - Related Data Home Medications Medication Instructions Recorded Confirmed Fluticasone Propionate [Flonase] 2 spray EA NOSTRIL DAILY 08/02/14 02/10/19 Losartan [Cozaar] 50 mg PO BID 08/02/14 02/10/19 Sucralfate [Carafate] 1 gm PO AC-TID 08/02/14 02/10/19 amLODIPine [Norvasc] 10 mg PO DAILY 08/02/14 02/10/19 cloNIDine HCL [Catapres] 0.05 mg PO HS 08/02/14 02/10/19 Adalimumab [Humira] 40 mg SQ SA 05/08/16 02/10/19 Lansoprazole [Prevacid] 30 mg PO QAM 03/03/17 02/10/19 Acetaminophen-Codeine 300-30mg 1 tab PO BID PRN 09/23/18 02/10/19 [Tylenol w/codeine #3] Latanoprost [Xalatan 0.005%] 1 drop BOTH EYES HS 12/09/18 02/10/19 Acyclovir 5% Oint [Zovirax Oint] 1 applic TOPICAL 5XD PRN 01/30/19 02/10/19 Fexofenadine HCl [Barby Allergy] 180 mg PO DAILY 01/30/19 02/10/19 Ketotifen 0.025% Ophth Soln 1 drop BOTH EYES BID 01/30/19 02/10/19 [Zaditor] Aspirin/Caffeine [Anacin 400-32 mg 1 tab PO BID 02/10/19 02/10/19 Tablet] Cephalexin [Keflex] 500 mg PO Q12HR 02/10/19 02/10/19 Mupirocin 2% Oint [Bactroban 2% 1 applic TOPICAL BID 02/10/19 02/10/19 Oint] Previous Rx's Medication Instructions Recorded Azithromycin [Zithromax Z-pack] 0 mg PO DIRECTED #6 tab 02/10/19 Allergies Allergy/AdvReac Type Severity Reaction Status Date / Time atorvastatin [From Lipitor] Allergy Swelling Verified 05/12/19 04:29 cefuroxime [From Ceftin] Allergy Rash/Hives Verified 05/12/19 04:29 cefuroxime axetil Allergy SEVERE Verified 05/12/19 04:29 [From Ceftin] HEADACHE ciprofloxacin [From Cipro] Allergy Rash/Hives Verified 05/12/19 04:29 dicloxacillin Allergy Nausea & Verified 05/12/19 04:29 Vomiting & Diarrhea doxazosin mesylate Allergy Rash/Hives Verified 05/12/19 04:29 [From Cardura] doxycycline Allergy Nausea & Verified 05/12/19 04:29 Vomiting,HEADACHE duloxetine [From Cymbalta] Allergy Abdominal Verified 05/12/19 04:29 Pain, ROQUE gatifloxacin [From Tequin] Allergy Abdominal Verified 05/12/19 04:29 Pain,VOMITING hydralazine [Hydralazine] Allergy Rapid Verified 05/12/19 04:29 Heart Rate hydrochlorothiazide Allergy Nausea & Verified 05/12/19 04:29 Vomiting indapamide [From Lozol] Allergy Abdominal Verified 05/12/19 04:29 Pain latex Allergy Rash/Hives Verified 05/12/19 04:29 lisinopril Allergy VERTIGO,HEA Verified 05/12/19 04:29 DACHE nabumetone [From Relafen] Allergy Abdominal Verified 05/12/19 04:29 Pain nitrofurantoin Allergy Rash/Hives Verified 05/12/19 04:29 [From Macrobid] povidone-iodine Allergy Rash/Hives Verified 05/12/19 04:29 [From Betadine] soap [From Betadine] Allergy Rash/Hives Verified 05/12/19 04:29 sulfasalazine Allergy Abdominal Verified 05/12/19 04:29 [From Azulfidine] Pain,VOMITING triamcinolone acetonide Allergy SEVERE Verified 05/12/19 04:29 [From Kenalog] HEADACHE Review of Systems ROS Statement: Those systems with pertinent positive or pertinent negative responses have been documented in the HPI. ROS Other: All systems not noted in ROS Statement are negative. Constitutional: Reports: as per HPI Eyes: Denies: eye pain ENT: Denies: ear pain Respiratory: Reports: as per HPI Cardiovascular: Reports: as per HPI, chest pain Endocrine: Denies: fatigue Gastrointestinal: Denies: abdominal pain, vomiting Genitourinary: Denies: dysuria Musculoskeletal: Denies: back pain Skin: Denies: rash Neurological: Denies: weakness Past Medical History Past Medical History: Diabetes Mellitus, Eye Disorder, GERD/Reflux, GI Bleed, Hyperlipidemia, Hypertension, Osteoarthritis (OA) Additional Past Medical History / Comment(s): Pt recently admitted 07/2017 with R lower quadrant pain and microperforations of diverticulitis-treated with ABX. Other HX: Lower GI bleeds, chrohn's dx, IBS, hemorrhoids, PUD, arhtiritis bilateral hands and feet, chronic back pain, macular degeneration bilateral eyes, sinus problems, bronchitis, migraines, bilateral kidney stones, anemia, hypoglycemia, spider veins bilateral legs. History of Any Multi-Drug Resistant Organisms: None Reported Past Surgical History: Bladder Surgery, Hysterectomy, Orthopedic Surgery, Tonsillectomy Additional Past Surgical History / Comment(s): Several EGDs with bx and colonoscopies with bx, gastrectomy for ulcers (40% stomach removed),cystoscopy x2, R/L shoulder rotator cuff arthroscopies, bilateral CATARACT SURGERY with lens implants; Sinus Surgery x 2, Left Breast biopsy x 2-benign, 2nd toe R foot with hardware. Past Anesthesia/Blood Transfusion Reactions: No Reported Reaction Additional Past Anesthesia/Blood Transfusion Reaction / Comment(s): Pt states she did receive blood in 2009 with GI bleed-no reaction. Past Psychological History: No Psychological Hx Reported Smoking Status: Former smoker Past Alcohol Use History: Rare Past Drug Use History: None Reported - Past Family History Father Family Medical History: Cancer Additional Family Medical History / Comment(s): Father had prostate cancer that went to the bone. He at the age of 79yrs. Mother Family Medical History: Cancer Additional Family Medical History / Comment(s): Mother of lymphoma at the age of 81 yrs. Sister(s) Family Medical History: Cancer Additional Family Medical History / Comment(s): breast cancer x2 sisters General Exam Limitations: no limitations General appearance: alert, in no apparent distress Head exam: Present: normocephalic Eye exam: Present: normal appearance, PERRL ENT exam: Present: normal oropharynx Neck exam: Present: normal inspection Respiratory exam: Present: normal lung sounds bilaterally. Absent: chest wall tenderness Cardiovascular Exam: Present: regular rate, normal rhythm Expanded Peripheral pulses: 2+: Radial (R), Radial (L), Posterior Tibialis (R), Posterior Tibialis (L), Dorsalis Pedis (R), Dorsalis Pedis (L) GI/Abdominal exam: Present: soft. Absent: tenderness Extremities exam: Present: normal inspection. Absent: pedal edema, calf tenderness Neurological exam: Present: alert Psychiatric exam: Present: normal affect, normal mood Skin exam: Present: normal color Course Vital Signs 11/24/19 11/24/19 11:11 11:27 Temperature 97.8 F Pulse Rate 96 Pulse Rate [ 95 [employer] ] Respiratory 18 22 Rate Blood Pressure 154/84 O2 Sat by Pulse 97 Oximetry EKG Findings - EKG Comments: EKG Findings:: Sinus rhythm and 99. Premature atrial, is present. [place] 134. QRS 78. QT 344. QTC 441. Normal axis. Normal QRS. No acute ST change. Medical Decision Making - Medical Decision Making Patient reevaluated and updated. Patient resting comfortably in bed. Case was discussed with Dr. Arias, who will admit her for Dr. rocha, who admits for Dr. mcmahan. - Lab Data Result diagrams: 11/24/19 11:33 11/24/19 13:59 Lab Results 11/24/19 11/24/19 11/24/19 Range/Units 11:33 13:59 13:59 WBC 5.0 (3.8-10.6) k/uL RBC 5.42 H (3.80-5.40) m/uL Hgb 14.1 (11.4-16.0) gm/dL Hct 44.7 (34.0-46.0) % MCV 82.5 (80.0-100.0) fL MCH 26.0 (25.0-35.0) pg MCHC 31.5 (31.0-37.0) g/dL RDW 15.1 (11.5-15.5) % Plt Count 265 (150-450) k/uL Neutrophils % (Manual) 60 % Lymphocytes % (Manual) 25 % Monocytes % (Manual) 14 % Eosinophils % (Manual) 1 % Neutrophils # (Manual) 3.00 (1.3-7.7) k/uL Lymphocytes # (Manual) 1.25 (1.0-4.8) k/uL Monocytes # (Manual) 0.70 (0-1.0) k/uL Eosinophils # (Manual) 0.05 (0-0.7) k/uL Nucleated RBCs 0 (0-0) /100 WBC Manual Slide Review Performed Hypochromasia Slight PT 9.8 (9.0-12.0) sec INR 0.9 (<1.2) APTT 22.3 (22.0-30.0) sec D-Dimer 0.35 (<0.60) mg/L FEU Sodium (137-145) mmol/L Potassium (3.5-5.1) mmol/L Chloride (98-107) mmol/L Carbon Dioxide (22-30) mmol/L Anion Gap mmol/L BUN (7-17) mg/dL Creatinine (0.52-1.04) mg/dL Est GFR (CKD-EPI)AfAm (>60 ml/min/1.73 sqM) Est GFR (CKD-EPI)NonAf (>60 ml/min/1.73 sqM) Glucose (74-99) mg/dL Calcium (8.4-10.2) mg/dL Magnesium (1.6-2.3) mg/dL Total Bilirubin (0.2-1.3) mg/dL AST (14-36) U/L ALT (4-34) U/L Alkaline Phosphatase (38-126) U/L Troponin I <0.012 (0.000-0.034) ng/mL Total Protein (6.3-8.2) g/dL Albumin (3.5-5.0) g/dL Amylase (30-110) U/L Lipase (23-300) U/L 11/24/19 Range/Units 13:59 WBC (3.8-10.6) k/uL RBC (3.80-5.40) m/uL Hgb (11.4-16.0) gm/dL Hct (34.0-46.0) % MCV (80.0-100.0) fL MCH (25.0-35.0) pg MCHC (31.0-37.0) g/dL RDW (11.5-15.5) % Plt Count (150-450) k/uL Neutrophils % (Manual) % Lymphocytes % (Manual) % Monocytes % (Manual) % Eosinophils % (Manual) % Neutrophils # (Manual) (1.3-7.7) k/uL Lymphocytes # (Manual) (1.0-4.8) k/uL Monocytes # (Manual) (0-1.0) k/uL Eosinophils # (Manual) (0-0.7) k/uL Nucleated RBCs (0-0) /100 WBC Manual Slide Review Hypochromasia PT (9.0-12.0) sec INR (<1.2) APTT (22.0-30.0) sec D-Dimer (<0.60) mg/L FEU Sodium 142 (137-145) mmol/L Potassium 4.1 (3.5-5.1) mmol/L Chloride 107 (98-107) mmol/L Carbon Dioxide 23 (22-30) mmol/L Anion Gap 12 mmol/L BUN 12 (7-17) mg/dL Creatinine 0.55 (0.52-1.04) mg/dL Est GFR (CKD-EPI)AfAm >90 (>60 ml/min/1.73 sqM) Est GFR (CKD-EPI)NonAf >90 (>60 ml/min/1.73 sqM) Glucose 97 (74-99) mg/dL Calcium 9.8 (8.4-10.2) mg/dL Magnesium 2.2 (1.6-2.3) mg/dL Total Bilirubin 0.3 (0.2-1.3) mg/dL AST 32 (14-36) U/L ALT 28 (4-34) U/L Alkaline Phosphatase 86 (38-126) U/L Troponin I (0.000-0.034) ng/mL Total Protein 8.2 (6.3-8.2) g/dL Albumin 4.9 (3.5-5.0) g/dL Amylase 53 (30-110) U/L Lipase 77 (23-300) U/L - Radiology Data Radiology results: image reviewed (Chest x-ray shows no acute process) Disposition Clinical Impression: Chest pain Disposition: ADMITTED IP TO THIS HOSP Is patient prescribed a controlled substance at d/c from ED?: No Referrals: Cecille Mcmahan MD [Primary Care Provider] - 1-2 days Decision Time: 14:46
[2019-11-24] MEDS: NITROGLYCERIN OINT 1 INCH/GM PACKET TOPICAL STA ×2 (11:36→11:38)
--- NOTE | 2019-11-24 11:49 | XR ---
EXAMINATION TYPE: XR chest 2V DATE OF EXAM: 11/24/2019 HISTORY: Chest Pain. REFERENCE: Previous study dated 02/10/2019. FINDINGS: Lungs remain clear. Pleural spaces are clear. The heart is not enlarged. IMPRESSION: NO ACUTE CARDIOPULMONARY ABNORMALITY.
[2019-11-24 12:08] LABS: HCT 44.7 % (34.0-46.0); HGB 14.1 gm/dL (11.4-16.0); Hypochromasia Slight; MCHC 31.5 g/dL (31.0-37.0); MCV 82.5 fL (80.0-100.0); Mean Platelet Volume 9.1; Platelet Count 265 k/uL (150-450); RBC 5.42 m/uL (3.80-5.40); RDW 15.1 % (11.5-15.5)
[2019-11-24 12:53] LABS: Eosinophils # (M) 0.05 k/uL (0-0.7); Lymphocytes # (M) 1.25 k/uL (1.0-4.8); Neutrophils % (M) 60 %; Nucleated Red Blood Cells 0 /100 WBC (0-0); Total Cells Counted 100
[2019-11-24 14:29] LABS: ALT 28 U/L (4-34); AST 32 U/L (14-36); African American GFR (CKD) >90 (>60 ml/min/1.73 sqM); Albumin 4.9 g/dL (3.5-5.0); Alkaline Phosphatase 86 U/L (38-126); Amylase 53 U/L (30-110); Anion Gap 12 mmol/L; Blood Urea Nitrogen 12 mg/dL (7-17); Calcium 9.8 mg/dL (8.4-10.2); Carbon Dioxide 23 mmol/L (22-30); Chloride 107 mmol/L (98-107); Glucose 97 mg/dL (74-99); Magnesium 2.2 mg/dL (1.6-2.3); Non-African American GFR(CKD) >90 (>60 ml/min/1.73 sqM); Potassium 4.1 mmol/L (3.5-5.1); Sodium 142 mmol/L (137-145); Total Bilirubin 0.3 mg/dL (0.2-1.3); Total Protein 8.2 g/dL (6.3-8.2)
[2019-11-24 14:30] LABS: D-Dimer 0.35 mg/L FEU (<0.60); INR 0.9 (<1.2); Partial Thromboplastin Time 22.3 sec (22.0-30.0); Prothrombin Time 9.8 sec (9.0-12.0)
[2019-11-24] MEDS ORDERED: NITROGLYCERIN SL TABS 0.4 MG TAB SUBLINGUAL PRN (14:46)
[2019-11-24 15:18] VITALS: BP 140/80; PULSE 88; RESP 18; TEMP 98
[2019-11-24] MEDS ORDERED: NITROGLYCERIN OINT 1 INCH/GM PACKET TOPICAL SCH (18:00)
[2019-11-25] MEDS ORDERED: ASPIRIN 325 MG TAB PO SCH (09:00)
== END 2019-11-24 15:08 | disposition other institution (70) ==
LOC: EC 11:08 → UNDOADMOB 14:47 → 1SOBS 14:47 → EC 15:08
DX: R07.9 Chest pain, unspecified (principal); R05 Cough; R06.02 Shortness of breath; R50.9 Fever, unspecified; E11.9 Type 2 diabetes mellitus without complications; I10 Essential (primary) hypertension; K21.9 Gastro-esophageal reflux disease without esophagitis; Z79.51 Long term (current) use of inhaled steroids; Z79.899 Other long term (current) drug therapy; Z79.82 Long term (current) use of aspirin; Z88.8 Allergy status to other drugs, medicaments and biological substances; Z88.1 Allergy status to other antibiotic agents; Z91.040 Latex allergy status; Z91.048 Other nonmedicinal substance allergy status; Z88.0 Allergy status to penicillin; Z88.2 Allergy status to sulfonamides; Z87.891 Personal history of nicotine dependence
CPT/HCPCS: 36415; 71046; 80053; 82150; 83690; 83735; 84484; 85025; 85379; 85610; 85730; 93005; 99285

== ENCOUNTER → 2020-04-10 | Outpatient (CLI) | payer MEDICARE, OTHER ==
--- NOTE | 2020-04-14 09:14 | MM ---
Reason for exam: additional evaluation requested from prior study. Last mammogram was performed 1 year and 2 months ago. History: Patient is postmenopausal. Family history of breast cancer in maternal aunt at age 60, breast cancer in maternal cousin at age 18, breast cancer in aunt, breast cancer in sister at age 62, and breast cancer in sister at age 54. Benign US biopsy breast VAD RT of the right breast, February 12, 2018. Benign US biopsy breast add'l VAD RT of the right breast, February 12, 2018. Benign left mammotome panel of the left breast, October 06, 2005. Benign stereotactic core biopsy of the left breast, August 21, 2001. Core biopsy of the left breast. Took estrogen for 10 years beginning at age 34. Physical Findings: Nurse Summary: 1cm nodule in the right breast at 3 o'clock and a 1cm nodule in the left breast at 11 o'clock and 12 o'clock (nurse mj). MG 3D Diag Mammo W/Cad ITZEL Bilateral CC and MLO view(s) were taken. Prior study comparison: February 07, 2019, bilateral MG 3d diag mammo w/cad ITZEL. August 03, 2018, right breast MG 3d diag mammo w/cad RT. The breast tissue is heterogeneously dense. This may lower the sensitivity of mammography. Previous mammotome biopsy in the right breast x 2 and in the left breast x 3. Two palpable markers on the left and one on the right. Benign oil cyst calcifications on both sides. No significant new findings when compared with previous films. These results were verbally communicated with the patient and result sheet given to the patient on 04/10/20. ASSESSMENT: Incomplete: need additional imaging evaluation, BI-RAD 0 RECOMMENDATION: Ultrasound of both breasts. (palpable)
--- NOTE | 2020-04-14 09:17 | USB ---
Reason for exam: additional evaluation requested from abnormal screening. History: Patient is postmenopausal. Family history of breast cancer in maternal aunt at age 60, breast cancer in maternal cousin at age 18, breast cancer in aunt, breast cancer in sister at age 62, and breast cancer in sister at age 54. Benign US biopsy breast VAD RT of the right breast, February 12, 2018. Benign US biopsy breast add'l VAD RT of the right breast, February 12, 2018. Benign left mammotome panel of the left breast, October 06, 2005. Benign stereotactic core biopsy of the left breast, August 21, 2001. Core biopsy of the left breast. Took estrogen for 10 years beginning at age 34. US Breast Limited BILAT Right limited breast ultrasound including focal area of concern, retroareolar and axilla demonstrates a 7 x 7 x 7mm oval, hyperechoic lesion at 3 o'clock BB. Left limited breast ultrasound including focal area of concern, retroareolar and axilla demonstrates a 14 x 6 x 8mm oval, hyperechoic lesion at 10 o'clock BB and a 6 x 4 x 5mm oval, hyperechoic lesion at 12 o'clock BB. Scanned right breast 12-3 o'clock. Scanned left breast 9-12 o'clock. Circumscribed echogenic oval lesions seen previously compatible with lipomas. These results were verbally communicated with the patient and result sheet given to the patient on 04/10/20. ASSESSMENT: Benign, BI-RAD 2 RECOMMENDATION: Routine screening mammogram of both breasts in 1 year.
== END | disposition home or self-care (01) ==
LOC: RADMAMWWP 13:40
PROVIDERS: ATTEND Family Medicine
DX: N64.4 Mastodynia (principal); N63.10 Unspecified lump in the right breast, unspecified quadrant; N63.20 Unspecified lump in the left breast, unspecified quadrant; R92.8 Other abnormal and inconclusive findings on diagnostic imaging of breast
CPT/HCPCS: 77066; 76642; G0279; 77062

== ENCOUNTER → 2020-06-23 | Outpatient (CLI) | payer MEDICARE, OTHER ==
[2020-06-23 14:04] LABS: Basophils % (A) 0 %; Eosinophils # (A) 0.1 k/uL (0-0.7); Eosinophils % (A) 1 %; HCT 40.9 % (34.0-46.0); HGB 12.6 gm/dL (11.4-16.0); Hypochromasia Slight; Lymphocytes # (A) 2.4 k/uL (1.0-4.8); Lymphocytes % (A) 29 %; MCH 25.1 pg (25.0-35.0); MCHC 30.8 g/dL (31.0-37.0); MCV 81.3 fL (80.0-100.0); Mean Platelet Volume 8.1; Monocytes # (A) 0.4 k/uL (0-1.0); Monocytes % (A) 4 %; Neutrophils # (A) 5.3 k/uL (1.3-7.7); Neutrophils % (A) 63 %; Platelet Count 286 k/uL (150-450); RBC 5.03 m/uL (3.80-5.40); RDW 15.6 % (11.5-15.5); WBC 8.4 k/uL (3.8-10.6)
[2020-06-23 19:06] LABS: African American GFR (CKD) 103.2 (60.0-200.0); Albumin 4.9 g/dL (3.80-4.90); Albumin/Globulin Ratio 1.88 (1.60-3.17); Anion Gap 13.3 mmol/L (4.00-12.00); C Reactive Protein 0.6 mg/dL (0.0-0.8); Carbon Dioxide 22.7 mmol/L (21.6-31.8); Globulin 2.6 g/dL (1.6-3.3); Potassium 4.3 mmol/L (3.5-5.5); Total Bilirubin 0.3 mg/dL (0.3-1.2); Total Protein 7.5 g/dL (6.2-8.2)
[2020-06-23 19:40] LABS: Hemoglobin A1C 7.4 % (4.0-6.0)
[2020-06-23 20:15] LABS: Erythrocyte Sedimentation Rate 16 mm/Hr (0-30)
== END | disposition home or self-care (01) ==
LOC: LABWHC1 11:45
PROVIDERS: ATTEND Physician Assistant
DX: K50.10 Crohn's disease of large intestine without complications (principal); R53.83 Other fatigue; E11.9 Type 2 diabetes mellitus without complications
CPT/HCPCS: 36415; 80053; 83036; 85025; 85652; 86140

== ENCOUNTER → 2020-07-10 | Outpatient (CLI) | payer MEDICARE, OTHER ==
--- NOTE | 2020-07-10 15:09 | BD ---
EXAMINATION TYPE: Axial Bone Density DATE OF EXAM: 07/10/2020 COMPARISON: 01.26.2009 CLINICAL HISTORY: 69 YR OLD FEMALE......ICD-10 CODE N95.1 MENOPAUSAL STATE Height: 59.8 Weight: 136 FRAX RISK QUESTIONS: Glucocorticoids (More than 3mos): YES (Ex: prednisone, prednisolone, methylprednisolone, dexamethasone, and hydrocortisone). History of Fracture in Adulthood: YES Secondary Osteoporosis: YES 3. Menopause before 45: YES Current Tobacco Use: QUIT 14 YRS AGO RISK FACTORS HISTORY OF: RT FOOT FX OF TOES WITH SURGICAL REPAIR, AND RT ELBOW FX ...BOTH >40 YRS OLD Family History of Osteoporosis: YES, MOTHER AND DAD, GR MOTHER NO HIP FXS Postmenopausal woman: YES AT 34 YRS OLD, COMPLETE HYST. Take estrogen and/or progesterone medications: YES, IN PAST FOR ABOUT 20 YRS Lost more than 2 inches in height since high school: YES Hyperparathyroidism: NO Adrenal Insufficiency: NO MEDICATIONS: Prednisone or other steroids: STEROIDAL INHALERS FOR LUNGS Additional Medications: HUMIRA INJECTIONS, BP MEDS, REFLUX MEDS, VIT D AND CALCIUM IN MULTIVITAM IN Additional History: COLITIS, CRONES, OSTEOARTHRITIS, COLON PROBLEMS, BORDERLINE DIABETIC, HYPERTENSI ON, REFLUX, REFLUX, BILAT ROTATOR CUFF REPAIRS EXAM MEASUREMENTS: Bone mineral densitometry was performed using the Interior Define System. Bone mineral density as measured about the Lumbar spine is: ----- L1-L4(G/cm2): 0.972 T Score Values are as follows: ----- L1: -2.5 ----- L2: -2.6 ----- L3: -1.7 ----- L4: -0.5 ----- L1-L4: -1.7 Bone mineral density has: Increased 3.6% SINCE STUDY DONE 01.26.2009 Bone mineral density about the R hip (g/cm2): 0.858 Bone mineral density about the L hip (g/cm2): 0.814 T Score values are as follows: -----R Neck: -1.5 -----L Neck: -2.5 -----R Total: -1.2 -----L Total: -1.5 Bone mineral density has: Decreased -2.6% SINCE STUDY DONE 01.26.2009 FRAX%s: THERE IS A 33.9% CHANCE FOR A MAJOR OSTEOPOROTIC FX AND A 9.4% FOR HIP......PROBABILITY FOR FX IN 10 YRS TIME IMPRESSION: Osteopenia (T Score between -2.5 and -1). There is slightly increased risk of fracture and the patient may be considered for treatment. Re-Screen 2-5 years. NOTE: T-SCORE=SD OF THE YOUNG ADULT MEAN.
== END | disposition home or self-care (01) ==
LOC: RADBDWWP 12:23
PROVIDERS: ATTEND Family Medicine
DX: M85.80 Other specified disorders of bone density and structure, unspecified site (principal)
CPT/HCPCS: 77080

== ENCOUNTER → 2021-03-24 | Outpatient (CLI) | payer MEDICARE, OTHER ==
--- NOTE | 2021-03-24 13:20 | MR ---
EXAMINATION TYPE: MR lumbar spine wo con DATE OF EXAM: 03/24/2021 COMPARISON: Outside lumbar spine x-ray December 02, 2020 HISTORY: Patient having low back pain and bilateral leg pain for 7 months TECHNIQUE: Multiplanar, multisequence imaging of the lumbar spine is performed without IV contrast. FINDINGS: Scoliosis on plain films less well seen on MRI. Sagittal images of the lumbar spine show ve rtebral body heights to remain satisfactory. Persistent grade 1 anterolisthesis L4 on L5 . Multilevel disc desiccation. Mild multilevel disc space narrowing. The conus medullaris is normal in position and signal ending inferior L1 level. The bone marrow signal intensity is within normal limits. Axial images show T12-L1 and L1-L2 levels to appear within normal limits. Axial images at L2-L3 level show mild/moderate broad disc bulge mildly effaces the anterior thecal sa c. Patent bilateral neural foramina. Axial images at L3-L4 level moderate broad-based posterior disc protrusion effacing anterior thecal s ac. There is mild to moderate facet arthropathy and ligament flavum hypertrophy effacing posterior la teral thecal sac. There is moderate right greater than left bilateral anterior inferior neural forami nal narrowing. Encroachment on right L3 nerve may be present sagittal image 11. Correlate clinically. Axial images at L4-L5 level show spondylolisthesis with moderate to advanced facet arthropathy and li gament flavum hypertrophy effacing posterolateral thecal sac. There is moderate broad-based posterior disc protrusion effacing anterior thecal sac. There is moderate to severe bilateral neural foraminal narrowing encroaching along the anterior-inferior margin of the bilateral L4 nerves left greater yanet n right. Axial images at the L5-S1 level show mild facet arthropathy. Spinal canal is preserved. Patent bilate ral neural foramina. Paraspinal muscle bulk is maintained. IMPRESSION: Spondylolisthesis L4-L5 level. Multilevel degenerative changes greatest at L3-L4 and L4-L 5 levels as detailed above.
== END | disposition home or self-care (01) ==
LOC: RADMRIMAIN 10:55
PROVIDERS: ATTEND Orthopaedic Surgery
DX: M43.16 Spondylolisthesis, lumbar region (principal); M47.816 Spondylosis without myelopathy or radiculopathy, lumbar region; M51.26 Other intervertebral disc displacement, lumbar region; M99.73 Connective tissue and disc stenosis of intervertebral foramina of lumbar region
CPT/HCPCS: 72148

== ENCOUNTER → 2021-04-21 | Outpatient (CLI) | payer MEDICARE, OTHER ==
--- NOTE | 2021-04-21 11:50 | MM ---
Reason for exam: additional evaluation requested from prior study. Last mammogram was performed 1 year ago. History: Patient is postmenopausal. Family history of breast cancer in maternal aunt at age 60, breast cancer in maternal cousin at age 18, breast cancer in aunt, breast cancer in sister at age 62, and breast cancer in sister at age 54. Benign US biopsy breast VAD RT of the right breast, February 12, 2018. Benign US biopsy breast add'l VAD RT of the right breast, February 12, 2018. Benign left mammotome panel of the left breast, October 06, 2005. Benign stereotactic core biopsy of the left breast, August 21, 2001. Core biopsy of the left breast. Took estrogen for 10 years beginning at age 34. Indicated problem(s): lump or thickening in both breasts. Physical Findings: Nurse Summary: 1cm nodule in the left breast at 10 o'clock (nurse mj). MG 3D Diag Mammo W/Cad ITZEL Bilateral CC and MLO view(s) were taken. Prior study comparison: April 10, 2020, bilateral MG 3d diag mammo w/cad ITZEL. February 07, 2019, bilateral MG 3d diag mammo w/cad ITZEL. The breast tissue is heterogeneously dense. This may lower the sensitivity of mammography. No definite mammogram correlate for bilateral palpables and bilateral ultrasound is recommended. These results were verbally communicated with the patient and result sheet given to the patient on 04/21/21. ASSESSMENT: Incomplete: need additional imaging evaluation, BI-RAD 0 RECOMMENDATION: Ultrasound of both breasts.
--- NOTE | 2021-04-21 11:54 | USB ---
Reason for exam: additional evaluation requested from abnormal screening. History: Patient is postmenopausal. Family history of breast cancer in maternal aunt at age 60, breast cancer in maternal cousin at age 18, breast cancer in aunt, breast cancer in sister at age 62, and breast cancer in sister at age 54. Benign US biopsy breast VAD RT of the right breast, February 12, 2018. Benign US biopsy breast add'l VAD RT of the right breast, February 12, 2018. Benign left mammotome panel of the left breast, October 06, 2005. Benign stereotactic core biopsy of the left breast, August 21, 2001. Core biopsy of the left breast. Took estrogen for 10 years beginning at age 34. US Breast Limited BILAT Right limited breast ultrasound including focal area of concern, retroareolar and axilla demonstrates a palpable 0.8 x 0.8 x 0.6cm oval, solid, hyperechoic lesion at 9 o'clock, a 1.8 x 1.4 x 0.5cm lobular, solid, hyperechoic lesion at 9 o'clock and a 1.4 x 1.0 x 0.6cm oval lymph node at the axilla. Left limited breast ultrasound including focal area of concern, retroareolar and axilla demonstrates a palpable 1.8 x 1.8 x 0.6cm oval, solid, hyperechoic lesion at 10 o'clock and duct ectasia at the posterior nipple. These results were verbally communicated with the patient and result sheet given to the patient on 04/21/21. ASSESSMENT: Benign, BI-RAD 2 RECOMMENDATION: Routine screening mammogram of both breasts in 1 year. Manage patient on a clinical basis.
== END | disposition home or self-care (01) ==
LOC: RADMAMWWP 10:07
PROVIDERS: ATTEND Family Medicine
DX: R92.2 Inconclusive mammogram (principal); Z78.0 Asymptomatic menopausal state; Z80.3 Family history of malignant neoplasm of breast
CPT/HCPCS: 77066; 76642; G0279; 77062

== ENCOUNTER 2021-06-10 09:22 | Day surgery (SDC) | payer MEDICARE, OTHER ==
[2021-06-09 08:29] VITALS: BMI 26.2
[~2021-06-10 09:22] MED LIST changes: -LACTATED RINGERS 1,000 ML IV ONE; -LIDOCAINE 1% 20 ML VIAL (10MG/ML) FOR IV START INTRADERMA PRN; -LIDOCAINE 1% INJ 10MG/ML (20 ML MDV) ONE; -PROPOFOL 10 MG/ML 20 ML VIAL IV ONE
[2021-06-10 10:23] VITALS: TEMP 98.8
[2021-06-10] MEDS ORDERED: MIDAZOLAM 2 MG/2 ML VIAL ONE (10:56)
[2021-06-10] MEDS ORDERED: fentaNYL (PF) 50 MCG/ML 2 ML AMP ONE (10:56)
[2021-06-10] MEDS ORDERED: IOPAMIDOL M200 10 ML VIAL ONE (10:56)
[2021-06-10] MEDS ORDERED: methylPREDNISolone ACETATE 40 MG/ML 1 ML VIAL ONE (10:56)
[2021-06-10] MEDS ORDERED: IV FLUID CONTINUATION 850 ML IV ONE (11:07)
--- NOTE | 2021-06-10 11:07 | P.PCN ---
Date of Procedure: 06/10/21 Procedure(s) Performed: PREOPERATIVE DIAGNOSIS: 1- Lumbar Degenerative Disc Diseases 2-Lumbar spondylosis with Facet arthropathy without myelopathy POSTOPERATIVE DIAGNOSIS: Same as preop diagnosis. PROCEDURE 1. Lumbar epidural steroid injection under fluoroscopic guidance at the L4-5 level. (Fluoroscopy imaging was available in radiology department) 2. Lumbar epidurogram. ANESTHESIA: Local with 1% lidocaine 3 ml and , moderate sedation with intravenous Versed 2 mg ,and fentanyle 50 Mcg EBL: Minimal PROCEDURE INDICATION: The patient with low back pain and radiculitis symptoms unresponsive to conservative treatment. Fluoroscopy was used to optimize visualization of the needle placement and to maximize safety. PROCEDURE DESCRIPTION / TECHNIQUE: The patient was seen and identified in the preoperative area. Risks, benefits, complications including but not limited to infections ,bleeding ,allergic reaction to the medications ,nerve damage and not complete pain releife , and alternatives were discussed with the patient. The patient agreed to proceed with the procedure and signed the consent. IV was started, and vital signs were stable. Patient was taken to the OR and time out was completed. The patient was placed in the prone position on procedure table and a pillow was placed under the abdomen to reduce lumbar lordosis. The lumbosacral area was prepped and draped in the usual sterile fashion.ere closely monitored during the procedure. Co nscious sedation was used during the procedure to decrease patients anxiety. Vital signs was monitered during the entire procedure. Using anterior-posterior fluoroscopy, the L4-5 interlaminar space was identified and the skin over this site was marked and then infiltrated with 1% lidocaine subcutaneously. Subsequently, a 20-gauge Tuohy epidural needle was inserted and advanced toward the epidural space using the ``Loss of resistance technique and guided by AP and lateral fluoroscopy. The correct needle position in the epidural space was verified with the injection of 2 mL of the water soluble contrast dye Isovue 200 contrast and observing an excellent epidurogram with the epidural spread of the dye, after negative aspiration for blood and CSF and in the absence of paresthesias. Again after negative aspiration, a 6 ml mixture containing 80 mg of Depo-medrol , and 2 ml of preservative free Normal Saline, and 2 ml of preservative free lidocaine 1% solution was injected and a washout of epidurogram was seen. Needle was withdrawn intact, skin was cleansed, and bandages were applied. COMPLICATIONS: None DISPOSITION / PLANS: The patient was placed in a supine position and transferred to the recovery area in a stable condition for observation. There was no evidence of lower extremity motor or sensory deficit after the procedure. Patient was discharged from the recovery room after meeting discharge criteria. Home discharge instructions were given to the patient by the staff. The patient was reexamined prior to discharge. The patient will schedule a follow up in the clinic in 2-4 weeks.
--- NOTE | 2021-06-10 11:30 | FL ---
EXAMINATION TYPE: FL guided pain mgmt statistic DATE OF EXAM: 06/10/2021 HISTORY: Fluoroscopy time 1 seconds of fluoroscopy provided. IMPRESSION: 1. Fluoroscopy time.
[2021-06-10 11:47] VITALS: RESP 20
[2021-06-10 11:48] VITALS: BP 144/76; PULSE 76
== END 2021-06-10 11:50 | disposition home or self-care (01) ==
LOC: ORPAIN 09:22
PROVIDERS: ATTEND Specialist
DX: M51.36 Other intervertebral disc degeneration, lumbar region (principal); M47.816 Spondylosis without myelopathy or radiculopathy, lumbar region
CPT/HCPCS: 62323; J2250; J1030; J3010; Q9966

== ENCOUNTER 2021-08-08 09:25 | Emergency (ER) | payer MEDICARE, OTHER ==
[2021-08-08 09:57] VITALS: BP 123/66; PULSE 83; RESP 18; TEMP 98.5
--- NOTE | 2021-08-08 09:58 | ED ---
General Adult HPI - General Stated complaint: Abdominal Pain Time Seen by Provider: 08/08/21 09:40 Source: patient, RN notes reviewed Mode of arrival: ambulatory Limitations: no limitations - History of Present Illness Initial comments: this is a 70-year-old female presents emergency Department chief complaint of lower abdominal pressure, urinary frequency and dysuria. Symptoms started throughout the night. Patient states she's been several times over the bathroom. No flank pain no fevers or chills no chest pain or shortness of breath. Patient denies diarrhea constipation. - Related Data Home Medications Medication Instructions Recorded Confirmed Fluticasone Propionate [Flonase] 2 spray EA NOSTRIL DAILY 08/02/14 06/10/21 Losartan [Cozaar] 50 mg PO BID 08/02/14 06/10/21 Sucralfate [Carafate] 1 gm PO AC-BID 08/02/14 06/10/21 amLODIPine [Norvasc] 10 mg PO DAILY 08/02/14 06/10/21 cloNIDine HCL [Catapres] 0.1 mg PO HS 08/02/14 06/10/21 Adalimumab [Humira] 40 mg SQ TU 05/08/16 06/10/21 Lansoprazole [Prevacid] 30 mg PO BID 03/03/17 06/10/21 Acetaminophen-Codeine 300-30mg 1 tab PO BID PRN 09/23/18 06/10/21 [Tylenol w/codeine #3] Acyclovir 5% Oint [Zovirax Oint] 1 applic TOPICAL 5XD PRN 01/30/19 06/10/21 Fexofenadine HCl [Barby Allergy] 180 mg PO DAILY 01/30/19 06/10/21 Ketotifen 0.025% Ophth Soln 1 drop BOTH EYES BID 01/30/19 06/10/21 [Zaditor] Aspirin/Caffeine [Anacin 400-32 mg 1 tab PO BID 02/10/19 06/10/21 Tablet] Acetaminophen Tab [Tylenol Tab] 500 mg PO DAILY PRN 06/09/21 06/10/21 Albuterol Sulfate [Ventolin HFA] 1 - 2 puff INHALATION DAILY PRN 06/09/21 06/10/21 Bimatoprost [Lumigan .01% Ophth 1 drop BOTH EYES HS 06/09/21 06/10/21 Soln] diphenhydrAMINE [Benadryl] 25 mg PO HS 06/09/21 06/10/21 Previous Rx's Medication Instructions Recorded Phenazopyridine [Pyridium] 200 mg PO TID #6 tablet 08/08/21 Sulfamethox-Tmp 800-160Mg [Bactrim 1 each PO Q12HR #10 tab 08/08/21 Ds] Allergies Allergy/AdvReac Type Severity Reaction Status Date / Time atorvastatin [From Lipitor] Allergy Swelling Verified 08/08/21 09:57 cefuroxime [From Ceftin] Allergy Rash/Hives Verified 08/08/21 09:57 cefuroxime axetil Allergy SEVERE Verified 08/08/21 09:57 [From Ceftin] HEADACHE ciprofloxacin [From Cipro] Allergy Rash/Hives Verified 08/08/21 09:57 dicloxacillin Allergy Nausea & Verified 08/08/21 09:57 Vomiting & Diarrhea doxazosin mesylate Allergy Rash/Hives Verified 08/08/21 09:57 [From Cardura] doxycycline Allergy Nausea & Verified 08/08/21 09:57 Vomiting,HEADACHE duloxetine [From Cymbalta] Allergy Abdominal Verified 08/08/21 09:57 Pain, ROQUE gatifloxacin [From Tequin] Allergy Abdominal Verified 08/08/21 09:57 Pain,VOMITING hydralazine [Hydralazine] Allergy Rapid Verified 08/08/21 09:57 Heart Rate hydrochlorothiazide Allergy Nausea & Verified 08/08/21 09:57 Vomiting indapamide [From Lozol] Allergy Abdominal Verified 08/08/21 09:57 Pain latex Allergy Rash/Hives Verified 08/08/21 09:57 lisinopril Allergy VERTIGO,HEA Verified 08/08/21 09:57 DACHE nabumetone [From Relafen] Allergy Abdominal Verified 08/08/21 09:57 Pain nitrofurantoin Allergy Rash/Hives Verified 08/08/21 09:57 [From Macrobid] povidone-iodine Allergy Rash/Hives Verified 08/08/21 09:57 [From Betadine] soap [From Betadine] Allergy Rash/Hives Verified 08/08/21 09:57 sulfasalazine Allergy Abdominal Verified 08/08/21 09:57 [From Azulfidine] Pain,VOMITING triamcinolone acetonide Allergy SEVERE Verified 08/08/21 09:57 [From Kenalog] HEADACHE Review of Systems ROS Statement: Those systems with pertinent positive or pertinent negative responses have been documented in the HPI. ROS Other: All systems not noted in ROS Statement are negative. Past Medical History Past Medical History: Asthma, Diabetes Mellitus, Eye Disorder, GERD/Reflux, GI Bleed, Hyperlipidemia, Hypertension, Osteoarthritis (OA) Additional Past Medical History / Comment(s): microperforations of diverticulitis-treated with ABX. Other HX: Lower GI bleeds, chrohn's dx, IBS, hemorrhoids, PUD, arhtiritis bilateral hands and feet, chronic back pain, macular degeneration bilateral eyes, sinus problems, bronchitis, migraines, bilateral kidney stones, anemia, hypoglycemia, spider veins bilateral legs. History of Any Multi-Drug Resistant Organisms: None Reported Past Surgical History: Bladder Surgery, Hysterectomy, Orthopedic Surgery, Tonsillectomy Additional Past Surgical History / Comment(s): Several EGDs with bx and colonoscopies with bx, gastrectomy for ulcers (40% stomach removed),cystoscopy x2, R/L shoulder rotator cuff arthroscopies, bilateral CATARACT SURGERY with lens implants; Sinus Surgery x 2, Left Breast biopsy x 2-benign, 2nd toe R foot with hardware. Past Anesthesia/Blood Transfusion Reactions: No Reported Reaction, Postoperative Nausea & Vomiting (PONV) Additional Past Anesthesia/Blood Transfusion Reaction / Comment(s): Pt states she did receive blood in 2009 with GI bleed-no reaction. rise in b/p after last injection in back Smoking Status: Former smoker - Past Family History Father Family Medical History: Cancer Additional Family Medical History / Comment(s): Father had prostate cancer that went to the bone. He at the age of 79yrs. Mother Family Medical History: Cancer Additional Family Medical History / Comment(s): Mother of lymphoma at the age of 81 yrs. Sister(s) Family Medical History: Cancer Additional Family Medical History / Comment(s): breast cancer x2 sisters Course Vital Signs 08/08/21 09:53 Temperature 98.5 F Pulse Rate 83 Respiratory 18 Rate Blood Pressure 123/66 O2 Sat by Pulse 100 Oximetry Medical Decision Making - Medical Decision Making patient has symptomatic bacteria. Patient will be discharged on Bactrim as she is tolerating the past with Pyridium. - Lab Data Lab Results 08/08/21 Range/Units 09:58 Urine Color Colorless Urine Appearance Clear (Clear) Urine pH 5.5 (5.0-8.0) Ur Specific [place] 1.004 (1.001-1.035) Urine Protein Negative (Negative) Urine Glucose (UA) Negative (Negative) Urine Ketones Negative (Negative) Urine Blood Negative (Negative) Urine Nitrite Negative (Negative) Urine Bilirubin Negative (Negative) Urine Urobilinogen <2.0 (<2.0) mg/dL Ur Leukocyte Esterase Small H (Negative) Urine WBC 3 (0-5) /hpf Urine Bacteria Rare H (None) /hpf Urine Mucus Rare H (None) /hpf Disposition Clinical Impression: Dysuria Disposition: HOME SELF-CARE Condition: Stable Instructions (If sedation given, give patient instructions): Urinary Tract Infection in Women (ED) Additional Instructions: Please return to the Emergency Department if symptoms worsen or any other concerns. Prescriptions: Sulfamethox-Tmp 800-160Mg [Bactrim Ds] 1 each PO Q12HR #10 tab Phenazopyridine [Pyridium] 200 mg PO TID #6 tablet Is patient prescribed a controlled substance at d/c from ED?: No Referrals: Cecille Mckenna MD [Primary Care Provider] - 1-2 days Time of Disposition: 11:34
[2021-08-08 11:27] LABS: Appearance,Urine Clear (Clear); Bacteria,Urine Rare /hpf; Bilirubin,Urine Negative (Negative); Blood,Urine Negative (Negative); Color,Urine Colorless; Glucose,Urine (UA) Negative (Negative); Ketones,Urine Negative (Negative); Leukocyte Esterase,Urine Small (Negative); Mucus,Urine Rare /hpf; Nitrite,Urine Negative (Negative); PH, Urine 5.5 (5.0-8.0); Protein,Urine Negative (Negative); Specific Gravity,Urine 1.004 (1.001-1.035); Urobilinogen,Urine <2.0 mg/dL (<2.0); WBC,Urine 3 /hpf (0-5)
== END 2021-08-08 11:37 | disposition home or self-care (01) ==
LOC: EC 09:25
DX: R30.0 Dysuria (principal); R10.30 Lower abdominal pain, unspecified; J45.909 Unspecified asthma, uncomplicated; E11.9 Type 2 diabetes mellitus without complications; I10 Essential (primary) hypertension; E78.5 Hyperlipidemia, unspecified; M19.90 Unspecified osteoarthritis, unspecified site; K21.9 Gastro-esophageal reflux disease without esophagitis; Z87.891 Personal history of nicotine dependence; Z79.51 Long term (current) use of inhaled steroids; Z79.82 Long term (current) use of aspirin
CPT/HCPCS: 81001; 99284

== ENCOUNTER 2021-08-14 13:47 | Inpatient (IN) | payer MEDICARE, OTHER ==
[2021-08-14] MEDS ORDERED: IPRATROPIUM-ALBUTEROL 3 ML NEB INHALATION STA (13:58)
[2021-08-14] MEDS ORDERED: NITROGLYCERIN OINT 1 INCH/GM PACKET TOPICAL STA (13:59)
--- NOTE | 2021-08-14 14:05 | ED ---
Chest Pain HPI - General Chief Complaint: Chest Pain Stated Complaint: RIOS Time Seen by Provider: 08/14/21 13:49 Source: patient, EMS, RN notes reviewed Mode of arrival: EMS Limitations: no limitations - History of Present Illness Initial Comments: 70-year-old female presents with complaints of chest pain and shortness of breath. She was brought in by EMS she was having difficulty breathing and having chest pain which she believes is secondary to reflux that she's been having she recently was also diagnosed with a urinary tract infection. She is o n antibiotics at this time. She get 324 aspirin by paramedics also nebulizer treatment with some improvement in her breathing. She does states she started getting a little bit more difficulty in breathing at this time. She also had a fever recently 100 101.2 she states. She did have a Covid 19 19 test done does not have the results back yet MD Complaint: chest pain, other - Related Data Home Medications Medication Instructions Recorded Confirmed Fluticasone Propionate [Flonase] 2 spray EA NOSTRIL DAILY 08/02/14 06/10/21 Losartan [Cozaar] 50 mg PO BID 08/02/14 06/10/21 Sucralfate [Carafate] 1 gm PO AC-BID 08/02/14 06/10/21 amLODIPine [Norvasc] 10 mg PO DAILY 08/02/14 06/10/21 cloNIDine HCL [Catapres] 0.1 mg PO HS 08/02/14 06/10/21 Adalimumab [Humira] 40 mg SQ TU 05/08/16 06/10/21 Lansoprazole [Prevacid] 30 mg PO BID 03/03/17 06/10/21 Acetaminophen-Codeine 300-30mg 1 tab PO BID PRN 09/23/18 06/10/21 [Tylenol w/codeine #3] Acyclovir 5% Oint [Zovirax Oint] 1 applic TOPICAL 5XD PRN 01/30/19 06/10/21 Fexofenadine HCl [Barby Allergy] 180 mg PO DAILY 01/30/19 06/10/21 Ketotifen 0.025% Ophth Soln 1 drop BOTH EYES BID 01/30/19 06/10/21 [Zaditor] Aspirin/Caffeine [Anacin 400-32 mg 1 tab PO BID 02/10/19 06/10/21 Tablet] Acetaminophen Tab [Tylenol Tab] 500 mg PO DAILY PRN 06/09/21 06/10/21 Albuterol Sulfate [Ventolin HFA] 1 - 2 puff INHALATION DAILY PRN 06/09/21 06/10/21 Bimatoprost [Lumigan .01% Ophth 1 drop BOTH EYES HS 06/09/21 06/10/21 Soln] diphenhydrAMINE [Benadryl] 25 mg PO HS 06/09/21 06/10/21 Previous Rx's Medication Instructions Recorded Phenazopyridine [Pyridium] 200 mg PO TID #6 tablet 08/08/21 Sulfamethox-Tmp 800-160Mg [Bactrim 1 each PO Q12HR #10 tab 08/08/21 Ds] Allergies Allergy/AdvReac Type Severity Reaction Status Date / Time atorvastatin [From Lipitor] Allergy Swelling Verified 08/08/21 09:57 cefuroxime [From Ceftin] Allergy Rash/Hives Verified 08/08/21 09:57 cefuroxime axetil Allergy SEVERE Verified 08/08/21 09:57 [From Ceftin] HEADACHE ciprofloxacin [From Cipro] Allergy Rash/Hives Verified 08/08/21 09:57 clindamycin Allergy Rash/Hives Verified 08/14/21 14:00 dicloxacillin Allergy Nausea & Verified 08/08/21 09:57 Vomiting & Diarrhea doxazosin mesylate Allergy Rash/Hives Verified 08/08/21 09:57 [From Cardura] doxycycline Allergy Nausea & Verified 08/08/21 09:57 Vomiting,HEADACHE duloxetine [From Cymbalta] Allergy Abdominal Verified 08/08/21 09:57 Pain, ROQUE gatifloxacin [From Tequin] Allergy Abdominal Verified 08/08/21 09:57 Pain,VOMITING hydralazine [Hydralazine] Allergy Rapid Verified 08/08/21 09:57 Heart Rate hydrochlorothiazide Allergy Nausea & Verified 08/08/21 09:57 Vomiting indapamide [From Lozol] Allergy Abdominal Verified 08/08/21 09:57 Pain latex Allergy Rash/Hives Verified 08/08/21 09:57 lisinopril Allergy VERTIGO,HEA Verified 08/08/21 09:57 DACHE nabumetone [From Relafen] Allergy Abdominal Verified 08/08/21 09:57 Pain nitrofurantoin Allergy Rash/Hives Verified 08/08/21 09:57 [From Macrobid] povidone-iodine Allergy Rash/Hives Verified 08/08/21 09:57 [From Betadine] soap [From Betadine] Allergy Rash/Hives Verified 08/08/21 09:57 sulfasalazine Allergy Abdominal Verified 08/08/21 09:57 [From Azulfidine] Pain,VOMITING triamcinolone acetonide Allergy SEVERE Verified 08/08/21 09:57 [From Kenalog] HEADACHE Review of Systems ROS Statement: Those systems with pertinent positive or pertinent negative responses have been documented in the HPI. ROS Other: All systems not noted in ROS Statement are negative. EKG Findings - EKG Results: EKG: interpreted by ERMD (EKG shows sinus tachycardia 120 PA interval 134 QRS duration was 6 QT since QTC 338/[address] depression in leads [address] elevation), sinus rhythm (Sinus rhythm rate of 120. Interval 134 QRS duration 106 QT since QTC 338/477 nonspecific inferior configuration with ST depression in leads 1.) Past Medical History Past Medical History: Asthma, Diabetes Mellitus, Eye Disorder, GERD/Reflux, GI Bleed, Hyperlipidemia, Hypertension, Osteoarthritis (OA) Additional Past Medical History / Comment(s): microperforations of diverticulitis-treated with ABX. Other HX: Lower GI bleeds, chrohn's dx, IBS, hemorrhoids, PUD, arhtiritis bilateral hands and feet, chronic back pain, macular degeneration bilateral eyes, sinus problems, bronchitis, migraines, bilateral kidney stones, anemia, hypoglycemia, spider veins bilateral legs. History of Any Multi-Drug Resistant Organisms: None Reported Past Surgical History: Bladder Surgery, Hysterectomy, Orthopedic Surgery, Tonsillectomy Additional Past Surgical History / Comment(s): Several EGDs with bx and colonoscopies with bx, gastrectomy for ulcers (40% stomach removed),cystoscopy x2, R/L shoulder rotator cuff arthroscopies, bilateral CATARACT SURGERY with lens implants; Sinus Surgery x 2, Left Breast biopsy x 2-benign, 2nd toe R foot with hardware. Past Anesthesia/Blood Transfusion Reactions: No Reported Reaction, Postoperative Nausea & Vomiting (PONV) Additional Past Anesthesia/Blood Transfusion Reaction / Comment(s): Pt states she did receive blood in 2009 with GI bleed-no reaction. rise in b/p after last injection in back Past Psychological History: No Psychological Hx Reported Smoking Status: Former smoker - Past Family History Father Family Medical History: Cancer Additional Family Medical History / Comment(s): Father had prostate cancer that went to the bone. He at the age of 79yrs. Mother Family Medical History: Cancer Additional Family Medical History / Comment(s): Mother of lymphoma at the age of 81 yrs. Sister(s) Family Medical History: Cancer Additional Family Medical History / Comment(s): breast cancer x2 sisters General Exam - General Exam Comments Initial Comments: This is a well-developed well-nourished awake alert oriented 3 female Limitations: no limitations, language barrier General appearance: alert, anxious Head exam: Present: atraumatic, normocephalic, normal inspection Eye exam: Present: normal appearance, PERRL, EOMI. Absent: scleral icterus, conjunctival injection, periorbital swelling ENT exam: Present: normal exam, mucous membranes moist Neck exam: Present: normal inspection, full ROM. Absent: tenderness, meningismus, lymphadenopathy Respiratory exam: Present: wheezes, decreased breath sounds. Absent: respiratory distress, rales, rhonchi, stridor Cardiovascular Exam: Present: normal rhythm, tachycardia, normal heart sounds. Absent: systolic murmur, diastolic murmur, rubs, gallop, clicks GI/Abdominal exam: Present: soft, normal bowel sounds. Absent: distended, tenderness, guarding, rebound, rigid Extremities exam: Present: normal inspection, full ROM, normal capillary refill. Absent: tenderness, pedal edema, joint swelling, calf tenderness Back exam: Present: normal inspection Neurological exam: Present: alert, oriented X3, CN II-XII intact Psychiatric exam: Present: normal affect, normal mood Skin exam: Present: warm, dry, intact, normal color. Absent: rash Course Vital Signs 08/14/21 08/14/21 08/14/21 13:50 14:51 15:01 Temperature 98.7 F Pulse Rate 127 H 105 H 107 H Respiratory 24 Rate Blood Pressure 129/79 O2 Sat by Pulse 89 L Oximetry - Reevaluation(s) Reevaluation #1: 08/14/21 15:27 Patient initially had no chest pain on reevaluation but did later start developing more discomfort feeling like indigestion. A repeat EKG was done which showed a sinus rate of 103. Interval 1:30 QRS duration 100 QT since QTC 380/4's 97 he believes one changes appear to be somewhat improved however the lead 3 configuration aVL. Similar. This is compared to an older EKG which was obtained and this is changed from 11/24/19 Reevaluation #2: 08/14/21 15:28 A STEMI alert will be calling did discuss the case with Dr. Segovia. Also with Dr. Boss Chest Pain MDM - MDM Imaging shows evidence of increased pulmonary vascular congestion with small pleural effusion. Initially it was thought the patient may have an STEMI however EKGs appear to indicate inferior wall MD with lateral ischemia. Dr. Lake was notified the patient will be admitted and pending further evaluation Critical Care Time Critical Care Time: Yes Total Critical Care Time: 38 Disposition Clinical Impression: Chest pain, ST elevation myocardial infarction (STEMI), CHF (congestive heart failure) Disposition: ADMITTED IP TO THIS [facility] Condition: Serious Referrals: Cecille Mckenna MD [Primary Care Provider] - 1-2 days
[2021-08-14 14:14] LABS: Basophils # (A) 0.1 k/uL (0-0.2); Basophils % (A) 0 %; Eosinophils % (A) 0 %; HCT 36.1 % (34.0-46.0); Lymphocytes # (A) 0.9 k/uL (1.0-4.8); Lymphocytes % (A) 6 %; MCH 25.3 pg (25.0-35.0); MCHC 30.6 g/dL (31.0-37.0); MCV 82.7 fL (80.0-100.0); Mean Platelet Volume 8.3; Monocytes # (A) 0.6 k/uL (0-1.0); Monocytes % (A) 4 %; Neutrophils # (A) 13.7 k/uL (1.3-7.7); Neutrophils % (A) 89 %; Platelet Count 249 k/uL (150-450); RBC 4.37 m/uL (3.80-5.40); RDW 15.4 % (11.5-15.5); WBC 15.3 k/uL (3.8-10.6)
[2021-08-14 14:27] LABS: ALT 68 U/L (4-34); AST 52 U/L (14-36); African American GFR (CKD) >90 (>60 ml/min/1.73 sqM); Alkaline Phosphatase 94 U/L (38-126); Anion Gap 12 mmol/L; Blood Urea Nitrogen 11 mg/dL (7-17); Carbon Dioxide 16 mmol/L (22-30); Chloride 106 mmol/L (98-107); Glucose 227 mg/dL (74-99); Magnesium 2.1 mg/dL (1.6-2.3); Non-African American GFR(CKD) >90 (>60 ml/min/1.73 sqM); Potassium 3.8 mmol/L (3.5-5.1); Sodium 134 mmol/L (137-145); Total Bilirubin 0.5 mg/dL (0.2-1.3)
[2021-08-14 14:32] LABS: Prothrombin Time 10.4 sec (9.0-12.0)
[2021-08-14 14:54] LABS: Partial Thromboplastin Time 19.9 sec (22.0-30.0)
--- NOTE | 2021-08-14 14:58 | XR ---
EXAMINATION TYPE: XR chest 2V DATE OF EXAM: 08/14/2021 COMPARISON: 11/24/2019 HISTORY: Difficulty breathing TECHNIQUE: FINDINGS: Heart and mediastinum are within normal limits. There is blunting of the costophrenic angles. There i s mild pulmonary interstitial edema. There are chest leads. IMPRESSION: Pleural fluid and mild pulmonary interstitial edema is suggestive of mild congestive hear t failure which is a change compared to old exam..
[2021-08-14] MEDS ORDERED: MORPHINE SULFATE 4 MG/ML SYRINGE IVP STA (15:14)
[2021-08-14] MEDS ORDERED: FUROSEMIDE 10 MG/ML 4 ML VIAL IV STA (15:15)
[2021-08-14] MEDS ORDERED: HEPARIN SODIUM 1,000 UN/ML (10ML VL) IV ONE (15:25)
[2021-08-14] MEDS ORDERED: NITROGLYCERIN SL TABS 0.4 MG TAB SUBLINGUAL PRN (15:31)
[2021-08-14] MEDS ORDERED: LIDOCAINE 1% INJ 10MG/ML (20 ML MDV) ONE ×2 (15:52→16:12)
[2021-08-14] MEDS ORDERED: IV FLUID CONTINUATION 900 ML IV ONE (16:05)
[2021-08-14] MEDS ORDERED: LIDOCAINE 1% INJ 10MG/ML (20 ML MDV) SQ ONE (16:07)
[2021-08-14] MEDS ORDERED: MIDAZOLAM 2 MG/2 ML VIAL IVP ONE (16:08)
[2021-08-14] MEDS ORDERED: METOPROLOL TARTRATE 5 MG/5 ML VIAL IVP ONE ×2 (16:50→16:52)
[2021-08-14] MEDS ORDERED: FUROSEMIDE 10 MG/ML 4 ML VIAL ONE (16:50)
[2021-08-14] MEDS ORDERED: FUROSEMIDE 10 MG/ML 4 ML VIAL IV ONE (16:53)
[2021-08-14] MEDS ORDERED: IOPAMIDOL-370 125ML BTL INJ ONE (16:53)
[2021-08-14] MEDS ORDERED: HEPARIN SOD,PORK IN 0.45% NACL 25,000 UNIT in 0.45% NACL 1 250ML.BAG IV ONE (17:09)
[2021-08-14 17:24] LABS: Glucose,Whole Blood 208 mg/dL (75-99)
[2021-08-14] MEDS ORDERED: HEPARIN SODIUM 1,000 UN/ML (10ML VL) IV PRN (17:44)
[2021-08-14] MEDS ORDERED: MD COMMUNICATION TO PHARMACY 1 EACH MISC PO ONE ×2 (18:35)
--- NOTE | 2021-08-14 18:54 | CONS ---
CONSULTATION CHIEF COMPLAINT: Shortness of breath and chest pain. Nini is a 70-year-old lady with history of hypertension, dyslipidemia and chronic back pain who presented to hospital complaining of shortness of breath and precordial chest pain. She has been having intermittent episodes of chest discomfort for the last several days and also was becoming more and more short of breath. She came to the emergency room. She was in congestive heart failure. Troponin was elevated. EKG showed sinus tachycardia with significant new ST-T wave changes in the inferior leads. Due to this, the ER doctor called me and asked me to perform emergent cardiac catheterization on her. At the time of my evaluation in the test lab technician, patient was chest- pain-free but was tachycardic. She was stable hemodynamically and was not in respiratory distress. PAST MEDICAL HISTORY: Significant for hypertension and dyslipidemia. She has been intolerant of statin, has chronic back pain. MEDICATIONS: Medications include losartan, Norvasc, Protonix. ALLERGIES: As charted. FAMILY HISTORY: Significant for premature coronary artery disease in her mother. SOCIAL HISTORY: Significant for smoking that she quit 10 years ago. REVIEW OF SYSTEMS: HEENT is unremarkable. CARDIAC: As described above. RESPIRATORY: As described above. GI: Negative. GENITOURINARY: Significant for recent urinary tract infection. PSYCHOSOCIAL: Negative. ENDOCRINE: Negative. ALLERGY/IMMUNOLOGY: Negative. SKIN: Negative. CONSTITUTIONAL: Significant for fatigue, tiredness. Rest of the system review is not relevant. PHYSICAL EXAMINATION: Patient is comfortable at rest. Heart rate is around 110 beats per minute. Blood pressure is 120/70, respiratory rate is 18, O2 saturation is 93% on room air. There is no jugular venous distention. Chest exam reveals diminished air entry with bilateral crackles. Heart exam reveals first and second heart sounds and a systolic murmur at the apex. Abdomen is soft. Examination of extremities did not reveal any edema. Peripheral pulses are diminished. LABS: Due to problems with accessing the computer, I am not able to review the labs at this time. ASSESSMENT AND PLAN: 1. Acute coronary syndrome. 2. Acute-onset congestive heart failure, probably systolic. PLAN: Patient will undergo emergent cardiac catheterization. CARDIAC CATHETERIZATION NOTE: INDICATION: Acute coronary syndrome. PROCEDURE DESCRIPTION: After obtaining informed consent, left heart catheterization and coronary angiogram were performed via the right femoral artery. Initially I attempted vascular access on the right side. I could not. I attempted vascular access involving the left femoral artery. I could not. The on-call lean coach obtained vascular access on the right side with a micropuncture technique and using a Glidewire. We traversed the femoral and iliac arteries and used a long exchange length wire to exchange the catheters in the ascending aorta. Patient tolerated the procedure well without any obvious immediate complications. Patient received moderate conscious sedation. Total sedation time was 31 minutes. FINDINGS: HEMODYNAMICS: Left ventricular end-diastolic pressure is 26 mm. There is no significant gradient across the aortic valve. LEFT VENTRICULOGRAM: Left ventriculogram was not performed. ANGIOGRAPHIC DATA: Left main coronary artery. Left main coronary artery appears calcified but is free of significant stenosis. It divides into left anterior descending coronary artery and circumflex coronary artery. Circumflex coronary artery is occluded proximally and is filling with [id number] collaterals . LAD shows an 80% to 90% stenosis in the proximal portion. The arteries are calcified, as is the aorta. Right coronary artery has a chronic subtotal occlusion with [id number] collaterals to the distal RCA. CONCLUSION: Severe three-vessel coronary artery disease, as described above. PLAN: The angiographic data was reviewed by the on-call lean coach, who felt that bypass surgery is the best option. I called and spoke to Dr. Gaviria, the cardiothoracic surgeon. I will obtain a 2D echo to evaluate her LV function. If she is not a surgical candidate, then we will consider catheter-based revascularization. The plan at this stage is to leave the femoral sheath in, start her on IV heparin, and if she is not a surgical candidate, we will proceed with high-risk angioplasty. MMODL / IJN: [id number] /
--- NOTE | 2021-08-14 19:04 | P.GSCN ---
History of Present Illness Consult date: 08/14/21 Reason for Consult: Triple-vessel coronary artery disease, myocardial infarction this admission Requesting physician: Kan Lake History of present illness: This is a 70-year-old female who follows on an outpatient basis with Dr. Mckenna for primary care and Dr. Lake for cardiology. She has a previous medical hist ory of hypertension, hyperlipidemia, prediabetes, asthma, diverticulosis/Crohn's/ulcerative colitis on weekly Humira injection status post gastrectomy, chronic back pain with plans for future surgery, remote history of pneumonia, osteoarthritis, previous tobacco dependence, and significant family history of cancer. The patient reports symptoms of chest burning over the last several months which she assumed to be gastric reflux. She was seen by her memory care program director and medication changes were made and the patient reports some symptom relief. She was seen in the emergency room about a week ago and diagnosed with bladder infection, placed on Bactrim, she did report a fever of 101.2F last night. Over the last few days her symptoms have persisted in addition to shortness of breath and occasional dizziness at night. Due to her increasing symptoms the patient reported to [facility] emergency room with concerns for possible Covid. Her Covid test was negative, however she was noted to have ST abnormality on her EKG as well as elevated troponin 1.23 and was ruled in for myocardial infarction. STEMI was called and the patient was taken to the Allergist/Pediatric Pulmonologist by Dr. Lake. Heart catheterization revealed triple- vessel coronary artery disease with proximal LAD 90%, circumflex 100%, RCA 100% with left to right collateral circulation. Consultation was placed to Dr. Gaviria from cardiothoracic surgery for surgical revascularization recommendations. Review of Systems Review of systems was completed and was negative except as noted. - Constitutional Reports chills, Reports fever - Cardiovascular Reports chest pain, Reports claudication, Reports dyspnea on exertion, Reports leg edema, Reports shortness of breath - Respiratory Reports cough - Gastrointestinal Reports dyspepsia, Reports heartburn Past Medical History Past Medical History: Asthma, Diabetes Mellitus, Eye Disorder, GERD/Reflux, GI Bleed, Hyperlipidemia, Hypertension, Osteoarthritis (OA) Additional Past Medical History / Comment(s): microperforations of diverticulitis-treated with ABX. Other HX: Lower GI bleeds, chrohn's dx, IBS, hemorrhoids, PUD, arhtiritis bilateral hands and feet, chronic back pain, macular degeneration bilateral eyes, sinus problems, bronchitis, migraines, bilateral kidney stones, anemia, hypoglycemia, spider veins bilateral legs. History of Any Multi-Drug Resistant Organisms: None Reported Past Surgical History: Adenoidectomy, Bladder Surgery, Hysterectomy, Joint Replacement, Orthopedic Surgery, Tonsillectomy Additional Past Surgical History / Comment(s): Several EGDs with bx and colonoscopies with bx, gastrectomy for ulcers (40% stomach removed),cystoscopy x2, R/L shoulder rotator cuff arthroscopies, bilateral CATARACT SURGERY with lens implants; Sinus Surgery x 2, Left Breast biopsy x 2-benign, 2nd toe R foot with hardware. Past Anesthesia/Blood Transfusion Reactions: No Reported Reaction, Postoperative Nausea & Vomiting (PONV) Additional Past Anesthesia/Blood Transfusion Reaction / Comm: Pt states she did receive blood in 2009 with GI bleed-no reaction. rise in b/p after last injection in back Past Psychological History: No Psychological Hx Reported Smoking Status: Former smoker Past Alcohol Use History: Rare Past Drug Use History: None Reported - Past Family History Father Family Medical History: Cancer Additional Family Medical History / Comment(s): Father had prostate cancer that went to the bone. He at the age of 79yrs. Mother Family Medical History: Cancer, Congestive Heart Failure (CHF) Additional Family Medical History / Comment(s): Mother of lymphoma at the age of 81 yrs. Sister(s) Family Medical History: Cancer Additional Family Medical History / Comment(s): breast cancer x2 sisters Medications and Allergies Home Medications Medication Instructions Recorded Confirmed Type Fluticasone Propionate [Flonase] 2 spray EA NOSTRIL DAILY 08/02/14 08/14/21 History Losartan [Cozaar] 50 mg PO BID 08/02/14 08/14/21 History Sucralfate [Carafate] 1 gm PO AC-BID 08/02/14 08/14/21 History amLODIPine [Norvasc] 10 mg PO DAILY 08/02/14 08/14/21 History cloNIDine HCL [Catapres] 0.1 mg PO HS 08/02/14 08/14/21 History Adalimumab [Humira] 40 mg SQ Q7D 05/08/16 08/14/21 History Acetaminophen-Codeine 300-30mg 1 tab PO BID PRN 09/23/18 08/14/21 History [Tylenol w/codeine #3] Fexofenadine HCl [Barby Allergy] 180 mg PO DAILY 01/30/19 08/14/21 History Ketotifen 0.025% Ophth Soln 1 drop BOTH EYES BID 01/30/19 08/14/21 History [Zaditor] Acetaminophen Tab [Tylenol Tab] 500 mg PO DAILY 06/09/21 08/14/21 History Albuterol Sulfate [Ventolin HFA] 2 puff INHALATION RT-Q6H PRN 06/09/21 08/14/21 History Bimatoprost [Lumigan .01% Ophth 1 drop BOTH EYES HS 06/09/21 08/14/21 History Soln] diphenhydrAMINE [Benadryl] 25 mg PO HS 06/09/21 08/14/21 History Calcium Carbonate/Vitamin D3 1 tab PO DAILY 08/14/21 08/14/21 History [Calcium 600-Vit D3 10 mcg (400 Iu)] L.acidoph,Paracasei, B.lactis 1 cap PO DAILY 08/14/21 08/14/21 History [Probiotic] Multivitamins, Thera [Multivitamin 1 tab PO DAILY 08/14/21 08/14/21 History (formulary)] Pantoprazole Sodium [Protonix] 40 mg PO BID 08/14/21 08/14/21 History Allergies Allergy/AdvReac Type Severity Reaction Status Date / Time atorvastatin [From Lipitor] Allergy Swelling Verified 08/08/21 09:57 cefuroxime [From Ceftin] Allergy Rash/Hives Verified 08/08/21 09:57 cefuroxime axetil Allergy SEVERE Verified 08/08/21 09:57 [From Ceftin] HEADACHE ciprofloxacin [From Cipro] Allergy Rash/Hives Verified 08/08/21 09:57 clindamycin Allergy Rash/Hives Verified 08/14/21 14:00 dicloxacillin Allergy Nausea & Verified 08/08/21 09:57 Vomiting & Diarrhea doxazosin mesylate Allergy Rash/Hives Verified 08/08/21 09:57 [From Cardura] doxycycline Allergy Nausea & Verified 08/08/21 09:57 Vomiting,HEADACHE duloxetine [From Cymbalta] Allergy Abdominal Verified 08/08/21 09:57 Pain, ROQUE gatifloxacin [From Tequin] Allergy Abdominal Verified 08/08/21 09:57 Pain,VOMITING hydralazine [Hydralazine] Allergy Rapid Verified 08/08/21 09:57 Heart Rate hydrochlorothiazide Allergy Nausea & Verified 08/08/21 09:57 Vomiting indapamide [From Lozol] Allergy Abdominal Verified 08/08/21 09:57 Pain latex Allergy Rash/Hives Verified 08/08/21 09:57 lisinopril Allergy VERTIGO,HEA Verified 08/08/21 09:57 DACHE nabumetone [From Relafen] Allergy Abdominal Verified 08/08/21 09:57 Pain nitrofurantoin Allergy Rash/Hives Verified 08/08/21 09:57 [From Macrobid] povidone-iodine Allergy Rash/Hives Verified 08/08/21 09:57 [From Betadine] soap [From Betadine] Allergy Rash/Hives Verified 08/08/21 09:57 sulfasalazine Allergy Abdominal Verified 08/08/21 09:57 [From Azulfidine] Pain,VOMITING triamcinolone acetonide Allergy SEVERE Verified 08/08/21 09:57 [From Kenalog] HEADACHE Surgical - Exam Vital Signs Temp Pulse Resp BP Pulse Ox 98.7 F 127 H 24 129/79 89 L 08/14/21 13:50 08/14/21 13:50 08/14/21 13:50 08/14/21 13:50 08/14/21 13:50 CONSTITUTIONAL: Awake and alert, appears comfortable, cooperative, well- developed, well-nourished, no pain, no acute distress EYES: Pupils equal, round, reactive to light, normal ocular movement ENT: Moist mucous membranes without oral lesions present NECK: No masses, no bruits, trachea midline RESPIRATORY: Lungs sounds diminished in the bases. Respirations even, nonlabored. Currently on 3 L nasal cannula with oxygen saturation 95%. Strong cough. No chest wall deformities. No clubbing or cyanosis present CARDIOVASCULAR: S1, S2 present. Regular rate and rhythm, sinus rhythm to sinus tach on telemetry. Palpable peripheral pulses bilaterally. No edema present. No calf pain or tenderness noted. No significant lower extremity varicosities noted. Right femoral artery heart catheterization sheath in place GASTROINTESTINAL: Abdomen soft, nontender, nondistended without masses or organomegaly noted. There is no rebound or guarding present. Active bowel sounds present 4 quadrants. GENITOURINARY: Deferred INTEGUMENTARY: Skin is warm and dry with evidence of good perfusion. NEUROLOGIC: Cranial nerves II through XII intact, normal coordination, no obvious motor or sensory deficits, speech is normal MUSKULOSKELETAL: Able to move all extremities, strength equal bilaterally PSYCHIATRIC: Alert and oriented to person place and time, appropriate affect, intact judgment and insight Results - Labs 08/14/21 13:00 08/14/21 13:00 Abnormal Lab Results - Last 24 Hours (Table) 08/14/21 08/14/21 08/14/21 Range/Units 13:00 13:00 13:00 WBC (3.8-10.6) k/uL Hgb (11.4-16.0) gm/dL MCHC (31.0-37.0) g/dL Neutrophils # (1.3-7.7) k/uL Lymphocytes # (1.0-4.8) k/uL APTT 19.9 L (22.0-30.0) sec Sodium 134 L (137-145) mmol/L Carbon Dioxide 16 L (22-30) mmol/L Glucose 227 H (74-99) mg/dL POC Glucose (mg/dL) (75-99) mg/dL Plasma Lactic Acid Amanuel (0.7-2.0) mmol/L AST 52 H (14-36) U/L ALT 68 H (4-34) U/L Troponin I 1.230 H* (0.000-0.034) ng/mL 08/14/21 08/14/21 08/14/21 Range/Units 13:00 13:00 17:22 WBC 15.3 H (3.8-10.6) k/uL Hgb 11.0 L (11.4-16.0) gm/dL MCHC 30.6 L (31.0-37.0) g/dL Neutrophils # 13.7 H (1.3-7.7) k/uL Lymphocytes # 0.9 L (1.0-4.8) k/uL APTT (22.0-30.0) sec Sodium (137-145) mmol/L Carbon Dioxide (22-30) mmol/L Glucose (74-99) mg/dL POC Glucose (mg/dL) 208 H (75-99) mg/dL Plasma Lactic Acid Amanuel 2.6 H* (0.7-2.0) mmol/L AST (14-36) U/L ALT (4-34) U/L Troponin I (0.000-0.034) ng/mL Diabetes panel 08/14/21 Range/Units 13:00 Sodium 134 L (137-145) mmol/L Potassium 3.8 (3.5-5.1) mmol/L Chloride 106 (98-107) mmol/L Carbon Dioxide 16 L (22-30) mmol/L BUN 11 (7-17) mg/dL Creatinine 0.65 (0.52-1.04) mg/dL Glucose 227 H (74-99) mg/dL Calcium 9.0 (8.4-10.2) mg/dL AST 52 H (14-36) U/L ALT 68 H (4-34) U/L Alkaline Phosphatase 94 (38-126) U/L Total Protein 7.0 (6.3-8.2) g/dL Albumin 4.0 (3.5-5.0) g/dL Calcium panel 08/14/21 Range/Units 13:00 Calcium 9.0 (8.4-10.2) mg/dL Albumin 4.0 (3.5-5.0) g/dL Pituitary panel 08/14/21 Range/Units 13:00 Sodium 134 L (137-145) mmol/L Potassium 3.8 (3.5-5.1) mmol/L Chloride 106 (98-107) mmol/L Carbon Dioxide 16 L (22-30) mmol/L BUN 11 (7-17) mg/dL Creatinine 0.65 (0.52-1.04) mg/dL Glucose 227 H (74-99) mg/dL Calcium 9.0 (8.4-10.2) mg/dL Adrenal panel 08/14/21 Range/Units 13:00 Sodium 134 L (137-145) mmol/L Potassium 3.8 (3.5-5.1) mmol/L Chloride 106 (98-107) mmol/L Carbon Dioxide 16 L (22-30) mmol/L BUN 11 (7-17) mg/dL Creatinine 0.65 (0.52-1.04) mg/dL Glucose 227 H (74-99) mg/dL Calcium 9.0 (8.4-10.2) mg/dL Total Bilirubin 0.5 (0.2-1.3) mg/dL AST 52 H (14-36) U/L ALT 68 H (4-34) U/L Alkaline Phosphatase 94 (38-126) U/L Total Protein 7.0 (6.3-8.2) g/dL Albumin 4.0 (3.5-5.0) g/dL - Imaging Chest x-ray: report reviewed, image reviewed EKG: image reviewed Additional studies: Heart catheterization films reviewed Assessment and Plan Assessment: 1. Triple-vessel coronary artery disease, myocardial infarction this admission 2. History of hypertension, treated 3. History of hyperlipidemia, intolerant to statins in the past 4. Prediabetes, not currently on any medication 5. Asthma 6. History of diverticulosis/Crohn's/ulcerative colitis on weekly Humira injection status post gastrectomy 7. Chronic back pain with plans for future surgery 8. Remote history of pneumonia 9. Osteoarthritis 10. Previous tobacco dependence 11. Significant family history of cancer 12. Current treatment for urinary tract infection 13. Fully vaccinated against Covid with [employer], last dose November 2020 Plan: The patient was seen and examined at the bedside in the intensive care unit. Chart/diagnostics were reviewed. The case was discussed in detail with Dr. Gaviria who reviewed the patient's heart catheterization films. The usual perioperative course of coronary artery bypass surgery was discussed in detail with the patient, her daughter, and her son-in-law, risks and benefits were reviewed, all questions were answered. Preoperative testing was initiated. Once testing has been completed we will calculate STS risk score and discuss with the patient. At this time we recommend maximizing medical therapy with aspirin, statin, beta amy therapy as well as IV diuresis. We will plan for coronary artery bypass surgery this admission pending the outcome of preoperative testing. Medical management medical morbidities per primary care service. More recommendations to follow. Thank you Dr. Lake for this consult. We look forward to working with you in the care of your patient. Time with Patient: Greater than 30
[2021-08-14 19:11] LABS: Basophils % (A) 0 %; Eosinophils % (A) 0 %; HCT 40.9 % (34.0-46.0); HGB 12.7 gm/dL (11.4-16.0); Lymphocytes # (A) 1.4 k/uL (1.0-4.8); Lymphocytes % (A) 9 %; MCHC 31.1 g/dL (31.0-37.0); MCV 83.4 fL (80.0-100.0); Mean Platelet Volume 8.8; Monocytes # (A) 0.4 k/uL (0-1.0); Monocytes % (A) 3 %; Neutrophils # (A) 12.8 k/uL (1.3-7.7); Neutrophils % (A) 86 %; Platelet Count 322 k/uL (150-450); RDW 15.8 % (11.5-15.5); WBC 14.8 k/uL (3.8-10.6)
--- NOTE | 2021-08-14 19:48 | US ---
EXAMINATION TYPE: US carotid duplex BILAT DATE OF EXAM: 08/14/2021 COMPARISON: NONE CLINICAL HISTORY: Pre-Op Cardiac Surgery. EXAM MEASUREMENTS: RIGHT: Peak Systolic Velocity (PSV) cm/sec ----- Right CCA: 75.6 ----- Right ICA: 160.8 ----- Right ECA: 99.5 ICA/CCA ratio: 2.1 RIGHT: End Diastole cm/sec ----- Right CCA: 19.7 ----- Right ICA: 48.5 ----- Right ECA: 0.0 LEFT: Peak Systolic Velocity (PSV) cm/sec ----- Left CCA: 71.0 ----- Left ICA: 141.1 ----- Left ECA: 94.0 ICA/CCA ratio: 2.0 LEFT: End Diastole cm/sec ----- Left CCA: 23.7 ----- Left ICA: 52.4 ----- Left ECA: 0.0 VERTEBRALS (direction of flow): Right Vertebral: Antegrade Left Vertebral: Antegrade Rhythm: Normal IMPRESSION: There is antegrade flow in the vertebral arteries. There is bilateral plaque formation a nd 50-70% stenosis in both internal carotid arteries. Criteria for Assigning % of Stenosis / Diameter reduction (Estimation based on the indirect measurements of the internal carotid artery velocities (ICA PSV). 1. Normal (no stenosis)=ICA PSV < 125 cm/s: ratio < 2.0: ICA EDV<40 cm/s. 2. Less than 50% stenosis=ICA PSV < 125 cm/s: ratio < 2.0: ICA EDV<40 cm/s. 3. 50 to 69% stenosis=ICA PSV of 125 to 230 cm/s: ration 2.0 ? 4.0: ICA EDV 40-100 cm/s. 4. Greater than 70% stenosis to near occlusion= ICA PSV > 230 cm/s: ratio > 4.0: ICA EDV > 100 cm/s. 5. Near occlusion= ICA PSV velocities may be low or undetectable: variable ratio and ICA EDV. 6. Total occlusion=unable to detect flow.
[2021-08-14 19:56] LABS: INR 1.1 (<1.2)
[2021-08-14 19:57] LABS: Prothrombin Time 11.2 sec (9.0-12.0)
[2021-08-14] MEDS ORDERED: ONDANSETRON 4 MG/2 ML VIAL IVP PRN (20:38)
[2021-08-14] MEDS: HYDROmorphone 0.5 MG/0.5 ML SYRINGE IVP PRN (21:02)
[2021-08-14] MEDS: METOPROLOL TARTRATE 12.5 MG TAB PO SCH (21:04)
[2021-08-14] MEDS: FUROSEMIDE 10 MG/ML 4 ML VIAL IV SCH (21:05)
[2021-08-14] MEDS: HEPARIN SOD,PORK IN 0.45% NACL 25,000 UNIT in 0.45% NACL 1 250ML.BAG IV SCH (21:06)
[2021-08-14] MEDS: SODIUM CHLORIDE 0.9% 1,000 ML IV SCH (21:08)
[2021-08-14 21:31] LABS: Glucose,Whole Blood 200 mg/dL (75-99)
[2021-08-14] MEDS: MUPIROCIN 2% OINT 22 GM TUBE NASAL SCH (21:56)
[2021-08-14] MEDS: INSULIN ASPART (NovoLOG) 100 UNIT/ML VIAL SQ SCH (21:56)
[2021-08-14 22:15] LABS: Appearance,Urine Clear (Clear); Bilirubin,Urine Negative (Negative); Blood,Urine Negative (Negative); Color,Urine Colorless; Glucose,Urine (UA) Negative (Negative); Ketones,Urine Negative (Negative); Leukocyte Esterase,Urine Trace (Negative); Mucus,Urine Rare /hpf; Nitrite,Urine Negative (Negative); PH, Urine 5.5 (5.0-8.0); Protein,Urine Negative (Negative); RBC,Urine 1 /hpf (0-5); Specific Gravity,Urine 1.011 (1.001-1.035); Urobilinogen,Urine <2.0 mg/dL (<2.0); WBC,Urine 3 /hpf (0-5)
[2021-08-14 22:27] LABS: ALT 79 U/L (4-34); AST 80 U/L (14-36); African American GFR (CKD) >90 (>60 ml/min/1.73 sqM); Albumin 4.6 g/dL (3.5-5.0); Alkaline Phosphatase 108 U/L (38-126); Anion Gap 16 mmol/L; Blood Urea Nitrogen 11 mg/dL (7-17); Calcium 9.1 mg/dL (8.4-10.2); Carbon Dioxide 22 mmol/L (22-30); Chloride 100 mmol/L (98-107); Glucose 223 mg/dL (74-99); Non-African American GFR(CKD) 90 (>60 ml/min/1.73 sqM); Potassium 4.3 mmol/L (3.5-5.1); Sodium 138 mmol/L (137-145); Total Bilirubin 0.5 mg/dL (0.2-1.3)
[2021-08-14 22:36] LABS: Partial Thromboplastin Time 25.6 sec (22.0-30.0); Prothrombin Time 10.4 sec (9.0-12.0)
[2021-08-15] MEDS: HYDROmorphone 0.5 MG/0.5 ML SYRINGE IVP PRN (00:53)
[2021-08-15] MEDS: NITROGLYCERIN OINT 1 INCH/GM PACKET TOPICAL SCH ×3 (00:54→18:50)
[2021-08-15] MEDS: MORPHINE SULFATE 2 MG/ML SYRINGE IVP PRN ×5 (03:14→19:10)
[2021-08-15 03:57] LABS: Basophils % (A) 0 %; Eosinophils % (A) 0 %; HCT 36.9 % (34.0-46.0); HGB 11.6 gm/dL (11.4-16.0); Hypochromasia Slight; Lymphocytes # (A) 1.4 k/uL (1.0-4.8); Lymphocytes % (A) 13 %; MCH 26.5 pg (25.0-35.0); MCHC 31.3 g/dL (31.0-37.0); MCV 84.8 fL (80.0-100.0); Mean Platelet Volume 8.1; Monocytes # (A) 0.5 k/uL (0-1.0); Monocytes % (A) 4 %; Neutrophils # (A) 8.2 k/uL (1.3-7.7); Neutrophils % (A) 80 %; Platelet Count 287 k/uL (150-450); RBC 4.36 m/uL (3.80-5.40); RDW 15.7 % (11.5-15.5); WBC 10.2 k/uL (3.8-10.6)
[2021-08-15 04:29] LABS: African American GFR (CKD) >90 (>60 ml/min/1.73 sqM); Anion Gap 12 mmol/L; Blood Urea Nitrogen 13 mg/dL (7-17); Carbon Dioxide 20 mmol/L (22-30); Chloride 105 mmol/L (98-107); Glucose 183 mg/dL (74-99); Non-African American GFR(CKD) >90 (>60 ml/min/1.73 sqM); Potassium 4.6 mmol/L (3.5-5.1); Sodium 137 mmol/L (137-145)
[2021-08-15 08:37] LABS: Glucose,Whole Blood 197 mg/dL (75-99)
[2021-08-15] MEDS: FUROSEMIDE 10 MG/ML 4 ML VIAL IV SCH (08:50)
[2021-08-15] MEDS: INSULIN ASPART (NovoLOG) 100 UNIT/ML VIAL SQ SCH ×4 (08:51→20:18)
[2021-08-15] MEDS: METOPROLOL TARTRATE 12.5 MG TAB PO SCH (08:51)
[2021-08-15] MEDS: MUPIROCIN 2% OINT 22 GM TUBE NASAL SCH ×2 (08:53→20:17)
[2021-08-15] MEDS ORDERED: LOSARTAN 25 MG TAB PO SCH (09:00)
[2021-08-15] MEDS ORDERED: ASPIRIN 81 MG PO SCH (09:00)
[2021-08-15] MEDS ORDERED: ASPIRIN 325 MG TAB PO SCH (09:00)
[2021-08-15] MEDS ORDERED: PANTOPRAZOLE 40 MG TABLET PO SCH (09:30)
--- NOTE | 2021-08-15 10:17 | P.PN ---
Subjective Progress Note Date: 08/15/21 Principal diagnosis: Triple-vessel coronary artery disease, myocardial infarction this admission, acute heart failure on admission, suspect systolic. Previous medical history of hypertension, hyperlipidemia with intolerance to statins in the past, prediabetes, asthma, diverticulosis/Crohn's/ulcerative colitis on weekly Humira injection status post gastrectomy, chronic back pain with plans for future surgery, remote history of pneumonia, osteoarthritis, previous tobacco depen dence, significant family history of cancer, current treatment for urinary tract infection, fully vaccinated against Covid with Pfizer, bilateral carotid artery stenosis 50-79% The patient was seen and examined this morning at the bedside in the intensive care unit. She is in no acute distress. She does state she had some epigastric chest burning last night that was relieved with IV morphine. Denies any chest pain or shortness of breath otherwise. Troponin continues to elevate, was 12.3 this morning. Carotid Dopplers demonstrated bilateral internal carotid artery stenosis 50-79%. Radial artery mapping indicates patient is left radial artery dependent and vein mapping just completed demonstrates very little vein available for conduit use. Echocardiogram pending. Remains in sinus rhythm to sinus tach with heart rate in the high 90s to low 100s. Oxygenating in the low 90s on 3 L nasal cannula. Preoperative testing which has been completed so far was discussed with Dr. Gaviria and Dr. Frost. Will update daughter. Objective - Vital Signs Vital signs: Vital Signs Temp 98.5 F 08/15/21 04:00 Pulse 109 H 08/15/21 09:00 Resp 8 L 08/15/21 09:00 BP 148/66 08/15/21 09:00 Pulse Ox 90 L 08/15/21 09:00 Intake & Output 08/14/21 08/15/21 08/15/21 18:59 06:59 18:59 Intake Total 175 1037.321 50 Output Total 200 2000 100 Balance -25 -962.679 -50 Weight 68.855 kg 69.3 kg Intake: IV 175 600 50 Sodium Chloride 0.9% 1, 600 50 000 ml @ 50 mls/hr IV . Q20H [facility] Rx#:[id number] Intake, IV Titration 37.321 Amount Heparin Sod,Pork in 0.45% 37.321 NaCl 25,000 unit In 0.45 % NaCl 1 250ml.bag @ 12 UNITS/KG/HR 8.263 mls/hr IV .Q24H [facility] Rx#: [id number] Oral 400 Output: Urine 200 2000 100 - Exam CONSTITUTIONAL: Appears comfortable, cooperative, no acute distress RESPIRATORY: Lungs sounds diminished bilaterally. Respirations even, nonlabor ed. Currently on 2 L nasal cannula with oxygen saturation 90-92%. Strong cough. CARDIOVASCULAR: S1, S2 present. Regular rate and rhythm, sinus rhythm to sinus tach on telemetry. Palpable peripheral pulses bilaterally. No edema present. No calf pain or tenderness noted. Right femoral artery heart catheterization sheath intact GASTROINTESTINAL: Abdomen soft, nontender, nondistended. Active bowel sounds present 4 quadrants. Tolerating diet. GENITOURINARY: Purewick in place, patient voiding clear, yellow urine. Output overnight 2200 mL in the last 24 hours INTEGUMENTARY: Skin is warm and dry with evidence of good perfusion. NEUROLOGIC: Cranial nerves II through XII intact MUSKULOSKELETAL: Able to move all extremities, strength equal bilaterally PSYCHIATRIC: Alert and oriented to person place and time, appropriate affect, intact judgment and insight - Allied health notes Allied health notes reviewed: nursing - Labs CBC & Chem 7: 08/15/21 03:36 08/15/21 03:36 Labs: Abnormal Lab Results - Last 24 Hours (Table) 08/14/21 08/14/21 08/14/21 Range/Units 13:00 13:00 13:00 WBC (3.8-10.6) k/uL Hgb (11.4-16.0) gm/dL MCHC (31.0-37.0) g/dL RDW (11.5-15.5) % Neutrophils # (1.3-7.7) k/uL Lymphocytes # (1.0-4.8) k/uL APTT 19.9 L (22.0-30.0) sec Sodium 134 L (137-145) mmol/L Carbon Dioxide 16 L (22-30) mmol/L Glucose 227 H (74-99) mg/dL POC Glucose (mg/dL) (75-99) mg/dL Plasma Lactic Acid Amanuel (0.7-2.0) mmol/L AST 52 H (14-36) U/L ALT 68 H (4-34) U/L Troponin I 1.230 H* (0.000-0.034) ng/mL Ur Leukocyte Esterase (Negative) Urine Mucus (None) /hpf 08/14/21 08/14/21 08/14/21 Range/Units 13:00 13:00 17:22 WBC 15.3 H (3.8-10.6) k/uL Hgb 11.0 L (11.4-16.0) gm/dL MCHC 30.6 L (31.0-37.0) g/dL RDW (11.5-15.5) % Neutrophils # 13.7 H (1.3-7.7) k/uL Lymphocytes # 0.9 L (1.0-4.8) k/uL APTT (22.0-30.0) sec Sodium (137-145) mmol/L Carbon Dioxide (22-30) mmol/L Glucose (74-99) mg/dL POC Glucose (mg/dL) 208 H (75-99) mg/dL Plasma Lactic Acid Amanuel 2.6 H* (0.7-2.0) mmol/L AST (14-36) U/L ALT (4-34) U/L Troponin I (0.000-0.034) ng/mL Ur Leukocyte Esterase (Negative) Urine Mucus (None) /hpf 08/14/21 08/14/21 08/14/21 Range/Units 18:17 18:17 18:35 WBC 14.8 H (3.8-10.6) k/uL Hgb (11.4-16.0) gm/dL MCHC (31.0-37.0) g/dL RDW 15.8 H (11.5-15.5) % Neutrophils # 12.8 H (1.3-7.7) k/uL Lymphocytes # (1.0-4.8) k/uL APTT (22.0-30.0) sec Sodium (137-145) mmol/L Carbon Dioxide (22-30) mmol/L Glucose (74-99) mg/dL POC Glucose (mg/dL) (75-99) mg/dL Plasma Lactic Acid Amanuel 2.8 H* (0.7-2.0) mmol/L AST (14-36) U/L ALT (4-34) U/L Troponin I 3.760 H* (0.000-0.034) ng/mL Ur Leukocyte Esterase (Negative) Urine Mucus (None) /hpf 08/14/21 08/14/21 08/14/21 Range/Units 21:28 22:01 22:01 WBC (3.8-10.6) k/uL Hgb (11.4-16.0) gm/dL MCHC (31.0-37.0) g/dL RDW (11.5-15.5) % Neutrophils # (1.3-7.7) k/uL Lymphocytes # (1.0-4.8) k/uL APTT (22.0-30.0) sec Sodium (137-145) mmol/L Carbon Dioxide (22-30) mmol/L Glucose 223 H (74-99) mg/dL POC Glucose (mg/dL) 200 H (75-99) mg/dL Plasma Lactic Acid Amanuel (0.7-2.0) mmol/L AST 80 H (14-36) U/L ALT 79 H (4-34) U/L Troponin I 8.480 H* (0.000-0.034) ng/mL Ur Leukocyte Esterase (Negative) Urine Mucus (None) /hpf 08/14/21 08/14/21 08/15/21 Range/Units 22:01 22:05 03:36 WBC (3.8-10.6) k/uL Hgb (11.4-16.0) gm/dL MCHC (31.0-37.0) g/dL RDW (11.5-15.5) % Neutrophils # (1.3-7.7) k/uL Lymphocytes # (1.0-4.8) k/uL APTT (22.0-30.0) sec Sodium (137-145) mmol/L Carbon Dioxide 20 L (22-30) mmol/L Glucose 183 H (74-99) mg/dL POC Glucose (mg/dL) (75-99) mg/dL Plasma Lactic Acid Amanuel 2.2 H* (0.7-2.0) mmol/L AST (14-36) U/L ALT (4-34) U/L Troponin I (0.000-0.034) ng/mL Ur Leukocyte Esterase Trace H (Negative) Urine Mucus Rare H (None) /hpf 10/17/21 10/17/21 10/17/21 Range/Units 03:36 03:36 08:35 WBC (3.8-10.6) k/uL Hgb (11.4-16.0) gm/dL MCHC (31.0-37.0) g/dL RDW 15.7 H (11.5-15.5) % Neutrophils # 8.2 H (1.3-7.7) k/uL Lymphocytes # (1.0-4.8) k/uL APTT (22.0-30.0) sec Sodium (137-145) mmol/L Carbon Dioxide (22-30) mmol/L Glucose (74-99) mg/dL POC Glucose (mg/dL) 197 H (75-99) mg/dL Plasma Lactic Acid Amanuel (0.7-2.0) mmol/L AST (14-36) U/L ALT (4-34) U/L Troponin I 12.300 H* (0.000-0.034) ng/mL Ur Leukocyte Esterase (Negative) Urine Mucus (None) /hpf 08/15/21 Range/Units 08:59 WBC (3.8-10.6) k/uL Hgb (11.4-16.0) gm/dL MCHC (31.0-37.0) g/dL RDW (11.5-15.5) % Neutrophils # (1.3-7.7) k/uL Lymphocytes # (1.0-4.8) k/uL APTT 30.6 H (22.0-30.0) sec Sodium (137-145) mmol/L Carbon Dioxide (22-30) mmol/L Glucose (74-99) mg/dL POC Glucose (mg/dL) (75-99) mg/dL Plasma Lactic Acid Amanuel (0.7-2.0) mmol/L AST (14-36) U/L ALT (4-34) U/L Troponin I (0.000-0.034) ng/mL Ur Leukocyte Esterase (Negative) Urine Mucus (None) /hpf Assessment and Plan Assessment: 1. Triple-vessel coronary artery disease, myocardial infarction this admission 2. Acute heart failure this admission, likely systolic 3. History of hypertension, treated 4. History of hyperlipidemia, intolerant to statins in the past 5. Prediabetes, not currently on any medication 6. Asthma 7. History of diverticulosis/Crohn's/ulcerative colitis on weekly Humira inject ion status post gastrectomy 8. Chronic back pain with plans for future surgery 9. Remote history of pneumonia 10. Osteoarthritis 11. Previous tobacco dependence 12. Significant family history of cancer 13. Current treatment for urinary tract infection 14. Fully vaccinated against Covid with [employer], last dose November 2020 15. Bilateral carotid artery stenosis 50-79% Plan: 1. Continue aspirin, beta amy, IV diuresis. Would like statin, however patient has history of intolerance 2. Await echo, completion of preoperative testing. CT of chest without contr ast ordered to evaluate clampability of aorta 3. Will monitor daily labs. Repeat troponin ordered for this afternoon and again tomorrow morning to look at trend 4. Recommend discontinuing right femoral artery heart catheterization sheath 5. Wean O2 as tolerated. Encourage incentive spirometry use 6. When able, ambulate as tolerated. We'll perform 5 m walk test on patient ambulatory 7. Will calculate STS risk score once all testing has been completed 8. Will plan for coronary artery bypass surgery this admission pending the outcome of preoperative testing 9. Medical management of other comorbidities per primary care service 10. More recommendations to follow Time with Patient: Greater than 30
[2021-08-15 11:43] LABS: Glucose,Whole Blood 132 mg/dL (75-99)
--- NOTE | 2021-08-15 13:29 | P.CNPUL ---
History of Present Illness Consult date: 08/15/21 Requesting physician: Paz Cintron Reason for consult: chest pain, pleural effusion, abnormal CXR/CT Chief complaint: Chest pain, non-ST elevated myocardial infarction, CAD History of present illness: This is a 70-year-old white female patient of Dr. Mckenna and Dr. Lake from cardiology, with past medical history of hypertension, hyperlipidemia, prediabetes, chronic bronchitis asthma unspecified, patient is a former smoker, she carries [id number] smoking history, in remission for last 16 years, Crohn's/ulcerative colitis on Humira injections, status post gastrectomy, previous episodes of pneumonia and significant family history of cancer. Patient presented to the emergency department on 08/14/2021 with complaints of chest pain and shortness of breath. She was brought in by EMS. She was also recently diagnosed with a urinary tract infection and she has been started on antibiotics on outpatient basis. COVID-19 test PCR was negative. EKG showed sinus tachycardia with significant new ST and T-wave changes in the inferior leads. Troponins were elevated at 1.230, 3.770, 8.480, 12.3 and 6.940. BNP was 2690. Patient was taken to the cardiovascular lab emergently from the emergency department. She was found to have triple-vessel coronary artery disease with proximal LAD of 90%, circumflex of 100%, RCA 100% with left to right collateral circulation. Consultation was placed to Dr. Metzger from cardiothoracic surgery for surgical revascularization recommendations. Patient was placed in the intensive care unit for close monitoring. This morning she is awake and alert, in no acute distress, she is on 3 L of oxygen pulse ox 95%, mildly short of breath with conversation but appears to be in no acute distress. She is on 0.9 normal saline at 50 ML per hour, heparin is currently on hold for right groin sheath pull, then will be restarted again, PFT has not been completed yet because patient has not been able to sit upright. Today's labs have been reviewed showing a white blood cell count of 10.2, hemoglobin of 11.6, INR 1.0, sodium was 137, potassium 4.6, BUN of 13 and creatinine 0.65. Chest x-ray on admission showed pleural fluid and mild pulmonary interstitial edema suggestive of mild congestive heart failure. Patient has been started on diuretics with L asix 40 mg every 12 hours, she is on Cozaar, metoprolol, nitroglycerin ointment. Denies any chest pain right now. Currently undergoing evaluation for cardiovascular revascularization, echocardiogram is pending Review of Systems All systems: negative Constitutional: Denies chills, Denies fever Eyes: denies blurred vision, denies pain Ears, nose, mouth and throat: Denies headache, Denies sore throat Cardiovascular: Reports chest pain, Reports dyspnea on exertion, Denies shortness of breath Respiratory: Reports dyspnea, Denies cough Gastrointestinal: Denies abdominal pain, Denies diarrhea, Denies nausea, Denies vomiting Genitourinary: Denies dysuria, Denies hematuria Musculoskeletal: Denies myalgias Integumentary: Denies pruritus, Denies rash Neurological: Denies numbness, Denies weakness Psychiatric: Denies anxiety, Denies depression Endocrine: Denies fatigue, Denies weight change Past Medical History Past Medical History: Asthma, Diabetes Mellitus, Eye Disorder, GERD/Reflux, GI Bleed, Hyperlipidemia, Hypertension, Osteoarthritis (OA) Additional Past Medical History / Comment(s): microperforations of diverticulitis-treated with ABX. Other HX: Lower GI bleeds, chrohn's dx, IBS, hemorrhoids, PUD, arhtiritis bilateral hands and feet, chronic back pain, macular degeneration bilateral eyes, sinus problems, bronchitis, migraines, bilateral kidney stones, anemia, hypoglycemia, spider veins bilateral legs. History of Any Multi-Drug Resistant Organisms: None Reported Past Surgical History: Adenoidectomy, Bladder Surgery, Hysterectomy, Joint Replacement, Orthopedic Surgery, Tonsillectomy Additional Past Surgical History / Comment(s): Several EGDs with bx and colonoscopies with bx, gastrectomy for ulcers (40% stomach removed),cystoscopy x2, R/L shoulder rotator cuff arthroscopies, bilateral CATARACT SURGERY with lens implants; Sinus Surgery x 2, Left Breast biopsy x 2-benign, 2nd toe R foot with hardware. Past Anesthesia/Blood Transfusion Reactions: No Reported Reaction, Postoperative Nausea & Vomiting (PONV) Additional Past Anesthesia/Blood Transfusion Reaction / Comment(s): Pt states she did receive blood in 2009 with GI bleed-no reaction. rise in b/p after last injection in back Past Psychological History: No Psychological Hx Reported Smoking Status: Former smoker Past Alcohol Use History: Rare Past Drug Use History: None Reported - Past Family History Father Family Medical History: Cancer Additional Family Medical History / Comment(s): Father had prostate cancer that went to the bone. He at the age of 79yrs. Mother Family Medical History: Cancer, Congestive Heart Failure (CHF) Additional Family Medical History / Comment(s): Mother of lymphoma at the age of 81 yrs. Sister(s) Family Medical History: Cancer Additional Family Medical History / Comment(s): breast cancer x2 sisters Medications and Allergies Home Medications Medication Instructions Recorded Confirmed Type Fluticasone Propionate [Flonase] 2 spray EA NOSTRIL DAILY 08/02/14 08/14/21 History Losartan [Cozaar] 50 mg PO BID 08/02/14 08/14/21 History Sucralfate [Carafate] 1 gm PO AC-BID 08/02/14 08/14/21 History amLODIPine [Norvasc] 10 mg PO DAILY 08/02/14 08/14/21 History cloNIDine HCL [Catapres] 0.1 mg PO HS 08/02/14 08/14/21 History Adalimumab [Humira] 40 mg SQ Q7D 05/08/16 08/14/21 History Acetaminophen-Codeine 300-30mg 1 tab PO BID PRN 09/23/18 08/14/21 History [Tylenol w/codeine #3] Fexofenadine HCl [Barby Allergy] 180 mg PO DAILY 01/30/19 08/14/21 History Ketotifen 0.025% Ophth Soln 1 drop BOTH EYES BID 01/30/19 08/14/21 History [Zaditor] Acetaminophen Tab [Tylenol Tab] 500 mg PO DAILY 06/09/21 08/14/21 History Albuterol Sulfate [Ventolin HFA] 2 puff INHALATION RT-Q6H PRN 06/09/21 08/14/21 History Bimatoprost [Lumigan .01% Ophth 1 drop BOTH EYES HS 06/09/21 08/14/21 History Soln] diphenhydrAMINE [Benadryl] 25 mg PO HS 06/09/21 08/14/21 History Calcium Carbonate/Vitamin D3 1 tab PO DAILY 08/14/21 08/14/21 History [Calcium 600-Vit D3 10 mcg (400 Iu)] L.acidoph,Paracasei, B.lactis 1 cap PO DAILY 08/14/21 08/14/21 History [Probiotic] Multivitamins, Thera [Multivitamin 1 tab PO DAILY 08/14/21 08/14/21 History (formulary)] Pantoprazole Sodium [Protonix] 40 mg PO BID 08/14/21 08/14/21 History Allergies Allergy/AdvReac Type Severity Reaction Status Date / Time atorvastatin [From Lipitor] Allergy Swelling Verified 08/08/21 09:57 cefuroxime [From Ceftin] Allergy Rash/Hives Verified 08/08/21 09:57 cefuroxime axetil Allergy SEVERE Verified 08/08/21 09:57 [From Ceftin] HEADACHE ciprofloxacin [From Cipro] Allergy Rash/Hives Verified 08/08/21 09:57 clindamycin Allergy Rash/Hives Verified 08/14/21 14:00 dicloxacillin Allergy Nausea & Verified 08/08/21 09:57 Vomiting & Diarrhea doxazosin mesylate Allergy Rash/Hives Verified 08/08/21 09:57 [From Cardura] doxycycline Allergy Nausea & Verified 08/08/21 09:57 Vomiting,HEADACHE duloxetine [From Cymbalta] Allergy Abdominal Verified 08/08/21 09:57 Pain, ROQUE gatifloxacin [From Tequin] Allergy Abdominal Verified 08/08/21 09:57 Pain,VOMITING hydralazine [Hydralazine] Allergy Rapid Verified 08/08/21 09:57 Heart Rate hydrochlorothiazide Allergy Nausea & Verified 08/08/21 09:57 Vomiting indapamide [From Lozol] Allergy Abdominal Verified 08/08/21 09:57 Pain latex Allergy Rash/Hives Verified 08/08/21 09:57 lisinopril Allergy VERTIGO,HEA Verified 08/08/21 09:57 DACHE nabumetone [From Relafen] Allergy Abdominal Verified 08/08/21 09:57 Pain nitrofurantoin Allergy Rash/Hives Verified 08/08/21 09:57 [From Macrobid] povidone-iodine Allergy Rash/Hives Verified 08/08/21 09:57 [From Betadine] soap [From Betadine] Allergy Rash/Hives Verified 08/08/21 09:57 sulfasalazine Allergy Abdominal Verified 08/08/21 09:57 [From Azulfidine] Pain,VOMITING triamcinolone acetonide Allergy SEVERE Verified 08/08/21 09:57 [From Kenalog] HEADACHE Physical Exam Vitals: Vital Signs Temp Pulse Resp BP Pulse Ox 08/15/21 12:00 98 18 90 L 08/15/21 11:00 106 H 25 H 89 L 08/15/21 10:00 114 H 22 156/76 91 L 08/15/21 09:00 109 H 8 L 148/66 90 L 08/15/21 08:00 105 H 21 136/81 91 L 08/15/21 07:00 93 18 139/70 92 L 08/15/21 06:00 101 H 23 126/77 91 L 08/15/21 05:00 93 19 125/63 91 L 08/15/21 04:00 98.5 F 95 30 H 129/63 92 L 08/15/21 03:00 97 22 121/74 91 L 08/15/21 02:00 93 18 126/69 92 L 08/15/21 01:00 96 24 142/82 89 L 08/15/21 00:00 98.5 F 100 12 134/76 91 L 08/14/21 23:00 101 H 26 H 133/76 88 L 08/14/21 22:00 112 H 33 H 121/92 91 L 08/14/21 21:00 109 H 14 145/73 90 L 08/14/21 20:00 98.6 F 111 H 16 138/71 90 L 08/14/21 19:00 107 H 23 138/93 87 L 08/14/21 18:00 98.7 F 99 24 128/68 95 08/14/21 17:45 98.7 F 97 24 128/69 89 L 08/14/21 17:30 96 16 143/79 08/14/21 17:20 38 H 08/14/21 16:00 123/71 08/14/21 15:54 98.7 F 08/14/21 15:48 115 H 18 123/71 98 08/14/21 15:30 125 H 18 126/74 100 08/14/21 15:01 107 H 08/14/21 15:00 99 11 L 128/66 100 08/14/21 14:51 105 H 08/14/21 14:30 110 H 22 138/71 95 08/14/21 14:00 117 H 27 H 129/78 93 L 08/14/21 13:50 98.7 F 127 H 24 129/79 89 L Intake and Output 08/14/21 08/15/21 08/15/21 22:59 06:59 14:59 Intake Total 575 637.321 200 Output Total 1600 600 700 Balance -1025 37.321 -500 Intake: IV 375 400 200 Sodium Chloride 0.9% 1, 200 400 200 000 ml @ 50 mls/hr IV . Q20H CATHY Rx#:[id number] Intake, IV Titration 37.321 Amount Heparin Sod,Pork in 0.45% 37.321 NaCl 25,000 unit In 0.45 % NaCl 1 250ml.bag @ 12 UNITS/KG/HR 8.263 mls/hr IV .Q24H CATHY Rx#: [id number] Oral 200 200 Output: Urine 1600 600 700 Other: Weight 68.855 kg 69.3 kg GENERAL EXAM: Alert, very pleasant, 70-year-old white female, resting comfortably in the bed in the intensive care unit, mild short of breath with conversation, currently on 3 L of oxygen with a pulse ox of 95%, comfortable in no apparent distress. HEAD: Normocephalic/atraumatic. EYES: Normal reaction of pupils, equal size. Conjunctiva pink, sclera white. NOSE: Clear with pink turbinates. THROAT: No erythema or exudates. NECK: No masses, no JVD, no thyroid enlargement, no adenopathy. CHEST: No chest wall deformity. Symmetrical expansion. LUNGS: Equal air entry with crackles CVS: Regular rate and rhythm, normal S1 and S2, no gallops, no murmurs, no rubs ABDOMEN: Soft, nontender. No hepatosplenomegaly, normal bowel sounds, no guarding or rigidity. EXTREMITIES: No clubbing, no edema, no cyanosis, 2+ pulses and upper and lower extremities. MUSCULOSKELETAL: Muscle strength and tone normal. SPINE: No scoliosis or deformity SKIN: No rashes CENTRAL NERVOUS SYSTEM: Alert and oriented -3. No focal deficits, tone is normal in all 4 extremities. PSYCHIATRIC: Alert and oriented -3. Appropriate affect. Intact judgment and insight. Results - Laboratory Findings CBC and BMP: 08/15/21 03:36 08/15/21 03:36 PT/INR, D-dimer PT 11.0 sec (9.0-12.0) 08/15/21 03:36 INR 1.0 (<1.2) 08/15/21 03:36 Abnormal lab findings: Abnormal Labs 08/14/21 08/14/21 08/14/21 13:00 13:00 13:00 WBC Hgb MCHC RDW Neutrophils # Lymphocytes # APTT 19.9 L Sodium 134 L Carbon Dioxide 16 L Glucose 227 H POC Glucose (mg/dL) Plasma Lactic Acid Amanuel AST 52 H ALT 68 H Troponin I 1.230 H* Ur Leukocyte Esterase Urine Mucus 08/14/21 08/14/21 08/14/21 13:00 13:00 17:22 WBC 15.3 H Hgb 11.0 L MCHC 30.6 L RDW Neutrophils # 13.7 H Lymphocytes # 0.9 L APTT Sodium Carbon Dioxide Glucose POC Glucose (mg/dL) 208 H Plasma Lactic Acid Amanuel 2.6 H* AST ALT Troponin I Ur Leukocyte Esterase Urine Mucus 08/14/21 08/14/21 08/14/21 18:17 18:17 18:35 WBC 14.8 H Hgb MCHC RDW 15.8 H Neutrophils # 12.8 H Lymphocytes # APTT Sodium Carbon Dioxide Glucose POC Glucose (mg/dL) Plasma Lactic Acid Amanuel 2.8 H* AST ALT Troponin I 3.760 H* Ur Leukocyte Esterase Urine Mucus 08/14/21 08/14/21 08/14/21 21:28 22:01 22:01 WBC Hgb MCHC RDW Neutrophils # Lymphocytes # APTT Sodium Carbon Dioxide Glucose 223 H POC Glucose (mg/dL) 200 H Plasma Lactic Acid Amanuel AST 80 H ALT 79 H Troponin I 8.480 H* Ur Leukocyte Esterase Urine Mucus 08/14/21 08/14/21 08/15/21 22:01 22:05 03:36 WBC Hgb MCHC RDW Neutrophils # Lymphocytes # APTT Sodium Carbon Dioxide 20 L Glucose 183 H POC Glucose (mg/dL) Plasma Lactic Acid Amanuel 2.2 H* AST ALT Troponin I Ur Leukocyte Esterase Trace H Urine Mucus Rare H 08/15/21 08/15/21 08/15/21 03:36 03:36 08:35 WBC Hgb MCHC RDW 15.7 H Neutrophils # 8.2 H Lymphocytes # APTT Sodium Carbon Dioxide Glucose POC Glucose (mg/dL) 197 H Plasma Lactic Acid Amanuel AST ALT Troponin I 12.300 H* Ur Leukocyte Esterase Urine Mucus 08/15/21 08/15/21 08/15/21 08:59 11:33 11:41 WBC Hgb MCHC RDW Neutrophils # Lymphocytes # APTT 30.6 H Sodium Carbon Dioxide Glucose POC Glucose (mg/dL) 132 H Plasma Lactic Acid Amanuel AST ALT Troponin I 6.940 H* Ur Leukocyte Esterase Urine Mucus - Diagnostic Findings Chest x-ray: report reviewed, image reviewed Assessment and Plan Plan: Assessment: #1. Acute non-ST elevated myocardial infarction #2. Severe triple-vessel coronary artery disease, undergoing evaluation for coronary artery bypass grafting #3. Acute systolic CHF #4. History of [id number] smoking, in remission for last 16 years #5. Prediabetes, not on any medications on outpatient basis #6. History of chronic bronchial asthma, unspecified #7. History of Crohn's disease ulcerative colitis on Humira injections #8. Previous history of gastrectomy #9. Osteoarthritis #10. Acute urinary tract infection #11. Status post completed COVID-19 vaccination with Pfizer vaccine, last dose inferior 2020 Plan: Continue with IV diuretics Chest x-ray has been reviewed Awaiting results of the echocardiogram and PFT Patient is undergoing other diagnostic test for evaluation of surgical risk for coronary artery bypass grafting Continue close monitoring in intensive care unit Patient has been started on aspirin, beta blockers, ARB, cardiology is closely following Will await further input from CT surgery in terms of possible surgery Continue closely following in intensive care unit I performed a history & physical examination of the patient and discussed their management with my nurse practitioner, Sana Barnett. I reviewed the nurse practitioner's note and agree with the documented findings and plan of care. Lung sounds are positive for diffuse crackles throughout the lung mcgarry. The findings and the impression was discussed with the patient. I attest to the documentation by the nurse practitioner. Time with Patient: Greater than 30
--- NOTE | 2021-08-15 13:46 | CT ---
EXAMINATION TYPE: CT chest wo con DATE OF EXAM: 08/15/2021 COMPARISON: 05/12/2019 CT of the abdomen and pelvis and 04/05/2018 CT low dose lung screening HISTORY: Assess aorta for clampability TECHNIQUE: CT scan of the chest performed without contrast CT DLP: 223.5 mGycm Automated exposure control for dose reduction was used. FINDINGS: There are diffuse scattered groundglass and reticular nodular opacities and mild bilateral right grea ter than left pleural effusions. No pneumothorax seen. Trachea and bronchial tree are patent. There i s bibasilar atelectasis and air bronchograms. There are prominent mediastinal lymph nodes the most prominent of which appears to be in the subcarin al region. No enlarged mediastinal or hilar adenopathy. The heart is normal in size and no pericardial effusion is appreciated. There are coronary arterial c alcifications. There are atherosclerotic calcifications in the intrathoracic aorta. Intrathoracic aor ta does not appear aneurysmal. There is mild distention of the esophagus which could be related to reflux. There is a surgical stapl e line along the lesser curvature of the stomach. There are vascular splenic vein calcifications. The re are atherosclerotic calcifications seen in the upper abdominal aorta. No acute osseous abnormality seen. IMPRESSION: MULTIFOCAL PNEUMONIA AND MODERATE BILATERAL PLEURAL EFFUSION.
[2021-08-15] MEDS ORDERED: CLOPIDOGREL 75 MG TAB PO STA (14:12)
[2021-08-15] MEDS ORDERED: FUROSEMIDE 10 MG/ML 4 ML VIAL IV STA (14:40)
[2021-08-15] MEDS ORDERED: METOPROLOL TARTRATE 25 MG TAB PO STA (14:49)
--- NOTE | 2021-08-15 15:07 | P.HPIM ---
History of Present Illness H&P Date: 08/15/21 Chief Complaint: Chest pain 70-year-old female presents with complaints of chest pain and shortness of breath. She was brought in by EMS she was having difficulty breathing and having chest pain which she believes is secondary to reflux that she's been having she recently was also diagnosed with a urinary tract infection. She is on antibiotics at this time. She get 324 aspirin by paramedics also nebulizer treatment with some improvement in her breathing. She does states she started getting a little bit more difficulty in breathing at this time. Workup in ED to feels an EKG which showed sinus rate of 103, rest of the EKG was concerning about possible STEMI, inferior wall [place]; EKG was evaluated by cardiology and patient was recommended to be taken to the Benefits Director Rest of the workup in ED to feels pulmonary vascular congestion and small pleural effusion and chest x-ray Blood work revealed an elevated troponin of 8.4, lactic acid level of 2.2, blood glucose of 223 with sodium 138, potassium 4.3, BUN/creatinine of 11/0.68 Cardiac catheterization revealed triple-vessel disease and cardiothoracic surgery is consulted for further evaluation Review of Systems REVIEW OF SYSTEMS: CONSTITUTIONAL: No fever, no malaise, no fatigue. HEENT: No recent visual problems or hearing problems. Denied any sore throat. CARDIOVASCULAR: chest pain, no orthopnea, PND, no palpitations, no syncope. PULMONARY: No shortness of breath, no cough, no hemoptysis. GASTROINTESTINAL: No diarrhea, no nausea, no vomiting, no abdominal pain. NEUROLOGICAL: No headaches, no weakness, no numbness. HEMATOLOGICAL: Denies any bleeding or petechiae. GENITOURINARY: Denies any burning micturition, frequency, or urgency. MUSCULOSKELETAL/RHEUMATOLOGICAL: Denies any joint pain, swelling, or any muscle pain. ENDOCRINE: Denies any polyuria or polydipsia. The rest of the 14-point review of systems is negative. Past Medical History Past Medical History: Asthma, Diabetes Mellitus, Eye Disorder, GERD/Reflux, GI Bleed, Hyperlipidemia, Hypertension, Osteoarthritis (OA) Additional Past Medical History / Comment(s): microperforations of diverticulitis-treated with ABX. Other HX: Lower GI bleeds, chrohn's dx, IBS, hemorrhoids, PUD, arhtiritis bilateral hands and feet, chronic back pain, macular degeneration bilateral eyes, sinus problems, bronchitis, migraines, bilateral kidney stones, anemia, hypoglycemia, spider veins bilateral legs. History of Any Multi-Drug Resistant Organisms: None Reported Past Surgical History: Adenoidectomy, Bladder Surgery, Hysterectomy, Joint Replacement, Orthopedic Surgery, Tonsillectomy Additional Past Surgical History / Comment(s): Several EGDs with bx and colonoscopies with bx, gastrectomy for ulcers (40% stomach removed),cystoscopy x2, R/L shoulder rotator cuff arthroscopies, bilateral CATARACT SURGERY with lens implants; Sinus Surgery x 2, Left Breast biopsy x 2-benign, 2nd toe R foot with hardware. Past Anesthesia/Blood Transfusion Reactions: No Reported Reaction, Postoperative Nausea & Vomiting (PONV) Additional Past Anesthesia/Blood Transfusion Reaction / Comment(s): Pt states she did receive blood in 2009 with GI bleed-no reaction. rise in b/p after last injection in back Past Psychological History: No Psychological Hx Reported Smoking Status: Former smoker Past Alcohol Use History: Rare Past Drug Use History: None Reported - Past Family History Father Family Medical History: Cancer Additional Family Medical History / Comment(s): Father had prostate cancer that went to the bone. He at the age of 79yrs. Mother Family Medical History: Cancer, Congestive Heart Failure (CHF) Additional Family Medical History / Comment(s): Mother of lymphoma at the age of 81 yrs. Sister(s) Family Medical History: Cancer Additional Family Medical History / Comment(s): breast cancer x2 sisters Medications and Allergies Home Medications Medication Instructions Recorded Confirmed Type Fluticasone Propionate [Flonase] 2 spray EA NOSTRIL DAILY 08/02/14 08/14/21 History Losartan [Cozaar] 50 mg PO BID 08/02/14 08/14/21 History Sucralfate [Carafate] 1 gm PO AC-BID 08/02/14 08/14/21 History amLODIPine [Norvasc] 10 mg PO DAILY 08/02/14 08/14/21 History cloNIDine HCL [Catapres] 0.1 mg PO HS 08/02/14 08/14/21 History Adalimumab [Humira] 40 mg SQ Q7D 05/08/16 08/14/21 History Acetaminophen-Codeine 300-30mg 1 tab PO BID PRN 09/23/18 08/14/21 History [Tylenol w/codeine #3] Fexofenadine HCl [Barby Allergy] 180 mg PO DAILY 01/30/19 08/14/21 History Ketotifen 0.025% Ophth Soln 1 drop BOTH EYES BID 01/30/19 08/14/21 History [Zaditor] Acetaminophen Tab [Tylenol Tab] 500 mg PO DAILY 06/09/21 08/14/21 History Albuterol Sulfate [Ventolin HFA] 2 puff INHALATION RT-Q6H PRN 06/09/21 08/14/21 History Bimatoprost [Lumigan .01% Ophth 1 drop BOTH EYES HS 06/09/21 08/14/21 History Soln] diphenhydrAMINE [Benadryl] 25 mg PO HS 06/09/21 08/14/21 History Calcium Carbonate/Vitamin D3 1 tab PO DAILY 08/14/21 08/14/21 History [Calcium 600-Vit D3 10 mcg (400 Iu)] L.acidoph,Paracasei, B.lactis 1 cap PO DAILY 08/14/21 08/14/21 History [Probiotic] Multivitamins, Thera [Multivitamin 1 tab PO DAILY 08/14/21 08/14/21 History (formulary)] Pantoprazole Sodium [Protonix] 40 mg PO BID 08/14/21 08/14/21 History Allergies Allergy/AdvReac Type Severity Reaction Status Date / Time atorvastatin [From Lipitor] Allergy Swelling Verified 08/08/21 09:57 cefuroxime [From Ceftin] Allergy Rash/Hives Verified 08/08/21 09:57 cefuroxime axetil Allergy SEVERE Verified 08/08/21 09:57 [From Ceftin] HEADACHE ciprofloxacin [From Cipro] Allergy Rash/Hives Verified 08/08/21 09:57 clindamycin Allergy Rash/Hives Verified 08/14/21 14:00 dicloxacillin Allergy Nausea & Verified 08/08/21 09:57 Vomiting & Diarrhea doxazosin mesylate Allergy Rash/Hives Verified 08/08/21 09:57 [From Cardura] doxycycline Allergy Nausea & Verified 08/08/21 09:57 Vomiting,HEADACHE duloxetine [From Cymbalta] Allergy Abdominal Verified 08/08/21 09:57 Pain, ROQUE gatifloxacin [From Tequin] Allergy Abdominal Verified 08/08/21 09:57 Pain,VOMITING hydralazine [Hydralazine] Allergy Rapid Verified 08/08/21 09:57 Heart Rate hydrochlorothiazide Allergy Nausea & Verified 08/08/21 09:57 Vomiting indapamide [From Lozol] Allergy Abdominal Verified 08/08/21 09:57 Pain latex Allergy Rash/Hives Verified 08/08/21 09:57 lisinopril Allergy VERTIGO,HEA Verified 08/08/21 09:57 DACHE nabumetone [From Relafen] Allergy Abdominal Verified 08/08/21 09:57 Pain nitrofurantoin Allergy Rash/Hives Verified 08/08/21 09:57 [From Macrobid] povidone-iodine Allergy Rash/Hives Verified 08/08/21 09:57 [From Betadine] soap [From Betadine] Allergy Rash/Hives Verified 08/08/21 09:57 sulfasalazine Allergy Abdominal Verified 08/08/21 09:57 [From Azulfidine] Pain,VOMITING triamcinolone acetonide Allergy SEVERE Verified 08/08/21 09:57 [From Kenalog] HEADACHE Physical Exam Vitals: Vital Signs Temp Pulse Resp BP Pulse Ox 08/15/21 07:00 93 18 139/70 92 L 08/15/21 06:00 101 H 23 126/77 91 L 08/15/21 05:00 93 19 125/63 91 L 08/15/21 04:00 98.5 F 95 30 H 129/63 92 L 08/15/21 03:00 97 22 121/74 91 L 08/15/21 02:00 93 18 126/69 92 L 08/15/21 01:00 96 24 142/82 89 L 08/15/21 00:00 98.5 F 100 12 134/76 91 L 08/14/21 23:00 101 H 26 H 133/76 88 L 08/14/21 22:00 112 H 33 H 121/92 91 L 08/14/21 21:00 109 H 14 145/73 90 L 08/14/21 20:00 98.6 F 111 H 16 138/71 90 L 08/14/21 19:00 107 H 23 138/93 87 L 08/14/21 18:00 98.7 F 99 24 128/68 95 08/14/21 17:45 98.7 F 97 24 128/69 89 L 08/14/21 17:30 96 16 143/79 08/14/21 17:20 38 H 08/14/21 16:00 123/71 08/14/21 15:54 98.7 F 08/14/21 15:48 115 H 18 123/71 98 08/14/21 15:30 125 H 18 126/74 100 08/14/21 15:01 107 H 08/14/21 15:00 99 11 L 128/66 100 08/14/21 14:51 105 H 08/14/21 14:30 110 H 22 138/71 95 08/14/21 14:00 117 H 27 H 129/78 93 L 08/14/21 13:50 98.7 F 127 H 24 129/79 89 L Intake and Output 08/14/21 08/15/21 08/15/21 22:59 06:59 14:59 Intake Total 575 637.321 50 Output Total 1600 600 100 Balance -1025 37.321 -50 Intake: IV 375 400 50 Sodium Chloride 0.9% 1, 200 400 50 000 ml @ 50 mls/hr IV . Q20H CATHY Rx#:[id number] Intake, IV Titration 37.321 Amount Heparin Sod,Pork in 0.45% 37.321 NaCl 25,000 unit In 0.45 % NaCl 1 250ml.bag @ 12 UNITS/KG/HR 8.263 mls/hr IV .Q24H CATHY Rx#: [id number] Oral 200 200 Output: Urine 1600 600 100 Other: Weight 68.855 kg 69.3 kg Results CBC & Chem 7: 08/15/21 03:36 08/15/21 03:36 Labs: Abnormal Lab Results - Last 24 Hours (Table) 08/14/21 08/14/21 08/14/21 Range/Units 13:00 13:00 13:00 WBC (3.8-10.6) k/uL Hgb (11.4-16.0) gm/dL MCHC (31.0-37.0) g/dL RDW (11.5-15.5) % Neutrophils # (1.3-7.7) k/uL Lymphocytes # (1.0-4.8) k/uL APTT 19.9 L (22.0-30.0) sec Sodium 134 L (137-145) mmol/L Carbon Dioxide 16 L (22-30) mmol/L Glucose 227 H (74-99) mg/dL POC Glucose (mg/dL) (75-99) mg/dL Plasma Lactic Acid Amanuel (0.7-2.0) mmol/L AST 52 H (14-36) U/L ALT 68 H (4-34) U/L Troponin I 1.230 H* (0.000-0.034) ng/mL Ur Leukocyte Esterase (Negative) Urine Mucus (None) /hpf 08/14/21 08/14/21 08/14/21 Range/Units 13:00 13:00 17:22 WBC 15.3 H (3.8-10.6) k/uL Hgb 11.0 L (11.4-16.0) gm/dL MCHC 30.6 L (31.0-37.0) g/dL RDW (11.5-15.5) % Neutrophils # 13.7 H (1.3-7.7) k/uL Lymphocytes # 0.9 L (1.0-4.8) k/uL APTT (22.0-30.0) sec Sodium (137-145) mmol/L Carbon Dioxide (22-30) mmol/L Glucose (74-99) mg/dL POC Glucose (mg/dL) 208 H (75-99) mg/dL Plasma Lactic Acid Amanuel 2.6 H* (0.7-2.0) mmol/L AST (14-36) U/L ALT (4-34) U/L Troponin I (0.000-0.034) ng/mL Ur Leukocyte Esterase (Negative) Urine Mucus (None) /hpf 08/14/21 08/14/21 08/14/21 Range/Units 18:17 18:17 18:35 WBC 14.8 H (3.8-10.6) k/uL Hgb (11.4-16.0) gm/dL MCHC (31.0-37.0) g/dL RDW 15.8 H (11.5-15.5) % Neutrophils # 12.8 H (1.3-7.7) k/uL Lymphocytes # (1.0-4.8) k/uL APTT (22.0-30.0) sec Sodium (137-145) mmol/L Carbon Dioxide (22-30) mmol/L Glucose (74-99) mg/dL POC Glucose (mg/dL) (75-99) mg/dL Plasma Lactic Acid Amanuel 2.8 H* (0.7-2.0) mmol/L AST (14-36) U/L ALT (4-34) U/L Troponin I 3.760 H* (0.000-0.034) ng/mL Ur Leukocyte Esterase (Negative) Urine Mucus (None) /hpf 08/14/21 08/14/21 08/14/21 Range/Units 21:28 22:01 22:01 WBC (3.8-10.6) k/uL Hgb (11.4-16.0) gm/dL MCHC (31.0-37.0) g/dL RDW (11.5-15.5) % Neutrophils # (1.3-7.7) k/uL Lymphocytes # (1.0-4.8) k/uL APTT (22.0-30.0) sec Sodium (137-145) mmol/L Carbon Dioxide (22-30) mmol/L Glucose 223 H (74-99) mg/dL POC Glucose (mg/dL) 200 H (75-99) mg/dL Plasma Lactic Acid Amanuel (0.7-2.0) mmol/L AST 80 H (14-36) U/L ALT 79 H (4-34) U/L Troponin I 8.480 H* (0.000-0.034) ng/mL Ur Leukocyte Esterase (Negative) Urine Mucus (None) /hpf 08/14/21 08/14/21 08/15/21 Range/Units 22:01 22:05 03:36 WBC (3.8-10.6) k/uL Hgb (11.4-16.0) gm/dL MCHC (31.0-37.0) g/dL RDW (11.5-15.5) % Neutrophils # (1.3-7.7) k/uL Lymphocytes # (1.0-4.8) k/uL APTT (22.0-30.0) sec Sodium (137-145) mmol/L Carbon Dioxide 20 L (22-30) mmol/L Glucose 183 H (74-99) mg/dL POC Glucose (mg/dL) (75-99) mg/dL Plasma Lactic Acid Amanuel 2.2 H* (0.7-2.0) mmol/L AST (14-36) U/L ALT (4-34) U/L Troponin I (0.000-0.034) ng/mL Ur Leukocyte Esterase Trace H (Negative) Urine Mucus Rare H (None) /hpf 08/15/21 08/15/21 Range/Units 03:36 03:36 WBC (3.8-10.6) k/uL Hgb (11.4-16.0) gm/dL MCHC (31.0-37.0) g/dL RDW 15.7 H (11.5-15.5) % Neutrophils # 8.2 H (1.3-7.7) k/uL Lymphocytes # (1.0-4.8) k/uL APTT (22.0-30.0) sec Sodium (137-145) mmol/L Carbon Dioxide (22-30) mmol/L Glucose (74-99) mg/dL POC Glucose (mg/dL) (75-99) mg/dL Plasma Lactic Acid Amanuel (0.7-2.0) mmol/L AST (14-36) U/L ALT (4-34) U/L Troponin I 12.300 H* (0.000-0.034) ng/mL Ur Leukocyte Esterase (Negative) Urine Mucus (None) /hpf Thrombosis Risk Factor Assmnt - Choose All That Apply Any of the Below Risk Factors Present?: Yes Each Factor Represents 1 point: Abnormal pulmonary function (COPD) Other Risk Factors: Yes Each Risk Factor Represents 2 Points: Age 61-74 years Thrombosis Risk Factor Assessment Total Risk Factor Score: 3 Thrombosis Risk Factor Assessment Level: Moderate Risk Assessment and Plan Assessment: 1. STEMI; patient is status post cardiac catheterization which reveals triple- vessel coronary artery disease - Troponin continues to trend up and is at 12.3 this morning - Continue with aspirin, beta blockers and Plavix 75 mg daily; IV heparin per protocol - Echocardiogram and CT of chest without contrast is ordered and pending 2. Triple-vessel coronary artery disease - Cardiothoracic surgery on board and preop testing is initiated; carotid Doppler reveals bilateral internal carotid artery stenosis 50-79% 3. Acute exacerbation systolic CHF - Patient remains on O2 per nasal cannula; we will wean as tolerated - Patient remains on IV diuretics, in form of Lasix 40 mg IV every 8 hours; monitor strict MARIE's and daily weights; low-salt and fluid restricted diet - Continue with losartan 25 mg daily and metoprolol 12.5 mg twice a day - Echocardiogram is pending 4. Hypertension; stable on losartan 25 mg daily and metoprolol 12.5 mg twice a day 5. Hyperlipidemia; patient has history of intolerance to statin therapy 6. Asthma; not in exacerbation - Patient has history of previous tobacco dependence; patient takes albuterol inhaler 2 puffs every 6 hours when necessary 7. Gastroesophageal reflux disease; continue with Protonix; Carafate 1 g by mouth twice a day DVT prophylaxis; SCDs/IV heparin CODE STATUS; full code
--- NOTE | 2021-08-15 16:03 | P.DS ---
Providers Date of admission: 08/14/21 15:31 Expected date of discharge: 08/15/21 Attending physician: Wilmer Boss MD Consults: 08/14/21 15:31 Consult Physician Urgent Consulting Provider: [place] Consult Reason/Comments: STEMI vs NSTEMI Do you want consulting provider notified?: Already Contacted 08/14/21 17:48 Consult Physician Stat Consulting Provider: Brendon Gaviria Consult Reason/Comments: possible cabg Do you want consulting provider notified?: Already Contacted 08/14/21 18:35 Consult Physician Routine Consulting Provider: Kei Monterroso Consult Reason/Comments: preop cabg Do you want consulting provider notified?: Yes, Notify in am Primary care physician: Cecille Mckenna Hospital Course: 70-year-old female presents with complaints of chest pain and shortness of breath. She was brought in by EMS she was having difficulty breathing and having chest pain which she believes is secondary to reflux that she's been having she recently was also diagnosed with a urinary tract infection. She is on antibiotics at this time. She get 324 aspirin by paramedics also nebulizer treatment with some improvement in her breathing. She does states she started getting a little bit more difficulty in breathing at this time. Workup in ED to feels an EKG which showed sinus rate of 103, rest of the EKG was concerning about possible STEMI, inferior wall [place]; EKG was evaluated by cardiology and patient was recommended to be taken to the Supervisor Tubing Rest of the workup in ED to feels pulmonary vascular congestion and small pleural effusion and chest x-ray Blood work revealed an elevated troponin of 8.4, lactic acid level of 2.2, blood glucose of 223 with sodium 138, potassium 4.3, BUN/creatinine of 11/0.68 Cardiac catheterization revealed triple-vessel disease with proximal LAD 90%, circumflex 100%, RCA 100% with left to right collateral circulation; cardiothoracic surgery is consulted for further evaluation-- The usual perioperative course of coronary artery bypass surgery was discussed in detail with the patient, her daughter, and her son-in-law, risks by cardiothoracic surgery team and benefits were reviewed. Preoperative testing was initiated. Once testing has been completed we will calculate STS risk score and discuss with the patient. At this time we recommend maximizing medical therapy with aspirin, statin, beta amy therapy as well as IV diuresis. We will plan for coronary artery bypass surgery this admission pending the outcome of preoperative testing. Cardiothoracic surgery reviewed preoperative testing available so far and I recommending patient be transferred to a tertiary care center for higher level of care Patient Condition at Discharge: Serious Plan - Discharge Summary Discharge Rx Participant: No New Discharge Prescriptions: No Action Fluticasone Propionate [Flonase] 2 spray EA NOSTRIL DAILY cloNIDine HCL [Catapres] 0.1 mg PO HS Sucralfate [Carafate] 1 gm PO AC-BID amLODIPine [Norvasc] 10 mg PO DAILY Losartan [Cozaar] 50 mg PO BID Adalimumab [Humira] 40 mg SQ Q7D Acetaminophen-Codeine 300-30mg [Tylenol w/codeine #3] 1 tab PO BID PRN PRN Reason: Pain Ketotifen 0.025% Ophth Soln [Zaditor] 1 drop BOTH EYES BID Fexofenadine HCl [Barby Allergy] 180 mg PO DAILY diphenhydrAMINE [Benadryl] 25 mg PO HS Acetaminophen Tab [Tylenol Tab] 500 mg PO DAILY Pantoprazole Sodium [Protonix] 40 mg PO BID Bimatoprost [Lumigan .01% Ophth Soln] 1 drop BOTH EYES HS Albuterol Sulfate [Ventolin HFA] 2 puff INHALATION RT-Q6H PRN PRN Reason: Shortness Of Breath L.acidoph,Paracasei, B.lactis [Probiotic] 1 cap PO DAILY Multivitamins, Thera [Multivitamin (formulary)] 1 tab PO DAILY Calcium Carbonate/Vitamin D3 [Calcium 600-Vit D3 10 mcg (400 Iu)] 1 tab PO DAILY Discharge Medication List Fluticasone Propionate [Flonase] 2 spray EA NOSTRIL DAILY 08/02/14 [History] Losartan [Cozaar] 50 mg PO BID 08/02/14 [History] Sucralfate [Carafate] 1 gm PO AC-BID 08/02/14 [History] amLODIPine [Norvasc] 10 mg PO DAILY 08/02/14 [History] cloNIDine HCL [Catapres] 0.1 mg PO HS 08/02/14 [History] Adalimumab [Humira] 40 mg SQ Q7D 05/08/16 [History] Acetaminophen-Codeine 300-30mg [Tylenol w/codeine #3] 1 tab PO BID PRN 11/25/18 [History] Fexofenadine HCl [Barby Allergy] 180 mg PO DAILY 01/30/19 [History] Ketotifen 0.025% Ophth Soln [Zaditor] 1 drop BOTH EYES BID 01/30/19 [History] Acetaminophen Tab [Tylenol Tab] 500 mg PO DAILY 06/09/21 [History] Albuterol Sulfate [Ventolin HFA] 2 puff INHALATION RT-Q6H PRN 06/09/21 [History] Bimatoprost [Lumigan .01% Ophth Soln] 1 drop BOTH EYES HS 06/09/21 [History] diphenhydrAMINE [Benadryl] 25 mg PO HS 06/09/21 [History] Calcium Carbonate/Vitamin D3 [Calcium 600-Vit D3 10 mcg (400 Iu)] 1 tab PO DAILY 08/14/21 [History] L.acidoph,Paracasei, B.lactis [Probiotic] 1 cap PO DAILY 08/14/21 [History] Multivitamins, Thera [Multivitamin (formulary)] 1 tab PO DAILY 08/14/21 [History] Pantoprazole Sodium [Protonix] 40 mg PO BID 08/14/21 [History] Follow up Appointment(s)/Referral(s): Cecille Mckenna MD [Primary Care Provider] - 1-2 days
[2021-08-15 18:08] LABS: Glucose,Whole Blood 198 mg/dL (75-99)
--- NOTE | 2021-08-15 19:12 | PN ---
PROGRESS NOTE FOLLOW-UP NOTE: Nini is a 70-year-old lady with history of hypertension and inflammatory bowel disease who presented to hospital with symptoms of heart failure and had EKG changes of inferior wall myocardial infarction. Due to this, she was taken emergently for cardiac catheterization. She underwent emergent cardiac catheterization that revealed severe triple-vessel disease with chronic occlusion of the right coronary artery with left-to- right collaterals, chronic subtotal occlusion of the circumflex with [id number] collaterals, and 90% stenosis involving proximal LAD. Her vessels were heavily calcified and the patient was seen by a surgeon, who advised bypass surgery sometime over the next one week. I had a long conversation with the patient and her daughter this morning. They are opting to undergo percutaneous revascularization, even if it is less than optimal for her. I spoke to toll patrolman at [facility], and I am transferring her over there with the expectation that she would undergo revascularization of the proximal LAD and circumflex coronary artery and treat the right coronary artery medically. She had an echocardiogram this morning that shows severe LV systolic dysfunction with an ejection fraction of 30% to 35%, akinetic inferior wall with moderate to severe central mitral regurgitation. On exam today, heart rate is 98 beats per minute. Blood pressure is 148/66, respiratory rate is 18. Chest exam reveals diminished air entry at the bases. Heart exam reveals first and second heart sounds and a systolic murmur at the left lower sternal border. Abdomen is soft. Examination of extremities did not reveal any edema. A CT scan of her lungs shows bilateral pleural effusion with extensive coronary artery calcification and calcification of the aorta. Patient is on metoprolol 12.5 b.i.d., Cozaar 25 mg daily, IV Lasix 40 mg q.12, aspirin, nitroglycerin paste 1 inch t.i.d. ASSESSMENT: 1. Ischemic cardiomyopathy with acute-onset systolic heart failure. 2. Acute myocardial infarction with severe three-vessel coronary artery disease. 3. Bilateral pleural effusion. PLAN: I will treat the patient. I will increase the dose of Lasix to 40 q.8, continue the aspirin, add Plavix, continue Cozaar, increase the dose of Lopressor to 25 t.i.d., and arrange for transfer over to [facility]. MMODL / IJN: [id number] /
[2021-08-15] MEDS: HEPARIN SOD,PORK IN 0.45% NACL 25,000 UNIT in 0.45% NACL 1 250ML.BAG IV SCH (19:16)
[2021-08-15] MEDS: SODIUM CHLORIDE 0.9% 1,000 ML IV SCH (19:18)
[2021-08-15 20:17] LABS: Glucose,Whole Blood 233 mg/dL (75-99)
[2021-08-15 20:55] VITALS: TEMP 98
[2021-08-15] MEDS ORDERED: MELATONIN 3 MG TABLET PO SCH (21:00)
[2021-08-15] MEDS ORDERED: METOPROLOL TARTRATE 25 MG TAB PO SCH (21:00)
[2021-08-15 21:29] VITALS: BP 135/75; PULSE 92; RESP 20
[2021-08-15 22:16] LABS: Chol/HDL Ratio 4.11 Ratio; LDL Cholesterol,Calculated 158.5 mg/dL (0.0-131.0)
[2021-08-16] MEDS ORDERED: FUROSEMIDE 10 MG/ML 4 ML VIAL IV SCH
[2021-08-16 00:40] LABS: Hepatitis C IgG Antibody Nonreactive (Nonreactive)
[2021-08-16 00:41] LABS: Hepatitis A Antibody IgM Nonreactive (Nonreactive); Hepatitis B Core IgM Nonreactive (Nonreactive); Hepatitis B Surface Antigen Nonreactive (Nonreactive)
[2021-08-16] MEDS ORDERED: CLOPIDOGREL 75 MG TAB PO SCH (09:00)
--- NOTE | 2021-08-18 10:14 | P.ARTDOP ---
Arterial Doppler Left radial artery study: Date of study: 08/14/2021 Reason for study: Preop CABG Findings: We find no segmental pressure gradients. With digital plethysmography we find greater than 50 mmHg change on radial artery compression. Proximal and mid radial artery are under 2 mm. Impression: Left radial artery is not usable based on established criterion.
--- NOTE | 2021-08-18 11:54 | P.VSCSTY ---
Greater Saphenous Vein Mapping This is bilateral lower extremity greater saphenous vein mapping. Date of service: 08/14/2021 Vein quality and ultrasound appearance: Greater saphenous vein throughout the right leg is too small for use, as is the greater saphenous vein below the knee on the left. The left lesser saphenous is also too small as is the lower portion of the right lesser saphenous. Vein size groin right :[ ] groin left: 4.3 x 4.8 High thigh right: [ ] high thigh left: 2.5 x 2.2 Mid thigh right: [ ] mid thigh left: 2.3 x 2.3 Above-knee right: [ ] above knee left: 2.4 x 3.0 Below knee right: [] knee left: 2.2 x 2.6 Mid calf right: [] mid calf left: [] Ankle right: [] ankle left: [] Impression: The only usable vein appears to be the upper right lesser saphenous vein and potentially the left greater saphenous at the knee and above. Clinical correlation recommended..
== END 2021-08-15 21:46 | DRG 280 ==
LOC: EC 13:47 → 2SICU 15:31
PROVIDERS: ADMIT Internal Medicine; ATTEND Internal Medicine
PROC: B2111ZZ Fluoroscopy of Multiple Coronary Arteries using Low Osmolar Contrast (ICD-10-PCS; 2021-08-14)
PROC: 4A023N7 Measurement of Cardiac Sampling and Pressure, Left Heart, Percutaneous Approach (ICD-10-PCS; principal; 2021-08-14 15:48)
DX: I21.19 ST elevation (STEMI) myocardial infarction involving other coronary artery of inferior wall (principal); I50.23 Acute on chronic systolic (congestive) heart failure; K50.90 Crohn's disease, unspecified, without complications; N39.0 Urinary tract infection, site not specified; I25.110 Atherosclerotic heart disease of native coronary artery with unstable angina pectoris; I11.0 Hypertensive heart disease with heart failure; E11.9 Type 2 diabetes mellitus without complications; E78.5 Hyperlipidemia, unspecified; G89.29 Other chronic pain; M54.9 Dorsalgia, unspecified; I25.5 Ischemic cardiomyopathy; I34.0 Nonrheumatic mitral (valve) insufficiency; Z20.822 Contact with and (suspected) exposure to COVID-19; I65.23 Occlusion and stenosis of bilateral carotid arteries; Z79.899 Other long term (current) drug therapy; I70.0 Atherosclerosis of aorta; J42 Unspecified chronic bronchitis; R00.0 Tachycardia, unspecified; J45.909 Unspecified asthma, uncomplicated; K21.9 Gastro-esophageal reflux disease without esophagitis; M19.041 Primary osteoarthritis, right hand; M19.042 Primary osteoarthritis, left hand; M19.90 Unspecified osteoarthritis, unspecified site; Z87.01 Personal history of pneumonia (recurrent); Z87.11 Personal history of peptic ulcer disease; Z87.442 Personal history of urinary calculi; Z87.891 Personal history of nicotine dependence; Z90.3 Acquired absence of stomach [part of]; Z90.710 Acquired absence of both cervix and uterus; Z96.1 Presence of intraocular lens; Z98.41 Cataract extraction status, right eye; Z98.42 Cataract extraction status, left eye; Z87.19 Personal history of other diseases of the digestive system; Z87.440 Personal history of urinary (tract) infections
CPT/HCPCS: 36415; 71046; 71250; 80048; 80053; 80061; 80074; 81001; 83036; 83605; 83735; 83880; 84443; 84484; 85025; 85610; 85730; 86850; 86900; 86901; 87070; 87635; 93005; 93306; 93458; 93880; 93923; 93970; 94640; 96374; 96375; 99291

== ENCOUNTER 2021-11-27 22:45 | Inpatient (IN) | payer MEDICARE, OTHER ==
[2021-11-27] MEDS ORDERED: IPRATROPIUM-ALBUTEROL 3 ML NEB INHALATION STA (22:51)
--- NOTE | 2021-11-27 22:56 | ED ---
SOB HPI - General Stated Complaint: Shortness Of Breath Time Seen by Provider: 11/27/21 22:48 Source: RN notes reviewed, old records reviewed - History of Present Illness MD Complaint: shortness of breath, cough, chest pain, "asthma attack", anxiety -: hour(s) Severity: moderate Severity scale (1-10): 7 Quality: aching, sharp Consistency: intermittent Improves With: nothing Worsens With: exertion, movement Known History Of: asthma, congestive heart failure Context: recent URI Associated Symptoms: denies other symptoms Treatments Prior to Arrival: oxygen, bronchodilator, NIPPV - Related Data Home Medications Medication Instructions Recorded Confirmed Fluticasone Propionate [Flonase] 2 spray EA NOSTRIL DAILY 08/02/14 11/27/21 Sucralfate [Carafate] 1 gm PO AC-TID 08/02/14 11/27/21 Acetaminophen-Codeine 300-30mg 1 tab PO BID PRN 09/23/18 11/27/21 [Tylenol w/codeine #3] Fexofenadine HCl [Barby Allergy] 180 mg PO DAILY 01/30/19 11/27/21 Ketotifen 0.025% Ophth Soln 1 drop BOTH EYES BID PRN 01/30/19 11/27/21 [Zaditor] Acetaminophen Tab [Tylenol Tab] 500 mg PO DAILY PRN 06/09/21 11/27/21 Albuterol Sulfate [Ventolin HFA] 2 puff INHALATION RT-Q6H PRN 06/09/21 11/27/21 Bimatoprost [Lumigan .01% Ophth 1 drop BOTH EYES HS 06/09/21 11/27/21 Soln] L.acidoph,Paracasei, B.lactis 1 cap PO DAILY 08/14/21 11/27/21 [Probiotic] Multivitamins, Thera [Multivitamin 1 tab PO DAILY 08/14/21 11/27/21 (formulary)] Adalimumab [Humira Pen 40 mg SQ TH 11/27/21 11/27/21 Crohn's-Uc-Hs] Aspirin EC [Ecotrin Low Dose] 81 mg PO DAILY 11/27/21 11/27/21 Azelastine HCl [Astepro] 2 spray NASAL DAILY PRN 11/27/21 11/27/21 Calcium Carbonate [Calcium] 600 mg PO DAILY 11/27/21 11/27/21 Cholecalciferol [Vitamin D3 (25 25 mcg PO DAILY 11/27/21 11/27/21 Mcg = 1000 Iu)] Clopidogrel [Plavix] 75 mg PO DAILY 11/27/21 11/27/21 Cyanocobalamin (Vitamin B-12) 5,000 mcg PO DAILY 11/27/21 11/27/21 [Vitamin B12] Imiquimod 1 packet TOPICAL DIRECTED 11/27/21 11/27/21 Lansoprazole [Prevacid] 30 mg PO DAILY 11/27/21 11/27/21 Losartan Potassium 50 mg PO DAILY 11/27/21 11/27/21 Metoprolol Succinate [Toprol XL] 50 mg PO DAILY 11/27/21 11/27/21 Rosuvastatin Calcium [Crestor] 40 mg PO HS 11/27/21 11/27/21 Spironolactone [Aldactone] 25 mg PO DAILY 11/27/21 11/27/21 Allergies Allergy/AdvReac Type Severity Reaction Status Date / Time atorvastatin [From Lipitor] Allergy Swelling Verified 11/27/21 23:02 cefuroxime [From Ceftin] Allergy Rash/Hives Verified 11/27/21 23:02 cefuroxime axetil Allergy SEVERE Verified 11/27/21 23:02 [From Ceftin] HEADACHE ciprofloxacin [From Cipro] Allergy Rash/Hives Verified 11/27/21 23:02 clindamycin Allergy Rash/Hives Verified 11/27/21 23:02 dicloxacillin Allergy Nausea & Verified 11/27/21 23:02 Vomiting & Diarrhea doxazosin mesylate Allergy Rash/Hives Verified 11/27/21 23:02 [From Cardura] doxycycline Allergy Nausea & Verified 11/27/21 23:02 Vomiting,HEADACHE duloxetine [From Cymbalta] Allergy Abdominal Verified 11/27/21 23:02 Pain, ROQUE gatifloxacin [From Tequin] Allergy Abdominal Verified 11/27/21 23:02 Pain,VOMITING hydralazine [Hydralazine] Allergy Rapid Verified 11/27/21 23:02 Heart Rate hydrochlorothiazide Allergy Nausea & Verified 11/27/21 23:02 Vomiting indapamide [From Lozol] Allergy Abdominal Verified 11/27/21 23:02 Pain latex Allergy Rash/Hives Verified 11/27/21 23:02 lisinopril Allergy VERTIGO,HEA Verified 11/27/21 23:02 DACHE nabumetone [From Relafen] Allergy Abdominal Verified 11/27/21 23:02 Pain nitrofurantoin Allergy Rash/Hives Verified 11/27/21 23:02 [From Macrobid] povidone-iodine Allergy Rash/Hives Verified 11/27/21 23:02 [From Betadine] soap [From Betadine] Allergy Rash/Hives Verified 11/27/21 23:02 sulfasalazine Allergy Abdominal Verified 11/27/21 23:02 [From Azulfidine] Pain,VOMITING triamcinolone acetonide Allergy SEVERE Verified 11/27/21 23:02 [From Kenalog] HEADACHE Review of Systems ROS Statement: Those systems with pertinent positive or pertinent negative responses have been documented in the HPI. ROS Other: All systems not noted in ROS Statement are negative. Past Medical History Past Medical History: Asthma, Diabetes Mellitus, Eye Disorder, GERD/Reflux, GI Bleed, Hyperlipidemia, Hypertension, Osteoarthritis (OA) Additional Past Medical History / Comment(s): microperforations of diverticulitis-treated with ABX. Other HX: Lower GI bleeds, chrohn's dx, IBS, hemorrhoids, PUD, arhtiritis bilateral hands and feet, chronic back pain, macular degeneration bilateral eyes, sinus problems, bronchitis, migraines, bilateral kidney stones, anemia, hypoglycemia, spider veins bilateral legs. History of Any Multi-Drug Resistant Organisms: None Reported Past Surgical History: Adenoidectomy, Bladder Surgery, Hysterectomy, Joint Replacement, Orthopedic Surgery, Tonsillectomy Additional Past Surgical History / Comment(s): Several EGDs with bx and colonoscopies with bx, gastrectomy for ulcers (40% stomach removed),cystoscopy x2, R/L shoulder rotator cuff arthroscopies, bilateral CATARACT SURGERY with lens implants; Sinus Surgery x 2, Left Breast biopsy x 2-benign, 2nd toe R foot with hardware. Past Anesthesia/Blood Transfusion Reactions: No Reported Reaction, Postoperative Nausea & Vomiting (PONV) Additional Past Anesthesia/Blood Transfusion Reaction / Comment(s): Pt states she did receive blood in 2009 with GI bleed-no reaction. rise in b/p after last injection in back Past Psychological History: No Psychological Hx Reported Smoking Status: Former smoker Past Alcohol Use History: Rare Past Drug Use History: None Reported - Past Family History Father Family Medical History: Cancer Additional Family Medical History / Comment(s): Father had prostate cancer that went to the bone. He at the age of 79yrs. Mother Family Medical History: Cancer, Congestive Heart Failure (CHF) Additional Family Medical History / Comment(s): Mother of lymphoma at the age of 81 yrs. Sister(s) Family Medical History: Cancer Additional Family Medical History / Comment(s): breast cancer x2 sisters General Exam General appearance: alert, in no apparent distress, anxious, in distress Head exam: Present: atraumatic, normocephalic, normal inspection Eye exam: Present: normal appearance, PERRL, EOMI. Absent: scleral icterus, conjunctival injection, periorbital swelling ENT exam: Present: normal exam, mucous membranes moist Neck exam: Present: normal inspection. Absent: tenderness, meningismus, lymphadenopathy Respiratory exam: Present: respiratory distress, wheezes, decreased breath sounds, prolonged expiratory. Absent: rales, rhonchi, stridor Cardiovascular Exam: Present: regular rate, normal rhythm, normal heart sounds. Absent: systolic murmur, diastolic murmur, rubs, gallop, clicks GI/Abdominal exam: Present: soft, normal bowel sounds. Absent: distended, tenderness, guarding, rebound, rigid Extremities exam: Present: normal inspection, full ROM, normal capillary refill. Absent: tenderness, pedal edema, joint swelling, calf tenderness Back exam: Present: normal inspection Neurological exam: Present: alert, oriented X3, CN II-XII intact Psychiatric exam: Present: normal affect, normal mood Skin exam: Present: warm, dry, intact, normal color. Absent: rash Course Vital Signs 11/27/21 11/27/21 11/27/21 23:00 23:17 23:24 Temperature 98 F Pulse Rate 101 H 102 H 102 H Respiratory 24 Rate Blood Pressure 147/89 O2 Sat by Pulse 88 L Oximetry 11/28/21 01:04 Temperature Pulse Rate 96 Respiratory 20 Rate Blood Pressure 136/74 O2 Sat by Pulse 94 L Oximetry - Reevaluation(s) Reevaluation #1: 11/27/21 22:56 Medical records reviewed 11/27/21 22:56 Recent hospitalization for STEMI and CHF Reevaluation #2: 11/27/21 22:56 Symptoms improved on initial BiPAP treatment Medical Decision Making - Lab Data Result diagrams: 11/28/21 00:15 11/28/21 00:15 Lab Results 11/27/21 11/28/21 11/28/21 Range/Units 23:11 00:15 00:15 WBC 12.3 H (3.8-10.6) k/uL RBC 4.70 (3.80-5.40) m/uL Hgb 10.5 L (11.4-16.0) gm/dL Hct 35.8 (34.0-46.0) % MCV 76.2 L (80.0-100.0) fL MCH 22.4 L (25.0-35.0) pg MCHC 29.4 L (31.0-37.0) g/dL RDW 16.3 H (11.5-15.5) % Plt Count 237 (150-450) k/uL MPV 7.6 Neutrophils % 78 % Lymphocytes % 16 % Monocytes % 4 % Eosinophils % 0 % Basophils % 0 % Neutrophils # 9.6 H (1.3-7.7) k/uL Lymphocytes # 2.0 (1.0-4.8) k/uL Monocytes # 0.5 (0-1.0) k/uL Eosinophils # 0.1 (0-0.7) k/uL Basophils # 0.1 (0-0.2) k/uL Hypochromasia Marked Anisocytosis Slight Microcytosis Slight PT 10.7 (9.0-12.0) sec INR 1.0 (<1.2) APTT 23.2 (22.0-30.0) sec Sodium (137-145) mmol/L Potassium (3.5-5.1) mmol/L Chloride (98-107) mmol/L Carbon Dioxide (22-30) mmol/L Anion Gap mmol/L BUN (7-17) mg/dL Creatinine (0.52-1.04) mg/dL Est GFR (CKD-EPI)AfAm (>60 ml/min/1.73 sqM) Est GFR (CKD-EPI)NonAf (>60 ml/min/1.73 sqM) Glucose (74-99) mg/dL Calcium (8.4-10.2) mg/dL Phosphorus (2.5-4.5) mg/dL Magnesium (1.6-2.3) mg/dL Total Bilirubin (0.2-1.3) mg/dL AST (14-36) U/L ALT (4-34) U/L Alkaline Phosphatase (38-126) U/L Lactate Dehydrogenase (313-618) U/L Troponin I (0.000-0.034) ng/mL C-Reactive Protein (<1.0) mg/dL NT-Pro-B Natriuret Pep pg/mL Total Protein (6.3-8.2) g/dL Albumin (3.5-5.0) g/dL Coronavirus (PCR) Not Detected (Not Detectd) 11/28/21 11/28/21 11/28/21 Range/Units 00:15 00:15 00:20 WBC (3.8-10.6) k/uL RBC (3.80-5.40) m/uL Hgb (11.4-16.0) gm/dL Hct (34.0-46.0) % MCV (80.0-100.0) fL MCH (25.0-35.0) pg MCHC (31.0-37.0) g/dL RDW (11.5-15.5) % Plt Count (150-450) k/uL MPV Neutrophils % % Lymphocytes % % Monocytes % % Eosinophils % % Basophils % % Neutrophils # (1.3-7.7) k/uL Lymphocytes # (1.0-4.8) k/uL Monocytes # (0-1.0) k/uL Eosinophils # (0-0.7) k/uL Basophils # (0-0.2) k/uL Hypochromasia Anisocytosis Microcytosis PT (9.0-12.0) sec INR (<1.2) APTT (22.0-30.0) sec Sodium 137 (137-145) mmol/L Potassium 4.0 (3.5-5.1) mmol/L Chloride 107 (98-107) mmol/L Carbon Dioxide 20 L (22-30) mmol/L Anion Gap 10 mmol/L BUN 16 (7-17) mg/dL Creatinine 0.74 (0.52-1.04) mg/dL Est GFR (CKD-EPI)AfAm >90 (>60 ml/min/1.73 sqM) Est GFR (CKD-EPI)NonAf 83 (>60 ml/min/1.73 sqM) Glucose 190 H (74-99) mg/dL Calcium 9.7 (8.4-10.2) mg/dL Phosphorus 3.9 (2.5-4.5) mg/dL Magnesium 1.9 (1.6-2.3) mg/dL Total Bilirubin 0.3 (0.2-1.3) mg/dL AST 32 (14-36) U/L ALT 18 (4-34) U/L Alkaline Phosphatase 71 (38-126) U/L Lactate Dehydrogenase 710 H (313-618) U/L Troponin I 0.961 H* (0.000-0.034) ng/mL C-Reactive Protein 1.2 H (<1.0) mg/dL NT-Pro-B Natriuret Pep 3380 pg/mL Total Protein 7.7 (6.3-8.2) g/dL Albumin 4.3 (3.5-5.0) g/dL Coronavirus (PCR) (Not Detectd) - EKG Data -: EKG Interpreted by Me (EKG is sinus tachycardia 101 NC 164 QRS 78 QTc 477) Disposition Clinical Impression: CHF (congestive heart failure), Bilateral pleural effusion, Acute systolic (congestive) heart failure, Chest pain, Ischemic cardiomyopathy, NSTEMI (non-ST elevated myocardial infarction) Disposition: ADMITTED IP TO THIS HOSP Condition: Fair Is patient prescribed a controlled substance at d/c from ED?: No
--- NOTE | 2021-11-27 23:39 | XR ---
EXAMINATION TYPE: XR chest 1V portable DATE OF EXAM: 11/27/2021 COMPARISON: 08/14/2021 HISTORY: Short of breath TECHNIQUE: Single view FINDINGS: Heart is enlarged. There is some pulmonary interstitial edema. There are chest leads. There are no hilar masses. Thoracic aorta is atheromatous. There is slight blunting of the costophrenic an gles. IMPRESSION: Mild pulmonary interstitial edema could be heart failure. Interstitial density increased compared to old exam. Small pleural effusions without change.
[2021-11-28 00:58] LABS: Anisocytosis Slight; Basophils # (A) 0.1 k/uL (0-0.2); Basophils % (A) 0 %; Eosinophils # (A) 0.1 k/uL (0-0.7); Eosinophils % (A) 0 %; HCT 35.8 % (34.0-46.0); HGB 10.5 gm/dL (11.4-16.0); Hypochromasia Marked; Lymphocytes % (A) 16 %; MCH 22.4 pg (25.0-35.0); MCHC 29.4 g/dL (31.0-37.0); MCV 76.2 fL (80.0-100.0); Mean Platelet Volume 7.6; Microcytosis Slight; Monocytes # (A) 0.5 k/uL (0-1.0); Monocytes % (A) 4 %; Neutrophils # (A) 9.6 k/uL (1.3-7.7); Neutrophils % (A) 78 %; Platelet Count 237 k/uL (150-450); RDW 16.3 % (11.5-15.5); WBC 12.3 k/uL (3.8-10.6)
[2021-11-28] MEDS ORDERED: Acetaminophen-Codeine 300-30mg TAB PO STA (01:04)
[2021-11-28 01:14] LABS: ALT 18 U/L (4-34); AST 32 U/L (14-36); African American GFR (CKD) >90 (>60 ml/min/1.73 sqM); Albumin 4.3 g/dL (3.5-5.0); Alkaline Phosphatase 71 U/L (38-126); Anion Gap 10 mmol/L; Blood Urea Nitrogen 16 mg/dL (7-17); C Reactive Protein 1.2 mg/dL (<1.0); Calcium 9.7 mg/dL (8.4-10.2); Carbon Dioxide 20 mmol/L (22-30); Chloride 107 mmol/L (98-107); Glucose 190 mg/dL (74-99); LDH 710 U/L (313-618); Magnesium 1.9 mg/dL (1.6-2.3); Non-African American GFR(CKD) 83 (>60 ml/min/1.73 sqM); Partial Thromboplastin Time 23.2 sec (22.0-30.0); Phosphorus 3.9 mg/dL (2.5-4.5); Prothrombin Time 10.7 sec (9.0-12.0); Sodium 137 mmol/L (137-145); Total Bilirubin 0.3 mg/dL (0.2-1.3); Total Protein 7.7 g/dL (6.3-8.2)
[2021-11-28] MEDS: FUROSEMIDE 10 MG/ML 4 ML VIAL IV SCH ×3 (01:14→23:52)
[2021-11-28] MEDS ORDERED: NITROGLYCERIN OINT 1 INCH/GM PACKET TOPICAL STA (04:55)
[2021-11-28] MEDS ORDERED: HEPARIN SODIUM 1,000 UN/ML (10ML VL) IV ONE (05:02)
[2021-11-28] MEDS ORDERED: ASPIRIN 81 MG PO STA (05:02)
[2021-11-28] MEDS ORDERED: MORPHINE SULFATE 4 MG/ML SYRINGE IVP STA (05:12)
[2021-11-28] MEDS: HEPARIN SOD,PORK IN 0.45% NACL 25,000 UNIT in 0.45% NACL 1 250ML.BAG IV SCH (05:20)
[2021-11-28 06:09] LABS: Glucose,Whole Blood 136 mg/dL (75-99)
[2021-11-28] MEDS: NITROGLYCERIN OINT 1 INCH/GM PACKET TOPICAL SCH ×4 (06:38→23:11)
[2021-11-28] MEDS ORDERED: ALBUTEROL NEBULIZED 2.5 MG/3 ML INHALATION PRN (07:21)
[2021-11-28] MEDS ORDERED: AZELASTINE 137MCG/SPRAY NASAL PRN (07:21)
--- NOTE | 2021-11-28 09:35 | P.CRDCN ---
History of Present Illness Consult date: 11/28/21 Consult reason: non-Q-wave AK History of present illness: History of Presenting Illness: Patient is a very pleasant 71-year-old female with a past medical history of hypertension, hyperlipidemia, diabetes mellitus, GERD, GI bleed secondary to microperforations of diverticulitis and Crohn's disease, macular degeneration and COPD/asthma. She presented to the emergency department with a chief complaint of progressively worsening shortness of breath over the past 2-3 days accompanied by heartburn/indigestion beginning approximately 2 weeks ago. Patient follows outpatient with vulcanizing machine operator Dr. Bains at [facility] [place] and reports recently undergoing stenting of LAD and was supposed to return for stenting of RCA, however procedure was rescheduled secondary to sinus infection. Patient reports secondary to worsening dyspnea accompanied by heartburn/indigestion and painful feeling in chest she thought it would be best to come to the hospital for further evaluation. Upon arrival to the hospital patient was found to be hypoxic 88% room air requiring 3 L O2 via nasal cannula to maintain SpO2 of 94%. An EKG was completed revealing sinus tachycardia at 101 bpm with concerns of lateral ischemia with ST depression in leads 2, 3, V5, and V6 and T-wave inversion in lead in aVL. Chest x-ray revealed mild pulmonary interstitial edema with small pleural effusions. Labs revealed elevation of troponin 0.961, 4.280, and 7.830. Patient was started on heparin infusion per ACS protocol and admitted under our internal medicine services and we were consulted for management of NSTEMI. Patient seen and fully evaluated at bedside this morning. She reports complete resolution of previously reported chest pain/discomfort accompanied by shortness of breath and reflux. Patient reports this morning she did have an episode of mild nausea and pain/discomfort and left shoulder but otherwise states she is feeling better. She further denies experiencing any headache, lightheadedness, dizziness, palpitations, or any other complaints at this time. Repeat EKG completed this morning showing normal sinus rhythm at 83 bpm with resolution of previously reported anterolateral T wave and ST abnormalities replaced by Q waves in leads 1, 2, aVL, and V4 through V6. Review of systems: Pertinent positives and negatives as discussed in HPI, a complete review of systems was performed and all other systems are negative. Physical exam: Vital signs reviewed and stable. General: Nontoxic, no distress and appears stated age. Derm: Skin warm and dry, normal coloration for ethnicity. Head: Atraumatic, normocephalic and symmetric. Eyes: EOMs intact, no lid lag, and anicteric sclera Mouth: no lip lesions, mucus membranes moist Cardiovascular: regular rate and rhythm with normal S1S2, no murmur, positive posterior tibial pulses bilaterally, and cap refill < 2 seconds. Lungs: Respirations even, regular, and unlabored on room air. Lungs CTA bilaterally, no rhonchi, no rales, no wheezing, and no accessory muscle usage. Abdominal: soft, nontender to palpation, no guarding, no appreciable organomegaly Ext: ROM intact. No gross muscle atrophy, no edema, no contractures Neuro: Speech clear, face symmetrical and CN II-XII grossly intact with no noted focal neuro deficits Psych: Alert and oriented to person, place, time, and situation. Appropriate and pleasant affect. Assessment and Plan of Care: NSTEMI Previously noted Multivessel CAD Hypertension Hyperlipidemia Diabetes mellitus with A1c 7.1% Continuation of heparin infusion Continuation of telemetry monitoring Continue cardiac medication regimen with aspirin, Plavix, losartan, metoprolol, Aldactone, and we will hold off on statin secondary to reported ALLERGY of anaphylaxis/swelling Patient requesting to be transferred to [facility] as she reports she is a high risk stent placement and would like to continue with her vulcanizing machine operator, Dr. Angela siddiqui for further stent placement. Medical team arranging transfer per patient's request, recommend patient to continue maximum medication management and continuation of heparin infusion pending cardiac catheterization. Echocardiogram to be completed We will continue to follow with patient and give further recommendations pending clinical course. Did discuss with patient and patient's daughter if unable to complete transfer secondary to bed availability at [facility], cardiac catheterization and stenting may be completed here. Recommend close monitoring of daily hemoglobin as patient has history of previous GI bleeding Thank you for allowing us to participate in the care of this pleasant patient. Do not hesitate to contact us with questions. Nurse practitioner note has been reviewed by physician. Signing provider agrees with the documented findings, assessment, and plan of care. Past Medical History Past Medical History: Asthma, Diabetes Mellitus, Eye Disorder, GERD/Reflux, GI Bleed, Hyperlipidemia, Hypertension, Osteoarthritis (OA) Additional Past Medical History / Comment(s): microperforations of diverticulitis-treated with ABX. Other HX: Lower GI bleeds, chrohn's dx, IBS, hemorrhoids, PUD, arhtiritis bilateral hands and feet, chronic back pain, macular degeneration bilateral eyes, sinus problems, bronchitis, migraines, bilateral kidney stones, anemia, hypoglycemia, spider veins bilateral legs. History of Any Multi-Drug Resistant Organisms: None Reported Past Surgical History: Adenoidectomy, Bladder Surgery, Hysterectomy, Joint Replacement, Orthopedic Surgery, Tonsillectomy Additional Past Surgical History / Comment(s): Several EGDs with bx and colonoscopies with bx, gastrectomy for ulcers (40% stomach removed),cystoscopy x2, R/L shoulder rotator cuff arthroscopies, bilateral CATARACT SURGERY with lens implants; Sinus Surgery x 2, Left Breast biopsy x 2-benign, 2nd toe R foot with hardware. Past Anesthesia/Blood Transfusion Reactions: No Reported Reaction, Postoperative Nausea & Vomiting (PONV) Additional Past Anesthesia/Blood Transfusion Reaction / Comment(s): Pt states she did receive blood in 2009 with GI bleed-no reaction. rise in b/p after last injection in back Past Psychological History: No Psychological Hx Reported Smoking Status: Former smoker Past Alcohol Use History: Rare Past Drug Use History: None Reported - Past Family History Father Family Medical History: Cancer Additional Family Medical History / Comment(s): Father had prostate cancer that went to the bone. He at the age of 79yrs. Mother Family Medical History: Cancer, Congestive Heart Failure (CHF) Additional Family Medical History / Comment(s): Mother of lymphoma at the age of 81 yrs. Sister(s) Family Medical History: Cancer Additional Family Medical History / Comment(s): breast cancer x2 sisters Medications and Allergies Home Medications Medication Instructions Recorded Confirmed Type Fluticasone Propionate [Flonase] 2 spray EA NOSTRIL DAILY 08/02/14 11/27/21 History Sucralfate [Carafate] 1 gm PO AC-TID 08/02/14 11/27/21 History Acetaminophen-Codeine 300-30mg 1 tab PO BID PRN 09/23/18 11/27/21 History [Tylenol w/codeine #3] Fexofenadine HCl [Barby Allergy] 180 mg PO DAILY 01/30/19 11/27/21 History Ketotifen 0.025% Ophth Soln 1 drop BOTH EYES BID PRN 01/30/19 11/27/21 History [Zaditor] Acetaminophen Tab [Tylenol Tab] 500 mg PO DAILY PRN 06/09/21 11/27/21 History Albuterol Sulfate [Ventolin HFA] 2 puff INHALATION RT-Q6H PRN 06/09/21 11/27/21 History Bimatoprost [Lumigan .01% Ophth 1 drop BOTH EYES HS 06/09/21 11/27/21 History Soln] L.acidoph,Paracasei, B.lactis 1 cap PO DAILY 08/14/21 11/27/21 History [Probiotic] Multivitamins, Thera [Multivitamin 1 tab PO DAILY 08/14/21 11/27/21 History (formulary)] Adalimumab [Humira Pen 40 mg SQ TH 11/27/21 11/27/21 History Crohn's-Uc-Hs] Aspirin EC [Ecotrin Low Dose] 81 mg PO DAILY 11/27/21 11/27/21 History Azelastine HCl [Astepro] 2 spray NASAL DAILY PRN 11/27/21 11/27/21 History Calcium Carbonate [Calcium] 600 mg PO DAILY 11/27/21 11/27/21 History Cholecalciferol [Vitamin D3 (25 25 mcg PO DAILY 11/27/21 11/27/21 History Mcg = 1000 Iu)] Clopidogrel [Plavix] 75 mg PO DAILY 11/27/21 11/27/21 History Cyanocobalamin (Vitamin B-12) 5,000 mcg PO DAILY 11/27/21 11/27/21 History [Vitamin B12] Imiquimod 1 packet TOPICAL DIRECTED 11/27/21 11/27/21 History Lansoprazole [Prevacid] 30 mg PO DAILY 11/27/21 11/27/21 History Losartan Potassium 50 mg PO DAILY 11/27/21 11/27/21 History Metoprolol Succinate [Toprol XL] 50 mg PO DAILY 11/27/21 11/27/21 History Rosuvastatin Calcium [Crestor] 40 mg PO HS 11/27/21 11/27/21 History Spironolactone [Aldactone] 25 mg PO DAILY 11/27/21 11/27/21 History Allergies Allergy/AdvReac Type Severity Reaction Status Date / Time atorvastatin [From Lipitor] Allergy Swelling Verified 11/27/21 23:02 cefuroxime [From Ceftin] Allergy Rash/Hives Verified 11/27/21 23:02 cefuroxime axetil Allergy SEVERE Verified 11/27/21 23:02 [From Ceftin] HEADACHE ciprofloxacin [From Cipro] Allergy Rash/Hives Verified 11/27/21 23:02 clindamycin Allergy Rash/Hives Verified 11/27/21 23:02 dicloxacillin Allergy Nausea & Verified 11/27/21 23:02 Vomiting & Diarrhea doxazosin mesylate Allergy Rash/Hives Verified 11/27/21 23:02 [From Cardura] doxycycline Allergy Nausea & Verified 11/27/21 23:02 Vomiting,HEADACHE duloxetine [From Cymbalta] Allergy Abdominal Verified 11/27/21 23:02 Pain, ROQUE gatifloxacin [From Tequin] Allergy Abdominal Verified 11/27/21 23:02 Pain,VOMITING hydralazine [Hydralazine] Allergy Rapid Verified 11/27/21 23:02 Heart Rate hydrochlorothiazide Allergy Nausea & Verified 11/27/21 23:02 Vomiting indapamide [From Lozol] Allergy Abdominal Verified 11/27/21 23:02 Pain latex Allergy Rash/Hives Verified 11/27/21 23:02 lisinopril Allergy VERTIGO,HEA Verified 11/27/21 23:02 DACHE nabumetone [From Relafen] Allergy Abdominal Verified 11/27/21 23:02 Pain nitrofurantoin Allergy Rash/Hives Verified 11/27/21 23:02 [From Macrobid] povidone-iodine Allergy Rash/Hives Verified 11/27/21 23:02 [From Betadine] soap [From Betadine] Allergy Rash/Hives Verified 11/27/21 23:02 sulfasalazine Allergy Abdominal Verified 11/27/21 23:02 [From Azulfidine] Pain,VOMITING triamcinolone acetonide Allergy SEVERE Verified 11/27/21 23:02 [From Kenalog] HEADACHE Physical Exam Vitals: Vital Signs Temp Pulse Pulse Resp BP BP Pulse Ox 11/28/21 07:49 97.8 F 82 18 104/56 97 11/28/21 03:22 93 20 125/94 94 L 11/28/21 01:04 96 20 136/74 94 L 11/28/21 00:57 97.8 F 92 16 142/78 98 11/27/21 23:24 102 H 11/27/21 23:17 102 H 11/27/21 23:00 98 F 101 H 24 147/89 88 L Intake and Output 11/27/21 11/28/21 11/28/21 22:59 06:59 14:59 Other: # Bowel Movements 1 Weight 56 kg Results 11/28/21 00:15 11/28/21 00:15 Cardiac Enzymes 11/28/21 11/28/21 11/28/21 Range/Units 00:15 00:15 03:32 AST 32 (14-36) U/L Lactate Dehydrogenase 710 H (313-618) U/L Troponin I 0.961 H* 4.280 H* (0.000-0.034) ng/mL 11/28/21 Range/Units 06:15 AST (14-36) U/L Lactate Dehydrogenase (313-618) U/L Troponin I 7.830 H* (0.000-0.034) ng/mL Coagulation 11/28/21 Range/Units 00:15 PT 10.7 (9.0-12.0) sec APTT 23.2 (22.0-30.0) sec CBC 11/28/21 Range/Units 00:15 WBC 12.3 H (3.8-10.6) k/uL RBC 4.70 (3.80-5.40) m/uL Hgb 10.5 L (11.4-16.0) gm/dL Hct 35.8 (34.0-46.0) % Plt Count 237 (150-450) k/uL Comprehensive Metabolic Panel 11/28/21 Range/Units 00:15 Sodium 137 (137-145) mmol/L Potassium 4.0 (3.5-5.1) mmol/L Chloride 107 (98-107) mmol/L Carbon Dioxide 20 L (22-30) mmol/L BUN 16 (7-17) mg/dL Creatinine 0.74 (0.52-1.04) mg/dL Glucose 190 H (74-99) mg/dL Calcium 9.7 (8.4-10.2) mg/dL AST 32 (14-36) U/L ALT 18 (4-34) U/L Alkaline Phosphatase 71 (38-126) U/L Total Protein 7.7 (6.3-8.2) g/dL Albumin 4.3 (3.5-5.0) g/dL Current Medications Generic Name Dose Route Start Last Admin Trade Name Freq PRN Reason Stop Dose Admin Acetaminophen/Codeine Phosphate 1 each 11/28/21 02:21 Acetaminophen-Codeine 300-30mg Tab PO BID PRN pain Albuterol Sulfate 2.5 mg 11/28/21 07:21 Albuterol Nebulized 2.5 Mg/3 Ml INHALATION RT-Q6H PRN Shortness Of Breath Aspirin 81 mg 11/29/21 09:00 Aspirin 81 Mg PO DAILY [facility] Azelastine HCl 2 spray 11/28/21 07:21 Azelastine 137mcg/Beattie NASAL DAILY PRN Allergy Symptoms Calcium Carbonate/Glycine 500 mg 11/28/21 09:00 Calcium Carbonate 500 Mg Chewable PO DAILY [facility] Cholecalciferol 25 mcg 11/28/21 09:00 Cholecalciferol 25 Mcg (1000 Iu) Tablet PO DAILY [facility] Clopidogrel Bisulfate 75 mg 11/28/21 09:00 Clopidogrel 75 Mg Tab PO DAILY [facility] Cyanocobalamin 5,000 mcg 11/28/21 09:00 Cyanocobalamin 500 Mcg Tab PO DAILY [facility] Fluticasone Propionate 2 spray 11/28/21 09:00 Fluticasone 50mcg/Beattie Nasal 16gm EA NOSTRIL DAILY [facility] Furosemide 40 mg 11/28/21 00:45 11/28/21 01:14 Furosemide 10 Mg/Ml 4 Ml Vial IV 40 mg Q12H CATHY Administration Heparin Sodium (Porcine) 0 unit 11/28/21 05:02 Heparin Sodium 1,000 Un/Ml (10ml Vl) IV PER PROTOCOL PRN Low PTT Protocol Heparin Sodium/Sodium Chloride 250 mls @ 6.858 mls/hr 11/28/21 05:15 11/28/21 05:20 25,000 unit/ Sodium Chloride IV 12 units/kg/hr .Q24H CATHY 6.858 mls/hr Administration Protocol 12 UNITS/KG/HR Losartan Potassium 50 mg 11/28/21 09:00 Losartan 50 Mg Tab PO DAILY [facility] Metoprolol Succinate 50 mg 11/28/21 09:00 Metoprolol Succinate (Er) 50 Mg Tab.Er.24h PO DAILY [facility] Nitroglycerin 1 inch 11/28/21 06:00 11/28/21 06:38 Nitroglycerin Oint 1 Inch/Gm Packet TOPICAL Not Given Q6HR [facility] Non-Formulary Medication 1 packet 11/29/21 09:00 Imiquimod [Imiquimod] TOPICAL MoWeFr [facility] Spironolactone 25 mg 11/28/21 09:00 Spironolactone 25 Mg Tab PO DAILY [facility] Sucralfate 1 gm 11/28/21 07:30 Sucralfate 1 Gm Tab PO AC-TID [facility] Intake and Output 11/27/21 11/28/21 11/28/21 22:59 06:59 14:59 Other: # Bowel Movements 1 Weight 56 kg 11/28/21 00:15 11/28/21 00:15
[2021-11-28] MEDS: SPIRONOLACTONE 25 MG TAB PO SCH (10:12)
[2021-11-28] MEDS: CHOLECALCIFEROL 25 MCG (1000 IU) TABLET PO SCH (10:12)
[2021-11-28] MEDS: LOSARTAN 50 MG TAB PO SCH (10:12)
[2021-11-28] MEDS: CLOPIDOGREL 75 MG TAB PO SCH (10:12)
[2021-11-28] MEDS: METOPROLOL SUCCINATE (ER) 50 MG TAB.ER.24H PO SCH (10:12)
[2021-11-28] MEDS: CALCIUM CARBONATE 500 MG CHEWABLE PO SCH (10:12)
[2021-11-28] MEDS: SUCRALFATE 1 GM TAB PO SCH ×3 (10:13→16:42)
[2021-11-28] MEDS: FLUTICASONE 50MCG/SPRAY NASAL 16GM EA NOSTRIL SCH (10:13)
[2021-11-28] MEDS: CYANOCOBALAMIN 500 MCG TAB PO SCH (10:14)
[2021-11-28] MEDS: Acetaminophen-Codeine 300-30mg TAB PO PRN ×2 (10:19→23:08)
--- NOTE | 2021-11-28 11:21 | P.HPIM ---
History of Present Illness This is a pleasant 71 years old female with past medical history of Asthma, Diabetes Mellitus, GERD/Reflux, GI Bleed, Hyperlipidemia, Hypertension, Osteoarthritis , microperforations of diverticulitis-treated with ABX. , Lower GI bleeds, chrohn's dx, IBS, hemorrhoids, PUD, arhtiritis bilateral hands and feet, chronic back pain, macular degeneration bilateral eyes, sinus problems, bronchitis, migraines, bilateral kidney stones, anemia, hypoglycemia, spider veins bilateral legs. Patient states she came to the hospital because of dyspnea getting worse over the last 2-3 days. She's been complaining of from acid-like pain all over across her for chest for 2 weeks. Her irrigation service technician is (!) In [place] and she supposed to get a stent placed earlier in the month however the procedure has to be postponed because she has sinus infection. But the last few days she started getting dyspnea associated decided to come to the hospital. No coughing. No abdominal pain or diarrhea. She has some nausea but no vomiting. No urinary complaints she quit smoking about 16 years ago. She denies alcohol or illicit drugs. Patient also states that she is willing to be transferred to have a forward in [place] where her irrigation service technician is and she is willing to pay for the transportation [id number]. However I told the patient she might not be stable for transport, and I discussed with irrigation service technician team if they going to cl ear her for transport to [facility] after the seizure Vitas looks stable. Patient is saturating 94-98% on 3 L oxygen however she was 88% on admission Labs showing mild leukocytosis of 12.3, hemoglobin 10.5 platelets 237, INR is normal. BMP and liver enzymes are unremarkable. Troponin is elevated 0.9 and 4.2. ProBNP is elevated at 3380. Cardiovascular detected. EKG showing normal sinus rhythm at [address]-T changes and QTC 477 Chest x-ray: CHF in emergency room patient was started on aspirin, IV Lasix and heparin drip Review of Systems CONSTITUTIONAL: No fever, no malaise, no fatigue. HEENT: No recent visual problems or hearing problems. Denied any sore throat. CARDIOVASCULAR: No orthopnea, PND, no palpitations, no syncope. PULMONARY: No shortness of breath, no cough, no hemoptysis. GASTROINTESTINAL: No diarrhea, no nausea, no vomiting, no abdominal pain. Normoactive bowel sounds. NEUROLOGICAL: No headaches, no weakness, no numbness. HEMATOLOGICAL: Denies any bleeding or petechiae. GENITOURINARY: Denies any burning micturition, frequency, or urgency. MUSCULOSKELETAL/RHEUMATOLOGICAL: Denies any joint pain, swelling, or any muscle pain. ENDOCRINE: Denies any polyuria or polydipsia. Past Medical History Past Medical History: Asthma, Diabetes Mellitus, Eye Disorder, GERD/Reflux, GI Bleed, Hyperlipidemia, Hypertension, Osteoarthritis (OA) Additional Past Medical History / Comment(s): microperforations of diverticulitis-treated with ABX. Other HX: Lower GI bleeds, chrohn's dx, IBS, hemorrhoids, PUD, arhtiritis bilateral hands and feet, chronic back pain, macular degeneration bilateral eyes, sinus problems, bronchitis, migraines, bilateral kidney stones, anemia, hypoglycemia, spider veins bilateral legs. History of Any Multi-Drug Resistant Organisms: None Reported Past Surgical History: Adenoidectomy, Bladder Surgery, Hysterectomy, Joint Replacement, Orthopedic Surgery, Tonsillectomy Additional Past Surgical History / Comment(s): Several EGDs with bx and co lonoscopies with bx, gastrectomy for ulcers (40% stomach removed),cystoscopy x2, R/L shoulder rotator cuff arthroscopies, bilateral CATARACT SURGERY with lens implants; Sinus Surgery x 2, Left Breast biopsy x 2-benign, 2nd toe R foot with hardware. Past Anesthesia/Blood Transfusion Reactions: No Reported Reaction, Postoperative Nausea & Vomiting (PONV) Additional Past Anesthesia/Blood Transfusion Reaction / Comment(s): Pt states she did receive blood in 2009 with GI bleed-no reaction. rise in b/p after last injection in back Past Psychological History: No Psychological Hx Reported Smoking Status: Former smoker Past Alcohol Use History: Rare Past Drug Use History: None Reported - Past Family History Father Family Medical History: Cancer Additional Family Medical History / Comment(s): Father had prostate cancer that went to the bone. He at the age of 79yrs. Mother Family Medical History: Cancer, Congestive Heart Failure (CHF) Additional Family Medical History / Comment(s): Mother of lymphoma at the age of 81 yrs. Sister(s) Family Medical History: Cancer Additional Family Medical History / Comment(s): breast cancer x2 sisters Medications and Allergies Home Medications Medication Instructions Recorded Confirmed Type Fluticasone Propionate [Flonase] 2 spray EA NOSTRIL DAILY 08/02/14 11/27/21 History Sucralfate [Carafate] 1 gm PO AC-TID 08/02/14 11/27/21 History Acetaminophen-Codeine 300-30mg 1 tab PO BID PRN 09/23/18 11/27/21 History [Tylenol w/codeine #3] Fexofenadine HCl [Barby Allergy] 180 mg PO DAILY 01/30/19 11/27/21 History Ketotifen 0.025% Ophth Soln 1 drop BOTH EYES BID PRN 01/30/19 11/27/21 History [Zaditor] Acetaminophen Tab [Tylenol Tab] 500 mg PO DAILY PRN 06/09/21 11/27/21 History Albuterol Sulfate [Ventolin HFA] 2 puff INHALATION RT-Q6H PRN 06/09/21 11/27/21 History Bimatoprost [Lumigan .01% Ophth 1 drop BOTH EYES HS 06/09/21 11/27/21 History Soln] L.acidoph,Paracasei, B.lactis 1 cap PO DAILY 08/14/21 11/27/21 History [Probiotic] Multivitamins, Thera [Multivitamin 1 tab PO DAILY 08/14/21 11/27/21 History (formulary)] Adalimumab [Humira Pen 40 mg SQ TH 11/27/21 11/27/21 History Crohn's-Uc-Hs] Aspirin EC [Ecotrin Low Dose] 81 mg PO DAILY 11/27/21 11/27/21 History Azelastine HCl [Astepro] 2 spray NASAL DAILY PRN 11/27/21 11/27/21 History Calcium Carbonate [Calcium] 600 mg PO DAILY 11/27/21 11/27/21 History Cholecalciferol [Vitamin D3 (25 25 mcg PO DAILY 11/27/21 11/27/21 History Mcg = 1000 Iu)] Clopidogrel [Plavix] 75 mg PO DAILY 11/27/21 11/27/21 History Cyanocobalamin (Vitamin B-12) 5,000 mcg PO DAILY 11/27/21 11/27/21 History [Vitamin B12] Imiquimod 1 packet TOPICAL DIRECTED 11/27/21 11/27/21 History Lansoprazole [Prevacid] 30 mg PO DAILY 11/27/21 11/27/21 History Losartan Potassium 50 mg PO DAILY 11/27/21 11/27/21 History Metoprolol Succinate [Toprol XL] 50 mg PO DAILY 11/27/21 11/27/21 History Rosuvastatin Calcium [Crestor] 40 mg PO HS 11/27/21 11/27/21 History Spironolactone [Aldactone] 25 mg PO DAILY 11/27/21 11/27/21 History Allergies Allergy/AdvReac Type Severity Reaction Status Date / Time atorvastatin [From Lipitor] Allergy Swelling Verified 11/27/21 23:02 cefuroxime [From Ceftin] Allergy Rash/Hives Verified 11/27/21 23:02 cefuroxime axetil Allergy SEVERE Verified 11/27/21 23:02 [From Ceftin] HEADACHE ciprofloxacin [From Cipro] Allergy Rash/Hives Verified 11/27/21 23:02 clindamycin Allergy Rash/Hives Verified 11/27/21 23:02 dicloxacillin Allergy Nausea & Verified 11/27/21 23:02 Vomiting & Diarrhea doxazosin mesylate Allergy Rash/Hives Verified 11/27/21 23:02 [From Cardura] doxycycline Allergy Nausea & Verified 11/27/21 23:02 Vomiting,HEADACHE duloxetine [From Cymbalta] Allergy Abdominal Verified 11/27/21 23:02 Pain, ROQUE gatifloxacin [From Tequin] Allergy Abdominal Verified 11/27/21 23:02 Pain,VOMITING hydralazine [Hydralazine] Allergy Rapid Verified 11/27/21 23:02 Heart Rate hydrochlorothiazide Allergy Nausea & Verified 11/27/21 23:02 Vomiting indapamide [From Lozol] Allergy Abdominal Verified 11/27/21 23:02 Pain latex Allergy Rash/Hives Verified 11/27/21 23:02 lisinopril Allergy VERTIGO,HEA Verified 11/27/21 23:02 DACHE nabumetone [From Relafen] Allergy Abdominal Verified 11/27/21 23:02 Pain nitrofurantoin Allergy Rash/Hives Verified 11/27/21 23:02 [From Macrobid] povidone-iodine Allergy Rash/Hives Verified 11/27/21 23:02 [From Betadine] soap [From Betadine] Allergy Rash/Hives Verified 11/27/21 23:02 sulfasalazine Allergy Abdominal Verified 11/27/21 23:02 [From Azulfidine] Pain,VOMITING triamcinolone acetonide Allergy SEVERE Verified 11/27/21 23:02 [From Kenalog] HEADACHE Physical Exam Vitals: Vital Signs Temp Pulse Pulse Resp BP BP Pulse Ox 11/28/21 03:22 93 20 125/94 94 L 11/28/21 01:04 96 20 136/74 94 L 11/28/21 00:57 97.8 F 92 16 142/78 98 11/27/21 23:24 102 H 11/27/21 23:17 102 H 11/27/21 23:00 98 F 101 H 24 147/89 88 L Intake and Output 11/27/21 11/28/21 11/28/21 22:59 06:59 14:59 Other: # Bowel Movements 1 Weight 56 kg GENERAL: The patient is alert and oriented x3, not in any acute distress. Well developed, well nourished. HEENT: Pupils are round and equally reacting to light. EOMI. No scleral icterus. No conjunctival pallor. Normocephalic, atraumatic. No pharyngeal erythema. No thyromegaly. CARDIOVASCULAR: S1 and S2 present. No murmurs, rubs, or gallops. -PULMONARY: Chest is clear to auscultation, no wheezing . Bilateral basal crepitation ABDOMEN: Soft, nontender, nondistended, normoactive bowel sounds. No palpable organomegaly. MUSCULOSKELETAL: No joint swelling or deformity. -EXTREMITIES: No cyanosis, clubbing. Mild bilateral pitting like edema NEUROLOGICAL: Gross neurological examination did not reveal any focal deficits. SKIN: No rashes. no petechiae. Results CBC & Chem 7: 11/28/21 00:15 11/28/21 00:15 Labs: Abnormal Lab Results - Last 24 Hours (Table) 11/28/21 11/28/21 11/28/21 Range/Units 00:15 00:15 00:15 WBC 12.3 H (3.8-10.6) k/uL Hgb 10.5 L (11.4-16.0) gm/dL MCV 76.2 L (80.0-100.0) fL MCH 22.4 L (25.0-35.0) pg MCHC 29.4 L (31.0-37.0) g/dL RDW 16.3 H (11.5-15.5) % Neutrophils # 9.6 H (1.3-7.7) k/uL Carbon Dioxide 20 L (22-30) mmol/L Glucose 190 H (74-99) mg/dL POC Glucose (mg/dL) (75-99) mg/dL Lactate Dehydrogenase 710 H (313-618) U/L Troponin I 0.961 H* (0.000-0.034) ng/mL C-Reactive Protein 1.2 H (<1.0) mg/dL 11/28/21 11/28/21 Range/Units 03:32 06:07 WBC (3.8-10.6) k/uL Hgb (11.4-16.0) gm/dL MCV (80.0-100.0) fL MCH (25.0-35.0) pg MCHC (31.0-37.0) g/dL RDW (11.5-15.5) % Neutrophils # (1.3-7.7) k/uL Carbon Dioxide (22-30) mmol/L Glucose (74-99) mg/dL POC Glucose (mg/dL) 136 H (75-99) mg/dL Lactate Dehydrogenase (313-618) U/L Troponin I 4.280 H* (0.000-0.034) ng/mL C-Reactive Protein (<1.0) mg/dL Thrombosis Risk Factor Assmnt - Choose All That Apply Any of the Below Risk Factors Present?: No Other Risk Factors: Yes Each Risk Factor Represents 2 Points: Age 61-74 years Each Risk Factor Represents 3 Points: Family history of DVT/PE Other congenital or acquired thrombophilia - If yes, enter type in comment: No Thrombosis Risk Factor Assessment Total Risk Factor Score: 5 Thrombosis Risk Factor Assessment Level: High Risk Assessment and Plan Assessment: Elevated troponin suspicious for a non-STEMI Acute systolic CHF Acute hypoxic respiratory failure Diabetes mellitus Hypertension Hyperlipidemia History of GERD History of asthma History of diverticular disease History of Crohn's disease History of irritable bowel syndrome History of migraines Plan: this is a pleasant 71 years old female who presents with chest pain and acute CHF most likely systolic with unknown ejection fraction. Continue with aspirin and Plavix, check echocardiogram Continue with heparin drip Continue with IV Lasix and monitor input and output and creatinine and electrolytes Cardiology consult Hold [facility] for acute CHF Labs and medication were reviewed.. Continue same treatment. Continue with symptomatic treatment. Resume home medication. Monitor lytes and vitals. DVT and GI prophylaxis. Further recommendations depends on the clinical course of the patient DVT prophylaxis: Subcutaneous heparin GI Prophylaxis: Pepcid PT/OT: Pending Prognosis is guarded d/w staff, and looks like cardiology are planning to keep pt now, her cardio logist is on vacation till 12/08, per nurse pt informed and she agrees with that
[2021-11-28 11:44] LABS: Glucose,Whole Blood 193 mg/dL (75-99)
[2021-11-28] MEDS: HEPARIN SODIUM 1,000 UN/ML (10ML VL) IV PRN ×2 (12:26→20:12)
[2021-11-28] MEDS ORDERED: CALCIUM CARBONATE 500 MG CHEWABLE PO PRN (15:56)
[2021-11-28] MEDS: FAMOTIDINE 20 MG/2 ML VIAL IV SCH ×2 (16:42→20:12)
[2021-11-28 16:46] LABS: Glucose,Whole Blood 140 mg/dL (75-99)
[2021-11-28] MEDS: ACETAMINOPHEN TAB 325 MG TAB PO PRN (16:56)
[2021-11-28 19:59] LABS: Glucose,Whole Blood 190 mg/dL (75-99)
[2021-11-29] MEDS: ACETAMINOPHEN TAB 325 MG TAB PO PRN ×2 (02:57→14:51)
[2021-11-29] MEDS: HEPARIN SODIUM 1,000 UN/ML (10ML VL) IV PRN (02:58)
[2021-11-29] MEDS: SUCRALFATE 1 GM TAB PO SCH ×3 (06:16→17:21)
[2021-11-29] MEDS: Acetaminophen-Codeine 300-30mg TAB PO PRN ×2 (06:16→20:28)
[2021-11-29] MEDS: NITROGLYCERIN OINT 1 INCH/GM PACKET TOPICAL SCH ×4 (06:19→23:55)
[2021-11-29] MEDS ORDERED: IMIQUIMOD TOPICAL SCH (09:00)
[2021-11-29] MEDS: HEPARIN SOD,PORK IN 0.45% NACL 25,000 UNIT in 0.45% NACL 1 250ML.BAG IV SCH (09:34)
[2021-11-29] MEDS: LOSARTAN 50 MG TAB PO SCH (09:35)
[2021-11-29] MEDS: CLOPIDOGREL 75 MG TAB PO SCH (09:35)
[2021-11-29] MEDS: ASPIRIN 81 MG PO SCH (09:35)
[2021-11-29] MEDS: CHOLECALCIFEROL 25 MCG (1000 IU) TABLET PO SCH (09:35)
[2021-11-29] MEDS: SPIRONOLACTONE 25 MG TAB PO SCH (09:35)
[2021-11-29] MEDS: FAMOTIDINE 20 MG TAB PO SCH ×2 (09:35→20:28)
[2021-11-29] MEDS: METOPROLOL SUCCINATE (ER) 50 MG TAB.ER.24H PO SCH (09:35)
[2021-11-29] MEDS: CALCIUM CARBONATE 500 MG CHEWABLE PO SCH (09:35)
[2021-11-29] MEDS: CYANOCOBALAMIN 500 MCG TAB PO SCH (09:36)
[2021-11-29] MEDS: FLUTICASONE 50MCG/SPRAY NASAL 16GM EA NOSTRIL SCH (09:36)
[2021-11-29 10:40] LABS: Anisocytosis Slight; Basophils # (A) 0.1 k/uL (0-0.2); Basophils % (A) 1 %; Eosinophils # (A) 0.1 k/uL (0-0.7); Eosinophils % (A) 1 %; HCT 40.4 % (34.0-46.0); HGB 11.7 gm/dL (11.4-16.0); Hypochromasia Marked; Lymphocytes # (A) 3.4 k/uL (1.0-4.8); Lymphocytes % (A) 35 %; MCH 21.9 pg (25.0-35.0); MCV 75.3 fL (80.0-100.0); Mean Platelet Volume 7.4; Microcytosis Slight; Monocytes # (A) 0.6 k/uL (0-1.0); Monocytes % (A) 6 %; Neutrophils # (A) 5.6 k/uL (1.3-7.7); Neutrophils % (A) 56 %; Platelet Count 260 k/uL (150-450); RBC 5.36 m/uL (3.80-5.40); RDW 16.4 % (11.5-15.5); WBC 9.9 k/uL (3.8-10.6)
[2021-11-29 10:59] LABS: African American GFR (CKD) >90 (>60 ml/min/1.73 sqM); Anion Gap 14 mmol/L; Blood Urea Nitrogen 16 mg/dL (7-17); Carbon Dioxide 21 mmol/L (22-30); Chloride 100 mmol/L (98-107); Glucose 134 mg/dL (74-99); Magnesium 1.8 mg/dL (1.6-2.3); Non-African American GFR(CKD) 88 (>60 ml/min/1.73 sqM); Potassium 3.9 mmol/L (3.5-5.1); Sodium 135 mmol/L (137-145)
--- NOTE | 2021-11-29 11:27 | ECHOF ---
Referral Reason:Rule out heart disease MEASUREMENTS -------- HEIGHT: 154.9 cm WEIGHT: 54.9 kg BP: 116/73 IVSd: 1.2 cm (0.6 - 1.1) LVIDd: 5.2 cm (3.9 - 5.3) LVPWd: 0.9 cm (0.6 - 1.1) IVSs: 1.6 cm LVIDs: 3.9 cm LVPWs: 1.3 cm LAESV Index (A-L): 60.19 ml/m MV E Channing: 1.36 m/s MV A Channing: 1.48 m/s MV E/A Ratio: 0.92 RAP: 5.00 mmHg RVSP: 28.84 mmHg FINDINGS -------- Sinus rhythm with extra systolic beats. This was a technically difficult study with suboptimal apical views. The left ventricle is mildly dilated. There is mild concentric left ventricular hypertrophy. Ther e is moderate global hypokinesis of LV . Overall left ventricular systolic function is severely imp aired with, an EF between 25 - 30 %. Olive Hypokinesis. LA is severely dilated >40 ml/m2 5.0mg of Lumason was utilized for enhancement of images There is no evidence of aortic regurgitation. There is no evidence of aortic stenosis. Severe mitral regurgitation is present. Mild tricuspid regurgitation present. There is no evidence of pulmonary hypertension. The right v entricular systolic pressure, as measured by Doppler, is 28.84mmHg. There is no pericardial effusion. CONCLUSIONS -------- 1. This was a technically difficult study with suboptimal apical views. 2. The left ventricle is mildly dilated. 3. There is mild concentric left ventricular hypertrophy. 4. There is moderate global hypokinesis of LV . 5. Overall left ventricular systolic function is severely impaired with, an EF between 25 - 30 %. 6. Olive Hypokinesis. 7. LA is severely dilated >40 ml/m2 8. Severe mitral regurgitation is present. 9. Mild tricuspid regurgitation present. SYSTEMS CHECKOUT MECHANIC: Tianna Flores RDCS
[2021-11-29 11:54] LABS: Glucose,Whole Blood 126 mg/dL (75-99)
[2021-11-29] MEDS: FUROSEMIDE 10 MG/ML 4 ML VIAL IV SCH ×2 (12:23→23:50)
[2021-11-29 14:18] VITALS: BMI 23.0
--- NOTE | 2021-11-29 14:44 | P.PN ---
Subjective Progress Note Date: 11/29/21 HISTORY OF PRESENT ILLNESS: Patient is a very pleasant 71-year-old female with a past medical history of hypertension, hyperlipidemia, diabetes mellitus, GERD, GI bleed secondary to microperforations of diverticulitis and Crohn's disease, macular degeneration and COPD/asthma. She presented to the emergency department with a chief complaint of progressively worsening shortness of breath over the past 2-3 days accompanied by heartburn/indigestion beginning approximately 2 weeks ago. Patient follows outpatient with textile machinery sales representative Dr. Bains at [facility] in [place] and reports recently undergoing stenting of LAD and was supposed to return for stenting of RCA, however procedure was rescheduled secondary to sinus infection. Patient reports secondary to worsening dyspnea accompanied by heartburn/indigestion and painful feeling in chest she thought it would be best to come to the hospital for further evaluation. Upon arrival to the hospital patient was found to be hypoxic 88% room air requiring 3 L O2 via nasal cannula to maintain SpO2 of 94%. An EKG was completed revealing sinus tachycardia at 101 bpm with concerns of lateral ischemia with ST depression in leads 2, 3, V5, and V6 and T-wave inversion in lead in aVL. Chest x-ray revealed mild pulmonary interstitial edema with small pleural effusions. Labs revealed elevation of troponin 0.961, 4.280, and 7.830. Patient was started on heparin infusion per ACS protocol and admitted under our internal medicine services and we were consulted for management of NSTEMI. Patient seen and fully evaluated at bedside this morning. She reports complete resolution of previously reported chest pain/discomfort accompanied by shortness of breath and reflux. Patient reports this morning she did have an episode of mild nausea and pain/discomfort and left shoulder but otherwise states she is feeling better. She further denies experiencing any headache, lightheadedness, dizziness, palpitations, or any other complaints at this time. Repeat EKG completed this morning showing normal sinus rhythm at 83 bpm with resolution of previously reported anterolateral T wave and ST abnormalities replaced by Q waves in leads 1, 2, aVL, and V4 through V6. 11/29/2021 Patient examined this morning at the bedside. Patient denies chest pain or pressure. Patient denies SOB. Patient remains on IV heparin. Vital signs stable. PHYSICAL EXAM: VITAL SIGNS: Reviewed. GENERAL: Well-developed in no acute distress. NECK: Supple. No JVD or thyromegaly LUNGS: Respirations even and unlabored. Lungs essentially clear to auscultation bilaterally. HEART: Regular rate and rhythm. S1 and S2 heard. EXTREMITIES: Normal range of motion. No clubbing or cyanosis. Peripheral pulses intact. No lower extremity edema ASSESSMENT: NSTEMI Previously noted Multivessel CAD Hypertension Hyperlipidemia Diabetes mellitus with A1c 7.1% PLAN: Continue current cardiac medications Hold off on statin has patient has reported allergy Continue IV heparin Patient awaiting bed at [facility] Nurse practitioner note has been reviewed by physician. Signing provider agrees with the documented findings, assessment, and plan of care. Objective - Vital Signs Vital signs: Vital Signs Temp 96.4 F L 11/29/21 12:00 Pulse 71 11/29/21 12:00 Resp 18 11/29/21 12:00 BP 147/68 11/29/21 12:00 Pulse Ox 99 11/29/21 12:00 Intake & Output 11/28/21 11/29/21 11/29/21 18:59 06:59 18:59 Intake Total 48.806 132.510 327.545 Output Total 300 200 500 Balance -251.194 -67.490 -172.455 Weight 55.3 kg 55.3 kg Intake: Intake, IV Titration 48.806 132.510 87.545 Amount Heparin Sod,Pork in 0.45% 48.806 132.510 87.545 NaCl 25,000 unit In 0.45 % NaCl 1 250ml.bag @ 12 UNITS/KG/HR 6.858 mls/hr IV .Q24H [facility] Rx#: [id number] Oral 240 Output: Urine 300 200 500 - Labs CBC & Chem 7: 11/29/21 09:52 11/29/21 09:52 Labs: Abnormal Lab Results - Last 24 Hours (Table) 11/28/21 11/28/21 11/28/21 Range/Units 16:45 18:45 19:57 MCV (80.0-100.0) fL MCH (25.0-35.0) pg MCHC (31.0-37.0) g/dL RDW (11.5-15.5) % APTT 39.4 H (22.0-30.0) sec Sodium (137-145) mmol/L Carbon Dioxide (22-30) mmol/L Glucose (74-99) mg/dL POC Glucose (mg/dL) 140 H 190 H (75-99) mg/dL 11/29/21 11/29/21 11/29/21 Range/Units 09:52 09:52 09:57 MCV 75.3 L (80.0-100.0) fL MCH 21.9 L (25.0-35.0) pg MCHC 29.0 L (31.0-37.0) g/dL RDW 16.4 H (11.5-15.5) % APTT 72.2 H (22.0-30.0) sec Sodium 135 L (137-145) mmol/L Carbon Dioxide 21 L (22-30) mmol/L Glucose 134 H (74-99) mg/dL POC Glucose (mg/dL) (75-99) mg/dL 11/29/21 Range/Units 11:41 MCV (80.0-100.0) fL MCH (25.0-35.0) pg MCHC (31.0-37.0) g/dL RDW (11.5-15.5) % APTT (22.0-30.0) sec Sodium (137-145) mmol/L Carbon Dioxide (22-30) mmol/L Glucose (74-99) mg/dL POC Glucose (mg/dL) 126 H (75-99) mg/dL
[2021-11-29 16:21] LABS: Glucose,Whole Blood 103 mg/dL (75-99)
[2021-11-29 20:05] LABS: Glucose,Whole Blood 138 mg/dL (75-99)
[2021-11-30 00:21] VITALS: RESP 16
[2021-11-30] MEDS: ACETAMINOPHEN TAB 325 MG TAB PO PRN (06:28)
[2021-11-30] MEDS: SUCRALFATE 1 GM TAB PO SCH (06:28)
[2021-11-30 06:29] LABS: Glucose,Whole Blood 136 mg/dL (75-99)
[2021-11-30] MEDS: NITROGLYCERIN OINT 1 INCH/GM PACKET TOPICAL SCH (06:53)
[2021-11-30] MEDS: FLUTICASONE 50MCG/SPRAY NASAL 16GM EA NOSTRIL SCH (08:29)
[2021-11-30] MEDS: CALCIUM CARBONATE 500 MG CHEWABLE PO SCH (08:30)
[2021-11-30] MEDS: CYANOCOBALAMIN 500 MCG TAB PO SCH (08:30)
[2021-11-30] MEDS: METOPROLOL SUCCINATE (ER) 50 MG TAB.ER.24H PO SCH (08:30)
[2021-11-30] MEDS: CHOLECALCIFEROL 25 MCG (1000 IU) TABLET PO SCH (08:31)
[2021-11-30] MEDS: LOSARTAN 50 MG TAB PO SCH (08:31)
[2021-11-30] MEDS: CLOPIDOGREL 75 MG TAB PO SCH (08:31)
[2021-11-30] MEDS: FAMOTIDINE 20 MG TAB PO SCH (08:31)
[2021-11-30] MEDS: SPIRONOLACTONE 25 MG TAB PO SCH (08:31)
[2021-11-30] MEDS: Acetaminophen-Codeine 300-30mg TAB PO PRN (08:31)
[2021-11-30] MEDS: ASPIRIN 81 MG PO SCH (08:32)
[2021-11-30] MEDS: HEPARIN SOD,PORK IN 0.45% NACL 25,000 UNIT in 0.45% NACL 1 250ML.BAG IV SCH (08:33)
[2021-11-30 08:55] VITALS: BP 125/80; PULSE 81; TEMP 97.8
[2021-11-30] MEDS: HEPARIN SODIUM 1,000 UN/ML (10ML VL) IV PRN (09:04)
--- NOTE | 2021-11-30 10:43 | P.PN ---
Subjective Progress Note Date: 11/30/21 HISTORY OF PRESENT ILLNESS: Patient is a very pleasant 71-year-old female with a past medical history of hypertension, hyperlipidemia, diabetes mellitus, GERD, GI bleed secondary to microperforations of diverticulitis and Crohn's disease, macular degeneration and COPD/asthma. She presented to the emergency department with a chief complaint of progressively worsening shortness of breath over the past 2-3 days accompanied by heartburn/indigestion beginning approximately 2 weeks ago. Patient follows outpatient with senior materials planner Dr. Bains at [facility] in [place] and reports recently undergoing stenting of LAD and was supposed to return for stenting of RCA, however procedure was rescheduled secondary to sinus infection. Patient reports secondary to worsening dyspnea accompanied by heartburn/indigestion and painful feeling in chest she thought it would be best to come to the hospital for further evaluation. Upon arrival to the hospital patient was found to be hypoxic 88% room air requiring 3 L O2 via nasal cannula to maintain SpO2 of 94%. An EKG was completed revealing sinus tachycardia at 101 bpm with concerns of lateral ischemia with ST depression in leads 2, 3, V5, and V6 and T-wave inversion in lead in aVL. Chest x-ray revealed mild pulmonary interstitial edema with small pleural effusions. Labs revealed elevation of troponin 0.961, 4.280, and 7.830. Patient was started on heparin infusion per ACS protocol and admitted under our internal medicine services and we were consulted for management of NSTEMI. Patient seen and fully evaluated at bedside this morning. She reports complete resolution of previously reported chest pain/discomfort accompanied by shortness of breath and reflux. Patient reports this morning she did have an episode of mild nausea and pain/discomfort and left shoulder but otherwise states she is feeling better. She further denies experiencing any headache, lightheadedness, dizziness, palpitations, or any other complaints at this time. Repeat EKG completed this morning showing normal sinus rhythm at 83 bpm with resolution of previously reported anterolateral T wave and ST abnormalities replaced by Q waves in leads 1, 2, aVL, and V4 through V6. 11/29/2021 Patient examined this morning at the bedside. Patient denies chest pain or pressure. Patient denies SOB. Patient remains on IV heparin. Vital signs stable. 11/30/2021 Patient examined this morning at the bedside. She denies chest pain or pressure. Denies SOB. She has been up ambulating to the bathroom without difficulty. Vital signs stable. She remains on IV heparin. PHYSICAL EXAM: VITAL SIGNS: Reviewed. GENERAL: Well-developed in no acute distress. NECK: Supple. No JVD or thyromegaly LUNGS: Respirations even and unlabored. Lungs essentially clear to auscultation bilaterally. HEART: Regular rate and rhythm. S1 and S2 heard. EXTREMITIES: Normal range of motion. No clubbing or cyanosis. Peripheral pulses intact. No lower extremity edema ASSESSMENT: NSTEMI Previously noted Multivessel CAD Hypertension Hyperlipidemia Diabetes mellitus with A1c 7.1% PLAN: Continue current cardiac medications Hold off on statin has patient has reported allergy Continue IV heparin Patient is to be transferred to [facility] this morning Nurse practitioner note has been reviewed by physician. Signing provider agrees with the documented findings, assessment, and plan of care. Objective - Vital Signs Vital signs: Vital Signs Temp 97.8 F 11/30/21 08:52 Pulse 81 11/30/21 08:52 Resp 16 11/30/21 08:52 BP 125/80 11/30/21 08:52 Pulse Ox 98 11/30/21 08:52 Intake & Output 11/29/21 11/30/21 11/30/21 18:59 06:59 18:59 Intake Total 940.418 152.091 Output Total 500 550 Balance 440.418 -550 152.091 Weight 55.3 kg 54.5 kg Intake: Intake, IV Titration 160.418 152.091 Amount Heparin Sod,Pork in 0.45% 160.418 152.091 NaCl 25,000 unit In 0.45 % NaCl 1 250ml.bag @ 12 UNITS/KG/HR 6.858 mls/hr IV .Q24H [facility] Rx#: [id number] Oral 780 Output: Urine 500 550 - Labs CBC & Chem 7: 11/29/21 09:52 11/29/21 09:52 Labs: Abnormal Lab Results - Last 24 Hours (Table) 11/29/21 11/29/21 11/29/21 Range/Units 09:52 09:52 09:57 MCV 75.3 L (80.0-100.0) fL MCH 21.9 L (25.0-35.0) pg MCHC 29.0 L (31.0-37.0) g/dL RDW 16.4 H (11.5-15.5) % APTT 72.2 H (22.0-30.0) sec Sodium 135 L (137-145) mmol/L Carbon Dioxide 21 L (22-30) mmol/L Glucose 134 H (74-99) mg/dL POC Glucose (mg/dL) (75-99) mg/dL 11/29/21 11/29/21 11/29/21 Range/Units 11:41 16:19 16:41 MCV (80.0-100.0) fL MCH (25.0-35.0) pg MCHC (31.0-37.0) g/dL RDW (11.5-15.5) % APTT 49.1 H (22.0-30.0) sec Sodium (137-145) mmol/L Carbon Dioxide (22-30) mmol/L Glucose (74-99) mg/dL POC Glucose (mg/dL) 126 H 103 H (75-99) mg/dL 11/29/21 11/30/21 11/30/21 Range/Units 20:03 06:26 07:19 MCV (80.0-100.0) fL MCH (25.0-35.0) pg MCHC (31.0-37.0) g/dL RDW (11.5-15.5) % APTT 37.7 H (22.0-30.0) sec Sodium (137-145) mmol/L Carbon Dioxide (22-30) mmol/L Glucose (74-99) mg/dL POC Glucose (mg/dL) 138 H 136 H (75-99) mg/dL
--- NOTE | 2021-11-30 16:50 | P.PN ---
Progress Note - Text Progress Note Date: 11/29/21 This is a pleasant 71 years old female with past medical history of Asthma, Diabetes Mellitus, GERD/Reflux, GI Bleed, Hyperlipidemia, Hypertension, Osteoarthritis , microperforations of diverticulitis-treated with ABX. , Lower GI bleeds, chrohn's dx, IBS, hemorrhoids, PUD, arhtiritis bilateral hands and feet, chronic back pain, macular degeneration bilateral eyes, sinus problems, bronchitis, migraines, bilateral kidney stones, anemia, hypoglycemia, spider veins bilateral legs. Patient states she came to the hospital because of dyspnea getting worse over the last 2-3 days. She's been complaining of from acid-like pain all over across her for chest for 2 weeks. Her turntable engineer is (!) In [place] and she supposed to get a stent placed earlier in the month however the procedure has to be postponed because she has sinus infection. But the last few days she started getting dyspnea associated decided to come to the hospital. No coughing. No abdominal pain or diarrhea. She has some nausea but no vomiting. No urinary complaints she quit smoking about 16 years ago. She denies alcohol or illicit drugs. Patient also states that she is willing to be transferred to have a forward in [place] where her turntable engineer is and she is willing to pay for the transportation [id number]. However I told the patient she might not be stable for transport, and I discussed with turntable engineer team if they going to clear her for transport to [facility] after the seizure Vitas looks stable. Patient is saturating 94-98% on 3 L oxygen however she was 88% on admission Labs showing mild leukocytosis of 12.3, hemoglobin 10.5 platelets 237, INR is normal. BMP and liver enzymes are unremarkable. Troponin is elevated 0.9 and 4.2. ProBNP is elevated at 3380. Cardiovascular detected. EKG showing normal sinus rhythm at [address]-T changes and QTC 477 Chest x-ray: CHF in emergency room patient was started on aspirin, IV Lasix and heparin drip November 29: On IV heparin. No chest pain. Breathing stable. I spoke to the accepting physician hospitalist internal medicine at [facility]. Patient accepted. Discussed with patient. Also discussed with Dr. Yeager. Given the complexity from previous intervention patient be best served at the outside facility. Review of systems: Was done for constitutional, cardiovascular, GI, pulmonary. relevant finding as above Active Medications Acetaminophen (Acetaminophen Tab 325 Mg Tab) 325 mg PO Q6HR PRN PRN Reason: Fever and/ or Pain Last Admin: 11/29/21 14:51 Dose: 325 mg Documented by: Acetaminophen/Codeine Phosphate (Acetaminophen-Codeine 300-30mg Tab) 1 each PO BID PRN PRN Reason: pain Last Admin: 11/29/21 20:28 Dose: 1 each Documented by: Albuterol Sulfate (Albuterol Nebulized 2.5 Mg/3 Ml) 2.5 mg INHALATION RT-Q6H PRN PRN Reason: Shortness Of Breath Aspirin (Aspirin 81 Mg) 81 mg PO DAILY [facility] Last Admin: 11/29/21 09:35 Dose: 81 mg Documented by: Azelastine HCl (Azelastine 137mcg/Bridgeton) 2 spray NASAL DAILY PRN PRN Reason: Allergy Symptoms Calcium Carbonate/Glycine (Calcium Carbonate 500 Mg Chewable) 500 mg PO DAILY [facility] Last Admin: 11/29/21 09:35 Dose: 500 mg Documented by: Calcium Carbonate/Glycine (Calcium Carbonate 500 Mg Chewable) 500 mg PO QID PRN PRN Reason: Heartburn Last Admin: 11/28/21 16:42 Dose: 500 mg Documented by: Cholecalciferol (Cholecalciferol 25 Mcg (1000 Iu) Tablet) 25 mcg PO DAILY [facility] Last Admin: 11/29/21 09:35 Dose: 25 mcg Documented by: Clopidogrel Bisulfate (Clopidogrel 75 Mg Tab) 75 mg PO DAILY [facility] Last Admin: 11/29/21 09:35 Dose: 75 mg Documented by: Cyanocobalamin (Cyanocobalamin 500 Mcg Tab) 5,000 mcg PO DAILY [facility] Last Admin: 11/29/21 09:36 Dose: 5,000 mcg Documented by: Famotidine (Famotidine 20 Mg Tab) 20 mg PO BID [facility] Last Admin: 11/29/21 20:28 Dose: 20 mg Documented by: Fluticasone Propionate (Fluticasone 50mcg/Bridgeton Nasal 16gm) 2 spray EA NOSTRIL DAILY [facility] Last Admin: 11/29/21 09:36 Dose: 2 spray Documented by: Furosemide (Furosemide 10 Mg/Ml 4 Ml Vial) 40 mg IV Q12H [facility] Last Admin: 11/29/21 12:23 Dose: 40 mg Documented by: Heparin Sodium (Porcine) (Heparin Sodium 1,000 Un/Ml (10ml Vl)) 0 unit IV PER PROTOCOL PRN; Protocol PRN Reason: Low PTT Last Admin: 11/29/21 02:58 Dose: 2,800 unit Documented by: Heparin Sodium/Sodium Chloride (25,000 unit/ Sodium Chloride) 250 mls @ 6.858 mls/hr IV .Q24H CATHY; Protocol Last Titration: 11/29/21 18:18 Dose: 18 units/kg/hr, 10.288 mls/hr Documented by: Losartan Potassium (Losartan 50 Mg Tab) 50 mg PO DAILY [facility] Last Admin: 11/29/21 09:35 Dose: 50 mg Documented by: Metoprolol Succinate (Metoprolol Succinate (Er) 50 Mg Tab.Er.24h) 50 mg PO DAILY [facility] Last Admin: 11/29/21 09:35 Dose: 50 mg Documented by: Nitroglycerin (Nitroglycerin Oint 1 Inch/Gm Packet) 1 inch TOPICAL Q6HR [facility] Last Admin: 11/29/21 17:36 Dose: Not Given Documented by: Non-Formulary Medication (Imiquimod [Imiquimod]) 1 packet TOPICAL MoWeFr [facility] Last Admin: 11/29/21 09:37 Dose: Not Given Documented by: Spironolactone (Spironolactone 25 Mg Tab) 25 mg PO DAILY [facility] Last Admin: 11/29/21 09:35 Dose: 25 mg Documented by: Sucralfate (Sucralfate 1 Gm Tab) 1 gm PO AC-TID [facility] Last Admin: 11/29/21 17:21 Dose: 1 gm Documented by: Past Medical History Past Medical History: Asthma, Diabetes Mellitus, Eye Disorder, GERD/Reflux, GI Bleed, Hyperlipidemia, Hypertension, Osteoarthritis (OA) Additional Past Medical History / Comment(s): microperforations of diverticulitis-treated with ABX. Other HX: Lower GI bleeds, chrohn's dx, IBS, hemorrhoids, PUD, arhtiritis bilateral hands and feet, chronic back pain, macular degeneration bilateral eyes, sinus problems, bronchitis, migraines, bilateral kidney stones, anemia, hypoglycemia, spider veins bilateral legs. History of Any Multi-Drug Resistant Organisms: None Reported Past Surgical History: Adenoidectomy, Bladder Surgery, Hysterectomy, Joint Replacement, Orthopedic Surgery, Tonsillectomy Additional Past Surgical History / Comment(s): Several EGDs with bx and colonoscopies with bx, gastrectomy for ulcers (40% stomach removed),cystoscopy x2, R/L shoulder rotator cuff arthroscopies, bilateral CATARACT SURGERY with lens implants; Sinus Surgery x 2, Left Breast biopsy x 2-benign, 2nd toe R foot with hardware. Past Anesthesia/Blood Transfusion Reactions: No Reported Reaction, Postoperative Nausea & Vomiting (PONV) Additional Past Anesthesia/Blood Transfusion Reaction / Comment(s): Pt states she did receive blood in 2009 with GI bleed-no reaction. rise in b/p after last injection in back Past Psychological History: No Psychological Hx Reported Smoking Status: Former smoker Past Alcohol Use History: Rare Past Drug Use History: None Reported - Past Family History Father Family Medical History: Cancer Additional Family Medical History / Comment(s): Father had prostate cancer that went to the bone. He at the age of 79yrs. Mother Family Medical History: Cancer, Congestive Heart Failure (CHF) Additional Family Medical History / Comment(s): Mother of lymphoma at the age of 81 yrs. Sister(s) Family Medical History: Cancer Additional Family Medical History / Comment(s): breast cancer x2 sisters On examination: VITAL SIGNS: [96.4, 71, 18, 147/68, 99% room air] GENERAL APPEARANCE: Sitting up, awake, comfortable HEENT: Normal external appearance of nose and ear. Oral cavity normal EYES: Pupils equal. Conjunctiva normal. NECK: JVD not raised. Mass not palpable. RESPIRATORY: Respiratory effort normal. Lungs clear to auscultation. CARDIOVASCULAR: First and second sounds normal. No edema. ABDOMEN: Soft. Liver and spleen not palpable. No tenderness. No mass palpable. PSYCHIATRY: Alert and oriented x3. Mood and affect normal. INVESTIGATIONS, reviewed in the clinical context: White count 9.9 hemoglobin 11.7 platelets 260 potassium 3.9 creatinine 0.7 2-D echocardiogram: Moderate global hypokinesis. EF 25-30%. Severe mitral regurgitation. EKG tracing: Flipped T waves in inferior leads. Q waves in inferior leads. ST depression in lateral leads. Assessment and plan: Acute non-STEMI Acute systolic CHF, with EF of 25-30%, ischemic Acute hypoxic respiratory failure, from pulmonary edema IV heparin monitoring Essential Hypertension Hyperlipidemia GERD Intermittent asthma Chronic diverticular disease Chronic Crohn's disease irritable bowel syndrome -Severe mitral regurgitation Plan: Continue IV heparin. Other medications to continue. Including Nitropaste, Ventolin inhaler when necessary, Plavix, losartan, Prevacid, Toprol-XL, losartan, Crestor, Aldactone, patient was accepted at [facility] and I spoke to the accepting physicians. Spoke to Dr. Yeager. assistant finance manager. Total time spent today about 45 minutes with over 30 minutes of discussion. Pending transfer
--- NOTE | 2021-11-30 16:53 | P.DS ---
Providers Date of admission: 11/28/21 00:34 Expected date of discharge: 11/30/21 Attending physician: Keny Chamberlain Consults: 11/28/21 00:33 Consult Physician Routine Consulting Provider: Cody Yeager Consult Reason/Comments: chf Do you want consulting provider notified?: Yes Primary care physician: Cecille Mckenna [place] [facility] Course: This is a pleasant 71 years old female with past medical history of Asthma, Diabetes Mellitus, GERD/Reflux, GI Bleed, Hyperlipidemia, Hypertension, Osteoarthritis , microperforations of diverticulitis-treated with ABX. , Lower GI bleeds, chrohn's dx, IBS, hemorrhoids, PUD, arhtiritis bilateral hands and feet, chronic back pain, macular degeneration bilateral eyes, sinus problems, bronchitis, migraines, bilateral kidney stones, anemia, hypoglycemia, spider veins bilateral legs. Patient states she came to the hospital because of dyspnea getting worse over the last 2-3 days. She's been complaining of from acid-like pain all over acro ss her for chest for 2 weeks. Her churn operator is (!) In [place] and she supposed to get a stent placed earlier in the month however the procedure has to be postponed because she has sinus infection. But the last few days she started getting dyspnea associated decided to come to the hospital. No coughing. No abdominal pain or diarrhea. She has some nausea but no vomiting. No urinary complaints she quit smoking about 16 years ago. She denies alcohol or illicit drugs. Patient also states that she is willing to be transferred to have a forward in [place] where her churn operator is and she is willing to pay for the transportation [id number]. However I told the patient she might not be stable for transport, and I discussed with churn operator team if they going to clear her for transport to [facility] after the seizure Vitas looks stable. Patient is saturating 94-98% on 3 L oxygen however she was 88% on admission Labs showing mild leukocytosis of 12.3, hemoglobin 10.5 platelets 237, INR is normal. BMP and liver enzymes are unremarkable. Troponin is elevated 0.9 and 4.2. ProBNP is elevated at 3380. Cardiovascular detected. EKG showing normal sinus rhythm at [address]-T changes and QTC 477 Chest x-ray: CHF in emergency room patient was started on aspirin, IV Lasix and heparin drip November 29: On IV heparin. No chest pain. Breathing stable. I spoke to the accepting physician hospitalist internal medicine at [facility]. Patient accepted. Discussed with patient. Also discussed with Dr. Yeager. Given the complexity from previous intervention patient be best served at the outside facility. November 30: Stable. Being transferred to [facility]. Past Medical History Past Medical History: Asthma, Diabetes Mellitus, Eye Disorder, GERD/Reflux, GI Bleed, Hyperlipidemia, Hypertension, Osteoarthritis (OA) Additional Past Medical History / Comment(s): microperforations of diverticulitis-treated with ABX. Other HX: Lower GI bleeds, chrohn's dx, IBS, hemorrhoids, PUD, arhtiritis bilateral hands and feet, chronic back pain, macular degeneration bilateral eyes, sinus problems, bronchitis, migraines, bilateral kidney stones, anemia, hypoglycemia, spider veins bilateral legs. History of Any Multi-Drug Resistant Organisms: None Reported Past Surgical History: Adenoidectomy, Bladder Surgery, Hysterectomy, Joint Replacement, Orthopedic Surgery, Tonsillectomy Additional Past Surgical History / Comment(s): Several EGDs with bx and colonoscopies with bx, gastrectomy for ulcers (40% stomach removed),cystoscopy x2, R/L shoulder rotator cuff arthroscopies, bilateral CATARACT SURGERY with lens implants; Sinus Surgery x 2, Left Breast biopsy x 2-benign, 2nd toe R foot with hardware. Past Anesthesia/Blood Transfusion Reactions: No Reported Reaction, Postoperative Nausea & Vomiting (PONV) Additional Past Anesthesia/Blood Transfusion Reaction / Comment(s): Pt states she did receive blood in 2009 with GI bleed-no reaction. rise in b/p after last injection in back Past Psychological History: No Psychological Hx Reported Smoking Status: Former smoker Past Alcohol Use History: Rare Past Drug Use History: None Reported - Past Family History Father Family Medical History: Cancer Additional Family Medical History / Comment(s): Father had prostate cancer that went to the bone. He at the age of 79yrs. Mother Family Medical History: Cancer, Congestive Heart Failure (CHF) Additional Family Medical History / Comment(s): Mother of lymphoma at the age of 81 yrs. Sister(s) Family Medical History: Cancer Additional Family Medical History / Comment(s): breast cancer x2 sisters On examination: [November 29] VITAL SIGNS: [96.4, 71, 18, 147/68, 99% room air] GENERAL APPEARANCE: Sitting up, awake, comfortable HEENT: Normal external appearance of nose and ear. Oral cavity normal EYES: Pupils equal. Conjunctiva normal. NECK: JVD not raised. Mass not palpable. RESPIRATORY: Respiratory effort normal. Lungs clear to auscultation. CARDIOVASCULAR: First and second sounds normal. No edema. ABDOMEN: Soft. Liver and spleen not palpable. No tenderness. No mass palpable. PSYCHIATRY: Alert and oriented x3. Mood and affect normal. INVESTIGATIONS, reviewed in the clinical context: White count 9.9 hemoglobin 11.7 platelets 260 potassium 3.9 creatinine 0.7 2-D echocardiogram: Moderate global hypokinesis. EF 25-30%. Severe mitral regurgitation. EKG tracing: Flipped T waves in inferior leads. Q waves in inferior leads. ST depression in lateral leads. Assessment and plan: Acute non-STEMI Acute systolic CHF, with EF of 25-30%, ischemic Acute hypoxic respiratory failure, from pulmonary edema IV heparin monitoring Essential Hypertension Hyperlipidemia GERD Intermittent asthma Chronic diverticular disease Chronic Crohn's disease irritable bowel syndrome -Severe mitral regurgitation Disposition: Transferred to [facility] for higher level of care for coronary intervention Plan - Discharge Summary Discharge Rx Participant: No New Discharge Prescriptions: New Famotidine [Pepcid] 20 mg PO BID tab Nitroglycerin Oint [Nitro-Bid Oint] 1 inch TOPICAL Q6HR packet Continue Fluticasone Propionate [Flonase] 2 spray EA NOSTRIL DAILY Acetaminophen-Codeine 300-30mg [Tylenol w/codeine #3] 1 tab PO BID PRN PRN Reason: Pain Ketotifen 0.025% Ophth Soln [Zaditor] 1 drop BOTH EYES BID PRN PRN Reason: Allergy Symptoms Acetaminophen Tab [Tylenol] 500 mg PO DAILY PRN PRN Reason: Pain Adalimumab [Humira Pen Crohn's-Uc-Hs] 40 mg SQ TH Aspirin EC [Ecotrin Low Dose] 81 mg PO DAILY Azelastine HCl [Astepro] 2 spray NASAL DAILY PRN PRN Reason: Allergy Symptoms Cholecalciferol [Vitamin D3 (25 Mcg = 1000 Iu)] 25 mcg PO DAILY Lansoprazole [Prevacid] 30 mg PO DAILY Losartan Potassium 50 mg PO DAILY Rosuvastatin Calcium [Crestor] 40 mg PO HS Spironolactone [Aldactone] 25 mg PO DAILY Bimatoprost [Lumigan .01% Ophth Soln] 1 drop BOTH EYES HS Albuterol Sulfate [Ventolin HFA] 2 puff INHALATION RT-Q6H PRN PRN Reason: Shortness Of Breath L.acidoph,Paracasei, B.lactis [Probiotic] 1 cap PO DAILY Multivitamins, Thera [Multivitamin (formulary)] 1 tab PO DAILY Calcium Carbonate [Calcium] 600 mg PO DAILY Clopidogrel [Plavix] 75 mg PO DAILY Cyanocobalamin (Vitamin B-12) [Vitamin B12] 5,000 mcg PO DAILY Metoprolol Succinate [Toprol XL] 50 mg PO DAILY Imiquimod 1 packet TOPICAL DIRECTED Discontinued Sucralfate [Carafate] 1 gm PO AC-TID No Action Fexofenadine HCl [Barby Allergy] 180 mg PO DAILY Discharge Medication List Fluticasone Propionate [Flonase] 2 spray EA NOSTRIL DAILY 08/02/14 [History] Acetaminophen-Codeine 300-30mg [Tylenol w/codeine #3] 1 tab PO BID PRN 09/23/18 [History] Fexofenadine HCl [Barby Allergy] 180 mg PO DAILY 01/30/19 [History] Ketotifen 0.025% Ophth Soln [Zaditor] 1 drop BOTH EYES BID PRN 01/30/19 [History] Acetaminophen Tab [Tylenol] 500 mg PO DAILY PRN 06/09/21 [History] Albuterol Sulfate [Ventolin HFA] 2 puff INHALATION RT-Q6H PRN 06/09/21 [History] Bimatoprost [Lumigan .01% Ophth Soln] 1 drop BOTH EYES HS 06/09/21 [History] L.acidoph,Paracasei, B.lactis [Probiotic] 1 cap PO DAILY 08/14/21 [History] Multivitamins, Thera [Multivitamin (formulary)] 1 tab PO DAILY 08/14/21 [History] Adalimumab [Humira Pen Crohn's-Uc-Hs] 40 mg SQ TH 11/27/21 [History] Aspirin EC [Ecotrin Low Dose] 81 mg PO DAILY 11/27/21 [History] Azelastine HCl [Astepro] 2 spray NASAL DAILY PRN 11/27/21 [History] Calcium Carbonate [Calcium] 600 mg PO DAILY 11/27/21 [History] Cholecalciferol [Vitamin D3 (25 Mcg = 1000 Iu)] 25 mcg PO DAILY 11/27/21 [History] Clopidogrel [Plavix] 75 mg PO DAILY 11/27/21 [History] Cyanocobalamin (Vitamin B-12) [Vitamin B12] 5,000 mcg PO DAILY 11/27/21 [History] Imiquimod 1 packet TOPICAL DIRECTED 11/27/21 [History] Lansoprazole [Prevacid] 30 mg PO DAILY 11/27/21 [History] Losartan Potassium 50 mg PO DAILY 11/27/21 [History] Metoprolol Succinate [Toprol XL] 50 mg PO DAILY 11/27/21 [History] Rosuvastatin Calcium [Crestor] 40 mg PO HS 11/27/21 [History] Spironolactone [Aldactone] 25 mg PO DAILY 11/27/21 [History] Famotidine [Pepcid] 20 mg PO BID tab 11/29/21 [Rx] Nitroglycerin Oint [Nitro-Bid Oint] 1 inch TOPICAL Q6HR packet 11/29/21 [Rx] Follow up Appointment(s)/Referral(s): Cecille Mckenna MD [Primary Care Provider] - 1-2 days Activity/Diet/Wound Care/Special Instructions: accepted at [facility] Discharge Disposition: TRANSFER TO SHORT TERM HOSP
== END 2021-11-30 10:10 | disposition short-term general hospital (02) | DRG 280 ==
LOC: EC 22:45 → 4SSUR 11-28 00:34 → 3SCARD 11-28 01:38
PROVIDERS: ADMIT Hospitalist; ATTEND Hospitalist
DX: I21.4 Non-ST elevation (NSTEMI) myocardial infarction (principal); I50.21 Acute systolic (congestive) heart failure; J96.01 Acute respiratory failure with hypoxia; K50.90 Crohn's disease, unspecified, without complications; I11.0 Hypertensive heart disease with heart failure; Z20.822 Contact with and (suspected) exposure to COVID-19; E11.649 Type 2 diabetes mellitus with hypoglycemia without coma; I25.5 Ischemic cardiomyopathy; J45.20 Mild intermittent asthma, uncomplicated; I25.10 Atherosclerotic heart disease of native coronary artery without angina pectoris; F41.9 Anxiety disorder, unspecified; K57.90 Diverticulosis of intestine, part unspecified, without perforation or abscess without bleeding; R56.9 Unspecified convulsions; J44.9 Chronic obstructive pulmonary disease, unspecified; K21.9 Gastro-esophageal reflux disease without esophagitis; K58.9 Irritable bowel syndrome, unspecified; J40 Bronchitis, not specified as acute or chronic; I08.1 Rheumatic disorders of both mitral and tricuspid valves; D64.9 Anemia, unspecified; K64.9 Unspecified hemorrhoids; E78.5 Hyperlipidemia, unspecified; H35.30 Unspecified macular degeneration; G89.29 Other chronic pain; G43.909 Migraine, unspecified, not intractable, without status migrainosus; M19.042 Primary osteoarthritis, left hand; M19.041 Primary osteoarthritis, right hand; M19.072 Primary osteoarthritis, left ankle and foot; M19.071 Primary osteoarthritis, right ankle and foot; Z90.710 Acquired absence of both cervix and uterus; Z90.3 Acquired absence of stomach [part of]; Z98.42 Cataract extraction status, left eye; Z98.41 Cataract extraction status, right eye; Z96.1 Presence of intraocular lens; Z88.1 Allergy status to other antibiotic agents; Z91.040 Latex allergy status; Z88.8 Allergy status to other drugs, medicaments and biological substances; Z91.048 Other nonmedicinal substance allergy status; Z79.899 Other long term (current) drug therapy; Z79.82 Long term (current) use of aspirin; Z79.02 Long term (current) use of antithrombotics/antiplatelets; Z79.811 Long term (current) use of aromatase inhibitors; Z87.11 Personal history of peptic ulcer disease; Z87.442 Personal history of urinary calculi; Z87.891 Personal history of nicotine dependence; Z80.42 Family history of malignant neoplasm of prostate; Z80.7 Family history of other malignant neoplasms of lymphoid, hematopoietic and related tissues; Z82.49 Family history of ischemic heart disease and other diseases of the circulatory system; Z80.3 Family history of malignant neoplasm of breast; Z87.19 Personal history of other diseases of the digestive system; Z88.2 Allergy status to sulfonamides
CPT/HCPCS: 71045; 80048; 80053; 83615; 83735; 83880; 84100; 84484; 85025; 85610; 85730; 86140; 87635; 93005; 93308; 94640; 96374; 96375; 99285

== ENCOUNTER → 2022-04-22 | Outpatient (CLI) | payer MEDICARE, OTHER ==
--- NOTE | 2022-04-25 13:10 | MM ---
Reason for Exam: Screening (asymptomatic). Last screening mammogram was performed 12 month(s) ago. Patient History: Menarche at age 15. First Full-Term at age 25. Left ovary removed at age 34. Right ovary removed at age 34. Hysterectomy at age 34. Postmenopausal. Estrogen for 10 years from age 34 until age 44. Core Biopsy on the Left side. 02/12/2018, Benign Core Biopsy on the right side. 02/12/2018, Benign Core Biopsy on the right side. 10/06/2005, Benign Core Biopsy on the left side. 08/21/2001, Benign Stereotactic Core Biopsy on the left side. Maternal cousin had breast cancer, age 18. Maternal aunt had breast cancer, age 60. Maternal aunt had breast cancer. Sister had breast cancer, age 62. Sister had breast cancer, age 54. Risk Values: Hannah 5 year model risk: 9.4%. NCI Lifetime model risk: 25.1%. Prior Study Comparison: 02/07/2019 Bilateral Diagnostic Mammogram, LOCATED WITHIN [facility]. 04/10/2020 Bilateral Diagnostic Mammogram, LOCATED WITHIN [facility]. 04/21/2021 Bilateral Diagnostic Mammogram, LOCATED WITHIN [facility]. Tissue Density: The breast tissue is heterogeneously dense. This may lower the sensitivity of mammography. Findings: Analyzed By CAD. Bilateral oil cyst calcifications are redemonstrated. A microclip in the right breast and 3 microclip is in the left breast from prior biopsies. Additional benign vascular calcifications. No significant change from prior exams. Overall Assessment: Benign, BI-RAD 2 Management: Screening Mammogram of both breasts in 1 year. 1. Patient should continue monthly self breast exams. 2. A clinical breast exam by your physician is recommended on an annual basis. 3. This exam should not preclude additional follow-up of suspicious palpable abnormalities. Electronically signed and approved by: Ayad Quiroz M.D. Radiologist
== END | disposition home or self-care (01) ==
LOC: RADMAMWWP 09:15
PROVIDERS: ATTEND Family Medicine
DX: Z12.31 Encounter for screening mammogram for malignant neoplasm of breast (principal)
CPT/HCPCS: 77063; 77067

== ENCOUNTER 2023-02-16 05:55 | Day surgery (SDC) | payer MEDICARE, OTHER ==
[2023-02-10 16:03] VITALS: BMI 24.5
[2023-02-16] MEDS ORDERED: VANCOMYCIN 1,000 MG in SODIUM CHLORIDE 0.9% IRRIGATIO 1,000 ML IRRIGATION ONE (05:56)
[2023-02-16] MEDS ORDERED: fentaNYL (PF) 50 MCG/ML 2 ML AMP IV PRN (05:56)
[2023-02-16] MEDS ORDERED: LACTATED RINGERS 1,000 ML IV SCH (05:56)
[2023-02-16] MEDS ORDERED: ONDANSETRON 4 MG/2 ML VIAL IVP ONE (05:56)
[2023-02-16] MEDS ORDERED: VANCOMYCIN 1,000 MG in SODIUM CHLORIDE 0.9% 250 ML IVPB ONE (05:56)
[2023-02-16] MEDS ORDERED: SODIUM CHLORIDE 0.9% 1,000 ML IV SCH ×2 (05:56)
[2023-02-16 06:25] VITALS: RESP 18; TEMP 97.9
[2023-02-16] MEDS ORDERED: MIDAZOLAM 2 MG/2 ML VIAL ONE (07:47)
[2023-02-16] MEDS ORDERED: ePHEDrine 50 MG/ML 1 ML VIAL ONE (07:47)
[2023-02-16] MEDS ORDERED: diphenhydrAMINE 50 MG/ML 1 ML VIAL ONE (07:47)
[2023-02-16] MEDS ORDERED: fentaNYL (PF) 50 MCG/ML 2 ML AMP ONE (07:47)
[2023-02-16] MEDS ORDERED: PROPOFOL 10 MG/ML 20 ML VIAL IV ONE (07:47)
[2023-02-16] MEDS ORDERED: ONDANSETRON 4 MG/2 ML VIAL ONE (07:47)
[2023-02-16] MEDS ORDERED: IOPAMIDOL-370 100ML BTL INJ ONE (08:10)
[2023-02-16] MEDS ORDERED: LIDOCAINE 1% INJ 10MG/ML (20 ML MDV) ONE ×2 (08:33)
[2023-02-16] MEDS ORDERED: LIDOCAINE 1% INJ 10MG/ML (20 ML MDV) SQ ONE (08:34)
[2023-02-16] MEDS ORDERED: SODIUM CHLORIDE 0.9% 500 ML 500 ML IV ONE (09:19)
[2023-02-16] MEDS ORDERED: ACETAMINOPHEN TAB 325 MG TAB PO PRN (09:24)
--- NOTE | 2023-02-16 09:33 | P.EPPROC ---
- EP Procedure Note Electrophysiology Procedure Note: Diagnosis Cardiomyopathy, chronic, ischemic Congestive heart failure, systolic, class II CHF, old HI On guideline directed medical treatment guideline directed Status post revascularization greater than 3 months Procedure: Single chamber ICD implantation for management of risk of sudden cardiac Laborer Shaft Sinking: Dr. Welch Result: Single chamber ICD implantation, Medtronic cobalt RVR MRI DF4 RV ICD lead: R waves 12 mV, pacing impedance 456 ohms, high-voltage impedance 70 ohms, pacing threshold 0.5 V at 0.4 ms Single coil ICD model #60 9:35 AM him a 55 cm in length screwed in the RV septum ICD generator Medtronic cobalt single-chamber ICD Procedure details: Patient was brought to the EP lab in a fasting state. Written informed consent was obtained prior to the procedure. Options, pros and cons, benefits and risks and complications discussed with patient in detail prior to the procedure (shared decision making document, from [facility]). Importance of continuing medical treatment emphasized. Alternatives discussed. Patient would like to proceed with ICD implant. Left upper extremity venogram performed. 15 mL IV dye injected in the left arm. Patent axillary/subclavian vein The left pectoral area was prepped and draped as a protocol. IV antibiotics administered 1% lidocaine was used for local anesthesia. A 4 cm incision was made parallel to the deltopectoral groove, about 1.5 cm medial to it. The incision was carried down to the level of the pectoralis muscle and the subfascial pocket was made. Hemostasis was assured. The axillary vein access was obtained. Appropriately sized venous sheath was placed. ICD lead implanted in the right ventricle and screwed in. ICD lead tested for threshold, sensing, impedances and tested with high output pacing for diaphragmatic stimulation Lead secured to the underlying transverse muscle after removing sheaths . Pocket irrigated with antibiotic solution Leads connected to the ICD generator. Wound closed in 3 layers and dressed per protocol ICD interrogated and programmed. Appropriate pacing parameters, antitachycardia therapies with antitachycardia pacing cardioversion defibrillations programmed. Patient tolerated the procedure well without any acute complications. See scanned device report in EMR for lead details Defibrillation level testing performed. Shock and T wave protocol used to induce ventricular fibrillation. VF signals adequately and appropriately detected with two dropouts and successfully internally defibrillated with 10 J shock Charge time 1.9 seconds shocking impedance 63 ohms, no post shock noise
[2023-02-16] MEDS ORDERED: ACETAMINOPHEN IV (For NPO) 1,000 MG in EMPTY BAG 1 BAG IVPB ONE (10:17)
[2023-02-16 11:24] VITALS: BP 96/49; PULSE 84
[2023-02-16] MEDS ORDERED: Rosuvastatin Calcium [Crestor] 40 MG Tablet PO SCH (21:00)
[2023-02-17] MEDS ORDERED: CLOPIDOGREL 75 MG TAB PO SCH (09:00)
[2023-02-17] MEDS ORDERED: METOPROLOL SUCCINATE (ER) 50 MG TAB.ER.24H PO SCH (09:00)
[2023-02-17] MEDS ORDERED: ASPIRIN 81 MG PO SCH (09:00)
[2023-02-17] MEDS ORDERED: SPIRONOLACTONE 25 MG TAB PO SCH (09:00)
[2023-02-17] MEDS ORDERED: LOSARTAN 50 MG TAB PO SCH (09:00)
== END 2023-02-16 11:46 | disposition home or self-care (01) ==
LOC: CATHEP 05:55
PROVIDERS: ATTEND Internal Medicine Clinical Cardiac Electrophysiology
DX: I25.5 Ischemic cardiomyopathy (principal); I11.0 Hypertensive heart disease with heart failure; I50.20 Unspecified systolic (congestive) heart failure; I25.2 Old myocardial infarction; I25.10 Atherosclerotic heart disease of native coronary artery without angina pectoris; I49.01 Ventricular fibrillation; Z95.5 Presence of coronary angioplasty implant and graft; J45.909 Unspecified asthma, uncomplicated; F17.210 Nicotine dependence, cigarettes, uncomplicated; E11.9 Type 2 diabetes mellitus without complications; M19.90 Unspecified osteoarthritis, unspecified site; K21.9 Gastro-esophageal reflux disease without esophagitis; Z79.899 Other long term (current) drug therapy; Z79.82 Long term (current) use of aspirin; Z79.4 Long term (current) use of insulin; Z79.02 Long term (current) use of antithrombotics/antiplatelets; Z79.51 Long term (current) use of inhaled steroids; Z88.8 Allergy status to other drugs, medicaments and biological substances; Z88.0 Allergy status to penicillin; Z91.040 Latex allergy status
CPT/HCPCS: 93641; 33249; C1722; C1892; C1769 ×2; C1895; J2250; J3370; J1200; J2405; J2001; J3010; J0131; J2704; Q9967; J0878

== ENCOUNTER 2023-04-25 06:33 | Emergency (ER) | payer MEDICARE, OTHER ==
[2023-04-25 06:38] VITALS: BP 138/62; TEMP 97.9
[2023-04-25] MEDS ORDERED: SODIUM CHLORIDE 0.9% 2,000 ML IV STA (07:09)
--- NOTE | 2023-04-25 07:09 | ED ---
Abdominal Pain HPI - General Chief Complaint: Abdominal Pain Stated Complaint: UTI Time Seen by Provider: 04/25/23 06:36 Source: patient, RN notes reviewed Mode of arrival: EMS Limitations: no limitations - History of Present Illness Initial Comments: Patient is 72-year-old female presenting to ER with chief complaint of a UTI and fevers. Patient states she was started on Bactrim on 04/21/2023 for a UTI. Patient states that Monday night and Monday she broke out in a puritic rash on her face. She was then taken off the Bactrim. Patient states the last 24-48 hours she has been running temperatures of 102, she has been taking Tylenol threes for pain and fever. She endorses associated chills. Patient states she continues to have dysuria and increased frequency and now has lower abdominal and flank pain especially on the right side. Patient states she has an appointment with infectious disease tomorrow due reoccuring UTIs. She is currently not on any antibiotics. Denies shortness of breath, chest pain, or peripheral edema. - Related Data Home Medications Medication Instructions Recorded Confirmed Fluticasone Propionate [Flonase] 2 spray EA NOSTRIL DAILY 08/02/14 02/16/23 Acetaminophen-Codeine 300-30mg 1 tab PO BID PRN 09/23/18 02/16/23 [Tylenol w/codeine #3] Fexofenadine HCl [Barby Allergy] 180 mg PO DAILY 01/30/19 02/16/23 Ketotifen 0.025% Ophth Soln 1 drop BOTH EYES BID PRN 01/30/19 02/16/23 [Zaditor] Acetaminophen Tab [Tylenol] 500 mg PO DAILY PRN 06/09/21 02/16/23 Albuterol Sulfate [Ventolin HFA] 2 puff INHALATION RT-Q6H PRN 06/09/21 02/16/23 Bimatoprost [Lumigan 0.01% Ophth 1 drop BOTH EYES HS 06/09/21 02/16/23 Soln] L.acidoph,Paracasei, B.lactis 1 cap PO DAILY 08/14/21 02/16/23 [Probiotic] Multivitamins, Thera [Multivitamin 1 tab PO DAILY 08/14/21 02/16/23 (formulary)] Adalimumab [Humira Pen 40 mg SQ TH 11/27/21 02/16/23 Crohn's-Uc-Hs] Aspirin EC [Ecotrin Low Dose] 81 mg PO DAILY 11/27/21 02/16/23 Azelastine HCl [Astepro] 2 spray NASAL DAILY PRN 11/27/21 02/16/23 Cholecalciferol [Vitamin D3 (25 25 mcg PO DAILY 11/27/21 02/16/23 Mcg = 1000 Iu)] Clopidogrel [Plavix] 75 mg PO DAILY 11/27/21 02/16/23 Cyanocobalamin (Vitamin B-12) 5,000 mcg PO DAILY 11/27/21 02/16/23 [Vitamin B-12] Lansoprazole [Prevacid] 30 mg PO DAILY 11/27/21 02/16/23 Losartan Potassium 50 mg PO DAILY 11/27/21 02/16/23 Metoprolol Succinate [Toprol XL] 50 mg PO DAILY 11/27/21 02/16/23 Rosuvastatin Calcium [Crestor] 40 mg PO HS 11/27/21 02/16/23 Spironolactone [Aldactone] 25 mg PO DAILY 11/27/21 02/16/23 cycloSPORINE [Restasis Multidose] 1 drop BOTH EYES BID 02/10/23 02/16/23 Furosemide [Lasix] 10 mg PO WEEKLY PRN 02/16/23 02/16/23 Previous Rx's Medication Instructions Recorded Famotidine [Pepcid] 20 mg PO BID tab 11/29/21 Nitroglycerin Oint [Nitro-Bid Oint] 1 inch TOPICAL Q6HR packet 11/29/21 Amoxic-Pot Clav 875-125Mg 1 tab PO Q12HR #20 tab 04/25/23 [Augmentin 875-125] Allergies Allergy/AdvReac Type Severity Reaction Status Date / Time atorvastatin [From Lipitor] Allergy Swelling Verified 02/16/23 06:08 cefuroxime [From Ceftin] Allergy Rash/Hives Verified 02/16/23 06:08 cefuroxime axetil Allergy SEVERE Verified 02/16/23 06:08 [From Ceftin] HEADACHE ciprofloxacin [From Cipro] Allergy Rash/Hives Verified 02/16/23 06:08 clindamycin Allergy Rash/Hives Verified 02/16/23 06:08 dicloxacillin Allergy Nausea & Verified 02/16/23 06:08 Vomiting & Diarrhea doxazosin mesylate Allergy Rash/Hives Verified 02/16/23 06:08 [From Cardura] doxycycline Allergy Nausea & Verified 02/16/23 06:08 Vomiting,HEADACHE duloxetine [From Cymbalta] Allergy Abdominal Verified 02/16/23 06:08 Pain, ROQUE gatifloxacin [From Tequin] Allergy Abdominal Verified 02/16/23 06:08 Pain,VOMITING hydralazine [Hydralazine] Allergy Rapid Verified 02/16/23 06:08 Heart Rate hydrochlorothiazide Allergy Nausea & Verified 02/16/23 06:08 Vomiting indapamide [From Lozol] Allergy Abdominal Verified 02/16/23 06:08 Pain iodine povacrylex Allergy Rash/Hives Verified 02/16/23 06:08 [From DuraPrep] isopropyl alcohol Allergy Rash/Hives Verified 02/16/23 06:08 [From DuraPrep] latex Allergy Rash/Hives Verified 02/16/23 06:08 lisinopril Allergy VERTIGO,HEA Verified 02/16/23 06:08 DACHE nabumetone [From Relafen] Allergy Abdominal Verified 02/16/23 06:08 Pain nitrofurantoin Allergy Rash/Hives Verified 02/16/23 06:08 [From Macrobid] povidone-iodine Allergy Rash/Hives Verified 02/16/23 06:08 [From Betadine] soap [From Betadine] Allergy Rash/Hives Verified 02/16/23 06:08 sulfamethoxazole Allergy Unknown Verified 04/25/23 06:39 [From Bactrim] sulfasalazine Allergy Abdominal Verified 02/16/23 06:08 [From Azulfidine] Pain,VOMITING triamcinolone acetonide Allergy SEVERE Verified 02/16/23 06:08 [From Kenalog] HEADACHE trimethoprim [From Bactrim] Allergy Unknown Verified 04/25/23 06:39 doxazosin [From Cardura] AdvReac Vomiting Verified 02/16/23 06:31 ezetimibe AdvReac Unknown Verified 02/16/23 06:32 Review of Systems ROS Statement: Those systems with pertinent positive or pertinent negative responses have been documented in the HPI. ROS Other: All systems not noted in ROS Statement are negative. Past Medical History Past Medical History: Asthma, Heart Failure, Diabetes Mellitus, Eye Disorder, GERD/Reflux, GI Bleed, Hyperlipidemia, Hypertension, Myocardial Infarction ([place]), Osteoarthritis (OA) Additional Past Medical History / Comment(s): microperforations of diverticulitis-treated with ABX. Other HX: Lower GI bleeds, chrohn's dx, IBS, hemorrhoids, PUD, arhtiritis bilateral hands and feet, chronic back pain, macular degeneration bilateral eyes, sinus problems, bronchitis, migraines, bilateral kidney stones, anemia, hypoglycemia, spider veins bilateral legs. Last Myocardial Infarction Date:: 07/2021 History of Any Multi-Drug Resistant Organisms: None Reported Past Surgical History: Adenoidectomy, Bladder Surgery, Heart Catheterization With Stent, Hysterectomy, Orthopedic Surgery, Tonsillectomy Additional Past Surgical History / Comment(s): Several EGDs with bx and colonoscopies with bx, gastrectomy for ulcers (40% stomach removed),cystoscopy x2, R/L shoulder rotator cuff arthroscopies, bilateral CATARACT SURGERY with l ens implants; Sinus Surgery x 2, Left Breast biopsy x 2-benign, 2nd toe R foot with hardware. Past Anesthesia/Blood Transfusion Reactions: No Reported Reaction, Postoperative Nausea & Vomiting (PONV) Additional Past Anesthesia/Blood Transfusion Reaction / Comment(s): Pt states she did receive blood in 2009 with GI bleed-no reaction. rise in b/p after last injection in back Date of Last Stent Placement:: 01/2021 Past Psychological History: No Psychological Hx Reported Smoking Status: Former smoker Past Alcohol Use History: None Reported Past Drug Use History: None Reported - Past Family History Father Family Medical History: Cancer Additional Family Medical History / Comment(s): Father had prostate cancer that went to the bone. He at the age of 79yrs. Mother Family Medical History: Cancer, Congestive Heart Failure (CHF) Additional Family Medical History / Comment(s): Mother of lymphoma at the age of 81 yrs. Sister(s) Family Medical History: Cancer Additional Family Medical History / Comment(s): breast cancer x2 sisters General Exam Limitations: no limitations General appearance: alert, in no apparent distress Head exam: Present: atraumatic, normocephalic, normal inspection Respiratory exam: Present: normal lung sounds bilaterally. Absent: respiratory distress, wheezes, rales, rhonchi, stridor Cardiovascular Exam: Present: regular rate, normal rhythm, normal heart sounds. Absent: systolic murmur, diastolic murmur, rubs, gallop, clicks GI/Abdominal exam: Present: soft, tenderness (lower quadrants), normal bowel sounds. Absent: distended, guarding, rebound, rigid Extremities exam: Present: normal inspection Back exam: Present: CVA tenderness (R) (moderate), CVA tenderness (L) (mild) Neurological exam: Present: alert, oriented X3 Skin exam: Present: warm, dry, intact, normal color. Absent: rash Course Vital Signs 04/25/23 06:35 Temperature 97.9 F Pulse Rate 86 Respiratory 16 Rate Blood Pressure 138/62 O2 Sat by Pulse 86 L Oximetry Medical Decision Making - Medical Decision Making Was pt. sent in by a medical professional or institution ([facility], TENONER OPERATOR, urgent care, hospital, or [place] health care facility...) When possible be specific @ -No Did you speak to anyone other than the patient for history (EMS, parent, family, police, friend...)? What history was obtained from this source @ -No Did you review nursing and triage notes (agree or disagree)? Why? @ -I reviewed and agree with nursing and triage notes Were old charts reviewed (outside hosp., previous admission, EMS record, old EKG, old radiological studies, urgent care reports/EKG's, [place] health care facility records)? Report findings @ -Reviewed prior laboratory studies Differential Diagnosis (chest pain, altered mental status, abdominal pain women, abdominal pain men, vaginal bleeding, weakness, fever, dyspnea, syncope, headache, dizziness, GI bleed, back pain, seizure, CVA, palpatations, mental health, musculoskeletal)? @ -Differential Abdominal Pain Women: Appendicitis, Cholecystitis, diverticulosis, ischemic bowel, pancreatitis, hepatitis, UTI, gastroenteritis, AAA, incarcerated hernia, bowel obstruction, constipation, inflammatory bowel, hepatitis, peptic ulcer disease, splenic infarction, perforated viscus, vulvitis, ovarian torsion, PID, kidney stone, placenta abruption, this is not meant to be an all-inclusive listen EKG interpreted by me (3pts min.). @ -[None X-rays interpreted by me (1pt min.). @ -None done CT interpreted by me (1pt min.). @ -None done U/S interpreted by me (1pt. min.). @ -None done What testing was considered but not performed or refused? (CT, X-rays, U/S, labs )? Why? @ -None What meds were considered but not given or refused? Why? @ -None Did you discuss the management of the patient with other professionals (professionals i.e. , PA, TENONER OPERATOR, lab, RT, psych nurse, child welfare social worker, hanging flags decorator, teacher, hospital admissions officer, porter sample case)? Give summary @ -No Was smoking cessation discussed for >3mins.? @ -No Was critical care preformed (if so, how long)? @ -No Were there social determinants of health that impacted care today? How? (Homelessness, low income, unemployed, alcoholism, drug addiction, transportation, low edu. Level, literacy, decrease access to med. care, fdc, rehab)? @ -No Was there de-escalation of care discussed even if they declined (Discuss DNR or withdrawal of care, Hospice)? DNR status @ -No What co-morbidities impacted this encounter? (DM, HTN, Smoking, COPD, CAD, Cancer, CVA, ARF, Chemo, Hep., AIDS, mental health diagnosis, sleep apnea, morbid obesity)? @ -Multiple drug ALLERGIES Was patient admitted / discharged? Hospital course, mention meds given and route, prescriptions, significant lab abnormalities, going to OR and other p ertinent info. @ -Discharge patient has evidence of UTI patient has no symptoms leukocytosis, fever no evidence of hypertension or tachycardia. Patient is able take penicillin products, was started on Augmentin patient is scheduled to see infectious disease tomorrow. Patient agrees this plan. Undiagnosed new problem with uncertain prognosis? @ -No Drug Therapy requiring intensive monitoring for toxicity (Heparin, Nitro, Insulin, Cardizem)? @ -No Were any procedures done? @ -No Diagnosis/symptom? @ -UTI Acute, or Chronic, or Acute on Chronic? @ -Acute Uncomplicated (without systemic symptoms) or Complicated (systemic symptoms)? @ -Uncomplicated. Side effects of treatment? @ -No Exacerbation, Progression, or Severe Exacerbation? @ -No Poses a threat to life or bodily function? How? (Chest pain, [place], [place], pneumonia, PE, COPD, DKA, ARF, appy, cholecystitis, CVA, Diverticulitis, Homicidal, Suicidal, threat to staff... and all critical care pts) @ -No - Lab Data Result diagrams: 04/25/23 07:24 04/25/23 07:24 Lab Results 04/25/23 04/25/23 04/25/23 Range/Units 07:00 07:24 07:24 WBC 10.6 (3.8-10.6) k/uL RBC 4.34 (3.80-5.40) m/uL Hgb 13.0 (11.4-16.0) gm/dL Hct 41.1 (34.0-46.0) % MCV 94.6 (80.0-100.0) fL MCH 29.8 (25.0-35.0) pg MCHC 31.5 (31.0-37.0) g/dL RDW 13.2 (11.5-15.5) % Plt Count 203 (150-450) k/uL MPV 8.0 Neutrophils % 83 % Lymphocytes % 10 % Monocytes % 5 % Eosinophils % 1 % Basophils % 0 % Neutrophils # 8.8 H (1.3-7.7) k/uL Lymphocytes # 1.1 (1.0-4.8) k/uL Monocytes # 0.6 (0-1.0) k/uL Eosinophils # 0.1 (0-0.7) k/uL Basophils # 0.0 (0-0.2) k/uL Sodium 137 (137-145) mmol/L Potassium 4.4 (3.5-5.1) mmol/L Chloride 104 (98-107) mmol/L Carbon Dioxide 23 (22-30) mmol/L Anion Gap 10 mmol/L BUN 15 (7-17) mg/dL Creatinine 0.73 (0.52-1.04) mg/dL Est GFR (CKD-EPI)AfAm >90 (>60 ml/min/1.73 sqM) Est GFR (CKD-EPI)NonAf 83 (>60 ml/min/1.73 sqM) Glucose 156 H (74-99) mg/dL Calcium 9.0 (8.4-10.2) mg/dL Total Bilirubin 0.6 (0.2-1.3) mg/dL AST 24 (14-36) U/L ALT 19 (4-34) U/L Alkaline Phosphatase 64 (38-126) U/L Total Protein 7.9 (6.3-8.2) g/dL Albumin 4.5 (3.5-5.0) g/dL Amylase 39 (30-110) U/L Lipase 36 (23-300) U/L Urine Color Light Yellow Urine Appearance Cloudy H (Clear) Urine pH 5.5 (5.0-8.0) Ur Specific [place] 1.014 (1.001-1.035) Urine Protein Trace H (Negative) Urine Glucose (UA) Negative (Negative) Urine Ketones Negative (Negative) Urine Blood Small H (Negative) Urine Nitrite Negative (Negative) Urine Bilirubin Negative (Negative) Urine Urobilinogen <2.0 (<2.0) mg/dL Ur Leukocyte Esterase Large H (Negative) Urine RBC 3 (0-5) /hpf Urine WBC >182 H (0-5) /hpf Urine WBC Clumps Few H (None) /hpf Ur Squamous Epith Cells 1 (0-4) /hpf Urine Bacteria Occasional H (None) /hpf Urine Mucus Rare H (None) /hpf Disposition Clinical Impression: UTI (urinary tract infection) Disposition: HOME SELF-CARE Condition: Stable Instructions (If sedation given, give patient instructions): Urinary Tract Infection in Women (ED) Additional Instructions: Please return to the Emergency Department if symptoms worsen or any other concerns. Prescriptions: Amoxic-Pot Clav 875-125Mg [Augmentin 875-125] 1 tab PO Q12HR #20 tab Is patient prescribed a controlled substance at d/c from ED?: No Referrals: Cecille Mckenna MD [Primary Care Provider] - 1-2 days Time of Disposition: 08:04
[2023-04-25] MEDS ORDERED: Acetaminophen-Codeine 300-30mg TAB PO STA (07:11)
[2023-04-25 07:36] LABS: Basophils % (A) 0 %; Eosinophils # (A) 0.1 k/uL (0-0.7); Eosinophils % (A) 1 %; HCT 41.1 % (34.0-46.0); Lymphocytes # (A) 1.1 k/uL (1.0-4.8); Lymphocytes % (A) 10 %; MCH 29.8 pg (25.0-35.0); MCHC 31.5 g/dL (31.0-37.0); MCV 94.6 fL (80.0-100.0); Monocytes # (A) 0.6 k/uL (0-1.0); Monocytes % (A) 5 %; Neutrophils # (A) 8.8 k/uL (1.3-7.7); Neutrophils % (A) 83 %; Platelet Count 203 k/uL (150-450); RBC 4.34 m/uL (3.80-5.40); RDW 13.2 % (11.5-15.5); WBC 10.6 k/uL (3.8-10.6)
[2023-04-25 07:39] LABS: Appearance,Urine Cloudy (Clear); Bacteria,Urine Occasional /hpf; Bilirubin,Urine Negative (Negative); Blood,Urine Small (Negative); Color,Urine Light Yellow; Glucose,Urine (UA) Negative (Negative); Ketones,Urine Negative (Negative); Leukocyte Esterase,Urine Large (Negative); Mucus,Urine Rare /hpf; Nitrite,Urine Negative (Negative); PH, Urine 5.5 (5.0-8.0); Protein,Urine Trace (Negative); RBC,Urine 3 /hpf (0-5); Specific Gravity,Urine 1.014 (1.001-1.035); Squamous Epithelial Cell,Urine 1 /hpf (0-4); Urobilinogen,Urine <2.0 mg/dL (<2.0); WBC,Urine >182 /hpf (0-5)
[2023-04-25 07:52] LABS: ALT 19 U/L (4-34); AST 24 U/L (14-36); African American GFR (CKD) >90 (>60 ml/min/1.73 sqM); Albumin 4.5 g/dL (3.5-5.0); Alkaline Phosphatase 64 U/L (38-126); Amylase 39 U/L (30-110); Anion Gap 10 mmol/L; Blood Urea Nitrogen 15 mg/dL (7-17); Carbon Dioxide 23 mmol/L (22-30); Chloride 104 mmol/L (98-107); Glucose 156 mg/dL (74-99); Lipase 36 U/L (23-300); Non-African American GFR(CKD) 83 (>60 ml/min/1.73 sqM); Potassium 4.4 mmol/L (3.5-5.1); Sodium 137 mmol/L (137-145); Total Bilirubin 0.6 mg/dL (0.2-1.3); Total Protein 7.9 g/dL (6.3-8.2)
[2023-04-25] MEDS ORDERED: AMOXIC-POT CLAV 875-125MG 1 EACH TAB PO STA (07:57)
[2023-04-25 08:09] VITALS: PULSE 87; RESP 18
== END 2023-04-25 08:20 | disposition home or self-care (01) ==
LOC: EC 06:33
DX: N39.0 Urinary tract infection, site not specified (principal); J45.909 Unspecified asthma, uncomplicated; I11.0 Hypertensive heart disease with heart failure; I50.9 Heart failure, unspecified; E11.9 Type 2 diabetes mellitus without complications; K21.9 Gastro-esophageal reflux disease without esophagitis; E78.5 Hyperlipidemia, unspecified; I25.2 Old myocardial infarction; M19.90 Unspecified osteoarthritis, unspecified site; Z87.891 Personal history of nicotine dependence; Z79.02 Long term (current) use of antithrombotics/antiplatelets; Z79.82 Long term (current) use of aspirin; Z79.1 Long term (current) use of non-steroidal anti-inflammatories (NSAID); Z79.51 Long term (current) use of inhaled steroids; Z79.899 Other long term (current) drug therapy; Z88.0 Allergy status to penicillin; Z88.1 Allergy status to other antibiotic agents; Z88.2 Allergy status to sulfonamides; Z88.8 Allergy status to other drugs, medicaments and biological substances; Z91.040 Latex allergy status; Z91.041 Radiographic dye allergy status
CPT/HCPCS: 36415; 80053; 81001; 82150; 83690; 85025; 96360; 99284

== ENCOUNTER → 2023-04-26 | Outpatient (CLI) | payer MEDICARE, OTHER ==
--- NOTE | 2023-04-26 09:19 | US ---
EXAMINATION TYPE: US kidneys/renal and bladder DATE OF EXAM: 04/26/2023 COMPARISON: NONE CLINICAL INDICATION: Female, 72 years old with history of N39.0 UTI; RECURRENT UTI'S EXAM MEASUREMENTS: Right Kidney: 12.3x4.3x4.9 cm Left Kidney: 10.0x5.8x4.1 cm Right Kidney: No hydronephrosis or masses seen Left Kidney: No hydronephrosis or masses seen Bladder: wnl Bilateral Jets seen: Yes There is no evidence for hydronephrosis at this point in time. No nephrolithiasis is seen. No corina s are identified. The urinary bladder is anechoic. Bilateral ureteral jets are seen. The liver is increased in echotexture. IMPRESSION: 1. No evidence for acute process. 2. Hepatocellular disease suggestive of hepatic steatosis.
--- NOTE | 2023-04-27 09:28 | MM ---
Reason for Exam: Screening (asymptomatic). Last screening mammogram was performed 12 month(s) ago. Patient History: Menarche at age 15. First Full-Term at age 25. Left ovary removed at age 34. Right ovary removed at age 34. Hysterectomy at age 34. Postmenopausal. Estrogen for 10 years from age 34 until age 44. Core Biopsy on the Left side. 02/12/2018, Benign Core Biopsy on the right side. 02/12/2018, Benign Core Biopsy on the right side. 10/06/2005, Benign Core Biopsy on the left side. 08/21/2001, Benign Stereotactic Core Biopsy on the left side. Maternal cousin had breast cancer, age 18. Maternal aunt had breast cancer, age 60. Maternal aunt had breast cancer, age 55. Sister had breast cancer, age 62. Sister had breast cancer, age 54. Risk Values: Hannah 5 year model risk: 9.5%. NCI Lifetime model risk: 24.1%. Prior Study Comparison: 04/10/2020 Bilateral Diagnostic Mammogram, [facility]. 04/21/2021 Bilateral Diagnostic Mammogram, [facility]. 04/22/2022 Bilateral MG 3D screening mammo w/cad, [facility]. Tissue Density: The breast tissue is heterogeneously dense. This may lower the sensitivity of mammography. Findings: Analyzed By CAD. Biopsy clips bilaterally. There is no suspicious group of microcalcifications or new suspicious mass in either breast. Overall Assessment: Benign, BI-RAD 2 Management: Screening Mammogram of both breasts in [address] [facility] will attempt to contact patient to return for supplemental views and ultrasound if indicated. Patient should continue monthly self-breast exams. A clinical breast exam by your physician is recommended on an annual basis. This exam should not preclude additional follow-up of suspicious palpable abnormalities. Note on Hnanah scores and lifetime risk: 1. A Hannah score greater than 3% is considered moderate risk. If this is the case, consider specialist referral to assess eligibility for a risk reducing agent. 2. If overall lifetime risk for the development of breast cancer is 20% or higher, the patient may qualify for future screening with alternating mammogram and breast MRI. Electronically signed and approved by: Kei Solorzano DO
== END | disposition home or self-care (01) ==
LOC: RADUSWWP 08:33
PROVIDERS: ATTEND Family Medicine
DX: Z12.31 Encounter for screening mammogram for malignant neoplasm of breast (principal); K76.89 Other specified diseases of liver; N39.0 Urinary tract infection, site not specified; Z78.0 Asymptomatic menopausal state; Z80.3 Family history of malignant neoplasm of breast
CPT/HCPCS: 76770; 77063; 77067

== ENCOUNTER → 2023-05-26 | Outpatient (CLI) | payer MEDICARE, OTHER ==
[2023-05-26 11:06] LABS: African American GFR (CKD) >90 (>60 ml/min/1.73 sqM); Blood Urea Nitrogen 16 mg/dL (7-17); Non-African American GFR(CKD) >90 (>60 ml/min/1.73 sqM)
--- NOTE | 2023-05-26 14:55 | CT ---
EXAMINATION TYPE: CT abdomen pelvis w con DATE OF EXAM: 05/26/2023 COMPARISON: 05/12/2019 HISTORY: Frequent UTI's. CT DLP: 501.3 mGycm CONTRAST: CT scan of the abdomen and pelvis is performed with Oral Contrast and with IV Contrast, patient injec dipika with 100ml mL of Isovue 300. FINDINGS: LUNG BASES-: No visible nodule. No infiltrate. Postoperative changes of Jose fundoplication. LIVER/GB: No calcified gallstones. No space occupying hepatic lesion. Biliary tree is of normal ca liber. PANCREAS: No inflammation. No distinct mass. SPLEEN: No splenic enlargement. No lesion seen. ADRENALS: No nodule. No thickening. KIDNEYS/BLADDER: No hydronephrosis. No nephrolithiasis. No distinct renal mass. Urinary bladder g rossly unremarkable. BOWEL: Normal appendix. Normal bowel caliber. No inflammation. Sigmoid diverticulosis without diver ticulitis. GENITAL ORGANS: Hysterectomy changes noted. No ovarian masses. LYMPH NODES: No greater than 1cm abdominal or pelvic lymph nodes are appreciated. AORTA: No significant abnormality. OSSEOUS STRUCTURES: No significant abnormality is seen. OTHER: No significant additional abnormality is seen. IMPRESSION: 1. No significant abnormality identified to account for the patient's symptoms.
== END | disposition home or self-care (01) ==
LOC: RADCTMAIN 10:04
PROVIDERS: ATTEND Internal Medicine Infectious Disease
DX: N39.0 Urinary tract infection, site not specified (principal)
CPT/HCPCS: 82565; 84520; 74177; 36415; Q9967

== ENCOUNTER → 2023-11-15 | Outpatient (CLI) | payer MEDICARE, OTHER ==
[2023-11-15 15:04] LABS: BUN/Creat Ratio 23.57 Ratio (12.00-20.00); Blood Urea Nitrogen 16.5 mg/dL (9.0-27.0); Calcium 9.8 mg/dL (8.7-10.3); Carbon Dioxide 18.5 mmol/L (21.6-31.8); Chloride 104 mmol/L (96-109); Glucose 130 mg/dL (70-110); Potassium 4.2 mmol/L (3.5-5.5); Sodium 138 mmol/L (135-145)
[2023-11-15 15:37] LABS: Basophils # (A) 0.04 X 10*3/uL (0.00-0.10); Basophils % (A) 0.5 %; Eosinophils # (A) 0.03 X 10*3/uL (0.04-0.35); Eosinophils % (A) 0.4 %; HCT 42.7 % (37.2-46.3); HGB 13.3 g/dL (12.0-15.0); Lymphocytes # (A) 1.81 X 10*3/uL (0.90-5.00); Lymphocytes % (A) 24.5 %; MCH 28.8 pg (27.0-32.0); MCHC 31.1 g/dL (32.0-37.0); MCV 92.4 FL (80.0-97.0); Mean Platelet Volume 10.8 FL (9.5-12.2); Monocytes # (A) 0.44 X 10*3/uL (0.20-1.00); NRBC Per 100 WBC 0 X 10*3/uL (0.00-0.01); Neutrophils # (A) 5.05 X 10*3/uL (1.80-7.70); Neutrophils % (A) 68.3 %; Platelet Count 217 X 10*3/uL (140-440); RBC 4.62 X 10*6/uL (4.10-5.20); RDW 13.8 % (11.5-14.5); WBC 7.39 X 10*3/uL (4.50-10.00)
[2023-11-15 20:40] LABS: Appearance,Urine Clear (Clear); Bilirubin,Urine Negative (Negative); Blood,Urine Negative (Negative); Color,Urine Yellow (Yellow); Ketones,Urine Negative (Negative); Nitrite,Urine Negative (Negative); Urobilinogen,Urine 0.2 E.U./DL
[2023-11-15 20:44] LABS: Bacteria,Urine 3+ (None Seen)
== END | disposition home or self-care (01) ==
LOC: LABPAT 10:58
PROVIDERS: ATTEND Urology
DX: Z01.812 Encounter for preprocedural laboratory examination (principal); N30.10 Interstitial cystitis (chronic) without hematuria
CPT/HCPCS: 36415; 80048; 81001; 85025; 87086

== ENCOUNTER → 2024-02-15 | Outpatient (CLI) | payer MEDICARE, OTHER ==
[2024-02-15 08:55] LABS: Basophils # (A) 0.1 k/uL (0-0.2); Basophils % (A) 1 %; Eosinophils # (A) 0.1 k/uL (0-0.7); Eosinophils % (A) 1 %; HCT 42.4 % (34.0-46.0); HGB 13.6 gm/dL (11.4-16.0); Lymphocytes # (A) 2.2 k/uL (1.0-4.8); Lymphocytes % (A) 27 %; MCH 29.6 pg (25.0-35.0); MCHC 31.9 g/dL (31.0-37.0); MCV 92.6 fL (80.0-100.0); Mean Platelet Volume 7.9; Monocytes # (A) 0.4 k/uL (0-1.0); Monocytes % (A) 5 %; Neutrophils # (A) 5.3 k/uL (1.3-7.7); Neutrophils % (A) 65 %; Platelet Count 164 k/uL (150-450); RBC 4.58 m/uL (3.80-5.40); RDW 13.9 % (11.5-15.5); WBC 8.2 k/uL (3.8-10.6)
[2024-02-15 09:58] LABS: ALT 24 U/L (4-34); AST 27 U/L (14-36); African American GFR (CKD) >90 (>60 ml/min/1.73 sqM); Albumin 4.5 g/dL (3.5-5.0); Albumin/Globulin Ratio 1.6; Alkaline Phosphatase 59 U/L (38-126); Anion Gap 8 mmol/L; Blood Urea Nitrogen 20 mg/dL (7-17); Calcium 9.3 mg/dL (8.4-10.2); Carbon Dioxide 22 mmol/L (22-30); Chloride 105 mmol/L (98-107); Globulin 2.9 g/dL; Glucose 112 mg/dL (74-99); Non-African American GFR(CKD) 87 (>60 ml/min/1.73 sqM); Potassium 4.6 mmol/L (3.5-5.1); Sodium 135 mmol/L (137-145); Total Bilirubin 0.5 mg/dL (0.2-1.3); Total Protein 7.4 g/dL (6.3-8.2)
--- NOTE | 2024-02-16 14:27 | CT ---
EXAMINATION TYPE: CT abdomen pelvis w con DATE OF EXAM: 02/15/2024 COMPARISON: 05/26/2023 INDICATION: diverticulitis, crohn's disease, lower abdominal pain DLP: 555.4 mGycm, Automated exposure control for dose reduction was used. CONTRAST: 100 mL of Isovue 300. Study performed with Oral Contrast TECHNIQUE: Axial images were obtained from above the diaphragm to the pubic rami in the axial plane a t 5 mm thick sections. Reconstructed images are reviewed on the computer in the coronal plane. FINDINGS: Limited CT sections are obtained the lung bases. The lung bases are clear. CT ABDOMEN: Liver: Normal Spleen: Normal Pancreas: Normal Adrenal glands: The adrenal glands are normal. Gallbladder: Normal Kidneys: No masses are evident. No hydronephrosis is present. No cysts are present. Delayed images were obtained through the kidneys, which remain unremarkable. Aorta: Vascular calcification is within the aorta. Inferior vena cava: Normal. CT PELVIS: Multiple diverticular changes within the sigmoid colon. Some thickening within the mid sigmoid colon may be present. No adjacent inflammatory changes evident. Follow-up evaluation of the sigmoid colon i s recommended. Findings however are somewhat similar to comparison. No suspicious inflammatory changes adjacent to the terminal ileum. Loops of bowel are without wall th ickening elsewhere. Duodenum was without contrast. Appendix: Normal as visualized. Urinary bladder: Normal. Genitourinary structures: Osseous structures: No suspicious lytic or sclerotic lesions. IMPRESSION: 1. No suspicious changes to suggest acute Crohn's disease. 2. There is diffuse thickening within the noncontrast filled sigmoid colon. Multiple diverticuli pres ent. Consider mild diverticulitis. Underlying mass is not excluded. Follow-up evaluation of the sigmo id colon is recommended
== END | disposition home or self-care (01) ==
LOC: RADCTMAIN 08:15
PROVIDERS: ATTEND Internal Medicine Gastroenterology
DX: K57.32 Diverticulitis of large intestine without perforation or abscess without bleeding (principal); K50.10 Crohn's disease of large intestine without complications; K63.89 Other specified diseases of intestine
CPT/HCPCS: 80053; 85025; 74177; 36415; Q9967

== ENCOUNTER → 2024-04-29 | Outpatient (CLI) | payer MEDICARE, OTHER ==
--- NOTE | 2024-04-29 12:51 | BD ---
EXAMINATION TYPE: Axial Bone Density DATE OF EXAM: 04/29/2024 CLINICAL HISTORY: 73 years old Female. ICD-10 CODE: N95.1 MENOPAUSAL CLIMACTERIC Height: 60 Weight: 137.4 FRAX RISK QUESTIONS: Alcohol (3 or more units per day): no Family History (Parent hip fracture): no Glucocorticoids (More than 3mos): no (Ex: prednisone, prednisolone, methylprednisolone, dexamethasone, and hydrocortisone). History of Fracture in Adulthood: yes Secondary Osteoporosis: 1. Type 1 Diabetes: no 2. Hyperthyroidism: no 3. Menopause before 45: yes 4. Malnutrition: yes 5. Chronic liver disease: no Rheumatoid Arthritis: no Current Tobacco Use: no RISK FACTORS HISTORY OF: Surgery to Spine/Hip(right/left)/Wrist (right/left): no EXAM MEASUREMENTS: Bone mineral densitometry was performed using the [employer] System. Bone mineral density as measured about the Lumbar spine is: ----- L1-L4(G/cm2): 0.934 T Score Values are as follows: ----- L1: -3.0 ----- L2: -3.0 ----- L3: -2.0 ----- L4: -0.6 ----- L1-L4: -2.0 Z Score Values are as follows: ----- L1: -1.2 ----- L2: -1.2 ----- L3: -0.2 ----- L4: 1.2 ----- L1-L4: -0.3 Bone mineral density has: decreased -3.9 % since study of: 07.10.2020 Bone mineral density about the R hip (g/cm2): 0.807 Bone mineral density about the L hip (g/cm2): 0.786 T Score values are as follows: -----R Neck: -2.1 -----L Neck: -2.6 -----R Total: -1.6 -----L Total: -1.8 Z Score values are as follows: -----R Neck: -0.3 -----L Neck: -0.7 -----R Total: 0.1 -----L Total: -0.1 Bone mineral density has: decreased -4.8 % since study of: 07.10.2020 FRAX%s: The graph provided illustrates a 24.6% chance for a major osteoporotic fx and a 7.0% chance f or the hips probability for fx in 10 years time. IMPRESSION: Osteoporosis (T Score less than -2.5). There is increased fracture risk and therapy is usually indicated based on age. Re-Screen 1-2 years. NOTE: T-SCORE=SD OF THE YOUNG ADULT MEAN.
--- NOTE | 2024-05-01 14:54 | MM ---
Reason for Exam: Screening (asymptomatic). Last mammogram was performed 1 year(s) and 1 month(s) ago. Patient History: Menarche at age 15. First Full-Term at age 25. Left ovary removed at age 34. Right ovary removed at age 34. Hysterectomy at age 34. Postmenopausal. Estrogen for 10 years from age 34 until age 44. Core Biopsy on the Left side. 02/12/2018, Benign Core Biopsy on the right side. 02/12/2018, Benign Core Biopsy on the right side. 10/06/2005, Benign Core Biopsy on the left side. 08/21/2001, Benign Stereotactic Core Biopsy on the left side. Maternal cousin had breast cancer, age 18. Maternal aunt had breast cancer, age 60. Maternal aunt had breast cancer, age 55. Sister had breast cancer, age 62. Sister had breast cancer, age 54. Risk Values: Hannah 5 year model risk: 9.6%. NCI Lifetime model risk: 23.0%. Prior Study Comparison: 04/21/2021 Bilateral Diagnostic Mammogram, [facility]. 04/22/2022 Bilateral MG 3D screening mammo w/cad, [facility]. 04/26/2023 Bilateral MG 3D screening mammo w/cad, [facility]. Tissue Density: The breasts are heterogeneously dense, which may obscure small masses. Findings: Analyzed By CAD. There is no suspicious group of microcalcifications or new suspicious mass in either breast. Bilateral surgical clips are noted. As metallic device overlying the left breast obscuring portions of the breasts. Benign-appearing calcifications. Overall Assessment: Benign, BI-RAD 2 Management: Screening Mammogram of both breasts in 1 year. . Patient should continue monthly self-breast exams. A clinical breast exam by your physician is recommended on an annual basis. This exam should not preclude additional follow-up of suspicious palpable abnormalities. Note on Hannah scores and lifetime risk: 1. A Hannah score greater than 3% is considered moderate risk. If this is the case, consider specialist referral to assess eligibility for a risk reducing agent. 2. If overall lifetime risk for the development of breast cancer is 20% or higher, the patient may qualify for future screening with alternating mammogram and breast MRI. Electronically signed and approved by: Carlos Garcia M.D. Radiologis
== END | disposition home or self-care (01) ==
LOC: RADMAMWWP 10:01
PROVIDERS: ATTEND Family Medicine
DX: Z12.31 Encounter for screening mammogram for malignant neoplasm of breast (principal); N95.1 Menopausal and female climacteric states; M85.89 Other specified disorders of bone density and structure, multiple sites; M81.0 Age-related osteoporosis without current pathological fracture; Z80.3 Family history of malignant neoplasm of breast
CPT/HCPCS: 77063; 77067; 77080

== ENCOUNTER → 2024-10-03 | Outpatient (CLI) | payer MEDICARE, OTHER ==
[2024-10-03 13:18] LABS: African American GFR (CKD) >90 (>60 ml/min/1.73 sqM); Blood Urea Nitrogen 19 mg/dL (7-17); Non-African American GFR(CKD) 89 (>60 ml/min/1.73 sqM)
--- NOTE | 2024-10-03 14:14 | CT ---
EXAMINATION TYPE: CT facial bones w con CT DLP: 583.7 mGycm, Automated exposure control for dose reduction was used. DATE OF EXAM: 10/03/2024 1:58 PM COMPARISON: CT IAC 12/05/2022, CT sinus 10/10/2019, 02/26/2019. CLINICAL INDICATION:Female, 73 years old with history of J32.9 CHRONIC SINUSITIS, UNSPECIFIED; PHH, c hronic sinusitis, swelling rt side, headaches TECHNIQUE: Multiple enhanced axial CT images were obtained of the facial bones soft tissue and bone w indows after the uneventful administration of 100 cc of Isovue-300 intravenously. Coronal, axial and sagittal reformatted images were also provided in soft tissue and bone windows and submitted for int erpretation FINDINGS: There is no evidence of fracture, subluxation, dislocation, or significant soft tissue swelling. No a bnormal contrast enhancement identified. Bilateral aphakia with scleral calcifications. The temporal- mandibular joints appear symmetric with flattening of the mandibular condyles and joint space loss re demonstrated. There is again severe mucosal thickening involving the left sphenoid sinus with surrounding hypertrop hic gamble. The right sphenoid sinus is clear. Both maxillary sinuses are clear. The ostiomeatal compl ex is patent on the right with slightly more narrowed on the left. There is poorly pneumatized ethmoi d sinuses bilaterally redemonstrated with mild to moderate mucosal thickening again seen. 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 Prior sinus surgery is once again suspected. No sign ificant septal deviation. Visualized portions of the mastoid air cells show no abnormal opacification. Visualized portion of th e brain parenchyma is unremarkable. Moderate atherosclerotic calcification of the bilateral carotid b ulbs. At least moderate stenosis of the bilateral origins of the internal carotid arteries. IMPRESSION: Severe left chronic sphenoid sinusitis redemonstrated. Mild mucosal thickening of the ethmoid sinuses . The right osteophyte complex is patent with mild narrowing of the left. [facility], , 10/03/2024 2:12 PM
== END | disposition home or self-care (01) ==
LOC: RADCTMAIN 12:24
PROVIDERS: ATTEND Otolaryngology
DX: J32.3 Chronic sphenoidal sinusitis (principal); H27.03 Aphakia, bilateral; M25.70 Osteophyte, unspecified joint
CPT/HCPCS: 82565; 84520; 70487; 36415; Q9967

== ENCOUNTER 2024-10-27 08:00 | Inpatient (IN) | payer MEDICARE, OTHER ==
--- NOTE | 2024-10-27 08:44 | ED ---
General Adult HPI - General Source: patient Mode of arrival: ambulatory Limitations: no limitations <Garima Ramos - Last Filed: 10/27/24 08:42> - General Source: patient, RN notes reviewed, old records reviewed <Bobby Jasso - Last Filed: 10/27/24 13:14> - General Chief complaint: Chest Pain Stated complaint: Chest pain Time Seen by Provider: 10/27/24 08:15 - History of Present Illness Initial comments: Quick note: 73-year-old female presents to the emergency department for evaluation of chest pain. Patient states that started around 2 AM today. She notes that it is in her chest and radiates to her back. She notes a history of CHF. She also states that she has been ill recently admitted coughing. (Garima Ramos) Patient is a 73-year-old female presents emergency department complaining of chest wall and back pain. Patient states that she fell recently and has been experiencing worsening pain with movements over this period of time. Woke up this morning with worse pain. States she originally only had back pain but now she has pain radiating from her back around her left ribs towards her sternum. States it is worse with movements of her left arm and right arm as well as with twisting of her torso or with palpation along the ribs. Denies any known back injuries. Patient states she fell over a week ago. Awoke with the symptoms. Seems to be a mixture of chest wall pain as well as pain from the fall but states that the anterior chest wall pain seems to be different than her baseline. States it is improved from earlier but still presents with continued pain and need for evaluation. Denies shortness of breath. Denies any nausea or vomiting. Patient does have a past medical history remarkable for cardiac stents, AICD placement, CHF. (Bobby Jasso) - Related Data Home Medications Medication Instructions Recorded Confirmed Fluticasone Propionate [Flonase] 2 spray EA NOSTRIL DAILY PRN 08/02/14 10/27/24 Acetaminophen-Codeine 300-30mg 1 tab PO BID PRN 09/23/18 10/27/24 [Tylenol w/codeine #3] Fexofenadine HCl [Barby Allergy] 180 mg PO DAILY 01/30/19 10/27/24 Acetaminophen Tab [Tylenol] 500 mg PO DAILY PRN 06/09/21 10/27/24 Albuterol Sulfate [Ventolin HFA] 2 puff INHALATION RT-Q6H PRN 06/09/21 10/27/24 L.acidoph,Paracasei, B.lactis 1 cap PO DAILY 08/14/21 10/27/24 [Probiotic] Adalimumab [Humira Pen 40 mg SQ TH 11/27/21 10/27/24 Crohn's-Uc-Hs] Aspirin EC [Ecotrin Low Dose] 81 mg PO DAILY 11/27/21 10/27/24 Clopidogrel [Plavix] 75 mg PO DAILY 11/27/21 10/27/24 Cyanocobalamin (Vitamin B-12) 5,000 mcg PO DAILY 11/27/21 10/27/24 [Vitamin B-12] Lansoprazole [Prevacid] 30 mg PO DAILY 11/27/21 10/27/24 Losartan Potassium 50 mg PO DAILY 11/27/21 10/27/24 Metoprolol Succinate [Toprol XL] 50 mg PO DAILY 11/27/21 10/27/24 Rosuvastatin Calcium [Crestor] 40 mg PO HS 11/27/21 10/27/24 Spironolactone [Aldactone] 25 mg PO DAILY 11/27/21 10/27/24 Furosemide [Lasix] 10 mg PO DAILY PRN 02/16/23 10/27/24 Cholecalciferol (Vitamin D3) 50 mcg PO DAILY 10/27/24 10/27/24 [Vitamin D3 (50 Mcg = 2000 Iu)] Cyclosporine (Cequa) 0.09% 1 drop BOTH EYES BID 10/27/24 10/27/24 Dropperette Sucralfate [Carafate] 1 gm PO TID 10/27/24 10/27/24 Allergies Allergy/AdvReac Type Severity Reaction Status Date / Time atorvastatin [From Lipitor] Allergy Swelling Verified 10/27/24 11:52 cefuroxime [From Ceftin] Allergy Rash/Hives Verified 10/27/24 11:52 cefuroxime axetil Allergy SEVERE Verified 10/27/24 11:52 [From Ceftin] HEADACHE ciprofloxacin [From Cipro] Allergy Rash/Hives Verified 10/27/24 11:52 clindamycin Allergy Rash/Hives Verified 10/27/24 11:52 dicloxacillin Allergy Nausea & Verified 10/27/24 11:52 Vomiting & Diarrhea doxazosin mesylate Allergy Rash/Hives Verified 10/27/24 11:52 [From Cardura] doxycycline Allergy Nausea & Verified 10/27/24 11:52 Vomiting,HEADACHE duloxetine [From Cymbalta] Allergy Abdominal Verified 10/27/24 11:52 Pain, ROQUE gatifloxacin [From Tequin] Allergy Abdominal Verified 10/27/24 11:52 Pain,VOMITING hydralazine [Hydralazine] Allergy Rapid Verified 10/27/24 11:52 Heart Rate hydrochlorothiazide Allergy Nausea & Verified 10/27/24 11:52 Vomiting indapamide [From Lozol] Allergy Abdominal Verified 10/27/24 11:52 Pain iodine povacrylex Allergy Rash/Hives Verified 10/27/24 11:52 [From DuraPrep] isopropyl alcohol Allergy Rash/Hives Verified 10/27/24 11:52 [From DuraPrep] latex Allergy Rash/Hives Verified 10/27/24 11:52 lisinopril Allergy VERTIGO,HEA Verified 10/27/24 11:52 DACHE nabumetone [From Relafen] Allergy Abdominal Verified 10/27/24 11:52 Pain nitrofurantoin Allergy Rash/Hives Verified 10/27/24 11:52 [From Macrobid] povidone-iodine Allergy Rash/Hives Verified 10/27/24 11:52 [From Betadine] soap [From Betadine] Allergy Rash/Hives Verified 10/27/24 11:52 sulfamethoxazole Allergy Unknown Verified 10/27/24 11:52 [From Bactrim] sulfasalazine Allergy Abdominal Verified 10/27/24 11:52 [From Azulfidine] Pain,VOMITING triamcinolone acetonide Allergy SEVERE Verified 10/27/24 11:52 [From Kenalog] HEADACHE trimethoprim [From Bactrim] Allergy Unknown Verified 10/27/24 11:52 doxazosin [From Cardura] AdvReac Vomiting Verified 10/27/24 11:52 ezetimibe AdvReac Unknown Verified 10/27/24 11:52 Review of Systems ROS Other: All systems not noted in ROS Statement are negative. <Garima Ramos - Last Filed: 10/27/24 08:42> ROS Other: All systems not noted in ROS Statement are negative. <Bobby Jasso - Last Filed: 10/27/24 13:14> ROS Statement: Those systems with pertinent positive or pertinent negative responses have been documented in the HPI. Review of Systems: CONST: Denies fever EYES: Denies blurry vision ENT: Denies nasal congestion C/V: Endorses chest pain/chest wall pain RESP: Denies shortness of breath GI: Denies abdominal pain : Denies dysuria SKIN: Denies rash. MSK: Denies joint pain. NEURO: Denies headache (Bobby Jasso) Past Medical History Past Medical History: Asthma, Heart Failure, Diabetes Mellitus, Eye Disorder, GERD/Reflux, GI Bleed, Hyperlipidemia, Hypertension, Myocardial Infarction (VT), Osteoarthritis (OA) Additional Past Medical History / Comment(s): microperforations of diverticulitis-treated with ABX. Other HX: Lower GI bleeds, chrohn's dx, I BS, hemorrhoids, PUD, arhtiritis bilateral hands and feet, chronic back pain, macular degeneration bilateral eyes, sinus problems, bronchitis, migraines, bilateral kidney stones, anemia, hypoglycemia, spider veins bilateral legs. Last Myocardial Infarction Date:: 07/2021 History of Any Multi-Drug Resistant Organisms: None Reported Past Surgical History: Adenoidectomy, Bladder Surgery, Heart Catheterization With Stent, Hysterectomy, Orthopedic Surgery, Tonsillectomy Additional Past Surgical History / Comment(s): Several EGDs with bx and colonoscopies with bx, gastrectomy for ulcers (40% stomach removed),cystoscopy x2, R/L shoulder rotator cuff arthroscopies, bilateral CATARACT SURGERY with le ns implants; Sinus Surgery x 2, Left Breast biopsy x 2-benign, 2nd toe R foot with hardware. Past Anesthesia/Blood Transfusion Reactions: No Reported Reaction, Postoperative Nausea & Vomiting (PONV) Additional Past Anesthesia/Blood Transfusion Reaction / Comment(s): Pt states she did receive blood in 2009 with GI bleed-no reaction. rise in b/p after last injection in back Date of Last Stent Placement:: 01/2021 Past Psychological History: No Psychological Hx Reported Smoking Status: Former smoker Past Alcohol Use History: None Reported Past Drug Use History: None Reported - Past Family History Father Family Medical History: Cancer Additional Family Medical History / Comment(s): Father had prostate cancer that went to the bone. He at the age of 79yrs. Mother Family Medical History: Cancer, Congestive Heart Failure (CHF) Additional Family Medical History / Comment(s): Mother of lymphoma at the age of 81 yrs. Sister(s) Family Medical History: Cancer Additional Family Medical History / Comment(s): breast cancer x2 sisters <Garima Ramos - Last Filed: 10/27/24 08:42> General Exam Limitations: no limitations <Garima Ramos - Last Filed: 10/27/24 08:42> <Bobby Jasso - Last Filed: 10/27/24 13:14> - General Exam Comments Initial Comments: Visual Physical Exam Vital signs reviewed General: Well-appearing, nontoxic, no acute distress. Head: Normocephalic, atraumatic Eyes: PERRLA, EOMI ENT: Airway patent Chest: Nonlabored breathing Skin: No visual rash, normal skin tone Neuro: Alert and oriented 3 Musculoskeletal: No gross abnormalities (Garima Ramos) General: Appears in mild distress secondary to chest pain HEAD: Normal with no signs of head trauma. EYES: PERRLA, EOMI, conjunctiva normal, no discharge. ENT: Hearing grossly intact, normal oropharynx. RESPIRATORY: Clear breath sounds bilaterally. No wheezes, rales, or rhonchi. C/V: Regular rate and rhythm. S1 and S2 auscultated, no edema, peripheral pulses 2+ and intact throughout. Patient does have some chest wall tenderness to palpation of the left ribs, left posterior ribs, as well as left anterior ribs. Worse with movements of the left arm. ABD: Abd is soft, nontender, nondistended EXT: Normal range of motion, no obvious deformity SKIN: No rashes or lesions observed on exposed skin. NEURO: Alert and oriented x 4. No focal deficits. (Bobby Jasso) Course Vital Signs 10/27/24 10/27/24 08:03 10:34 Temperature 98 F Pulse Rate 83 93 Respiratory 20 20 Rate Blood Pressure 142/63 148/81 O2 Sat by Pulse 97 98 Oximetry Medical Decision Making <Garima Ramos - Last Filed: 10/27/24 08:42> - Lab Data Result diagrams: 10/27/24 08:35 10/27/24 08:35 - EKG Data -: EKG Interpreted by Ak <Bobby Jasso - Last Filed: 10/27/24 13:14> - Medical Decision Making Quick note preformed and electronically signed by Garima Ramos PA-C (Garima Ramos) Was pt. sent in by a medical professional or institution (, SEAN, QUANTITATIVE ANALYST, urgent care, hospital, or [facility]...) When possible be specific @ -No Did you speak to anyone other than the patient for history (EMS, parent, family, police, friend...)? What history was obtained from this source @ -No Did you review nursing and triage notes (agree or disagree)? Why? @ -I reviewed and agree with nursing and triage notes Were old charts reviewed (outside hosp., previous admission, EMS record, old EKG, old radiological studies, urgent care reports/EKG's, [facility] records)? Report findings @ -Reviewed old the EKGs and no significant change compared with today's. Differential Diagnosis (chest pain, altered mental status, abdominal pain women, abdominal pain men, vaginal bleeding, weakness, fever, dyspnea, syncope, headache, dizziness, GI bleed, back pain, seizure, CVA, palpatations, mental health, musculoskeletal)? @ -Differential Chest Pain: Stable Angina, Unstable Angina, STEMI, NSTEMI Aortic Dissection, Pneumothorax, Musculoskeletal, Esophageal Spasm GERD, Cholecystitis, Pancreatitis, Zoster, this is not meant to be an all-inclusive list. EKG interpreted by me (3pts min.). @ -As above X-rays interpreted by me (1pt min.). @ -Chest x-ray reveals no obvious acute cardiopulmonary process. Rib x-ray reveals no obvious acute injury. Thoracic spine x-ray reveals no obvious acute injury. CT interpreted by me (1pt min.). @ -None done U/S interpreted by me (1pt. min.). @ -None done What testing was considered but not performed or refused? (CT, X-rays, U/S, labs)? Why? @ -None What meds were considered but not given or refused? Why? @ -None Did you discuss the management of the patient with other professionals (professionals i.e. SEAN Wells, QUANTITATIVE ANALYST, lab, RT, psych nurse, dialysis social worker, insulation mechanic, te acher, chief science officer, rn case manager hospice)? Give summary @ -Discussed with Dr. Melgar of [facility] who accepted the admission. [facility] is covering for Dr. Chamberlain who is off. Was smoking cessation discussed for >3mins.? @ -No Was critical care preformed (if so, how long)? @ -No Were there social determinants of health that impacted care today? How? (Homelessness, low income, unemployed, alcoholism, drug addiction, transportation, low edu. Level, literacy, decrease access to med. care, nursing home, rehab)? @ -No Was there de-escalation of care discussed even if they declined (Discuss DNR or withdrawal of care, Hospice)? DNR status @ -No What co-morbidities impacted this encounter? (DM, HTN, Smoking, COPD, CAD, Cancer, CVA, ARF, Chemo, Hep., AIDS, mental health diagnosis, sleep apnea, morbid obesity)? @ -None Was patient admitted / discharged? Hospital course, mention meds given and route, prescriptions, significant lab abnormalities, going to OR and other pertinent info. @ -Based on patient's presentation and physical exam, presents with what seems to be chest wall pain but sudden worsening of the pain today with awakening. Does have a cardiac history. Seems to be chest wall pain on exam but we will obtain cardiac workup. Patient was in agreement this plan. Vital signs within acceptable limits. Patient will be administered lidocaine patch, Toradol, Tylenol 3 for pain. She was in agreement this plan. X-rays returned negative for any obvious acute injury. Labs remarkable for leukocytosis of 13.6 which is likely reactive. Initial troponin is undetectable. Remainder the workup unremarkable. On reevaluation, patient is feeling improved however we will obtain a second troponin and second EKG due to her cardiac history. Patient was in agreement this plan. Repeat EKG shows no dynamic changes. Repeat troponin did become detectable but is still not considered elevated. I discussed the results with the patient. As the troponin did elevate, we will admit to the observation for further monitoring and cardiology evaluation. Discussed this with the patient who is in agreement that this is the safest option. I spoke with the admitting provider, Dr. Melgar of [facility] who is covering for Dr. Chamberlain who is off who accepted the admission. Cardiology consulted. Patient administered 324 mg of aspirin. Undiagnosed new problem with uncertain prognosis? @ -No Drug Therapy requiring intensive monitoring for toxicity (Heparin, Nitro, Insulin, Cardizem)? @ -No Were any procedures done? @ -No Diagnosis/symptom? @ -Chest pain, chest wall pain Acute, or Chronic, or Acute on Chronic? @ -Acute Uncomplicated (without systemic symptoms) or Complicated (systemic symptoms)? @ -Complicated Side effects of treatment? @ -No Exacerbation, Progression, or Severe Exacerbation? @ -No Poses a threat to life or bodily function? How? (Chest pain, USA, VT, pneumonia, PE, COPD, DKA, ARF, appy, cholecystitis, CVA, Diverticulitis, Homicidal, Suicidal, threat to staff... and all critical care pts) @ -Potentially, yes (Bobby Jasso) - Lab Data Lab Results 10/27/24 10/27/24 10/27/24 Range/Units 08:35 08:35 08:35 WBC 15.6 H (3.8-10.6) k/uL RBC 4.39 (3.80-5.40) m/uL Hgb 13.2 (11.4-16.0) gm/dL Hct 41.1 (34.0-46.0) % MCV 93.5 (80.0-100.0) fL MCH 30.1 (25.0-35.0) pg MCHC 32.2 (31.0-37.0) g/dL RDW 14.2 (11.5-15.5) % Plt Count 195 (150-450) k/uL MPV 8.0 Neutrophils % 83 % Lymphocytes % 9 % Monocytes % 4 % Eosinophils % 2 % Basophils % 1 % Neutrophils # 13.0 H (1.3-7.7) k/uL Lymphocytes # 1.4 (1.0-4.8) k/uL Monocytes # 0.7 (0-1.0) k/uL Eosinophils # 0.3 (0-0.7) k/uL Basophils # 0.1 (0-0.2) k/uL Sodium 139 (137-145) mmol/L Potassium 4.7 (3.5-5.1) mmol/L Chloride 106 (98-107) mmol/L Carbon Dioxide 20 L (22-30) mmol/L Anion Gap 13 mmol/L BUN 13 (7-17) mg/dL Creatinine 0.57 (0.52-1.04) mg/dL Est GFR (CKD-EPI)AfAm >90 (>60 ml/min/1.73 sqM) Est GFR (CKD-EPI)NonAf >90 (>60 ml/min/1.73 sqM) Glucose 182 H (74-99) mg/dL Calcium 9.9 (8.4-10.2) mg/dL Magnesium 2.0 (1.6-2.3) mg/dL Total Bilirubin 0.5 (0.2-1.3) mg/dL AST 20 (14-36) U/L ALT 16 (4-34) U/L Alkaline Phosphatase 56 (38-126) U/L Troponin I <0.012 (0.000-0.034) ng/mL Total Protein 7.2 (6.3-8.2) g/dL Albumin 4.6 (3.5-5.0) g/dL Urine Color Urine Appearance (Clear) Urine pH (5.0-8.0) Ur Specific [place] (1.001-1.035) Urine Protein (Negative) Urine Glucose (UA) (Negative) Urine Ketones (Negative) Urine Blood (Negative) Urine Nitrite (Negative) Urine Bilirubin (Negative) Urine Urobilinogen (<2.0) mg/dL Ur Leukocyte Esterase (Negative) 10/27/24 10/27/24 Range/Units 08:40 12:02 WBC (3.8-10.6) k/uL RBC (3.80-5.40) m/uL Hgb (11.4-16.0) gm/dL Hct (34.0-46.0) % MCV (80.0-100.0) fL MCH (25.0-35.0) pg MCHC (31.0-37.0) g/dL RDW (11.5-15.5) % Plt Count (150-450) k/uL MPV Neutrophils % % Lymphocytes % % Monocytes % % Eosinophils % % Basophils % % Neutrophils # (1.3-7.7) k/uL Lymphocytes # (1.0-4.8) k/uL Monocytes # (0-1.0) k/uL Eosinophils # (0-0.7) k/uL Basophils # (0-0.2) k/uL Sodium (137-145) mmol/L Potassium (3.5-5.1) mmol/L Chloride (98-107) mmol/L Carbon Dioxide (22-30) mmol/L Anion Gap mmol/L BUN (7-17) mg/dL Creatinine (0.52-1.04) mg/dL Est GFR (CKD-EPI)AfAm (>60 ml/min/1.73 sqM) Est GFR (CKD-EPI)NonAf (>60 ml/min/1.73 sqM) Glucose (74-99) mg/dL Calcium (8.4-10.2) mg/dL Magnesium (1.6-2.3) mg/dL Total Bilirubin (0.2-1.3) mg/dL AST (14-36) U/L ALT (4-34) U/L Alkaline Phosphatase (38-126) U/L Troponin I 0.020 (0.000-0.034) ng/mL Total Protein (6.3-8.2) g/dL Albumin (3.5-5.0) g/dL Urine Color Colorless Urine Appearance Clear (Clear) Urine pH 5.5 (5.0-8.0) Ur Specific [place] 1.012 (1.001-1.035) Urine Protein Negative (Negative) Urine Glucose (UA) Negative (Negative) Urine Ketones Negative (Negative) Urine Blood Negative (Negative) Urine Nitrite Negative (Negative) Urine Bilirubin Negative (Negative) Urine Urobilinogen <2.0 (<2.0) mg/dL Ur Leukocyte Esterase Negative (Negative) - EKG Data EKG Comments: 12-lead Electrocardiogram Interpretation Note EKG was reviewed and interpreted by myself. 12-lead ECG performed at 0812 is interpreted by me as revealing normal sinus rhythm at a rate of 92 beats per minute. [place] is normal. UT interval is 160 ms, QRS durations 114 ms, QTc is 403 ms.. There were no ST or T wave abnormalities to suggest myocardial ischemia or injury. R wave progression across the precordium was satisfactory. By my interpretation this EKG is non-diagnostic for acute ischemia. 12-lead Electrocardiogram Interpretation Note EKG was reviewed and interpreted by myself. 12-lead ECG performed at 1152 is interpreted by me as revealing normal sinus rhythm at a rate of 72 beats per minute. [place] is normal. UT interval is 165 ms, QRS duration is 116 ms, QTc is 411 ms.. There were no ST or T wave abnormalities to suggest myocardial ischemia or injury. PVC present. R wave progression across the precordium was satisfactory. By my interpretation this EKG is non-diagnostic for acute ischemia. (Bobby Jasso) Disposition <Garima Ramos - Last Filed: 10/27/24 08:42> Time of Disposition: 13:14 <Bobby Jasso - Last Filed: 10/27/24 13:14> Clinical Impression: Chest wall pain, Chest pain Disposition: ADMITTED IP TO THIS HOSP Condition: Stable Referrals: Cecille Mckenna MD [Primary Care Provider] - 1-2 days
[2024-10-27 08:45] LABS: Basophils # (A) 0.1 k/uL (0-0.2); Basophils % (A) 1 %; Eosinophils # (A) 0.3 k/uL (0-0.7); Eosinophils % (A) 2 %; HCT 41.1 % (34.0-46.0); HGB 13.2 gm/dL (11.4-16.0); Lymphocytes # (A) 1.4 k/uL (1.0-4.8); Lymphocytes % (A) 9 %; MCH 30.1 pg (25.0-35.0); MCHC 32.2 g/dL (31.0-37.0); MCV 93.5 fL (80.0-100.0); Monocytes # (A) 0.7 k/uL (0-1.0); Monocytes % (A) 4 %; Neutrophils % (A) 83 %; Platelet Count 195 k/uL (150-450); RBC 4.39 m/uL (3.80-5.40); RDW 14.2 % (11.5-15.5); WBC 15.6 k/uL (3.8-10.6)
[2024-10-27 08:51] LABS: Appearance,Urine Clear (Clear); Bilirubin,Urine Negative (Negative); Blood,Urine Negative (Negative); Color,Urine Colorless; Glucose,Urine (UA) Negative (Negative); Ketones,Urine Negative (Negative); Leukocyte Esterase,Urine Negative (Negative); Nitrite,Urine Negative (Negative); PH, Urine 5.5 (5.0-8.0); Protein,Urine Negative (Negative); Specific Gravity,Urine 1.012 (1.001-1.035); Urobilinogen,Urine <2.0 mg/dL (<2.0)
[2024-10-27 09:03] LABS: ALT 16 U/L (4-34); AST 20 U/L (14-36); African American GFR (CKD) >90 (>60 ml/min/1.73 sqM); Albumin 4.6 g/dL (3.5-5.0); Alkaline Phosphatase 56 U/L (38-126); Anion Gap 13 mmol/L; Blood Urea Nitrogen 13 mg/dL (7-17); Calcium 9.9 mg/dL (8.4-10.2); Carbon Dioxide 20 mmol/L (22-30); Chloride 106 mmol/L (98-107); Glucose 182 mg/dL (74-99); Non-African American GFR(CKD) >90 (>60 ml/min/1.73 sqM); Potassium 4.7 mmol/L (3.5-5.1); Sodium 139 mmol/L (137-145); Total Bilirubin 0.5 mg/dL (0.2-1.3); Total Protein 7.2 g/dL (6.3-8.2)
--- NOTE | 2024-10-27 09:11 | XR ---
EXAMINATION TYPE: XR chest 2V DATE OF EXAM: 10/27/2024 9:04 AM COMPARISON: Chest radiographs from 11/27/2021 CLINICAL INDICATION: Female, 73 years old with history of Chest Pain; TECHNIQUE: XR chest 2V Frontal and lateral views of the chest. FINDINGS: Lungs/Pleura: There is no evidence of pleural effusion, focal consolidation, or pneumothorax. Pulmonary vascularity: Unremarkable. Heart/mediastinum: Cardiomediastinal silhouette is prominent in size. Coronary stents noted. Single-l ead cardiac conduction device overlying the left hemithorax with lead projecting over the right ventr icle. Musculoskeletal: No acute osseous pathology. IMPRESSION: No acute cardiopulmonary disease/process. [facility], , 10/27/2024 9:09 AM
--- NOTE | 2024-10-27 09:17 | XR ---
EXAMINATION TYPE: XR ribs bilateral DATE OF EXAM: 10/27/2024 9:04 AM COMPARISON: 10/27/2024 CLINICAL INDICATION: Female, 73 years old with history of injury; pain TECHNIQUE: XR ribs bilateral; Frontal and oblique views of the ribs with frontal chest radiograph. FINDINGS: Chondrocalcinosis present. Left chest wall single-lead cardiac conduction device. Atheroscl erosis of the arterial vasculature. The ribs have a normal appearance. No evidence of fracture. Over all, the lungs are clear. The cardiac silhouette is normal in size. The remaining osseous structure s are intact. IMPRESSION: No displaced rib fractures visualized. [facility], , 10/27/2024 9:15 AM
[2024-10-27] MEDS: Acetaminophen-Codeine 300-30mg TAB PO STA (10:36)
[2024-10-27] MEDS: LIDOCAINE 4% PATCH TOPICAL STA (10:37)
[2024-10-27] MEDS: KETOROLAC 15 MG/ML 1 ML VIAL IVP STA (11:05)
[2024-10-27] MEDS: KETOROLAC 15 MG/ML 1 ML VIAL IM STA (11:06)
--- NOTE | 2024-10-27 11:41 | XR ---
EXAMINATION TYPE: XR thoracic spine 2V DATE OF EXAM: 10/27/2024 10:49 AM COMPARISON: None CLINICAL INDICATION: Female, 73 years old with history of mid back pain; [facility] TECHNIQUE: XR thoracic spine 2V views of the spine in Frontal and lateral projections. FINDINGS: Few scattered compression deformity throughout the thoracic spine. Mild scoliosis changes of the lumb ar spine apex left L2. There is no evidence of disk space narrowing or loss of vertebral body height. Atherosclerosis of the arterial vasculature. IMPRESSION: 1. Mild compression deformities throughout the spine. This concern for fracture consider MRI. 2. Mild -to-moderate multilevel degeneration changes of the spine. [facility], , 10/27/2024 11:39 AM
[2024-10-27] MEDS ORDERED: ONDANSETRON 4 MG/2 ML VIAL IVP PRN (13:14)
[2024-10-27] MEDS ORDERED: NALOXONE 0.4 MG/ML 1 ML VIAL IV PRN (13:14)
[2024-10-27] MEDS ORDERED: ALBUTEROL NEBULIZED 2.5 MG/3 ML INHALATION PRN (14:46)
[2024-10-27] MEDS ORDERED: FLUTICASONE NASAL 50MCG/SPRAY 16GM BTL EA NOSTRIL PRN (14:46)
[2024-10-27] MEDS ORDERED: FUROSEMIDE 20 MG TAB PO PRN (14:46)
[2024-10-27] MEDS ORDERED: HYDROcodone/APAP 5-325MG 1 EACH TAB PO PRN (15:10)
[2024-10-27] MEDS: SUCRALFATE 1 GM TAB PO SCH (16:07)
[2024-10-27] MEDS: HEPARIN SODIUM,PORCINE 5,000 UNIT/ML 1 ML VIAL SQ SCH (16:07)
[2024-10-27] MEDS: Acetaminophen-Codeine 300-30mg TAB PO PRN (16:12)
[2024-10-27] MEDS: PANTOPRAZOLE 40 MG/10 ML VIAL IVP SCH (16:38)
[2024-10-27] MEDS: CYCLOSPORINE 0.09% BOTH EYES SCH (22:29)
[2024-10-27] MEDS: PATIENT'S OWN (Rosuvastatin Calcium [Crestor] 40 MG Tablet) PO SCH (22:29)
[2024-10-28 09:02] LABS: ALT 12 U/L (8-44); AST 20 U/L (13-35); Albumin 4.2 g/dL (3.8-4.9); Albumin/Globulin Ratio 1.56 Ratio (1.60-3.17); Alkaline Phosphatase 55 U/L (41-126); BUN/Creat Ratio 22.67 Ratio (12.00-20.00); Blood Urea Nitrogen 13.6 mg/dL (9.0-27.0); Calcium 9.3 mg/dL (8.7-10.3); Carbon Dioxide 17.6 mmol/L (21.6-31.8); Chloride 107 mmol/L (96-109); Globulin 2.7 g/dL (1.6-3.3); Glucose 170 mg/dL (70-110); Potassium 4.6 mmol/L (3.5-5.5); Sodium 140 mmol/L (135-145); Total Bilirubin 0.3 mg/dL (0.3-1.2); Total Protein 6.9 g/dL (6.2-8.2)
--- NOTE | 2024-10-28 09:10 | HP ---
HISTORY AND PHYSICAL CHIEF COMPLAINT: Chest pain. HISTORY OF PRESENT ILLNESS: This 73-year-old woman with a past medical history of , asthma, CHF, history of AICD, multiple medical problems, being followed by Primary Physician in the outpatient setting, was complaining of chest pain. The pain was felt in the epigastrium, radiating to both sides to the back and the patient was admitted for further evaluation and treatment. There is no history of fever, rigors, or chills at this time. PAST MEDICAL HISTORY: History of asthma, CHF, AICD, multiple medical issues. Rest of history and rest of the chart is also reviewed. HOME MEDICATIONS: Reviewed and include Carafate, dose and rest of medications reviewed. ALLERGIES: Multiple allergies reviewed, include Lipitor. reviewed. FAMILY HISTORY: History of cancer in the family. SOCIAL HISTORY: Reports history of smoking. REVIEW OF SYSTEMS: Fourteen-point review of systems negative except as mentioned earlier. PHYSICAL EXAM: VITAL SIGNS: Pulse is 93, blood pressure 140/88, respirations 20. HEENT: Conjunctivae normal. NECK: No jugular venous distention. RESPIRATIONS: n. ABDOMEN: Soft. LEGS: No edema. NERVOUS SYSTEM: No focal deficit. LABORATORY DATA: WBC 15.6. ASSESSMENT: 1. Chest pain, possibly unstable angina. 2. History of congestive heart failure, coronary artery disease, stent. 3. History of diabetes mellitus type 2. 4. History of asthma. 5. Multiple complex medical issues. PLAN/DISCUSSION: Recommend to continue the current symptomatic treatment. Otherwise, Cardiology consultation. Resume the home medications. protocol. Prognosis guarded because of multiple complex medications. I would also recommend Protonix also. See orders for details. Further recommendations to follow. MMODL / IJN: [id number] / ALDEN
[2024-10-28 09:23] LABS: Basophils # (A) 0.09 X 10*3/uL (0.00-0.10); Eosinophils % (A) 3.5 %; HCT 39.3 % (37.2-46.3); HGB 12.5 g/dL (12.0-15.0); Lymphocytes # (A) 3.54 X 10*3/uL (0.90-5.00); Lymphocytes % (A) 40.7 %; MCH 29.6 pg (27.0-32.0); MCHC 31.8 g/dL (32.0-37.0); MCV 92.9 FL (80.0-97.0); Mean Platelet Volume 10.9 FL (9.5-12.2); Monocytes # (A) 0.69 X 10*3/uL (0.20-1.00); Monocytes % (A) 7.9 %; NRBC Per 100 WBC 0 X 10*3/uL (0.00-0.01); Neutrophils # (A) 4.01 X 10*3/uL (1.80-7.70); Neutrophils % (A) 46.2 %; Platelet Count 195 X 10*3/uL (140-440); RBC 4.23 X 10*6/uL (4.10-5.20); RDW 14.4 % (11.5-14.5); WBC 8.69 X 10*3/uL (4.50-10.00)
[2024-10-28] MEDS: ASPIRIN 81 MG PO SCH (10:06)
[2024-10-28] MEDS: SPIRONOLACTONE 25 MG TAB PO SCH (10:06)
[2024-10-28] MEDS: LOSARTAN 50 MG TAB PO SCH (10:06)
[2024-10-28] MEDS: CLOPIDOGREL 75 MG TAB PO SCH (10:06)
[2024-10-28] MEDS: LORATADINE 10 MG TAB PO SCH (10:06)
[2024-10-28] MEDS: ACETAMINOPHEN TAB 500 MG TAB PO PRN (10:18)
[2024-10-28] MEDS ORDERED: AMINOPHYLLINE 500 MG/20 ML VIAL IV PRN (10:50)
[2024-10-28] MEDS ORDERED: REGADENOSON 0.4 MG/5 ML SYRINGE IV PRN (10:50)
[2024-10-28] MEDS ORDERED: CAFFEINE CITRATE 60 MG/3 ML VIAL IV PRN (10:50)
--- NOTE | 2024-10-28 12:51 | P.CRDCN ---
History of Present Illness History of present illness: HISTORY OF PRESENT ILLNESS: This is a 73-year-old female with a past medical history significant for coronary artery disease with previous PCI, congestive heart failure, ischemic cardiomyopathy, hypertension, hyperlipidemia, and ICD implantation. Patient follows in the office with Dr. Lake. We have been asked to see the patient in consultation for chest pain. Patient examined at the bedside. Patient presented to the hospital with a chief complaint of chest pain. Patient states about a week ago she fell on the ice and hit the right side of her body. She has been having some back pain as well which has been improved with a lidocaine patch. She states that last few days she has been having pain across her chest that radiates into her back. She denies any shortness of breath. At the time of examination she denies chest pain or pressure. Vital signs are stable. The patient does have a known history of coronary artery disease. She was referred to [facility] in [place] and underwent stenting. She reports that she has had 4 stents placed. DIAGNOSTICS: - EKG reveals sinus mechanism with PVC. Repeat EKG reveals sinus mechanism with Q waves in inferior lateral leads - Chest xray negative for acute process - Laboratory data: WBC 15.6. Hemoglobin 13.2. Platelet count 195. Sodium 140. Potassium 4.6. BUN 13.6. Creatinine 0.6. Troponin negative x 4. - Current home cardiac medications include rosuvastatin 40 mg at night, aspirin 81 mg daily, Plavix 75 mg daily, Lasix 10 mg daily as needed, losartan 50 mg daily, metoprolol succinate 50 mg daily, Aldactone 25 mg daily - Most recent echocardiogram obtained in December 2023 revealed ejection fraction 30 to 35%, hypokinetic areas of inferior lateral and inferior gamble from the base to the mid wall. Small hypokinetic area of the inferior septal wall from the mid wall to the apex. Mild LVH. Trace to mild aortic regurgitation, severe mitral regurgitation, mild tricuspid regurgitation -Patient underwent Lexiscan stress test in March 2024 revealing evidence of prior inferior lateral PA with out any acute ischemia - Cardiac catheterization history: [address] Lake revealing triple-vessel disease. She was referred to [facility] in [place] and underwent stenting. REVIEW OF SYSTEMS: At the time of my exam: CONSTITUTIONAL: Denies fever or chills. HEENT: Denies blurred vision, vision changes, or eye pain. Denies hemoptysis CARDIOVASCULAR: Denies chest pain. Denies orthopnea. Denies PND. Denies palpitations RESPIRATORY: Denies shortness of breath. GASTROINTESTINAL: Denies abdominal pain. Denies nausea or vomiting. HEMATOLOGIC: Denies bleeding disorders. GENITOURINARY: Denies any blood in urine. SKIN: Denies pruitis. Denies rash. PHYSICAL EXAM: VITAL SIGNS: Reviewed. GENERAL: Well-developed in no acute distress. HEENT: Head is normocephalic. Pupils are equal, round. Sclerae anicteric. Mucous membranes of the mouth are moist. Neck supple. No JVD or thyromegaly LUNGS: Respirations even and unlabored. Lungs essentially clear to auscultation bilaterally. HEART: Regular rate and rhythm. S1 and S2 heard. ABDOMEN: Soft. Nondistended. Nontender. EXTREMITIES: Normal range of motion. No clubbing or cyanosis. Peripheral pulses intact. No lower extremity edema NEUROLOGIC: Awake and alert. Oriented x 3. ASSESSMENT: Chest pain Back pain, s/p recent mechanical fall on the ice Coronary artery disease with previous stenting x 4 in [place] per patient Ischemic cardiomyopathy, 3035% Chronic congestive heart failure with reduced EF, currently euvolemic History of hypertension History of hyperlipidemia History of ICD implantation PLAN: An acute coronary event has been ruled out Obtain 2D echo to assess cardiac structure and function Resume home cardiac medications Patient to undergo Lexiscan stress test today If negative, she may be discharged home from a cardiac standpoint Further recommendations pending patient course Nurse practitioner note has been reviewed by physician. Signing provider agrees with the documented findings, assessment, and plan of care documented by AUDIENCE DEVELOPMENT MANAGER as a scribe. Past Medical History Past Medical History: Asthma, Heart Failure, Diabetes Mellitus, Eye Disorder, GERD/Reflux, GI Bleed, Hyperlipidemia, Hypertension, Myocardial Infarction (PA), Osteoarthritis (OA) Additional Past Medical History / Comment(s): microperforations of diverticulitis-treated with ABX. Other HX: Lower GI bleeds, chrohn's dx, IBS, hemorrhoids, PUD, arhtiritis bilateral hands and feet, chronic back pain, macular degeneration bilateral eyes, sinus problems, bronchitis, migraines, jose de jesus ateral kidney stones, anemia, hypoglycemia, spider veins bilateral legs. Last Myocardial Infarction Date:: 07/2021 History of Any Multi-Drug Resistant Organisms: None Reported Past Surgical History: Adenoidectomy, Bladder Surgery, Heart Catheterization With Stent, Hysterectomy, Orthopedic Surgery, Tonsillectomy Additional Past Surgical History / Comment(s): Several EGDs with bx and colonoscopies with bx, gastrectomy for ulcers (40% stomach removed),cystoscopy x2, R/L shoulder rotator cuff arthroscopies, bilateral CATARACT SURGERY with lens implants; Sinus Surgery x 2, Left Breast biopsy x 2-benign, 2nd toe R foot with hardware. Past Anesthesia/Blood Transfusion Reactions: No Reported Reaction, Postoperative Nausea & Vomiting (PONV) Additional Past Anesthesia/Blood Transfusion Reaction / Comment(s): Pt states she did receive blood in 2009 with GI bleed-no reaction. rise in b/p after last injection in back Date of Last Stent Placement:: 01/2021 Past Psychological History: No Psychological Hx Reported Additional Psychological History / Comment(s): Pt resides with her spouse. She is independent. She is tearful when speaking about her spouse. He has cancerous brain tumors and scheduled for brain surgery 09/12/17 and pt is concerned that she get discharged so she can be with him. 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 He has nurses coming into the home to help as well. Smoking Status: Former smoker Past Alcohol Use History: None Reported Additional Past Alcohol Use History / Comment(s): Pt states she started smoking around age 19 yrs (1970) and quit in 2005- she was a 1 ppd smoker. Past Drug Use History: None Reported - Past Family History Father Family Medical History: Cancer Additional Family Medical History / Comment(s): Father had prostate cancer that went to the bone. He at the age of 79yrs. Mother Family Medical History: Cancer, Congestive Heart Failure (CHF) Additional Family Medical History / Comment(s): Mother of lymphoma at the age of 81 yrs. Sister(s) Family Medical History: Cancer Additional Family Medical History / Comment(s): breast cancer x2 sisters Medications and Allergies Home Medications Medication Instructions Recorded Confirmed Type Fluticasone Propionate [Flonase] 2 spray EA NOSTRIL DAILY PRN 08/02/14 10/27/24 History Acetaminophen-Codeine 300-30mg 1 tab PO BID PRN 09/23/18 10/27/24 History [Tylenol w/codeine #3] Fexofenadine HCl [Barby Allergy] 180 mg PO DAILY 01/30/19 10/27/24 History Acetaminophen Tab [Tylenol] 500 mg PO DAILY PRN 06/09/21 10/27/24 History Albuterol Sulfate [Ventolin HFA] 2 puff INHALATION RT-Q6H PRN 06/09/21 10/27/24 History L.acidoph,Paracasei, B.lactis 1 cap PO DAILY 08/14/21 10/27/24 History [Probiotic] Adalimumab [Humira Pen 40 mg SQ TH 11/27/21 10/27/24 History Crohn's-Uc-Hs] Aspirin EC [Ecotrin Low Dose] 81 mg PO DAILY 11/27/21 10/27/24 History Clopidogrel [Plavix] 75 mg PO DAILY 11/27/21 10/27/24 History Cyanocobalamin (Vitamin B-12) 5,000 mcg PO DAILY 11/27/21 10/27/24 History [Vitamin B-12] Lansoprazole [Prevacid] 30 mg PO DAILY 11/27/21 10/27/24 History Losartan Potassium 50 mg PO DAILY 11/27/21 10/27/24 History Metoprolol Succinate [Toprol XL] 50 mg PO DAILY 11/27/21 10/27/24 History Rosuvastatin Calcium [Crestor] 40 mg PO HS 11/27/21 10/27/24 History Spironolactone [Aldactone] 25 mg PO DAILY 11/27/21 10/27/24 History Furosemide [Lasix] 10 mg PO DAILY PRN 02/16/23 10/27/24 History Cholecalciferol (Vitamin D3) 50 mcg PO DAILY 10/27/24 10/27/24 History [Vitamin D3 (50 Mcg = 2000 Iu)] Cyclosporine (Cequa) 0.09% 1 drop BOTH EYES BID 10/27/24 10/27/24 History Dropperette Sucralfate [Carafate] 1 gm PO TID 10/27/24 10/27/24 History Allergies Allergy/AdvReac Type Severity Reaction Status Date / Time atorvastatin [From Lipitor] Allergy Swelling Verified 10/27/24 11:52 cefuroxime [From Ceftin] Allergy Rash/Hives Verified 10/27/24 11:52 cefuroxime axetil Allergy SEVERE Verified 10/27/24 11:52 [From Ceftin] HEADACHE ciprofloxacin [From Cipro] Allergy Rash/Hives Verified 10/27/24 11:52 clindamycin Allergy Rash/Hives Verified 10/27/24 11:52 dicloxacillin Allergy Nausea & Verified 10/27/24 11:52 Vomiting & Diarrhea doxazosin mesylate Allergy Rash/Hives Verified 10/27/24 11:52 [From Cardura] doxycycline Allergy Nausea & Verified 10/27/24 11:52 Vomiting,HEADACHE duloxetine [From Cymbalta] Allergy Abdominal Verified 10/27/24 11:52 Pain, ROQUE gatifloxacin [From Tequin] Allergy Abdominal Verified 10/27/24 11:52 Pain,VOMITING hydralazine [Hydralazine] Allergy Rapid Verified 10/27/24 11:52 Heart Rate hydrochlorothiazide Allergy Nausea & Verified 10/27/24 11:52 Vomiting indapamide [From Lozol] Allergy Abdominal Verified 10/27/24 11:52 Pain iodine povacrylex Allergy Rash/Hives Verified 10/27/24 11:52 [From DuraPrep] isopropyl alcohol Allergy Rash/Hives Verified 10/27/24 11:52 [From DuraPrep] latex Allergy Rash/Hives Verified 10/27/24 11:52 lisinopril Allergy VERTIGO,HEA Verified 10/27/24 11:52 DACHE nabumetone [From Relafen] Allergy Abdominal Verified 10/27/24 11:52 Pain nitrofurantoin Allergy Rash/Hives Verified 10/27/24 11:52 [From Macrobid] povidone-iodine Allergy Rash/Hives Verified 10/27/24 11:52 [From Betadine] soap [From Betadine] Allergy Rash/Hives Verified 10/27/24 11:52 sulfamethoxazole Allergy Unknown Verified 10/27/24 11:52 [From Bactrim] sulfasalazine Allergy Abdominal Verified 10/27/24 11:52 [From Azulfidine] Pain,VOMITING triamcinolone acetonide Allergy SEVERE Verified 10/27/24 11:52 [From Kenalog] HEADACHE trimethoprim [From Bactrim] Allergy Unknown Verified 10/27/24 11:52 doxazosin [From Cardura] AdvReac Vomiting Verified 10/27/24 11:52 ezetimibe AdvReac Unknown Verified 10/27/24 11:52 Physical Exam Vitals: Vital Signs Temp Pulse Pulse Resp BP BP Pulse Ox 10/28/24 07:00 98 F 80 16 128/77 95 10/28/24 05:49 97.7 F 69 18 148/83 94 L 10/28/24 01:00 97.1 F L 79 15 140/60 96 10/27/24 19:39 98.2 F 81 14 139/61 96 10/27/24 16:26 97 F L 81 16 134/54 93 L 10/27/24 10:34 93 20 148/81 98 Intake and Output 10/27/24 10/28/24 10/28/24 22:59 06:59 14:59 Other: Voiding Method Toilet Toilet # Voids 2 1 Weight 60.781 kg Results 10/28/24 05:49 10/28/24 05:49 Cardiac Enzymes 10/27/24 10/27/24 10/27/24 Range/Units 08:35 12:02 15:29 AST (13-35) U/L Troponin I <0.012 0.020 0.020 (0.000-0.034) ng/mL 10/27/24 10/28/24 Range/Units 18:21 05:49 AST 20 (13-35) U/L Troponin I 0.022 (0.000-0.034) ng/mL Comprehensive Metabolic Panel 10/28/24 Range/Units 05:49 Sodium 140 (135-145) mmol/L Potassium 4.6 (3.5-5.5) mmol/L Chloride 107 (96-109) mmol/L Carbon Dioxide 17.6 L (21.6-31.8) mmol/L BUN 13.6 (9.0-27.0) mg/dL Creatinine 0.6 (0.6-1.5) mg/dL Glucose 170 H (70-110) mg/dL Calcium 9.3 (8.7-10.3) mg/dL AST 20 (13-35) U/L ALT 12 (8-44) U/L Alkaline Phosphatase 55 (41-126) U/L Total Protein 6.9 (6.2-8.2) g/dL Albumin 4.2 (3.8-4.9) g/dL Current Medications Generic Name Dose Route Start Last Admin Trade Name Freq PRN Reason Stop Dose Admin Acetaminophen 500 mg 10/27/24 14:46 Acetaminophen Tab 500 Mg Tab PO DAILY PRN Pain Acetaminophen/Codeine Phosphate 1 each 10/27/24 14:46 10/28/24 06:08 Acetaminophen-Codeine 300-30mg Tab PO 1 each BID PRN Administration Pain Hydrocodone Bitart/Acetaminophen 1 each 10/27/24 15:10 Hydrocodone/Apap 5-325mg 1 Each Tab PO Q6HR PRN Pain Albuterol Sulfate 2.5 mg 10/27/24 14:46 Albuterol Nebulized 2.5 Mg/3 Ml INHALATION RT-Q6H PRN Shortness Of Breath Aspirin 81 mg 10/28/24 09:00 Aspirin 81 Mg PO DAILY [facility] Clopidogrel Bisulfate 75 mg 10/28/24 09:00 Clopidogrel 75 Mg Tab PO DAILY [facility] Fluticasone Propionate 2 spray 10/27/24 14:46 Fluticasone Nasal 50mcg/Norlina 16gm Btl EA NOSTRIL DAILY PRN Allergy Symptoms Furosemide 10 mg 10/27/24 14:46 Furosemide 20 Mg Tab PO DAILY PRN Edema Heparin Sodium (Porcine) 5,000 unit 10/27/24 16:00 10/28/24 02:13 Heparin Sodium,Porcine 5,000 Unit/Ml 1 Ml Vial SQ Not Given Q8HR [facility] Hydromorphone HCl 0.5 mg 10/27/24 15:10 Hydromorphone 0.5 Mg/0.5 Ml Syringe IVP Q6HR PRN Severe Pain (Scale 7 to 10) Loratadine 10 mg 10/28/24 09:00 Loratadine 10 Mg Tab PO DAILY [facility] Losartan Potassium 50 mg 10/28/24 09:00 Losartan 50 Mg Tab PO DAILY [facility] Metoprolol Succinate 50 mg 10/28/24 09:00 Metoprolol Succinate (Er) 50 Mg Tab.Er.24h PO DAILY [facility] Naloxone HCl 0.2 mg 10/27/24 13:14 Naloxone 0.4 Mg/Ml 1 Ml Vial IV Q2M PRN Opioid Reversal Patient's Own ( 40 mg 10/31/24 09:00 Adalimumab [Humira SQ Pen Crohn's-Uc-Hs] CATHY 40 Mg/0.8 Ml Kit, Multiple [place] Patient's Own ( 1 drop 10/27/24 21:00 12/29/24 22:29 Cyclosporine (Cequa) BOTH EYES Not Given 0.09% Dropperette 1 BID CATHY Drop) Patient's Own ( 40 mg 10/27/24 21:00 10/27/24 22:29 Rosuvastatin Calcium PO Not Given [Crestor] 40 Mg HS CATHY Tablet) Ondansetron HCl 4 mg 10/27/24 13:14 Ondansetron 4 Mg/2 Ml Vial IVP Q8HR PRN Nausea And Vomiting Pantoprazole Sodium 40 mg 10/27/24 15:10 10/27/24 22:32 Pantoprazole 40 Mg/10 Ml Vial IVP 40 mg BID CATHY Administration Spironolactone 25 mg 10/28/24 09:00 Spironolactone 25 Mg Tab PO DAILY [facility] Sucralfate 1 gm 10/27/24 16:00 10/27/24 22:31 Sucralfate 1 Gm Tab PO 1 gm TID CATHY Administration Intake and Output 10/27/24 10/28/24 10/28/24 22:59 06:59 14:59 Other: Voiding Method Toilet Toilet # Voids 2 1 Weight 60.781 kg 10/27/24 08:35 10/28/24 05:49
[2024-10-28] MEDS ORDERED: AMINOPHYLLINE 500 MG/20 ML VIAL IV ONE (13:10)
[2024-10-28] MEDS: METOPROLOL SUCCINATE (ER) 50 MG TAB.ER.24H PO SCH (15:29)
[2024-10-28 16:01] LABS: Prothrombin Time 10.7 sec (10.0-12.5)
[2024-10-28 16:06] LABS: Partial Thromboplastin Time 18.7 sec (22.0-30.0)
--- NOTE | 2024-10-28 16:06 | NM ---
EXAMINATION TYPE: NM stress lexiscan cardiolite DATE OF EXAM: 10/28/2024 COMPARISON: NONE CLINICAL INDICATION: Female, 73 years old with history of CP; TECHNIQUE: After the intravenous administration of 10.7 mCi Tc 99m Sestamibi - Cardiolite resting SP ECT images acquired 45 minutes post injection. The patient received 0.4mg Lexiscan, 24.5 mCi Tc 99m Sestamibi - Stress images obtained [address] injection FINDINGS: Review of stress and rest SPECT images demonstrates a large fixed perfusion defect involving the enti re inferolateral wall. This defect enlarges on stress, particularly along the mid to apical aspect. G ated analysis shows global hypokinesis with an estimated left ventricular ejection fraction of 34 %. TID is abnormal, calculated at 1.38. IMPRESSION: 1. Large area of old infarct involving the inferolateral wall. 2. Exam positive for inducible timur-infarct ischemia especially along the mid to apical aspect. 3. In addition, the transient ischemic dilatation ratio is abnormally increased. This can be seen in the setting of multivessel, global inducible ischemia. 4. Diminished LVEF estimated at 34%. [facility], , 10/28/2024 4:04 PM
[2024-10-28] MEDS: PANTOPRAZOLE 40 MG TABLET PO SCH (21:14)
--- NOTE | 2024-10-28 22:53 | P.PN ---
Subjective Progress Note Date: 10/28/24 This is a 73-year-old female who was recently admitted with chest pain being closely monitored with cardiology following. Patient reported feeling epigastric discomfort that radiated to both side of the back and cardiology following recommending undergoing stress test. Patient is currently n.p.o. and will undergo stress test along with echo and await further clearance from cardiology. Patient is afebrile with no reports currently of chest pain or shortness of breath. Review of systems: Constitutional: No reports of fatigue, fever, or chills Cardiovascular: No reports of chest pain or palpitations Respiratory: No reports of shortness of breath or cough GI: No reports of nausea, no reports of vomiting, no diarrhea : No reports of dysuria or retention Neurovascular: No reports of generalized weakness All medications have been reviewed PHYSICAL EXAMINATION: GENERAL: The patient is alert and oriented x4, Well developed, well nourished. Elderly appearing HEENT: Pupils are round and equally reacting to light. EOMI. no scleral icterus. No conjunctival pallor. Normocephalic, atraumatic. No pharyngeal erythema. No thyromegaly. CARDIOVASCULAR: S1 and S2 muffled PULMONARY: diminished breath sounds bilaterally with no wheezing or rhonchi noted. ABDOMEN: soft. Nontender on exam. non-distended, normoactive bowel sounds. No palpable organomegaly. MUSCULOSKELETAL: No joint swelling or deformity. EXTREMITIES: No cyanosis, clubbing, or pedal edema. NEUROLOGICAL: Gross neurological examination did not reveal any focal deficits. SKIN: No rashes. Assessment: Chest pain, possibly unstable angina, troponins x 3 negative History of congestive heart failure, not in exacerbation coronary artery disease with stent history History of asthma, not in exacerbation History of diabetes mellitus, type II GI prophylaxis DVT prophylaxis Full code Plan: Recommend to continue with current medications and management with cardiology following. Patient scheduled to undergo stress testing along with echo. Stress and echo will be read later as there are multiple other stress tests pending per cardiology. Will await official report and clearance from cardiology to discuss discharge planning Appropriate home medications reviewed and resumed as appropriate Follow-up on repeat labs If stress test is negative, patient will be cleared for discharge otherwise will await further recommendations from cardiology Possible discharge planning in the next 24 to 48 hours The impression and plan of care has been dictated by Fanta Jara, nurse practitioner as directed. Dr. Fermín MD I have performed a history and examination and MDM of this patient, discussed the same with the dictator, and agree with the dictator's assessment and plan as written ,documented as a scribe. Based on total visit time, I have performed more than 50% of the visit. Any additional findings or plans will be noted. Objective - Vital Signs Vital signs: Vital Signs Temp 97.9 F 10/28/24 19:28 Pulse 95 10/28/24 19:28 Resp 19 10/28/24 19:28 BP 136/75 10/28/24 19:28 Pulse Ox 97 10/28/24 19:28 FiO2 Intake & Output 10/28/24 10/28/24 10/29/24 06:59 18:59 06:59 Intake Total 221 Balance 221 Weight 60.781 kg Intake: Oral 221 Other: Voiding Method Toilet Toilet # Voids 1 2 1 - Labs CBC & Chem 7: 10/28/24 05:49 10/28/24 05:49 Labs: Abnormal Lab Results - Last 24 Hours (Table) 10/28/24 10/28/24 10/28/24 Range/Units 05:49 05:49 15:27 MCHC 31.8 L (32.0-37.0) g/dL Immature Gran # 0.06 H (0.00-0.04) X 10*3/uL APTT 18.7 L (22.0-30.0) sec Carbon Dioxide 17.6 L (21.6-31.8) mmol/L Anion Gap 15.40 H (4.00-12.00) mmol/L BUN/Creatinine Ratio 22.67 H (12.00-20.00) Ratio Glucose 170 H (70-110) mg/dL Albumin/Globulin Ratio 1.56 L (1.60-3.17) Ratio
--- NOTE | 2024-10-29 07:54 | CA ---
Lexiscan Nuclear Stress Test Report Name: Nini Cook Exam Date: 10/28/2024 12:50 Exam Location: [place] Stress Ht (in): 61 Wt (lb): 134 BSA: 1.59 Ordering Phys: Raquel Hope Referring Phys: CRAIG Technologist: Chris Ding Age: 73 Gender: F : 1950 Procedure CPT: Indications: Reflex order-Stress test ICD-10 Codes: Patient History: CHEST PAIN, RIOS, HTN, PRIOR DC, PRIOR CATH, DIABETIC, HYPERCHOLESTEROLEMIA, FAMILY HX OF HEART DISEASE, PRIOR SMOKER, ASTHMA Medications: Meds past 24 hrs: Pretest Chest Pain: STRESS TEST Lexiscan Protocol Exercise Duration (min:sec): 02:[address] Depressions (mm): Angina Score: Barajas Score: Resting HR (bpm): 91 Peak HR (bpm): 132 Resting BP (mmHg): 168 / 87 Peak BP (mmHg): / 71 MPHR: 148 Target HR: 126 % MPHR: 89 METS: 1.0 Total Dose: Peak Dose: Atropine: Double Product: BP Response: Stress Termination: INFUSION COMPLETE Stress Symptoms: NAUSEA HEADACHE Stress Summary: ECG ANALYSIS Resting ECG: Stress ECG: CONCLUSIONS Nondiagnostic stress testing Dr. Cristian Almaraz MD (Electronically Signed) Final Date: 29 October 2024 07:53
--- NOTE | 2024-10-29 07:56 | CA ---
Transthoracic Echo Report Name: Nini Cook Age: 73 Gender: F : 1950 Exam Date: 10/28/2024 14:43 Exam Location: [place] Echo Ht (in): 61 Wt (lb): 134 Ordering Physician: Raquel Hope Attending/Referring Phys: [id number], Herminia [employer] Courtney Curiel, [id number] Procedure CPT: Indications: LV function, CP Cardiac Hx: CATH, MD Technical Quality: Fair Contrast 1: Definity Total Dose (mL): 2 Contrast 2: Total Dose (mL): MEASUREMENTS (Male / Female) Normal Values 2D ECHO LV Diastolic Diameter PLAX 5.0 cm 4.2 - 5.9 / 3.9 - 5.3 cm LV Systolic Diameter PLAX 4.3 cm IVS Diastolic Thickness 1.4 cm 0.6 - 1.0 / 0.6 - 0.9 cm LVPW Diastolic Thickness 0.7 cm 0.6 - 1.0 / 0.6 - 0.9 cm LV Relative Wall Thickness 0.4 RV Internal Dim ED PLAX 2.0 cm LA Systolic Diameter LX 4.1 cm 3.0 - 4.0 / 2.7 - 3.8 cm M-MODE Aortic Root Diameter MM 3.0 cm LA Systolic Diameter MM 4.2 cm LA Ao Ratio MM 1.4 AV Cusp Separation MM 1.6 cm DOPPLER AI Peak Velocity 240.2 cm/s AI Peak Gradient 23.1 mmHg AI Pressure Half Time 549.8 ms Mitral E Point Velocity 144.6 cm/s Mitral A Point Velocity 1.5 cm/s Mitral E to A Ratio 95.4 MV Deceleration Time 146.1 ms MV E' Velocity 3.3 cm/s Mitral E to MV E' Ratio 43.6 TR Peak Velocity 274.9 cm/s TR Peak Gradient 30.2 mmHg Right Ventricular Systolic Press 40.3 mmHg FINDINGS Left Ventricle Left ventricular ejection fraction is estimated at 35 to 40 %. Moderately increased septal wall thickness. Hypokinetic lateral wall. Hypokinetic inferior wall. Hypokinetic septum. Right Ventricle Normal right ventricular size and function. Mild pulmonary hypertension. Right Atrium Mild right atrial dilatation. Catheter/pacemaker wire in the right atrial cavity. Left Atrium Mildly increased left atrial diameter. Mitral Valve Mitral valve thickened. Severe mitral regurgitation. No mitral stenosis. Mild mitral annular calcification. Aortic Valve Trileaflet aortic valve. Trace to mild aortic regurgitation. No aortic stenosis. Tricuspid Valve Structurally normal tricuspid valve. Mild tricuspid regurgitation. No tricuspid stenosis. Pulmonic Valve Structurally normal pulmonic valve. Trace pulmonic regurgitation. No pulmonic stenosis. Pericardium No pericardial or pleural effusion. Aorta Normal size aortic root and proximal ascending aorta. CONCLUSIONS Dilated LV. Impaired LV function with EF between 35 to 40% Severe mitral regurgitation Previewed by: Dr. Cristian Almaraz MD (Electronically Signed) Final Date: 29 October 2024 07:55
[2024-10-29] MEDS ORDERED: ALPRAZolam 0.5 MG TAB PO PRN (08:07)
[2024-10-29] MEDS ORDERED: NITROGLYCERIN SL TABS 0.4 MG TAB SUBLINGUAL PRN ×2 (08:07→11:57)
[2024-10-29] MEDS ORDERED: ALPRAZolam 0.25 MG TAB PO PRN (08:07)
[2024-10-29] MEDS: ATORVASTATIN 80 MG TAB PO STA (08:56)
[2024-10-29] MEDS: ASPIRIN 325 MG TAB PO STA (08:56)
[2024-10-29 09:06] LABS: BUN/Creat Ratio 28.67 Ratio (12.00-20.00); Blood Urea Nitrogen 17.2 mg/dL (9.0-27.0); Carbon Dioxide 19.4 mmol/L (21.6-31.8); Chloride 108 mmol/L (96-109); Glucose 164 mg/dL (70-110); Potassium 4.4 mmol/L (3.5-5.5); Sodium 142 mmol/L (135-145)
[2024-10-29] MEDS: HEPARIN SODIUM,PORCINE (1 ML) 2,500 UNIT in SODIUM CHLORIDE 0.9% 250 ML IRRIGATION ONE (09:52)
[2024-10-29] MEDS: HEPARIN SODIUM,PORCINE 10,000 UNIT in SODIUM CHLORIDE 0.9% 1,000 ML IRRIGATION ONE (09:52)
[2024-10-29] MEDS: fentaNYL (PF) 50 MCG/ML 2 ML AMP IVP ONE (10:35)
[2024-10-29] MEDS: MIDAZOLAM 2 MG/2 ML VIAL IVP ONE (10:35)
[2024-10-29] MEDS: LIDOCAINE 1% INJ 10MG/ML (20 ML MDV) SQ ONE (10:41)
[2024-10-29] MEDS: VERAPAMIL SYRINGE (5 MG/10 ML) INTRAARTER ONE (10:50)
[2024-10-29] MEDS: HEPARIN SODIUM 1,000 UN/ML (10ML VL) IVP ONE (11:00)
[2024-10-29] MEDS: SODIUM CHLORIDE 0.9% 1,000 ML IV ONE (11:09)
[2024-10-29] MEDS: NITROGLYCERIN 1000MCG/10ML SYRINGE INTRACORON ONE (11:45)
[2024-10-29] MEDS: IOPAMIDOL-370 100ML BTL INJ ONE ×2 (11:45→12:01)
[2024-10-29] MEDS: NITROGLYCERIN SL TABS 0.4 MG TAB SUBLINGUAL ONE (11:49)
[2024-10-29] MEDS ORDERED: ZOLPIDEM 5 MG TAB PO PRN (11:57)
[2024-10-29] MEDS ORDERED: RX INFO: IV CONTRAST WAS GIVEN 1 EACH MISC MISCELLANE PRN (11:57)
[2024-10-29] MEDS ORDERED: MAG HYDROX/AL HYDROX/SIMETH 30 ML CUP PO PRN (11:57)
[2024-10-29] MEDS ORDERED: ATROPINE SULFATE 0.1 MG/ML 10ML SYRINGE IV PRN (11:57)
--- NOTE | 2024-10-29 11:58 | P.PN ---
Subjective HISTORY OF PRESENT ILLNESS: This is a 73-year-old female with a past medical history significant for coronary artery disease with previous PCI, congestive heart failure, ischemic cardiomyopathy, hypertension, hyperlipidemia, and ICD implantation. Patient follows in the office with Dr. Lake. We have been asked to see the patient in consultation for chest pain. Patient examined at the bedside. Patient presented to the hospital with a chief complaint of chest pain. Patient states about a week ago she fell on the ice and hit the right side of her body. She has been having some back pain as well which has been improved with a lidocaine patch. She states that last few days she has been having pain across her chest that radiates into her back. She denies any shortness of breath. At the time of examination she denies chest pain or pressure. Vital signs are stable. The patient does have a known history of coronary artery disease. She was referred to [facility] in [place] and underwent stenting. She reports that she has had 4 stents placed. DIAGNOSTICS: - EKG reveals sinus mechanism with PVC. Repeat EKG reveals sinus mechanism with Q waves in inferior lateral leads - Chest xray negative for acute process - Laboratory data: WBC 15.6. Hemoglobin 13.2. Platelet count 195. Sodium 140. Potassium 4.6. BUN 13.6. Creatinine 0.6. Troponin negative x 4. - Current home cardiac medications include rosuvastatin 40 mg at night, aspirin 81 mg daily, Plavix 75 mg daily, Lasix 10 mg daily as needed, losartan 50 mg lauren ly, metoprolol succinate 50 mg daily, Aldactone 25 mg daily - Most recent echocardiogram obtained in December 2023 revealed ejection fraction 30 to 35%, hypokinetic areas of inferior lateral and inferior gamble from the base to the mid wall. Small hypokinetic area of the inferior septal wall from the mid wall to the apex. Mild LVH. Trace to mild aortic regurgitation, severe mitral regurgitation, mild tricuspid regurgitation -Patient underwent Lexiscan stress test in March 2024 revealing evidence of prior inferior lateral FL with out any acute ischemia - Cardiac catheterization history: [address] Lake revealing triple-vessel disease. She was referred to [facility] in [place] and underwent stenting. 10/29/2024 Patient underwent Lexiscan stress test yesterday revealing large area of old infarct involving inferior lateral wall. Exam positive for inducible timur- infarct ischemia especially along the mid to apical aspect. In addition 3 times daily is abnormally increased at 1.38. Echocardiogram completed revealing ejection fraction 35 to 40%, hypokinetic lateral wall, inferior wall, and septum. Mild pulm hypertension severe mitral regurgitation PHYSICAL EXAM: VITAL SIGNS: Reviewed. GENERAL: Well-developed in no acute distress. HEENT: Head is normocephalic. Pupils are equal, round. Sclerae anicteric. Mucous membranes of the mouth are moist. Neck supple. No JVD or thyromegaly LUNGS: Respirations even and unlabored. Lungs essentially clear to auscultation bilaterally. HEART: Regular rate and rhythm. S1 and S2 heard. Systolic murmur noted. ABDOMEN: Soft. Nondistended. Nontender. EXTREMITIES: Normal range of motion. No clubbing or cyanosis. Peripheral pulses intact. No lower extremity edema NEUROLOGIC: Awake and alert. Oriented x 3. ASSESSMENT: Chest pain Back pain, s/p recent mechanical fall on the ice Coronary artery disease with previous stenting x 4 in [place] per patient Ischemic cardiomyopathy, 3035% Chronic congestive heart failure with reduced EF, currently euvolemic History of hypertension History of hyperlipidemia History of ICD implantation Severe mitral regurgitation PLAN: Continue current cardiac medications Patient with abnormal Lexiscan. Discussion held with patient and her daughter regarding transfer to [facility] where she had previous stenting done or to undergo cardiac catheterization at this facility. Patient and her daughter would like to proceed with cardiac catheterization at this facility. Patient's primary plumber apprentice, Dr. Lake is unavailable today. Patient will undergo cardiac catheterization with Dr. Almaraz. Further recommendations pending patient course Nurse practitioner note has been reviewed by physician. Signing provider agrees with the documented findings, assessment, and plan of care documented by [employer] P[employer]ICER as a scribe. Objective - Vital Signs Vital signs: Vital Signs Temp 97.8 F 10/29/24 07:00 Pulse 80 10/29/24 07:00 Resp 16 10/29/24 07:00 BP 146/70 10/29/24 07:00 Pulse Ox 96 10/29/24 07:00 FiO2 Intake & Output 10/28/24 10/29/24 10/29/24 18:59 06:59 18:59 Intake Total 221 Balance 221 Intake: Oral 221 Other: Voiding Method Toilet Toilet # Voids 2 2 - Labs CBC & Chem 7: 10/28/24 05:49 10/29/24 03:31 Labs: Abnormal Lab Results - Last 24 Hours (Table) 10/28/24 10/29/24 Range/Units 15:27 03:31 APTT 18.7 L (22.0-30.0) sec Carbon Dioxide 19.4 L (21.6-31.8) mmol/L Anion Gap 14.60 H (4.00-12.00) mmol/L BUN/Creatinine Ratio 28.67 H (12.00-20.00) Ratio Glucose 164 H (70-110) mg/dL
[2024-10-29] MEDS: TICAGRELOR 90 MG TAB PO ONE (12:00)
--- NOTE | 2024-10-29 12:03 | P.PCN ---
Date of Procedure: 10/29/24 Operative Findings: CARDIAC CATHETERIZATION AND PERCUTANEOUS CORONARY INTERVENTION PERFORMING PHYSICIAN: Cristian Almaraz MD, [facility] PROCEDURE PERFORMED: 1. Selective right and left coronary angiogram 2. Successful stenting of ostial PDA of RCA using 2.75 x 12 mm Xience NESS along with PTCA of the PLV branch of RCA with an excellent angiographic results 3. Adjunctive use of IVUS 4. Ultrasound-guided access of the left radial artery INDICATION: Chest discomfort in this 71-year-old female patient who is known to have CAD with prior stenting of the RCA and LAD who underwent myocardial perfusion imaging stress test came in to be abnormal COMPLICATION: None APPROACH: Left radial artery LEVEL OF SEDATION: Moderate with the sedation time off 70 minutes PROCEDURE DESCRIPTION: After obtaining informed consent the patient was brought to the cardiac catheter. The left radial artery was cannulated using micropuncture technique under ultrasound guidance a micropuncture wire passed easily then I placed a 6 [place] 11 cm sheath at the left radial artery and after that the patient was given 2 mg of verapamil intra-arterial and 5000 units of heparin intravenous. Please note that the patient has no pulse in the right radial artery and for that reason which shows the left radial artery. After that I did selective right coronary angiogram using JR4 catheter. Attempting doing left coronary angiogram from left radial approach using the 6 [place] sheath was unsuccessful and for that reason I did exchange my 11 cm 6 [place] sheath into a 55 cm 6 [place] sheath. That was performed over a 035 wire. After that I was able to perform left coronary angiogram using JL 3.5 catheter. After that I decided to intervene on the RCA. Anticoagulation was initiated using heparin with continuous ACT monitoring. Subsequently I did engage the RCA using JR4 guiding catheter. I did wire the PDA using a run-through wire in the PLV using a whisper wire. After that intravascular ultrasound was performed and showed a diameter around 2.5 mm to 2.75 mm. PTCA was performed using 2.5 mm NC balloon before I deployed 2.75 x 12 mm stent and subsequently I ended doing kissing balloon of both the PDA and PLV branches of the RCA. Final angiogram showed excellent angiographic results and the procedure was completed with no complication SELECTIVE CORONARY ANGIOGRAM: The right coronary artery: This is stented with patent stent in the RCA and critical in-stent restenosis involving the PDA branch of the RCA and patent stent in the PLV Left main: Has mild disease only. Bifurcates into an LCx and LAD The left circumflex: Medium caliber vessel nondominant vessel and is chronically occluded in the proximal to midportion The left anterior descending artery: The proximal LAD to mid LAD is stented with mild in-stent restenosis involving the LAD by the bifurcation of a diagonal branch CONCLUSION: Critical in-stent restenosis involving the PDA branch of the RCA. I perform successful PCI as described above Patent stent in the left main and LAD with mild in-stent restenosis involving the mid LAD POSTPROCEDURE MANAGEMENT: 1. Dual antiplatelet therapy using aspirin at the present for 12 month 2. Aggressive cholesterol control 3. Follow-up with the patient
[2024-10-29] MEDS: HYDROmorphone 0.5 MG/0.5 ML SYRINGE IVP PRN (12:20)
[2024-10-29] MEDS: SODIUM CHLORIDE 0.9% 1,000 ML in EMPTY BAG 1 BAG IV SCH ×2 (12:38→12:39)
--- NOTE | 2024-10-29 16:31 | P.PN ---
Subjective This is a 73-year-old female who was recently admitted with chest pain being closely monitored with cardiology following. Patient reported feeling epigastric discomfort that radiated to both side of the back and cardiology following recommending undergoing stress test. Patient is currently n.p.o. and will undergo stress test along with echo and await further clearance from cardiology. Patient is afebrile with no reports currently of chest pain or shortness of breath. 10/29 Patient's status post stent placement today for positive stress test After cardiac cath patient feels better only very minimal back pain Possible discharge in 24 to 48 hours Objective - Vital Signs Vital signs: Vital Signs Temp 98.2 F 10/29/24 12:16 Pulse 76 10/29/24 12:16 Resp 17 10/29/24 12:16 BP 125/67 10/29/24 12:16 Pulse Ox 95 10/29/24 12:16 FiO2 Intake & Output 10/28/24 10/29/24 10/29/24 18:59 06:59 18:59 Intake Total 221 Balance 221 Intake: Oral 221 Other: Voiding Method Toilet Toilet # Voids 2 2 - Exam GENERAL: The patient is alert and oriented x3, not in any acute distress. Well developed, well nourished. HEENT: Pupils are round and equally reacting to light. EOMI. No scleral icterus. No conjunctival pallor. Normocephalic, atraumatic. No pharyngeal erythema. No thyromegaly. CARDIOVASCULAR: S1 and S2 present. No murmurs, rubs, or gallops. PULMONARY: Chest is clear to auscultation, no wheezing , no crackles. ABDOMEN: Soft, nontender, nondistended, normoactive bowel sounds. No palpable organomegaly. MUSCULOSKELETAL: No joint swelling or deformity. EXTREMITIES: No cyanosis, clubbing, or pedal edema. NEUROLOGICAL: Gross neurological examination did not reveal any focal deficits. SKIN: No rashes. no petechiae. - Labs CBC & Chem 7: 10/28/24 05:49 10/29/24 03:31 Labs: Abnormal Lab Results - Last 24 Hours (Table) 10/28/24 10/29/24 Range/Units 15:27 03:31 APTT 18.7 L (22.0-30.0) sec Carbon Dioxide 19.4 L (21.6-31.8) mmol/L Anion Gap 14.60 H (4.00-12.00) mmol/L BUN/Creatinine Ratio 28.67 H (12.00-20.00) Ratio Glucose 164 H (70-110) mg/dL Assessment and Plan Assessment: Chest pain, possibly unstable angina, troponins x 3 negative. S/p PCI to RCA History of congestive heart failure, not in exacerbation coronary artery disease with stent history History of asthma, not in exacerbation History of diabetes mellitus, type II Plan: Continue with dual antiplatelet therapy Continue with current cardiac medication Cardiology consult Possible discharge in the morning In the meantime continue with GI and DVT prophylaxis
[2024-10-29] MEDS: TICAGRELOR 90 MG TAB PO SCH (20:15)
[2024-10-30 05:23] LABS: African American GFR (CKD) >90 (>60 ml/min/1.73 sqM); Non-African American GFR(CKD) 90 (>60 ml/min/1.73 sqM)
[2024-10-30] MEDS ORDERED: HEPARIN SODIUM,PORCINE (1 ML) 2,500 UNIT in SODIUM CHLORIDE 0.9% 250 ML IRRIGATION PRN (07:00)
[2024-10-30] MEDS ORDERED: HEPARIN SODIUM,PORCINE 10,000 UNIT in SODIUM CHLORIDE 0.9% 1,000 ML IRRIGATION PRN (07:00)
[2024-10-30] MEDS: DAPAGLIFLOZIN PROPANEDIOL 10 MG TABLET PO SCH (12:00)
--- NOTE | 2024-10-30 12:09 | P.PN ---
Subjective Progress Note Date: 10/30/24 HISTORY OF PRESENT ILLNESS: This is a 73-year-old female with a past medical history significant for co ronary artery disease with previous PCI, congestive heart failure, ischemic cardiomyopathy, hypertension, hyperlipidemia, and ICD implantation. Patient follows in the office with Dr. Lake. We have been asked to see the patient in consultation for chest pain. Patient examined at the bedside. Patient presented to the hospital with a chief complaint of chest pain. Patient states about a week ago she fell on the ice and hit the right side of her body. She has been having some back pain as well which has been improved with a lidocaine patch. She states that last few days she has been having pain across her chest that radiates into her back. She denies any shortness of breath. At the time of examination she denies chest pain or pressure. Vital signs are stable. The patient does have a known history of coronary artery disease. She was referred to [facility] in [place] and underwent stenting. She reports that she has had 4 stents placed. DIAGNOSTICS: - EKG reveals sinus mechanism with PVC. Repeat EKG reveals sinus mechanism with Q waves in inferior lateral leads - Chest xray negative for acute process - Laboratory data: WBC 15.6. Hemoglobin 13.2. Platelet count 195. Sodium 140. Potassium 4.6. BUN 13.6. Creatinine 0.6. Troponin negative x 4. - Current home cardiac medications include rosuvastatin 40 mg at night, aspirin 81 mg daily, Plavix 75 mg daily, Lasix 10 mg daily as needed, losartan 50 mg daily, metoprolol succinate 50 mg daily, Aldactone 25 mg daily - Most recent echocardiogram obtained in December 2023 revealed ejection fraction 30 to 35%, hypokinetic areas of inferior lateral and inferior gamble from the base to the mid wall. Small hypokinetic area of the inferior septal wall from the mid wall to the apex. Mild LVH. Trace to mild aortic regurgitation, severe mitral regurgitation, mild tricuspid regurgitation -Patient underwent Lexiscan stress test in March 2024 revealing evidence of prior inferior lateral SD with out any acute ischemia - Cardiac catheterization history: [address] Lake revealing triple-vessel disease. She was referred to [facility] in [place] and underwent stenting. 10/29/2024 Patient underwent Lexiscan stress test yesterday revealing large area of old infarct involving inferior lateral wall. Exam positive for inducible timur- infarct ischemia especially along the mid to apical aspect. In addition 3 times daily is abnormally increased at 1.38. Echocardiogram completed revealing ejection fraction 35 to 40%, hypokinetic lateral wall, inferior wall, and septum. Mild pulm hypertension severe mitral regurgitation 10/30/2024 Patient is seen and examined at bedside this a.m. Patient had a cardiac c atheterization done yesterday which showed severe in-stent stenosis of PDA branch status post PCI. She also has a prior stent in mid LAD which has mild in-stent stenosis. PHYSICAL EXAM: VITAL SIGNS: Reviewed. GENERAL: Well-developed in no acute distress. HEENT: Head is normocephalic. Pupils are equal, round. Sclerae anicteric. Mucous membranes of the mouth are moist. Neck supple. No JVD or thyromegaly LUNGS: Respirations even and unlabored. Lungs essentially clear to auscultation bilaterally. HEART: Regular rate and rhythm. S1 and S2 heard. Systolic murmur noted. ABDOMEN: Soft. Nondistended. Nontender. EXTREMITIES: Normal range of motion. No clubbing or cyanosis. Peripheral pulses intact. No lower extremity edema NEUROLOGIC: Awake and alert. Oriented x 3. ASSESSMENT: Chest pain Back pain, s/p recent mechanical fall on the ice Coronary artery disease with previous stenting x 4 in [place] per patient Ischemic cardiomyopathy, 3035% Chronic congestive heart failure with reduced EF, currently euvolemic History of hypertension History of hyperlipidemia History of ICD implantation Severe mitral regurgitation PLAN: Continue aspirin, Brilinta, Lipitor. Going forward because of her recurrent history of in-stent stenosis, I would recommend continuing dual antiplatelet therapy for more than the ER if no concerns of bleeding. Discontinue losartan. Instead start Farxiga 10 mg daily, Entresto 24/26 mg twice daily Continue Aldactone 25mg daily Patient is cleared from cardiac standpoint. Recommend outpatient follow-up with Dr. Segovia. Discharged on above-mentioned medications Objective - Vital Signs Vital signs: Vital Signs Temp 97.8 F 10/30/24 07:00 Pulse 87 10/30/24 07:00 Resp 17 10/30/24 07:00 BP 147/81 10/30/24 07:00 Pulse Ox 99 10/30/24 07:00 FiO2 Intake & Output 10/29/24 10/30/24 10/30/24 18:59 06:59 18:59 Intake Total 236 118 Balance 236 118 Intake: Oral 236 118 Other: Voiding Method Toilet Toilet # Voids 3 4 # Bowel Movements 1 - Labs CBC & Chem 7: 10/28/24 05:49 10/30/24 04:47
[2024-10-30 15:43] VITALS: BP 172/92; PULSE 89; RESP 16; TEMP 97.7
[2024-10-31] MEDS ORDERED: SACUBITRIL/VALSARTAN 24 MG-26 MG TABLET PO SCH (08:00)
[2024-10-31] MEDS ORDERED: ADALIMUMAB 40 MG/0.8 ML SQ SCH (09:00)
[2024-10-31] MEDS ORDERED: [UNRECOGNIZED DRUG - OTHER] SQ SCH (09:00)
--- NOTE | 2024-10-31 23:41 | P.DS ---
Providers Date of admission: 10/29/24 10:12 Attending physician: Rick Melgar MD Consults: 10/27/24 13:14 Consult Physician Routine Consulting Provider: Cardiology Valentino Consult Reason/Comments: chest pain Do you want consulting provider notified?: Yes 10/29/24 11:57 Consult Physician Routine Consulting Provider: Cardiology Valentino Consult Reason/Comments: Post Interventional patient Do you want consulting provider notified?: Already Contacted Primary care physician: Cecille Mckenna Hospital Course: Diagnoses: Chest pain, possibly unstable angina, troponins x 3 negative. S/p cardiac catheterization done on 10/29/24 which showed severe in-stent stenosis of PDA branch status post PCI History of congestive heart failure, not in exacerbation Severe mitral regurgitation coronary artery disease with stent history History of asthma, not in exacerbation History of diabetes mellitus, type II Hospital course: This is a 73-year-old female who was recently admitted with chest pain being closely monitored with cardiology following. Patient reported feeling epigastric discomfort that radiated to both side of the back and cardiology following recommending undergoing stress test. Stress test was done and came back positive for reversible ischemia. cardiac catheterization done on 10/29/24 which showed severe in-stent stenosis of PDA branch status post PCI. She also has a prior stent in mid LAD which has mild in-stent stenosis. Echocardiogram completed revealing ejection fraction 35 to 40%, hypokinetic lateral wall, inferior wall, and septum. Mild pulm hypertension severe mitral regurgitation Patient agreeable to go home on the day of discharge Patient was cleared for discharge by director fundraising Problems and management plan were discussed with the patient and he verbalized understanding and acceptance Patient was found stable and can be discharged home in guarded prognosis however he needs follow-up as an outpatient. Patient was instructed to follow up with PCP Dr. Mckenna within one week and patient agrees Patient was instructed to follow-up with director fundraising Dr. Segovia in 1 week and she agrees Physical exam Gen: patient is a AAOx3, no distress CVS: S1-S2, RRR, no murmur Lungs: B/L CTA, no wheezing Abdomen: soft, no distention, no tenderness, positive bowel sounds Extremity: no leg edema or induration Time spent more than 35 minutes Patient Condition at Discharge: Stable Plan - Discharge Summary Discharge Rx Participant: No New Discharge Prescriptions: New Ticagrelor [Brilinta] 90 mg PO BID 90 Days #90 tab Dapagliflozin Propanediol [Farxiga] 10 mg PO DAILY 90 Days #90 tab Sacubitril/Valsartan [Entresto 24 mg-26 mg Tablet] 1 each PO BID@0800,2000 180 Days #180 tab Continue Fluticasone Propionate [Flonase] 2 spray EA NOSTRIL DAILY PRN PRN Reason: Allergy Symptoms Acetaminophen-Codeine 300-30mg [Tylenol w/codeine #3] 1 tab PO BID PRN PRN Reason: Pain Fexofenadine HCl [Barby Allergy] 180 mg PO DAILY Acetaminophen Tab [Tylenol] 500 mg PO DAILY PRN PRN Reason: Pain Adalimumab [Humira Pen Crohn's-Uc-Hs] 40 mg SQ TH Aspirin EC [Ecotrin Low Dose] 81 mg PO DAILY Lansoprazole [Prevacid] 30 mg PO DAILY Rosuvastatin Calcium [Crestor] 40 mg PO HS Spironolactone [Aldactone] 25 mg PO DAILY Albuterol Sulfate [Ventolin HFA] 2 puff INHALATION RT-Q6H PRN PRN Reason: Shortness Of Breath Cyanocobalamin (Vitamin B-12) [Vitamin B-12] 5,000 mcg PO DAILY Metoprolol Succinate [Toprol XL] 50 mg PO DAILY Cholecalciferol (Vitamin D3) [Vitamin D3 (50 Mcg = 2000 Iu)] 50 mcg PO DAILY Cyclosporine (Cequa) 0.09% Dropperette 1 drop BOTH EYES BID Discontinued Losartan Potassium 50 mg PO DAILY Furosemide [Lasix] 10 mg PO DAILY PRN PRN Reason: Edema L.acidoph,Paracasei, B.lactis [Probiotic] 1 cap PO DAILY Clopidogrel [Plavix] 75 mg PO DAILY Sucralfate [Carafate] 1 gm PO TID Discharge Medication List Fluticasone Propionate [Flonase] 2 spray EA NOSTRIL DAILY PRN 08/02/14 [History] Acetaminophen-Codeine 300-30mg [Tylenol w/codeine #3] 1 tab PO BID PRN 09/23/18 [History] Fexofenadine HCl [Barby Allergy] 180 mg PO DAILY 01/30/19 [History] Acetaminophen Tab [Tylenol] 500 mg PO DAILY PRN 06/09/21 [History] Albuterol Sulfate [Ventolin HFA] 2 puff INHALATION RT-Q6H PRN 06/09/21 [History] Adalimumab [Humira Pen Crohn's-Uc-Hs] 40 mg SQ TH 11/27/21 [History] Aspirin EC [Ecotrin Low Dose] 81 mg PO DAILY 11/27/21 [History] Cyanocobalamin (Vitamin B-12) [Vitamin B-12] 5,000 mcg PO DAILY 11/27/21 [History] Lansoprazole [Prevacid] 30 mg PO DAILY 11/27/21 [History] Metoprolol Succinate [Toprol XL] 50 mg PO DAILY 11/27/21 [History] Rosuvastatin Calcium [Crestor] 40 mg PO HS 11/27/21 [History] Spironolactone [Aldactone] 25 mg PO DAILY 11/27/21 [History] Cholecalciferol (Vitamin D3) [Vitamin D3 (50 Mcg = 2000 Iu)] 50 mcg PO DAILY 10/27/24 [History] Cyclosporine (Cequa) 0.09% Dropperette 1 drop BOTH EYES BID 10/27/24 [History] Dapagliflozin Propanediol [Farxiga] 10 mg PO DAILY 90 Days #90 tab 10/30/24 [Rx] Sacubitril/Valsartan [Entresto 24 mg-26 mg Tablet] 1 each PO BID@0800,2000 180 Days #180 tab 10/30/24 [Rx] Ticagrelor [Brilinta] 90 mg PO BID 90 Days #90 tab 10/30/24 [Rx] Follow up Appointment(s)/Referral(s): Cecille Mckenna MD [Primary Care Provider] - 1-2 days [place] MD [STAFF PHYSICIAN] - 1 Week Patient Instructions/Handouts: After Radial Heart Catheterization (GEN) Activity/Diet/Wound Care/Special Instructions: Okay for discharge if cleared by cardiology and stress test is negative Activity limited until follow-up Follow-up with primary care provider on discharge Follow-up with director fundraising from [facility] Continue medications as prescribed Heart healthy diet Make sure you are taking aspirin 81 mg and Brilinta 90 mg twice daily all the time, otherwise she will be at risk of another heart attack and stent blockage Discharge Disposition: HOME SELF-CARE
== END 2024-10-30 17:15 | disposition home or self-care (01) | DRG 322 ==
LOC: EC 08:00 → 6NMEDSUR 13:16 → OBSVTOIN 10-29 10:12
PROVIDERS: ADMIT Internal Medicine; ATTEND Internal Medicine
PROC: B2111ZZ Fluoroscopy of Multiple Coronary Arteries using Low Osmolar Contrast (ICD-10-PCS; 2024-10-29)
PROC: B240ZZ3 Ultrasonography of Single Coronary Artery, Intravascular (ICD-10-PCS; 2024-10-29)
PROC: 027034Z Dilation of Coronary Artery, One Artery with Drug-eluting Intraluminal Device, Percutaneous Approach (ICD-10-PCS; principal; 2024-10-29 08:30)
PROC: 02H03DZ Insertion of Intraluminal Device into Coronary Artery, One Artery, Percutaneous Approach (ICD-10-PCS; 2024-10-29 08:30)
PROC: 4A023N7 Measurement of Cardiac Sampling and Pressure, Left Heart, Percutaneous Approach (ICD-10-PCS; 2024-10-29 08:30)
DX: T82.855A Stenosis of coronary artery stent, initial encounter (principal); I25.110 Atherosclerotic heart disease of native coronary artery with unstable angina pectoris; I50.22 Chronic systolic (congestive) heart failure; I27.22 Pulmonary hypertension due to left heart disease; I11.0 Hypertensive heart disease with heart failure; E11.9 Type 2 diabetes mellitus without complications; J45.909 Unspecified asthma, uncomplicated; I25.5 Ischemic cardiomyopathy; I25.82 Chronic total occlusion of coronary artery; E78.5 Hyperlipidemia, unspecified; I08.3 Combined rheumatic disorders of mitral, aortic and tricuspid valves; W00.0XXA Fall on same level due to ice and snow, initial encounter; I25.2 Old myocardial infarction; Z95.810 Presence of automatic (implantable) cardiac defibrillator; Z79.899 Other long term (current) drug therapy; Z79.82 Long term (current) use of aspirin; Z79.02 Long term (current) use of antithrombotics/antiplatelets; Z87.891 Personal history of nicotine dependence; Z63.79 Other stressful life events affecting family and household
CPT/HCPCS: 36415; 71046; 71110; 72070; 78452; 80048; 80053; 81003; 82565; 83735; 84484; 85025; 85610; 85730; 92978; 93005; 93017; 93306; 93458; 96372; 96374; 99285

== ENCOUNTER 2025-02-25 08:00 | Day surgery (SDC) | payer MEDICARE, OTHER ==
[~2025-02-25 08:00] MED LIST changes: -LACTATED RINGERS 1,000 ML IV SCH; +MIDAZOLAM 2 MG/2 ML VIAL IV PRN; +SODIUM CHLORIDE 0.9% 1,000 ML IV SCH; +fentaNYL (PF) 50 MCG/ML 2 ML AMP IVP PRN; +fentaNYL (PF) 50 MCG/ML 5 ML AMP IVP PRN
[2025-02-25] MEDS: SODIUM CHLORIDE 0.9% 1,000 ML IV ONE (08:32)
[2025-02-25 08:34] VITALS: RESP 16; TEMP 97
[2025-02-25] MEDS ORDERED: BENZOCAINE SPRAY 1 EACH MM SCH (09:00)
[2025-02-25] MEDS: BENZOCAINE SPRAY 1 EACH MUCOUS MEM ONE (10:30)
[2025-02-25] MEDS: fentaNYL (PF) 50 MCG/ML 2 ML AMP IVP ONE (10:31)
[2025-02-25] MEDS: MIDAZOLAM 2 MG/2 ML VIAL IVP ONE (10:31)
[2025-02-25] MEDS: IV FLUID CONTINUATION 1,000 ML IV ONE (12:19)
--- NOTE | 2025-02-26 03:07 | ECHOT ---
TRANSESOPHAGEAL ECHOCARDIOGRAM INDICATION: Mitral regurgitation. PROCEDURE NOTE: After obtaining informed consent, transesophageal echocardiogram was performed in left lateral position using an Omniplane probe. Local and IV sedation were obtained using Xylocaine spray, Versed, and fentanyl. The patient tolerated the procedure well without any obvious immediate complications. Total sedation time was 10 minutes. FINDINGS: 1. Mitral valve shows mitral annular calcification with a dilated mitral anulus with moderate to severe central mitral regurgitation. 2. Left atrium appears enlarged. Right atrium and right ventricle seen within normal limits. 3. Left ventricle is mildly enlarged. Inferior wall is akinetic with severe LV systolic dysfunction with an ejection fraction of 35%. Aortic valve is a 3-leaflet valve. There is no evidence of aortic stenosis or regurgitation. There is mild tricuspid regurgitation noted. Aortic root appears normal. CONCLUSIONS: 1. Moderate to severe central mitral regurgitation related to ischemic cardiomyopathy. 2. Severe LV dysfunction with an ejection fraction of 35%. PLAN: The patient is being evaluated at [facility]. I will send the [facility] information to them. MMODL / IJN: [id number] /
[2025-02-26 07:28] VITALS: BP 107/53; PULSE 73
== END 2025-02-25 12:19 | disposition home or self-care (01) ==
LOC: CATHCVL 08:00
PROVIDERS: ATTEND Internal Medicine Cardiovascular Disease
DX: I08.1 Rheumatic disorders of both mitral and tricuspid valves (principal); I11.0 Hypertensive heart disease with heart failure; I50.22 Chronic systolic (congestive) heart failure; I25.5 Ischemic cardiomyopathy; I25.10 Atherosclerotic heart disease of native coronary artery without angina pectoris; Z95.5 Presence of coronary angioplasty implant and graft; I73.9 Peripheral vascular disease, unspecified; Z79.620 Long term (current) use of immunosuppressive biologic; Z79.82 Long term (current) use of aspirin; Z79.02 Long term (current) use of antithrombotics/antiplatelets; Z79.84 Long term (current) use of oral hypoglycemic drugs; Z79.899 Other long term (current) drug therapy; Z87.891 Personal history of nicotine dependence; Z88.0 Allergy status to penicillin; Z88.8 Allergy status to other drugs, medicaments and biological substances; Z91.040 Latex allergy status
CPT/HCPCS: 93312; 93320; 93325; J2250; J3010

== ENCOUNTER → 2025-05-07 | Outpatient (CLI) | payer MEDICARE, OTHER ==
--- NOTE | 2025-05-07 11:44 | MM ---
Reason for Exam: Screening (asymptomatic). Last screening mammogram was performed 12 month(s) ago. Patient History: Menarche at age 15. First Full-Term at age 25. Left ovary removed at age 34. Right ovary removed at age 34. Hysterectomy at age 34. Postmenopausal. Estrogen for 10 years from age 34 until age 44. Core Biopsy on the Left side. 02/12/2018, Benign Core Biopsy on the right side. 02/12/2018, Benign Core Biopsy on the right side. 10/06/2005, Benign Core Biopsy on the left side. 08/21/2001, Benign Stereotactic Core Biopsy on the left side. Maternal cousin had breast cancer, age 18. Maternal aunt had breast cancer, age 60. Maternal aunt had breast cancer, age 55. Sister had breast cancer, age 62. Sister had breast cancer, age 54. Risk Values: Hannah 5 year model risk: 9.6%. NCI Lifetime model risk: 21.9%. Prior Study Comparison: 02/12/2018 Right Diagnostic Mammogram, [facility]. 08/03/2018 Right Diagnostic Mammogram, [facility]. 02/07/2019 Bilateral Diagnostic Mammogram, [facility]. 04/10/2020 Bilateral Diagnostic Mammogram, [facility]. 04/21/2021 Bilateral Diagnostic Mammogram, [facility]. 04/22/2022 Bilateral MG 3D screening mammo w/cad, [facility]. 04/26/2023 Bilateral MG 3D screening mammo w/cad, [facility]. 04/29/2024 Bilateral MG 3D screening mammo w/cad, [facility]. Tissue Density: The breasts are heterogeneously dense, which may obscure small masses. Findings: Analyzed By CAD. A left axillary pacemaker device is now partially imaged. There are biopsy clips in bilateral breasts redemonstrated. There are benign-appearing round and vascular calcifications bilaterally redemonstrated. There is no suspicious group of microcalcifications or new suspicious mass in either breast. Overall Assessment: Benign, BI-RAD 2 Management: Screening Mammogram of both breasts in 1 year. . Patient should continue monthly self-breast exams. A clinical breast exam by your physician is recommended on an annual basis. This exam should not preclude additional follow-up of suspicious palpable abnormalities. Note on Hannah scores and lifetime risk: 1. A Hannah score greater than 3% is considered moderate risk. If this is the case, consider specialist referral to assess eligibility for a risk reducing agent. 2. If overall lifetime risk for the development of breast cancer is 20% or higher, the patient may qualify for future screening with alternating mammogram and breast MRI. [facility], , 05/07/2025 11:41 AM. Electronically signed and approved by: Corbin Duenas M.D.
== END | disposition home or self-care (01) ==
LOC: RADMAMWWP 10:58
PROVIDERS: ATTEND Family Medicine
DX: Z12.31 Encounter for screening mammogram for malignant neoplasm of breast (principal); R92.333 Mammographic heterogeneous density, bilateral breasts; R92.1 Mammographic calcification found on diagnostic imaging of breast; Z78.0 Asymptomatic menopausal state; Z80.3 Family history of malignant neoplasm of breast
CPT/HCPCS: 77063; 77067

== ENCOUNTER 2025-05-12 07:12 | Emergency (ER) | payer MEDICARE, OTHER ==
[2025-05-12 07:19] VITALS: TEMP 98.1
--- NOTE | 2025-05-12 07:41 | ED ---
General Adult HPI - General Chief complaint: Abdominal Pain Stated complaint: abd pain Time Seen by Provider: 05/12/25 07:14 Source: patient, EMS, RN notes reviewed, old records reviewed Mode of arrival: EMS Limitations: no limitations - History of Present Illness Initial comments: 74-year-old female with history of CAD history of colitis and diverticulitis presenting for evaluation of lower abdominal pain. Patient is currently being treated for urinary tract infection and is on Cipro. She states that she has been having pain for several days. She had developed an upper abdominal and lower chest pain just prior to arrival and was concerned. This was not associated with vomiting or diaphoresis. Patient's upper abdominal pain is resolved at the time my evaluation but she continues to complain of lower abdominal pain. - Related Data Home Medications Medication Instructions Recorded Confirmed Fluticasone Propionate [Flonase] 2 spray EA NOSTRIL DAILY 08/02/14 02/24/25 Acetaminophen-Codeine 300-30mg 1 tab PO TID PRN 09/23/18 02/25/25 [Tylenol w/codeine #3] Fexofenadine HCl [Barby Allergy] 180 mg PO DAILY 01/30/19 02/24/25 Acetaminophen Tab [Tylenol] 500 mg PO DAILY PRN 06/09/21 02/24/25 Albuterol Sulfate [Ventolin HFA] 2 puff INHALATION RT-Q6H PRN 06/09/21 02/24/25 Adalimumab [Humira Pen 40 mg SQ TH 11/27/21 02/25/25 Crohn's-Uc-Hs] Aspirin EC [Ecotrin Low Dose] 81 mg PO DAILY 11/27/21 02/24/25 Cyanocobalamin (Vitamin B-12) 5,000 mcg PO DAILY 11/27/21 02/24/25 [Vitamin B-12] Lansoprazole [Prevacid] 30 mg PO BID 11/27/21 02/24/25 Metoprolol Succinate [Toprol XL] 50 mg PO DAILY 11/27/21 02/24/25 Rosuvastatin Calcium [Crestor] 40 mg PO HS 11/27/21 02/24/25 Spironolactone [Aldactone] 25 mg PO DAILY 11/27/21 02/24/25 Cholecalciferol (Vitamin D3) 50 mcg PO DAILY 10/27/24 02/24/25 [Vitamin D3 (50 Mcg = 2000 Iu)] Cyclosporine (Cequa) 0.09% 1 drop BOTH EYES BID 10/27/24 02/24/25 [place]rette Ampicillin Trihydrate 500 mg PO TID 02/24/25 02/24/25 Furosemide [Lasix] 20 mg PO MOWEFR 02/24/25 02/25/25 L.acidoph,Paracasei, B.lactis 1 each PO DAILY 02/24/25 02/24/25 [Probiotic] Sacubitril/Valsartan [Entresto 49 1 each PO BID 02/24/25 02/24/25 mg-51 mg Tablet] Previous Rx's Medication Instructions Recorded Ticagrelor [Brilinta] 90 mg PO BID 90 Days #90 tab 10/30/24 Amoxic-Pot Clav 875-125Mg 1 tab PO Q12HR 10 Days #20 tab 05/12/25 [Augmentin 875-125] Allergies Allergy/AdvReac Type Severity Reaction Status Date / Time atorvastatin [From Lipitor] Allergy Swelling Verified 05/12/25 07:19 ciprofloxacin [From Cipro] Allergy Rash/Hives Verified 05/12/25 07:19 clindamycin Allergy Rash/Hives Verified 05/12/25 07:19 dicloxacillin Allergy Nausea & Verified 05/12/25 07:19 Vomiting & Diarrhea doxazosin mesylate Allergy Rash/Hives Verified 05/12/25 07:19 [From Cardura] doxycycline Allergy Nausea & Verified 05/12/25 07:19 Vomiting,HEADACHE duloxetine [From Cymbalta] Allergy Abdominal Verified 05/12/25 07:19 Pain, ROQUE gatifloxacin [From Tequin] Allergy Abdominal Verified 05/12/25 07:19 Pain,VOMITING hydrochlorothiazide Allergy vomiting, Verified 05/12/25 07:19 bad headache iodine povacrylex Allergy Rash/Hives Verified 05/12/25 07:19 [From DuraPrep] isopropyl alcohol Allergy Rash/Hives Verified 05/12/25 07:19 [From DuraPrep] latex Allergy Rash/Hives Verified 05/12/25 07:19 lisinopril Allergy VERTIGO,HEA Verified 05/12/25 07:19 DACHE nabumetone [From Relafen] Allergy Abdominal Verified 05/12/25 07:19 Pain nitrofurantoin Allergy fever, Verified 05/12/25 07:19 [From Macrobid] chills povidone-iodine Allergy Rash/Hives Verified 05/12/25 07:19 [From Betadine] soap [From Betadine] Allergy Rash/Hives Verified 05/12/25 07:19 sulfasalazine Allergy Abdominal Verified 05/12/25 07:19 [From Azulfidine] Pain,VOMITING triamcinolone acetonide Allergy SEVERE Verified 05/12/25 07:19 [From Kenalog] HEADACHE dapagliflozin [From Farxiga] AdvReac dehydrated Verified 05/12/25 07:19 doxazosin [From Cardura] AdvReac Vomiting Verified 05/12/25 07:19 ezetimibe AdvReac Weakness Verified 05/12/25 07:19 indapamide [From Lozol] AdvReac Abdominal Verified 05/12/25 07:19 Pain Review of Systems ROS Statement: Those systems with pertinent positive or pertinent negative responses have been documented in the HPI. ROS Other: All systems not noted in ROS Statement are negative. Past Medical History Past Medical History: Asthma, Heart Failure, Diabetes Mellitus, Eye Disorder, GERD/Reflux, GI Bleed, Hyperlipidemia, Hypertension, Myocardial Infarction (TX), Osteoarthritis (OA) Additional Past Medical History / Comment(s): past hx. microperforations of diverticulitis-treated with ABX. Other HX: Lower GI bleeds, crohn's dx, IBS, hemorrhoids, PUD, arthritis bilateral hands and feet, chronic back pain, macular degeneration bilateral eyes, sinus problems, bronchitis, migraines, bilateral kidney stones, past hx. anemia, hypoglycemia, spider veins bilateral legs. current tx. for UTI, no current meds for diabetes, increasing SOB w/exertion recently, leaky valve Last Myocardial Infarction Date:: 07/2021 History of Any Multi-Drug Resistant Organisms: None Reported Past Surgical History: Adenoidectomy, AICD, Bladder Surgery, Heart Catheterization With Stent, Hysterectomy, Orthopedic Surgery, Tonsillectomy Additional Past Surgical History / Comment(s): Several EGDs with bx and colonoscopies with bx, gastrectomy for ulcers (40% stomach removed),cystoscopy x2, R/L shoulder rotator cuff arthroscopies, bilateral CATARACT SURGERY with lens implants; Sinus Surgery x 2, Left Breast biopsy x 2-benign, 2nd toe R foot with hardware. Past Anesthesia/Blood Transfusion Reactions: Postoperative Nausea & Vomiting (PONV) Additional Past Anesthesia/Blood Transfusion Reaction / Comment(s): Pt states she did receive blood in 2009 with GI bleed-no reaction. rise in b/p after last injection in back Date of Last Stent Placement:: 2023 Type of Cardiac Device: AICD Device Placement Date:: 2022 Past Psychological History: No Psychological Hx Reported Smoking Status: Former smoker - Past Family History Father Family Medical History: Cancer Additional Family Medical History / Comment(s): Father had prostate cancer that went to the bone. He at the age of 79yrs. Mother Family Medical History: Cancer, Congestive Heart Failure (CHF) Additional Family Medical History / Comment(s): Mother of lymphoma at the age of 81 yrs. Sister(s) Family Medical History: Cancer Additional Family Medical History / Comment(s): breast cancer x2 sisters General Exam Limitations: no limitations General appearance: alert, in no apparent distress Head exam: Present: atraumatic, normocephalic Eye exam: Present: normal appearance, PERRL Neck exam: Present: normal inspection. Absent: tenderness, meningismus Respiratory exam: Present: normal lung sounds bilaterally. Absent: respiratory distress, wheezes Cardiovascular Exam: Present: regular rate, normal rhythm GI/Abdominal exam: Present: soft, tenderness (Lower bilateral). Absent: distended, guarding Neurological exam: Present: alert, oriented X3, CN II-XII intact, normal gait. Absent: motor sensory deficit Psychiatric exam: Present: normal affect, normal mood Skin exam: Present: warm, dry, intact. Absent: cyanosis, diaphoretic, erythema Course Vital Signs 05/12/25 05/12/25 07:16 09:34 Temperature 98.1 F Pulse Rate 73 66 Respiratory 18 16 Rate Blood Pressure 134/61 142/61 O2 Sat by Pulse 100 100 Oximetry Medical Decision Making - Medical Decision Making Was pt. sent in by a medical professional or institution (, PA, [facility], urgent care, hospital, or fpc...) When possible be specific @ -No Did you speak to anyone other than the patient for history (EMS, parent, family, police, friend...)? What history was obtained from this source @ -No Did you review nursing and triage notes (agree or disagree)? Why? @ -I reviewed and agree with nursing and triage notes Were old charts reviewed (outside hosp., previous admission, EMS record, old EKG, old radiological studies, urgent care reports/EKG's, fpc records)? Report findings @ -No old charts were reviewed Differential Abdominal Pain Women: Appendicitis, Cholecystitis, diverticulosis, ischemic bowel, pancreatitis, hepatitis, UTI, gastroenteritis, AAA, incarcerated hernia, bowel obstruction, constipation, inflammatory bowel, hepatitis, peptic ulcer disease, splenic infarction, perforated viscus, vulvitis, ovarian torsion, PID, kidney stone, placenta abruption, this is not meant to be an all-inclusive list EKG interpreted by me (3pts min.). @[place] rhythm rate of 69, [place] interval 174, QRS duration 116, QTc [address] segment elevation. X-rays interpreted by me (1pt min.). @ -None done CT interpreted by me (1pt min.). @ -CT of the abdomen pelvis showing a mild colitis and diverticulitis U/S interpreted by me (1pt. min.). @ -None done What testing was considered but not performed or refused? (CT, X-rays, U/S, labs)? Why? @ -None What meds were considered but not given or refused? Why? @ -None Did you discuss the management of the patient with other professionals (professionals i.e. , PA, [facility], lab, RT, psych nurse, social work faculty member, obstetrician/gynecologist, teacher, supervisory cbp officer, case assistant)? Give summary @ -No Was smoking cessation discussed for >3mins.? @ -No Was critical care preformed (if so, how long)? @ -No Were there social determinants of health that impacted care today? How? (Homelessness, low income, unemployed, alcoholism, drug addiction, transportation, low edu. Level, literacy, decrease access to med. care, fci, rehab)? @ -No Was there de-escalation of care discussed even if they declined (Discuss DNR or withdrawal of care, Hospice)? DNR status @ -No What co-morbidities impacted this encounter? (DM, HTN, Smoking, COPD, CAD, Cancer, CVA, ARF, Chemo, Hep., AIDS, mental health diagnosis, sleep apnea, morbid obesity)? @ -Colitis Was patient admitted / discharged? Hospital course, mention meds given and route, prescriptions, significant lab abnormalities, going to OR and other pertinent info. @ -74-year-old female presenting with lower abdominal pain. There was a brief episode of upper abdominal pain. EKG and troponin was ordered this was unremarkable. Patient has normal CBC. Normal CMP. Patient's urinalysis shows 17 white cells. She does have CT evidence of colitis and diverticulitis. Patient reevaluated, pain resolved. Afebrile with stable vitals. Stable for discharge at this time. Undiagnosed new problem with uncertain prognosis? @ -No Drug Therapy requiring intensive monitoring for toxicity (Heparin, Nitro, Insulin, Cardizem)? @ -No Were any procedures done? @ -No Diagnosis/symptom? @ -[Mild diverticulitis Acute, or Chronic, or Acute on Chronic? @ -Acute Uncomplicated (without systemic symptoms) or Complicated (systemic symptoms)? @ -Default Side effects of treatment? @ -No Exacerbation, Progression, or Severe Exacerbation? @ -No Poses a threat to life or bodily function? How? (Chest pain, [place], [place], pneumonia, PE, COPD, DKA, ARF, appy, cholecystitis, CVA, Diverticulitis, Homicidal, Suicidal, threat to staff... and all critical care pts) @ -No - Lab Data Result diagrams: 05/12/25 07:55 05/12/25 07:55 Lab Results 05/12/25 05/12/25 05/12/25 Range/Units 07:55 07:55 07:55 WBC 8.07 (4.50-10.00) 10*3/uL RBC 4.32 (4.10-5.20) 10*6/uL Hgb 12.5 (12.0-15.0) g/dL Hct 39.2 (37.2-46.3) % MCV 90.7 (80.0-97.0) fL MCH 28.9 (27.0-32.0) pg MCHC 31.9 L (32.0-37.0) g/dL Plt Count 197 (140-440) 10*3/uL MPV 10.5 (9.5-12.2) fL Immature Gran % (Auto) 0.4 % Neutrophils % 70.2 % Lymphocytes % 21.9 % Monocytes % 5.5 % Eosinophils % 1.6 % Basophils % 0.4 % Immature Gran # 0.03 (0.00-0.04) 10*3/uL Neutrophils # 5.67 (1.80-7.70) 10*3/uL Lymphocytes # 1.77 (0.90-5.00) 10*3/uL Monocytes # 0.44 (0.20-1.00) 10*3/uL Eosinophils # 0.13 (0.04-0.35) 10*3/uL Basophils # 0.03 (0.00-0.10) 10*3/uL PT 11.2 (10.0-12.5) sec INR 1.0 (<1.2) APTT 23.1 (22.0-30.0) sec Sodium (137-145) mmol/L Potassium (3.5-5.1) mmol/L Chloride (98-107) mmol/L Carbon Dioxide (22-30) mmol/L Anion Gap mmol/L BUN (7-17) mg/dL Creatinine (0.52-1.04) mg/dL Est GFR (CKD-EPI)AfAm (>60 ml/min/1.73 sqM) Est GFR (CKD-EPI)NonAf (>60 ml/min/1.73 sqM) Glucose (74-99) mg/dL Plasma Lactic Acid Amanuel (0.7-2.0) mmol/L Calcium (8.4-10.2) mg/dL Total Bilirubin (0.2-1.3) mg/dL AST (14-36) U/L ALT (4-34) U/L Alkaline Phosphatase (38-126) U/L Troponin I (0.000-0.034) ng/mL Total Protein (6.3-8.2) g/dL Albumin (3.5-5.0) g/dL Amylase (30-110) U/L Lipase (23-300) U/L Urine Color Colorless Urine Appearance Clear (Clear) Urine pH 5.5 (5.0-8.0) Ur Specific [place] 1.012 (1.001-1.035) Urine Protein Negative (Negative) Urine Glucose (UA) Negative (Negative) Urine Ketones Negative (Negative) Urine Blood Trace H (Negative) Urine Nitrite Negative (Negative) Urine Bilirubin Negative (Negative) Urine Urobilinogen <2.0 (<2.0) mg/dL Ur Leukocyte Esterase Small H (Negative) Urine RBC 1 (0-5) /hpf Urine WBC 17 H (0-5) /hpf Ur Squamous Epith Cells 1 (0-4) /hpf Urine Bacteria Rare H (None) /hpf 05/12/25 05/12/25 05/12/25 Range/Units 07:55 07:55 07:55 WBC (4.50-10.00) 10*3/uL RBC (4.10-5.20) 10*6/uL Hgb (12.0-15.0) g/dL Hct (37.2-46.3) % MCV (80.0-97.0) fL MCH (27.0-32.0) pg MCHC (32.0-37.0) g/dL Plt Count (140-440) 10*3/uL MPV (9.5-12.2) fL Immature Gran % (Auto) % Neutrophils % % Lymphocytes % % Monocytes % % Eosinophils % % Basophils % % Immature Gran # (0.00-0.04) 10*3/uL Neutrophils # (1.80-7.70) 10*3/uL Lymphocytes # (0.90-5.00) 10*3/uL Monocytes # (0.20-1.00) 10*3/uL Eosinophils # (0.04-0.35) 10*3/uL Basophils # (0.00-0.10) 10*3/uL PT (10.0-12.5) sec INR (<1.2) APTT (22.0-30.0) sec Sodium 140 (137-145) mmol/L Potassium 4.6 (3.5-5.1) mmol/L Chloride 108 H (98-107) mmol/L Carbon Dioxide 20 L (22-30) mmol/L Anion Gap 12 mmol/L BUN 23 H (7-17) mg/dL Creatinine 0.79 (0.52-1.04) mg/dL Est GFR (CKD-EPI)AfAm 87 (>60 ml/min/1.73 sqM) Est GFR (CKD-EPI)NonAf 75 (>60 ml/min/1.73 sqM) Glucose 162 H (74-99) mg/dL Plasma Lactic Acid Amanuel 1.7 (0.7-2.0) mmol/L Calcium 9.8 (8.4-10.2) mg/dL Total Bilirubin 0.5 (0.2-1.3) mg/dL AST 23 (14-36) U/L ALT 15 (4-34) U/L Alkaline Phosphatase 59 (38-126) U/L Troponin I 0.012 (0.000-0.034) ng/mL Total Protein 7.2 (6.3-8.2) g/dL Albumin 4.5 (3.5-5.0) g/dL Amylase 46 (30-110) U/L Lipase 82 (23-300) U/L Urine Color Urine Appearance (Clear) Urine pH (5.0-8.0) Ur Specific [place] (1.001-1.035) Urine Protein (Negative) Urine Glucose (UA) (Negative) Urine Ketones (Negative) Urine Blood (Negative) Urine Nitrite (Negative) Urine Bilirubin (Negative) Urine Urobilinogen (<2.0) mg/dL Ur Leukocyte Esterase (Negative) Urine RBC (0-5) /hpf Urine WBC (0-5) /hpf Ur Squamous Epith Cells (0-4) /hpf Urine Bacteria (None) /hpf Disposition Clinical Impression: Diverticulitis Disposition: HOME SELF-CARE Condition: Fair Instructions (If sedation given, give patient instructions): Diverticulitis (ED) Additional Instructions: Please monitor for fever, worsening pain, any new concerns. [facility] to the [facility] as needed Prescriptions: Amoxic-Pot Clav 875-125Mg [Augmentin 875-125] 1 tab PO Q12HR 10 Days #20 tab Is patient prescribed a controlled substance at d/c from ED?: No Referrals: Cecille Mckenna MD [Primary Care Provider] - 1-2 days Time of Disposition: 10:08
[2025-05-12] MEDS: MORPHINE SULFATE 2 MG/ML SYRINGE IVP STA (07:55)
[2025-05-12 08:10] LABS: Basophils # (A) 0.03 10*3/uL (0.00-0.10); Basophils % (A) 0.4 %; Eosinophils # (A) 0.13 10*3/uL (0.04-0.35); Eosinophils % (A) 1.6 %; HCT 39.2 % (37.2-46.3); HGB 12.5 g/dL (12.0-15.0); Lymphocytes # (A) 1.77 10*3/uL (0.90-5.00); Lymphocytes % (A) 21.9 %; MCH 28.9 pg (27.0-32.0); MCHC 31.9 g/dL (32.0-37.0); MCV 90.7 fL (80.0-97.0); Monocytes # (A) 0.44 10*3/uL (0.20-1.00); Monocytes % (A) 5.5 %; Neutrophils # (A) 5.67 10*3/uL (1.80-7.70); Neutrophils % (A) 70.2 %; Platelet Count 197 10*3/uL (140-440); RBC 4.32 10*6/uL (4.10-5.20); RDW 13.7 % (11.5-14.5); WBC 8.07 10*3/uL (4.50-10.00)
[2025-05-12 08:14] LABS: Bacteria,Urine Rare /hpf; Bilirubin,Urine Negative (Negative); Blood,Urine Trace (Negative); Color,Urine Colorless; Glucose,Urine (UA) Negative (Negative); Ketones,Urine Negative (Negative); Leukocyte Esterase,Urine Small (Negative); Nitrite,Urine Negative (Negative); PH, Urine 5.5 (5.0-8.0); Protein,Urine Negative (Negative); RBC,Urine 1 /hpf (0-5); Specific Gravity,Urine 1.012 (1.001-1.035); Squamous Epithelial Cell,Urine 1 /hpf (0-4); Urobilinogen,Urine <2.0 mg/dL (<2.0); WBC,Urine 17 /hpf (0-5)
[2025-05-12 08:28] LABS: ALT 15 U/L (4-34); AST 23 U/L (14-36); African American GFR (CKD) 87 (>60 ml/min/1.73 sqM); Albumin 4.5 g/dL (3.5-5.0); Alkaline Phosphatase 59 U/L (38-126); Amylase 46 U/L (30-110); Anion Gap 12 mmol/L; Blood Urea Nitrogen 23 mg/dL (7-17); Calcium 9.8 mg/dL (8.4-10.2); Carbon Dioxide 20 mmol/L (22-30); Chloride 108 mmol/L (98-107); Glucose 162 mg/dL (74-99); Lipase 82 U/L (23-300); Non-African American GFR(CKD) 75 (>60 ml/min/1.73 sqM); Potassium 4.6 mmol/L (3.5-5.1); Sodium 140 mmol/L (137-145); Total Protein 7.2 g/dL (6.3-8.2)
[2025-05-12 08:30] LABS: INR 1.0 (<1.2); Partial Thromboplastin Time 23.1 sec (22.0-30.0); Prothrombin Time 11.2 sec (10.0-12.5)
[2025-05-12] MEDS: diphenhydrAMINE 50 MG/ML 1 ML VIAL IVP STA (08:40)
[2025-05-12] MEDS: FAMOTIDINE 20 MG/2 ML VIAL IV STA (08:44)
[2025-05-12] MEDS: methylPREDNISolone SOD SUCCI 125 MG/2 ML VIAL IV STA (08:47)
[2025-05-12 09:35] VITALS: BP 142/61; PULSE 66; RESP 16
--- NOTE | 2025-05-12 09:55 | CT ---
EXAMINATION TYPE: CT abdomen pelvis w con DATE OF EXAM: 05/12/2025 9:26 AM COMPARISON: 02/15/2024. CLINICAL INDICATION: Female, 74 years old with history of abdominal pain; abdominal pain, pt has jatin rgy to iodine and was premedicated TECHNIQUE: Axial CT abdomen pelvis w con;Sagittal and coronal reformats were created on a separate w orkstation. Contrast used:100ml mL of Isovue 300 with IV Contrast, (none if empty) Oral contrast used: without Oral Contrast (none if empty) CT DLP: 672.6 mGycm, Automated exposure control for dose reduction was used. FINDINGS: LOWER CHEST: Heart is mildly enlarged for size. Cardiac conduction leads partially visualized. Surgic al clips seen around the gastroesophageal junction. ABDOMEN LIVER: Unremarkable GALLBLADDER AND BILE DUCTS: Dilated common bile duct up to 8 mm which is borderline enlarged. No chol edocholithiasis visualized. PANCREAS: Unremarkable. SPLEEN: Unremarkable. ADRENAL GLANDS: Unremarkable. KIDNEYS AND URETERS: No evidence of hydronephrosis or obstructing renal calculus. The ureters are unr emarkable. Renal pelves bilaterally. PELVIS BLADDER: No evidence for wall thickening or mass given limitations of exam. REPRODUCTIVE: The uterus is surgically absent. ABDOMEN & PELVIS STOMACH AND BOWEL: No evidence of bowel obstruction. Mild wall thickening in the sigmoid colon with m ultiple diverticula present. There may be some mild inflammation changes surrounding the diverticula. The appendix is normal. Suture seen along the stomach also present. PERITONEUM/RETROPERITONEUM: No evidence of pneumoperitoneum or free fluid. VASCULATURE: Severe atherosclerotic calcifications are present throughout the abdominal aorta and its branches. No evidence of aortic aneurysm. Right common femoral stent graft appears patent. MUSCULOSKELETAL: No acute osseous abnormalities. Moderate disc degeneration changes are present throu ghout the thoracolumbar spine. Grade 1 anterolisthesis of L4 on L5. LYMPH NODES: No gross evidence for lymphadenopathy. SOFT TISSUE/ABDOMINAL WALL: Unremarkable IMPRESSION: 1. Extensive colonic diverticula in the sigmoid colon some of which may have inflammation around the m. Correlate for mild diverticulitis/colitis. 2. Prominence of the extrahepatic biliary system. No radiolucent choledocholithiasis visualized. 3. Normal appendix. No evidence for obstructive uropathy. Prominent bilateral renal pelves. 4. Postsurgical change the gastroesophageal junction in the stomach. 5. Grade 1 anterolisthesis of L4 on L5. [facility], , 05/12/2025 9:52 AM
== END 2025-05-12 10:36 | disposition home or self-care (01) ==
LOC: EC 07:12
DX: K57.32 Diverticulitis of large intestine without perforation or abscess without bleeding (principal); Z87.891 Personal history of nicotine dependence; Z88.0 Allergy status to penicillin; Z88.1 Allergy status to other antibiotic agents; Z88.2 Allergy status to sulfonamides; Z91.040 Latex allergy status; Z88.8 Allergy status to other drugs, medicaments and biological substances
CPT/HCPCS: 36415; 93005; 80053; 82150; 83605; 83690; 84484; 85025; 85610; 85730; 81001; 87086; 74177; 99285; 96374; 96375; J1200; J2270; Q9967; J2919; J1308